=== PATIENT | female | born 1940 | race Caucasian/White ===

== ENCOUNTER → 2016-07-17 | Outpatient (CLI) | payer MEDICARE, OTHER ==
[2016-07-17 13:06] LABS: PROTHROMBIN TIME 26.6 SEC (11.4-15.4)
[2016-07-17 13:23] LABS: ANION GAP 14 (5-19); BLOOD UREA NITROGEN 36 mg/dL (7-20); CALCIUM 9.7 mg/dL (8.4-10.2); CARBON DIOXIDE 21 mmol/L (22-30); CHLORIDE 108 mmol/L (98-107); CREATININE RESULT 1.21 mg/dL (0.52-1.25); GLUCOSE 67 mg/dL (75-110); POTASSIUM 4.8 mmol/L (3.6-5.0); SODIUM 143.2 mmol/L (137-145)
== END ==
LOC: OD 11:53
PROVIDERS: ATTEND Internal Medicine Cardiovascular Disease
DX: Z79.01 Long term (current) use of anticoagulants (principal); Z79.899 Other long term (current) drug therapy
CPT/HCPCS: 36415; 80048; 85610

== ENCOUNTER → 2016-08-02 | Outpatient (CLI) | payer MEDICARE, OTHER ==
[2016-08-02 11:52] LABS: PROTHROMBIN TIME 26.2 SEC (11.4-15.4)
== END ==
LOC: OD 10:43
PROVIDERS: ATTEND Internal Medicine Cardiovascular Disease
DX: Z79.01 Long term (current) use of anticoagulants (principal)
CPT/HCPCS: 36415; 85610

== ENCOUNTER → 2016-08-29 | Outpatient (CLI) | payer MEDICARE, OTHER ==
[2016-08-29 12:09] LABS: PROTHROMBIN TIME 21.3 SEC (11.4-15.4)
== END ==
LOC: OD 10:59
PROVIDERS: ATTEND Internal Medicine Cardiovascular Disease
DX: Z79.01 Long term (current) use of anticoagulants (principal)
CPT/HCPCS: 36415; 85610

== ENCOUNTER → 2016-09-11 | Outpatient (CLI) | payer MEDICARE, OTHER ==
[2016-09-11 12:43] LABS: ANION GAP 11 (5-19); BLOOD UREA NITROGEN 32 mg/dL (7-20); CALCIUM 9.4 mg/dL (8.4-10.2); CARBON DIOXIDE 22 mmol/L (22-30); CHLORIDE 106 mmol/L (98-107); CREATININE RESULT 1.32 mg/dL (0.52-1.25); GLUCOSE 109 mg/dL (75-110); MAGNESIUM 2.4 mg/dL (1.6-2.3); POTASSIUM 4.5 mmol/L (3.6-5.0); SODIUM 138.9 mmol/L (137-145)
[2016-09-12 12:46] LABS: PROTHROMBIN TIME 29.9 SEC (11.4-15.4)
== END ==
LOC: OD 11:06
PROVIDERS: ATTEND Internal Medicine Cardiovascular Disease
DX: R06.02 Shortness of breath (principal); Z79.01 Long term (current) use of anticoagulants; Z79.899 Other long term (current) drug therapy
CPT/HCPCS: 36415; 80048; 83735; 83880; 85610

== ENCOUNTER → 2016-09-25 | Outpatient (CLI) | payer MEDICARE, OTHER ==
[2016-09-25 11:35] LABS: HEMATOCRIT 34.7 % (36.0-47.0); HEMOGLOBIN 11.6 g/dL (12.0-15.5); HGB HCT DIFFERENCE 0.1; MEAN CORPUSCULAR HEMOGLOBIN 27.9 pg (27.0-33.4); MEAN CORPUSCULAR HGB CONC 33.4 g/dL (32.0-36.0); MEAN CORPUSCULAR VOLUME 84 fl (80-97); RED BLOOD COUNT 4.14 10^6/uL (3.72-5.28); RED CELL DISTRIBUTION WIDTH 15.3 % (11.5-14.0); WHITE BLOOD COUNT 7.4 10^3/uL (4.0-10.5)
[2016-09-25 11:42] LABS: PROTHROMBIN TIME 26.5 SEC (11.4-15.4)
[2016-09-25 11:48] LABS: APPEARANCE,URINE CLEAR; BILIRUBIN,URINE NEGATIVE (NEGATIVE); GLUCOSE, URINE NEGATIVE (NEGATIVE); KETONES,URINE NEGATIVE (NEGATIVE); LEUKOCYTE ESTERASE,URINE TRACE (NEGATIVE); NITRITE,URINE NEGATIVE (NEGATIVE); PROTEIN,URINE NEGATIVE (NEGATIVE); URINE SPECIFIC GRAVITY 1.008; UROBILINOGEN,URINE NEGATIVE mg/dL (<2.0)
[2016-09-25 11:53] LABS: ANION GAP 13 (5-19); BLOOD UREA NITROGEN 30 mg/dL (7-20); CALCIUM 9.5 mg/dL (8.4-10.2); CARBON DIOXIDE 23 mmol/L (22-30); CHLORIDE 105 mmol/L (98-107); CREATININE RESULT 1.21 mg/dL (0.52-1.25); GLUCOSE 109 mg/dL (75-110); POTASSIUM 4.8 mmol/L (3.6-5.0); SODIUM 140.8 mmol/L (137-145)
== END ==
LOC: OD 10:31
PROVIDERS: ATTEND Internal Medicine Nephrology
DX: I12.9 Hypertensive chronic kidney disease with stage 1 through stage 4 chronic kidney disease, or unspecified chronic kidney disease (principal); N18.4 Chronic kidney disease, stage 4 (severe); I50.9 Heart failure, unspecified; E11.9 Type 2 diabetes mellitus without complications; Z79.01 Long term (current) use of anticoagulants
CPT/HCPCS: 36415; 80048; 81001; 85027; 85610

== ENCOUNTER 2016-10-05 11:59 | Observation (INO) | payer MEDICARE, OTHER ==
--- NOTE | 2016-10-05 12:17 | ER Document Report ---
ED Medical Screen (RME) - General Stated Complaint: CHEST PAIN Notes: Patient complains of intermittent chest pain since Saturday or Saturday. Feels like spasms. Patient has a history of A. fib, hypertension and diabetes. Patient also has a history of COPD and is experiencing shortness of breath. No pain radiation. Patient already took 81 mg aspirin this morning. I have greeted and performed a rapid initial assessment of this patient. A comprehensive ED assessment and evaluation of the patient, analysis of test results and completion of the medical decision making process will be conducted by additional ED providers. TRAVEL OUTSIDE OF THE [place] IN LAST 30 DAYS: No - Related Data Allergies/Adverse Reactions: No Known Allergies Allergy (Verified 10/05/16 12:16) Past Medical History - Past Medical History Cardiac Medical History: Reports: Hx Atrial Fibrillation, Hx Congestive Heart Failure, Hx Hypercholesterolemia, Hx Hypertension - MEDICATION Denies: Hx Heart Attack Pulmonary Medical History: Reports: Hx COPD Denies: Hx Asthma, Hx Tuberculosis Neurological Medical History: Reports: Hx Cerebrovascular Accident - 1997. Denies: Hx Seizures Endocrine Medical History: Reports: Hx Diabetes Mellitus Type 2 GI Medical History: Reports: Hx Ulcer - APPROX 98 BUT HASN'T SINCE THEN. Denies : Hx Hiatal Hernia Past Surgical History: Reports: Hx Cholecystectomy, Hx Orthopedic Surgery - L hip, Hx Thyroid Surgery. Denies: Hx Hysterectomy, Hx Mastectomy, Hx Open Heart Surgery - Immunizations Hx Diphtheria, Pertussis, Tetanus Vaccination: Yes Physical Exam - Cardiovascular Rhythm: Irregularly irregular
[2016-10-05] MEDS ORDERED: ASPIRIN 81 MG TABLET, CHEWABLE PO ONE (12:18)
[2016-10-05 12:57] LABS: ABSOLUTE BASOPHILS # (AUTO) 0.1 10^3/uL (0.0-0.2); ABSOLUTE EOSINOPHILS # (AUTO) 0.2 10^3/uL (0.0-0.6); ABSOLUTE LYMPHOCYTES (AUTO) 1.5 10^3/uL (0.5-4.7); BASOPHILS % (AUTO) 1.2 % (0-2); EOSINOPHILS % (AUTO) 1.7 % (0-6); HEMATOCRIT 35.6 % (36.0-47.0); HEMOGLOBIN 11.9 g/dL (12.0-15.5); HGB HCT DIFFERENCE 0.1; LYMPHOCYTES % (AUTO) 11.7 % (13-45); MEAN CORPUSCULAR HEMOGLOBIN 28.1 pg (27.0-33.4); MEAN CORPUSCULAR HGB CONC 33.3 g/dL (32.0-36.0); MEAN CORPUSCULAR VOLUME 84 fl (80-97); MONOCYTES % (AUTO) 7.7 % (3-13); RED BLOOD COUNT 4.23 10^6/uL (3.72-5.28); RED CELL DISTRIBUTION WIDTH 15.4 % (11.5-14.0); SEGMENTED NEUTROPHILS % (AUTO) 77.7 % (42-78); WHITE BLOOD COUNT 12.9 10^3/uL (4.0-10.5)
[2016-10-05 13:02] LABS: PROTHROMBIN TIME 23.2 SEC (11.4-15.4)
[2016-10-05 13:14] LABS: ALANINE AMINOTRANSFERASE 29 U/L (9-52); ALBUMIN 4.1 g/dL (3.5-5.0); ALKALINE PHOSPHATASE 70 U/L (38-126); ANION GAP 15 (5-19); ASPARTATE AMINO TRANSFERASE 23 U/L (14-36); BILIRUBIN,DIRECT 0.3 mg/dL (0.0-0.4); BILIRUBIN,TOTAL 0.7 mg/dL (0.2-1.3); BLOOD UREA NITROGEN 45 mg/dL (7-20); CALCIUM 9.6 mg/dL (8.4-10.2); CARBON DIOXIDE 24 mmol/L (22-30); CHLORIDE 103 mmol/L (98-107); CREATINE KINASE 159 U/L (30-135); CREATININE RESULT 1.41 mg/dL (0.52-1.25); GLUCOSE 144 mg/dL (75-110); POTASSIUM 4.4 mmol/L (3.6-5.0); TOTAL PROTEIN 7.2 g/dL (6.3-8.2)
[2016-10-05 13:25] LABS: CREATINE KINASE MB 2.31 ng/mL (<4.55); TROPONIN I 0.015 ng/mL
--- NOTE | 2016-10-05 13:45 | ER Document Report ---
ED General - General Chief Complaint: Chest Pain Stated Complaint: CHEST PAIN Mode of Arrival: Ambulatory Information source: Patient Notes: 76 yr old female presents with complaints of chest pain. presents with cramping on the left side today, had midsternal pain a few days ago. denies any fevers or chills, nausea or vomiting TRAVEL OUTSIDE OF THE [place] IN LAST 30 DAYS: No - HPI Onset: This morning Onset/Duration: Sudden Quality of pain: Cramping Severity: Mild Pain Level: 1 Associated symptoms: Chest pain Exacerbated by: Denies Relieved by: Denies Similar symptoms previously: No Recently seen / treated by doctor: No - Related Data Allergies/Adverse Reactions: No Known Allergies Allergy (Verified 10/05/16 12:16) Past Medical History - Social History Smoking Status: Never Smoker Cigarette use (# per day): No Chew tobacco use (# tins/day): No Smoking Education Provided: No Frequency of alcohol use: None Drug Abuse: None Family History: Reviewed & Not Pertinent Patient has suicidal ideation: No Patient has homicidal ideation: No - Past Medical History Cardiac Medical History: Reports: Hx Atrial Fibrillation, Hx Congestive Heart Failure, Hx Hypercholesterolemia, Hx Hypertension - MEDICATION Denies: Hx Heart Attack Pulmonary Medical History: Reports: Hx COPD Denies: Hx Asthma, Hx Tuberculosis Neurological Medical History: Reports: Hx Cerebrovascular Accident - 1997. Denies: Hx Seizures Endocrine Medical History: Reports: Hx Diabetes Mellitus Type 2 Renal/ Medical History: Denies: Hx Peritoneal Dialysis GI Medical History: Reports: Hx Ulcer - APPROX 98 BUT HASN'T SINCE THEN. Denies : Hx Hiatal Hernia Past Surgical History: Reports: Hx Cholecystectomy, Hx Orthopedic Surgery - L hip, Hx Thyroid Surgery. Denies: Hx Hysterectomy, Hx Mastectomy, Hx Open Heart Surgery - Immunizations Hx Diphtheria, Pertussis, Tetanus Vaccination: Yes Hx Pneumococcal Vaccination: 08/06/12 Review of Systems - Review of Systems Notes: REVIEW OF SYSTEMS: CONSTITUTIONAL : Denies fever, chills, or sweats. Denies recent illness. EENT: Denies eye, ear, throat, or mouth pain or symptoms. Denies nasal or sinus congestion or discharge. Denies throat, tongue, or mouth swelling or difficulty swallowing. CARDIOVASCULAR: admits ot chest pain RESPIRATORY: Denies cough, cold, or chest congestion. Denies shortness of breath, difficulty breathing, or wheezing. GASTROINTESTINAL: Denies abdominal pain or distention. Denies nausea, vomiting , or diarrhea. Denies blood in vomitus, stools, or per rectum. Denies black, tarry stools. Denies constipation. GENITOURINARY: Denies difficulty urinating, painful urination, burning, frequency, blood in urine, or discharge. FEMALE GENITOURINARY: Denies vaginal bleeding, heavy or abnormal periods, irregular periods. Denies vaginal discharge or odor. MUSCULOSKELETAL: Denies back or neck pain or stiffness. Denies joint pain or swelling. SKIN: Denies rash, lesions or sores. HEMATOLOGIC : Denies easy bruising or bleeding. LYMPHATIC: Denies swollen, enlarged glands. NEUROLOGICAL: Denies confusion or altered mental status. Denies passing out or loss of consciousness. Denies dizziness or lightheadedness. Denies headache. Denies weakness or paralysis or loss of use of either side. Denies problems with gait or speech. Denies sensory loss, numbness, or tingling. Denies seizures. PSYCHIATRIC: Denies anxiety or stress. Denies depression, suicidal ideation, or homicidal ideation. ALL OTHER SYSTEMS REVIEWED AND NEGATIVE. Dictation was performed using [employer] voice recognition software PHYSICAL EXAMINATION: GENERAL: Well-appearing, well-nourished and in no acute distress. HEAD: Atraumatic, normocephalic. EYES: Pupils equal round and reactive to light, extraocular movements intact, conjunctiva are normal. ENT: Nares patent, oropharynx clear without exudates. Moist mucous membranes. NECK: Normal range of motion, supple without lymphadenopathy LUNGS: Breath sounds clear to auscultation bilaterally and equal. No wheezes rales or rhonchi. HEART: irregular rate and rythm ABDOMEN: Soft, nontender, nondistended abdomen. No guarding, no rebound. No masses appreciated. Female : deferred Musculoskeletal: Normal range of motion, no pitting or edema. No cyanosis. NEUROLOGICAL: Cranial nerves grossly intact. Normal speech, normal gait. Normal sensory, motor exams PSYCH: Normal mood, normal affect. SKIN: Warm, Dry, normal turgor, no rashes or lesions noted. Physical Exam - Vital signs Vitals: Temp Pulse Resp BP Pulse Ox 98.2 F 84 20 126/50 H 95 10/05/16 12:16 10/05/16 12:16 10/05/16 12:16 10/05/16 12:16 10/05/16 12:16 Course - Re-evaluation Re-evalutation: 10/05/16 13:45 cardiac enzymes ekg are normal except for baseline afib. pt denies pain at this time patient admitted to her primary care physician 10/05/16 13:57 - Vital Signs Vital signs: Temp Pulse Resp BP Pulse Ox 98.2 F 84 21 H 142/62 H 97 10/05/16 12:16 10/05/16 12:16 10/05/16 13:02 10/05/16 13:02 10/05/16 13:02 - Laboratory Result Diagrams: 10/05/16 12:26 10/05/16 12:26 Laboratory results interpreted by me: 10/05/16 10/05/16 10/05/16 12:26 12:26 12:26 WBC 12.9 H Hgb 11.9 L Hct 35.6 L RDW 15.4 H Lymphocytes % 11.7 L Absolute Neutrophils 10.0 H PT 23.2 H BUN 45 H Creatinine 1.41 H Est GFR ( Amer) 44 L Est GFR (Non-Af Amer) 36 L Glucose 144 H Creatine Kinase 159 H - Diagnostic Test Radiology reviewed: Image reviewed, Reports reviewed - EKG Interpretation by Me EKG shows normal: Sinus rhythm, [place], Intervals, QRS Complexes Discharge - Discharge Clinical Impression: Chest pain Qualifiers: Chest pain type: unspecified Qualified Code(s): R07.9 - Chest pain, unspecified Atrial fibrillation Qualifiers: Atrial fibrillation type: chronic Qualified Code(s): I48.2 - Chronic atrial fibrillation Condition: Stable Disposition: ADMITTED OBSERVATION Admitting Provider: [facility] Unit Admitted: Telemetry
[2016-10-05 15:48] LABS: PROTHROMBIN TIME 23.3 SEC (11.4-15.4)
[2016-10-05] MEDS ORDERED: DEXTROSE 50%-WATER SYRINGE 12.5 GM/25 ML DOSE IV PRN (17:45)
[2016-10-05] MEDS ORDERED: DEXTROSE 50%-WATER SYRINGE 25 GM/50 ML DOSE IV PRN (17:45)
[2016-10-05] MEDS ORDERED: DEXTROSE 40% GEL 15 GM TUBE X 2 PO PRN (17:45)
[2016-10-05] MEDS ORDERED: DEXTROSE 40% GEL 15 GM TUBE PO PRN (17:45)
[2016-10-05] MEDS ORDERED: GLUCAGON,HUMAN RECOMB 1 MG INJ IM PRN (17:45)
[2016-10-05] MEDS ORDERED: INSULIN LISPRO 100 UNIT/ML 3 ML VIAL SUBCUT PRN (17:45)
[2016-10-05] MEDS ORDERED: HYDROCODONE/ACETAMINOPHEN 5-325 MG TABLET PO PRN (18:31)
[2016-10-05] MEDS ORDERED: (PENDING PHARMACY ID) (Linagliptin [Tradjenta] 5 MG) PO SCH (18:45)
[2016-10-05] MEDS ORDERED: (PENDING PHARMACY ID) (Metoprolol Succinate [Toprol Xl 200 Mg Tablet] 200 MG) PO SCH (18:45)
[2016-10-05] MEDS ORDERED: FLUTICASONE/SALMETEROL DISKUS 250-50 MCG/DOSE IH SCH (18:45)
[2016-10-05 19:17] LABS: CREATINE KINASE MB 2.15 ng/mL (<4.55); TROPONIN I 0.015 ng/mL
[2016-10-05] MEDS ORDERED: LEVOTHYROXINE SODIUM 0.15 MG TABLET PO ONE (19:30)
[2016-10-05] MEDS ORDERED: TIOTROPIUM BROMIDE DPI 5 CAP/KIT (18 MCG/CAP) IH ONE (19:30)
[2016-10-05] MEDS ORDERED: ASPIRIN 81 MG TABLET, ENT COATED PO ONE (19:30)
[2016-10-05] MEDS ORDERED: ATORVASTATIN CALCIUM 10 MG TABLET PO ONE (19:30)
[2016-10-05] MEDS ORDERED: GLIPIZIDE 5 MG TABLET PO ONE (19:30)
[2016-10-05] MEDS ORDERED: METOPROLOL SUCCINATE 50 MG TAB.SR.24H PO ONE (19:30)
[2016-10-05] MEDS ORDERED: INSULIN DETEMIR 100 UNIT/ML 3 ML PEN SUBCUT ONE (19:30)
[2016-10-05] MEDS ORDERED: RALOXIFENE HCL 60 MG TABLET PO ONE (19:30)
[2016-10-05] MEDS: FLUTICASONE/SALMETEROL DISKUS 250-50 MCG/DOSE IH SCH (21:12)
[2016-10-05] MEDS: HYDRALAZINE HCL 50 MG TABLET PO SCH (21:53)
--- NOTE | 2016-10-05 21:58 | EKG REPORT ---
SEVERITY:- ABNORMAL ECG - ATRIAL FIBRILLATION, V-RATE 64-88 : Confirmed by: Dar Rincon 05-Oct-2016 21:58:30
[2016-10-05] MEDS ORDERED: WARFARIN SODIUM 5 MG TABLET PO SCH ×2 (22:00)
[2016-10-06 03:16] LABS: HEMATOCRIT 34.8 % (36.0-47.0); HEMOGLOBIN 11.7 g/dL (12.0-15.5); HGB HCT DIFFERENCE 0.3; MEAN CORPUSCULAR HEMOGLOBIN 28.2 pg (27.0-33.4); MEAN CORPUSCULAR HGB CONC 33.5 g/dL (32.0-36.0); MEAN CORPUSCULAR VOLUME 84 fl (80-97); RED BLOOD COUNT 4.14 10^6/uL (3.72-5.28); RED CELL DISTRIBUTION WIDTH 15.6 % (11.5-14.0); WHITE BLOOD COUNT 10.1 10^3/uL (4.0-10.5)
[2016-10-06 03:29] LABS: PROTHROMBIN TIME 24.4 SEC (11.4-15.4)
[2016-10-06 03:48] LABS: CREATINE KINASE MB 2.04 ng/mL (<4.55); TROPONIN I 0.016 ng/mL
[2016-10-06] MEDS ORDERED: (PENDING PHARMACY ID) (Acetylcysteine [Nac 600 Mg Capsule] 600 MG) PO SCH (10:00)
[2016-10-06] MEDS ORDERED: RALOXIFENE HCL 60 MG TABLET PO SCH (10:00)
[2016-10-06] MEDS ORDERED: LEVOTHYROXINE SODIUM 0.15 MG TABLET PO SCH (10:00)
[2016-10-06] MEDS ORDERED: ASPIRIN 81 MG TABLET, ENT COATED PO SCH (10:00)
[2016-10-06] MEDS ORDERED: FUROSEMIDE 40 MG TABLET PO SCH (10:00)
[2016-10-06] MEDS ORDERED: ATORVASTATIN CALCIUM 10 MG TABLET PO SCH (10:00)
[2016-10-06] MEDS ORDERED: METOPROLOL SUCCINATE 50 MG TAB.SR.24H PO SCH (10:00)
[2016-10-06] MEDS ORDERED: INSULIN DETEMIR 100 UNIT/ML 3 ML PEN SUBCUT SCH (10:00)
[2016-10-06] MEDS ORDERED: GLIPIZIDE 5 MG TABLET PO SCH (10:00)
[2016-10-06] MEDS ORDERED: SITAGLIPTIN PHOSPHATE 50 MG TABLET PO SCH (10:00)
[2016-10-06] MEDS ORDERED: TIOTROPIUM BROMIDE DPI 5 CAP/KIT (18 MCG/CAP) IH SCH (10:00)
[2016-10-06] MEDS: HYDRALAZINE HCL 50 MG TABLET PO SCH (10:55)
[2016-10-06] MEDS: FLUTICASONE/SALMETEROL DISKUS 250-50 MCG/DOSE IH SCH (10:55)
[2016-10-06 11:34] LABS: CREATINE KINASE MB 1.98 ng/mL (<4.55)
[2016-10-06 11:38] LABS: TROPONIN I < 0.012 ng/mL
--- NOTE | 2016-10-06 13:28 | PDOC H&P ---
History of Present Illness Admission Date/PCP: 10/05/16 16:45 JEANETTE JAY MD History of Present Illness: SID MARTINEZ is a 76 year old female with type 2 diabetes mellitus, she came to the emergency room because of left sided chest pain the chest pain is atypical, the chest pain is not provoked by activity and it is not relieved with rest. The chest pain is aggravated with movement, she has the chest pain when she moves her shoulder, she was seen in the emergency room and evaluated and the emergency room physician wanted her admitted for management. She was admitted to the hospital to rule out acute coronary syndrome. 3 sets of cardiac enzymes were negative for acute OR. Past Medical History Cardiac Medical History: Reports: Atrial Fibrillation, Congestive Heart Failure , Hyperlipidema, Hypertension Pulmonary Medical History: Reports: Chronic Obstructive Pulmonary Disease (COPD) Endocrine Medical History: Reports: Diabetes Mellitus Type 2 Renal/ Medical History: Reports: Chronic Kidney Disease - Chronic kidney disease stage III GI Medical History: Past Surgical History Past Surgical History: Reports: Cholecystectomy, Orthopedic Surgery - L hip Social History Smoking Status: Former Smoker Hx Recreational Drug Use: No Drugs: None Hx Prescription Drug Abuse: No - Advance Directive Resuscitation Status: Full Code Family History Family History: Reviewed & Not Pertinent Parental Family History Reviewed: Yes Children Family History Reviewed: Yes Sibling(s) Family History Reviewed.: Yes Medication/Allergy Home Medications: RX: Acetylcysteine [NAC 600 mg Capsule] 600 mg PO BID 10/05/16 RX: Aspirin [Aspirin EC] 81 mg PO DAILY 10/05/16 RX: Atorvastatin Calcium [Lipitor 10 mg Tablet] 10 mg PO DAILY 10/05/16 RX: Fluticasone/Salmeterol [Advair 250-50 Diskus 28 dose] 1 puff IH BID RX: Furosemide [Lasix] 40 mg PO DAILY 10/05/16 RX: Glipizide [Glucotrol 5 mg Tablet] 5 mg PO BID 10/05/16 RX: Hydralazine HCl [Apresoline 50 mg Tablet] 100 mg PO BID 10/05/16 RX: Hydrocodone/Acetaminophen [[place] 5-325 mg Tablet] 1 tab PO Q4HP PRN RX: Insulin Detemir [Levemir Flextouch] 30 unit SQ DAILY 10/05/16 RX: Levothyroxine Sodium [Synthroid 0.15 mg Tablet] 150 mcg PO DAILY 10/05/16 RX: Linagliptin [Tradjenta] 5 mg PO DAILY 10/05/16 RX: Metoprolol Succinate [Toprol XL 200 mg Tablet] 200 mg PO DAILY 10/05/16 RX: Raloxifene HCl [Evista 60 mg Tablet] 60 mg PO DAILY 10/05/16 RX: Tiotropium [place] [Spiriva Handihaler 18 mcg/dose (30 Dose)] 1 cap IH DAILY 10/05/16 RX: Warfarin Sodium [Coumadin 5 mg Tablet] 5 mg PO DAILY 10/05/16 Allergies/Adverse Reactions: No Known Allergies Allergy (Verified 10/05/16 12:16) Review of Systems Constitutional: ABSENT: chills, fever(s), headache(s), weight gain, weight loss Eyes: ABSENT: visual disturbances Ears: ABSENT: hearing changes Cardiovascular: PRESENT: chest pain Respiratory: ABSENT: cough, hemoptysis Gastrointestinal: ABSENT: abdominal pain, constipation, diarrhea, hematemesis, hematochezia, nausea, vomiting Genitourinary: ABSENT: dysuria, hematuria Musculoskeletal: ABSENT: joint swelling Integumentary: ABSENT: rash, wounds Neurological: ABSENT: abnormal gait, abnormal speech, confusion, dizziness, focal weakness, syncope Psychiatric: ABSENT: anxiety, depression, homidical ideation, suicidal ideation Endocrine: ABSENT: cold intolerance, heat intolerance, menstrual abnormalities, polydipsia, polyuria Hematologic/Lymphatic: ABSENT: easy bleeding, easy bruising, lymphadenopathy Physical Exam Vital Signs: Temp Pulse Resp BP Pulse Ox 97.3 F 71 18 148/76 H 98 10/06/16 07:47 10/06/16 07:47 10/06/16 07:47 10/06/16 07:47 10/06/16 07:47 Intake & Output 10/05/16 10/06/16 10/07/16 06:59 06:59 06:59 Intake Total 120 Balance 120 General appearance: PRESENT: no acute distress, well-developed, well-nourished Head exam: PRESENT: atraumatic, normocephalic Eye exam: PRESENT: conjunctiva pink, EOMI, PERRLA Ear exam: PRESENT: normal external ear exam Mouth exam: PRESENT: moist, tongue midline Neck exam: PRESENT: full ROM Respiratory exam: PRESENT: clear to auscultation frida Cardiovascular exam: PRESENT: RRR, +S1, +S2 Vascular exam: PRESENT: normal capillary refill GI/Abdominal exam: PRESENT: normal bowel sounds, soft Rectal exam: PRESENT: deferred Neurological exam: PRESENT: alert, awake, oriented to person, oriented to place , oriented to time, oriented to situation, CN II-XII grossly intact Psychiatric exam: PRESENT: appropriate affect, normal mood Skin exam: PRESENT: dry, intact, warm Results Laboratory Results: 10/06/16 02:58 10/06/16 02:58 WBC 10.1 RBC 4.14 Hgb 11.7 L Hct 34.8 L MCV 84 MCH 28.2 MCHC 33.5 RDW 15.6 H Plt Count 173 10/05/16 10/05/16 10/06/16 18:20 18:20 02:58 Creatine Kinase 158 H 148 H CK-MB (CK-2) 2.15 Troponin I 0.015 10/06/16 10/06/16 10/06/16 02:58 10:39 10:39 Creatine Kinase 142 H CK-MB (CK-2) 2.04 1.98 Troponin I 0.016 < 0.012 Impressions: Chest X-Ray 10/05/16 12:18 IMPRESSION: NO ACUTE RADIOGRAPHIC FINDING IN THE CHEST. Assessment & Plan - Diagnosis (1) Chest pain Qualifiers: Chest pain type: unspecified Qualified Code(s): R07.9 - Chest pain, unspecified Is this a current diagnosis for this admission?: YesPlan: She was admitted for chest pain, cardiac enzymes were negative for acute OR, be discharged home (2) A-fib Qualifiers: Atrial fibrillation type: chronic Qualified Code(s): I48.2 - Chronic atrial fibrillation Is this a current diagnosis for this admission?: Yes
[2016-10-06 14:07] VITALS: BP 135/58
== END 2016-10-06 15:49 | disposition home or self-care (01) ==
LOC: ER 11:59 → EH 14:12 → UNDOADMOB 14:12 → 5 15:41 → EH 15:41 → 5 16:45 → EH 16:45
PROVIDERS: ADMIT Internal Medicine; ATTEND Internal Medicine
DX: R07.9 Chest pain, unspecified (principal); I48.2 Chronic atrial fibrillation; E11.22 Type 2 diabetes mellitus with diabetic chronic kidney disease; I13.0 Hypertensive heart and chronic kidney disease with heart failure and stage 1 through stage 4 chronic kidney disease, or unspecified chronic kidney disease; I50.9 Heart failure, unspecified; N18.3 Chronic kidney disease, stage 3 (moderate); J44.9 Chronic obstructive pulmonary disease, unspecified; Z79.4 Long term (current) use of insulin; Z87.891 Personal history of nicotine dependence
CPT/HCPCS: 93005; 99285; 36415 ×2; 82553 ×2; 82962 ×2; 82550 ×2; 85025; 85027; 85610 ×2; 80053; 84484 ×2; 71010; 93010; 94660 ×2; G0378 ×2; A9270 ×13; J3490 ×2; J1815

== ENCOUNTER → 2016-10-09 | Outpatient (CLI) | payer MEDICARE, OTHER | LOC: OD 10:08 | PROVIDERS: ATTEND Internal Medicine Cardiovascular Disease | DX: Z79.01 Long term (current) use of anticoagulants (principal) | CPT/HCPCS: 36415; 85610 ==

== ENCOUNTER → 2016-10-10 | Outpatient (CLI) | payer MEDICARE, OTHER ==
[2016-10-10 10:22] LABS: ANION GAP 12 (5-19); BLOOD UREA NITROGEN 47 mg/dL (7-20); CALCIUM 9.7 mg/dL (8.4-10.2); CARBON DIOXIDE 22 mmol/L (22-30); CHLORIDE 104 mmol/L (98-107); CREATININE RESULT 1.43 mg/dL (0.52-1.25); GLUCOSE 118 mg/dL (75-110); MAGNESIUM 2.4 mg/dL (1.6-2.3); POTASSIUM 4.5 mmol/L (3.6-5.0); SODIUM 138.4 mmol/L (137-145)
[2016-10-10 11:28] LABS: CHOLESTEROL 143.34 mg/dL (0-200); Direct HDL 41 mg/dL (>40); TRIGLYCERIDES 125 mg/dL (<150)
[2016-10-10 11:38] LABS: DIRECT LDL 63 mg/dL (<100)
== END ==
LOC: OD 09:12
PROVIDERS: ATTEND Internal Medicine Cardiovascular Disease
DX: E78.2 Mixed hyperlipidemia (principal); Z79.899 Other long term (current) drug therapy
CPT/HCPCS: 36415; 80048; 80061; 83735

== ENCOUNTER → 2016-10-17 | Outpatient (CLI) | payer MEDICARE, OTHER | LOC: RAD 11:24 | PROVIDERS: ATTEND Internal Medicine | DX: M54.12 Radiculopathy, cervical region (principal) | CPT/HCPCS: 72141 ==

== ENCOUNTER → 2016-10-22 | Outpatient (CLI) | payer MEDICARE, OTHER ==
[2016-10-22 14:15] LABS: PROTHROMBIN TIME 23.1 SEC (11.4-15.4)
== END ==
LOC: OD 13:28
PROVIDERS: ATTEND Internal Medicine Cardiovascular Disease
DX: Z79.01 Long term (current) use of anticoagulants (principal)
CPT/HCPCS: 36415; 85610

== ENCOUNTER → 2016-11-06 | Outpatient (CLI) | payer MEDICARE, OTHER ==
[2016-11-06 11:28] LABS: PROTHROMBIN TIME 32.1 SEC (11.4-15.4)
== END ==
LOC: OD 10:42
PROVIDERS: ATTEND Internal Medicine Cardiovascular Disease
DX: Z51.81 Encounter for therapeutic drug level monitoring (principal); Z79.01 Long term (current) use of anticoagulants
CPT/HCPCS: 36415; 85610

== ENCOUNTER → 2016-11-19 | Outpatient (CLI) | payer MEDICARE, OTHER ==
[2016-11-19 14:41] LABS: PROTHROMBIN TIME 25.1 SEC (11.4-15.4)
== END ==
LOC: OD 13:16
PROVIDERS: ATTEND Internal Medicine Cardiovascular Disease
DX: Z79.01 Long term (current) use of anticoagulants (principal)
CPT/HCPCS: 36415; 85610

== ENCOUNTER → 2016-12-04 | Outpatient (CLI) | payer MEDICARE, OTHER ==
[2016-12-04 11:12] LABS: PROTHROMBIN TIME 28.7 SEC (11.4-15.4)
== END ==
LOC: OD 09:13
PROVIDERS: ATTEND Internal Medicine Cardiovascular Disease
DX: Z79.01 Long term (current) use of anticoagulants (principal); Z51.81 Encounter for therapeutic drug level monitoring
CPT/HCPCS: 36415; 85610

== ENCOUNTER 2016-12-11 00:50 | Observation (INO) | payer MEDICARE, OTHER ==
[2016-12-11 01:14] LABS: ABSOLUTE BASOPHILS # (AUTO) 0.1 10^3/uL (0.0-0.2); ABSOLUTE EOSINOPHILS # (AUTO) 0.5 10^3/uL (0.0-0.6); ABSOLUTE LYMPHOCYTES (AUTO) 1.4 10^3/uL (0.5-4.7); ABSOLUTE MONOCYTES (AUTO) 1.2 10^3/uL (0.1-1.4); ABSOLUTE NEUT (AUTO) 11.7 10^3/uL (1.7-8.2); BASOPHILS % (AUTO) 0.7 % (0-2); EOSINOPHILS % (AUTO) 3.3 % (0-6); HEMATOCRIT 35.5 % (36.0-47.0); HEMOGLOBIN 11.5 g/dL (12.0-15.5); LYMPHOCYTES % (AUTO) 9.5 % (13-45); MEAN CORPUSCULAR HEMOGLOBIN 27.4 pg (27.0-33.4); MEAN CORPUSCULAR HGB CONC 32.3 g/dL (32.0-36.0); MEAN CORPUSCULAR VOLUME 85 fl (80-97); RED BLOOD COUNT 4.19 10^6/uL (3.72-5.28); RED CELL DISTRIBUTION WIDTH 14.7 % (11.5-14.0); SEGMENTED NEUTROPHILS % (AUTO) 78.5 % (42-78)
--- NOTE | 2016-12-11 01:28 | RADIOLOGY REPORT (SQ) ---
EXAM DESCRIPTION: CHEST SINGLE VIEW COMPLETED DATE/TIME: 12/11/2016 1:14 am REASON FOR STUDY: cp COMPARISON: 10/05/2016. 11/08/2015. CT, 10/05/2015. EXAM PARAMETERS: NUMBER OF VIEWS: One view. TECHNIQUE: Single frontal radiographic view of the chest acquired. RADIATION DOSE: NA LIMITATIONS: None. FINDINGS: LUNGS AND PLEURA: Small likely subsegmental atelectasis or scar of the left lower lobe. MEDIASTINUM AND HILAR STRUCTURES: No masses. Contour normal. HEART AND VASCULAR STRUCTURES: Heart normal in size. Atherosclerosis. BONES: No acute findings. HARDWARE: None in the chest. OTHER: No other significant finding. IMPRESSION: NO ACUTE RADIOGRAPHIC FINDING IN THE CHEST. TECHNICAL DOCUMENTATION: JOB ID: [id number]
[2016-12-11 01:36] LABS: ALANINE AMINOTRANSFERASE 27 U/L (9-52); ALBUMIN 3.8 g/dL (3.5-5.0); ALKALINE PHOSPHATASE 105 U/L (38-126); ANION GAP 13 (5-19); ASPARTATE AMINO TRANSFERASE 26 U/L (14-36); BILIRUBIN,DIRECT 0.4 mg/dL (0.0-0.4); BILIRUBIN,TOTAL 0.6 mg/dL (0.2-1.3); BLOOD UREA NITROGEN 50 mg/dL (7-20); CALCIUM 9.4 mg/dL (8.4-10.2); CARBON DIOXIDE 22 mmol/L (22-30); CHLORIDE 101 mmol/L (98-107); CREATINE KINASE 209 U/L (30-135); GLUCOSE 258 mg/dL (75-110); POTASSIUM 4.5 mmol/L (3.6-5.0); SODIUM 135.9 mmol/L (137-145)
[2016-12-11 01:48] LABS: CREATINE KINASE MB 1.76 ng/mL (<4.55); TROPONIN I < 0.012 ng/mL
--- NOTE | 2016-12-11 02:19 | ER Document Report ---
ED Cardiac - General Chief Complaint: Chest Pain Stated Complaint: CHEST PAIN Time Seen by Provider: 12/11/16 01:55 Notes: The patient is a 76-year-old female, past medical history diabetes, hypertension , A. fib, angina, sleep apnea (on home 2L O2 at night), presents with her usual anginal symptoms. She has diffuse chest pressure. He took a nitro at home, but this did not relieve her pressure. She took another nitro, 324 mg aspirin and called 911. Her courtesy clerk, Dr. Jay, told her that if nitro did not relieve her pressure to come to the ER. Patient is currently chest pain-free and is having no shortness of breath. She said that she was having intermittent pleurisy yesterday, but this is also resolved. She denies fevers, nausea, vomiting, abdominal pain, cough, leg swelling, hemoptysis, urinary symptoms or recent steroid use. TRAVEL OUTSIDE OF THE [place] IN LAST 30 DAYS: No - Related Data Allergies/Adverse Reactions: No Known Allergies Allergy (Verified 10/05/16 12:16) Past Medical History - General Information source: Patient - Social History Smoking Status: Unknown if Ever Smoked Family History: Reviewed & Not Pertinent - Past Medical History Cardiac Medical History: Reports: Hx Atrial Fibrillation, Hx Congestive Heart Failure, Hx Hypercholesterolemia, Hx Hypertension Denies: Hx Heart Attack Pulmonary Medical History: Reports: Hx COPD Denies: Hx Asthma, Hx Tuberculosis Neurological Medical History: Reports: Hx Cerebrovascular Accident - 1997. Denies: Hx Seizures Endocrine Medical History: Reports: Hx Diabetes Mellitus Type 2 Renal/ Medical History: Denies: Hx Peritoneal Dialysis GI Medical History: Reports: Hx Ulcer - APPROX 98 BUT HASN'T SINCE THEN. Denies : Hx Hiatal Hernia Infectious Medical History: Past Surgical History: Reports: Hx Cholecystectomy, Hx Orthopedic Surgery - L hip, Hx Thyroid Surgery. Denies: Hx Hysterectomy, Hx Mastectomy, Hx Open Heart Surgery - Immunizations Hx Diphtheria, Pertussis, Tetanus Vaccination: Yes Hx Pneumococcal Vaccination: 08/06/12 Review of Systems - Review of Systems Notes: REVIEW OF SYSTEMS: CONSTITUTIONAL: -fevers, -chills EENT: -eye pain, -difficulty swallowing, -nasal congestion CARDIOVASCULAR: +chest pain, -syncope. RESPIRATORY: -cough, -SOB GASTROINTESTINAL: -abdominal pain, - nausea, -vomiting, -diarrhea GENITOURINARY: -dysuria, -hematuria MUSCULOSKELETAL: -back pain, -neck pain SKIN: -rash or skin lesions. HEMATOLOGIC: -easy bruising or bleeding. LYMPHATIC: -swollen, enlarged glands. NEUROLOGICAL: -altered mental status or loss of consciousness, -headache, - neurologic symptoms PSYCHIATRIC: -anxiety, -depression. ALL OTHER SYSTEMS REVIEWED AND NEGATIVE. Physical Exam - Vital signs Vitals: Pulse Ox 94 12/11/16 00:55 - Notes Notes: PHYSICAL EXAMINATION: GENERAL: Well-appearing, well-nourished and in no acute distress. HEAD: Atraumatic, normocephalic. EYES: Pupils equal round and reactive to light, extraocular movements intact, sclera anicteric, conjunctiva are normal. ENT: nares patent, oropharynx clear without exudates. Moist mucous membranes. NECK: Normal range of motion, supple without lymphadenopathy LUNGS: Breath sounds clear to auscultation bilaterally and equal. No wheezes rales or rhonchi. HEART: Irregular rhythm ABDOMEN: Soft, nontender, normoactive bowel sounds. No guarding, no rebound. No masses appreciated. EXTREMITIES: Normal range of motion, no pitting or edema. No cyanosis. NEUROLOGICAL: Cranial nerves grossly intact. Normal speech, normal gait. Normal sensory and motor exams. PSYCH: Normal mood, normal affect. SKIN: Warm, Dry, normal turgor, no rashes or lesions noted. Course - Re-evaluation Re-evalutation: Pt is chest pain free. Her EKG does not show any ischemic changes. She has a slight leukocytosis, but no signs of infection at this time and no recent steroid use. Her creatinine is at baseline for her. 2 troponins are negative. Pt states that she had a stress test 2 weeks ago, which was positive for active ischemia. Her HEART score is 7. 12/11/16 03:[address] Zamudio and will bring patient in for chest pain observation to Tele. - Vital Signs Vital signs: Temp Pulse Resp BP Pulse Ox 25 H 147/55 H 93 12/11/16 01:01 12/11/16 01:01 12/11/16 01:01 - Laboratory Result Diagrams: 12/11/16 01:00 12/11/16 01:00 Laboratory results interpreted by me: 12/11/16 12/11/16 12/11/16 01:00 01:00 02:30 WBC 15.0 H Hgb 11.5 L Hct 35.5 L RDW 14.7 H Seg Neutrophils % 78.5 H Lymphocytes % 9.5 L Absolute Neutrophils 11.7 H Sodium 135.9 L BUN 50 H Creatinine 1.60 H Est GFR ( Amer) 38 L Est GFR (Non-Af Amer) 31 L Glucose 258 H Creatine Kinase 209 H Urine Blood SMALL H - Diagnostic Test Radiology reviewed: Image reviewed, Reports reviewed Radiology results interpreted by me: CXR: NAD - EKG Interpretation by Me EKG shows normal: [place], Intervals, QRS Complexes, ST-T Waves Rate: Tachycardia Rhythm: A.Fib Discharge - Discharge Clinical Impression: Chest pain Qualifiers: Chest pain type: unspecified Qualified Code(s): R07.9 - Chest pain, unspecified Leukocytosis Qualifiers: Leukocytosis type: unspecified Qualified Code(s): D72.829 - Elevated white blood cell count, unspecified Condition: Stable Disposition: ADMITTED OBSERVATION Admitting Provider: [facility] Unit Admitted: Telemetry Referrals: SONU ZAMUDIO MD [Primary Care Provider] - Follow up tomorrow JEANETTE JAY MD [EMERITUS] - Follow up tomorrow
[2016-12-11 03:07] LABS: APPEARANCE,URINE CLEAR; BILIRUBIN,URINE NEGATIVE (NEGATIVE); GLUCOSE, URINE NEGATIVE (NEGATIVE); KETONES,URINE NEGATIVE (NEGATIVE); LEUKOCYTE ESTERASE,URINE NEGATIVE (NEGATIVE); NITRITE,URINE NEGATIVE (NEGATIVE); PROTEIN,URINE NEGATIVE (NEGATIVE); URINE SPECIFIC GRAVITY 1.008; UROBILINOGEN,URINE NEGATIVE mg/dL (<2.0)
[2016-12-11] MEDS ORDERED: DEXTROSE 40% GEL 15 GM TUBE PO PRN (06:55)
[2016-12-11] MEDS ORDERED: DEXTROSE 50%-WATER SYRINGE 25 GM/50 ML DOSE IV PRN (06:55)
[2016-12-11] MEDS ORDERED: DEXTROSE 40% GEL 15 GM TUBE X 2 PO PRN (06:55)
[2016-12-11] MEDS ORDERED: GLUCAGON,HUMAN RECOMB 1 MG INJ IM PRN (06:55)
[2016-12-11] MEDS ORDERED: DEXTROSE 50%-WATER SYRINGE 12.5 GM/25 ML DOSE IV PRN (06:55)
[2016-12-11] MEDS ORDERED: OXYCODONE-ACETAMINOPHEN 5-325 MG TABLET PO PRN (07:47)
[2016-12-11] MEDS: OXYCODONE-ACETAMINOPHEN 5-325 MG TABLET PO PRN ×2 (08:16→12:40)
[2016-12-11 11:47] LABS: CREATINE KINASE MB 1.94 ng/mL (<4.55)
[2016-12-11 11:51] LABS: TROPONIN I < 0.012 ng/mL
--- NOTE | 2016-12-11 12:15 | EKG REPORT ---
SEVERITY:- ABNORMAL ECG - ATRIAL FIBRILLATION, V-RATE 77-133 BORDERLINE INFERIOR Q WAVES BORDERLINE PROLONGED QT INTERVAL : Confirmed by: Yolanda Hendrickson MD 11-Dec-2016 12:14:37
[2016-12-11] MEDS: INSULIN LISPRO 100 UNIT/ML 3 ML VIAL SUBCUT PRN ×2 (16:29→22:19)
[2016-12-11] MEDS ORDERED: FUROSEMIDE 40 MG TABLET PO PRN (16:31)
[2016-12-11] MEDS ORDERED: NITROGLYCERIN 0.4 MG/TAB 25 TAB/BOTTLE SL PRN (16:44)
[2016-12-11 17:01] LABS: TROPONIN I < 0.012 ng/mL
[2016-12-11] MEDS ORDERED: GLIPIZIDE 5 MG TABLET PO SCH (18:00)
[2016-12-11 18:17] LABS: ABSOLUTE BASOPHILS # (AUTO) 0.2 10^3/uL (0.0-0.2); ABSOLUTE EOSINOPHILS # (AUTO) 0.3 10^3/uL (0.0-0.6); ABSOLUTE LYMPHOCYTES (AUTO) 1.8 10^3/uL (0.5-4.7); ABSOLUTE MONOCYTES (AUTO) 1.8 10^3/uL (0.1-1.4); BASOPHILS % (AUTO) 0.9 % (0-2); EOSINOPHILS % (AUTO) 1.5 % (0-6); HEMATOCRIT 35.6 % (36.0-47.0); HEMOGLOBIN 11.4 g/dL (12.0-15.5); HGB HCT DIFFERENCE -1.4; LYMPHOCYTES % (AUTO) 9.9 % (13-45); MEAN CORPUSCULAR HEMOGLOBIN 27.3 pg (27.0-33.4); MEAN CORPUSCULAR HGB CONC 32.1 g/dL (32.0-36.0); MEAN CORPUSCULAR VOLUME 85 fl (80-97); MONOCYTES % (AUTO) 10.1 % (3-13); RED BLOOD COUNT 4.19 10^6/uL (3.72-5.28); RED CELL DISTRIBUTION WIDTH 14.9 % (11.5-14.0); SEGMENTED NEUTROPHILS % (AUTO) 77.6 % (42-78)
--- NOTE | 2016-12-11 19:25 | PDOC H&P ---
History of Present Illness Admission Date/PCP: 12/11/16 06:20 SONU ZAMUDIO MD History of Present Illness: SID MARTINEZ is a 76 year old female, she has a history of type 2 diabetes mellitus, chronic kidney disease stage III, with a serum creatinine 1.6, atrophic right kidney, chronic atrial fibrillation on chronic anticoagulation with Coumadin. She had substernal chest pressure yesterday, the symptoms was provoked by emotional outbursts, she was upset regarding some unspecified orders she received. She took nitroglycerin, twice without improvement in her symptoms, she came to the emergency room for evaluation, she was evaluated in the emergency room, hospital admission was advised. She was admitted back on October 05, 2016 for evaluation of chest pain, at that time she ruled out for DE, she was discharged home for outpatient stress test was She had a Cardiolite Lexiscan stress test on 11/14/2016, the stress test demonstrated abnormal myocardial perfusion defect, there was scintigraphic evidence of small area mild IV Lexiscan induced reversible ischemic defect in the apical anterior wall on apical anteroseptal wall. There was also scintigraphic evidence of small area of mild fixed perfusion defect in the basal inferior wall. Patient was optimized on medical therapy. Because patient had another episode of chest pain yesterday provoked by emotional in the setting of, abnormal nuclear stress test it was felt after consultation with cardiology, Dr. Jenkins that the best plan of care at this time would be cardiac catheterization Past Medical History Cardiac Medical History: Reports: Atrial Fibrillation, Hyperlipidema, Hypertension Pulmonary Medical History: Reports: Chronic Obstructive Pulmonary Disease (COPD) Endocrine Medical History: Reports: Diabetes Mellitus Type 2 Renal/ Medical History: Reports: Chronic Kidney Disease - Chronic kidney disease stage III, Other - Atrophic right kidney GI Medical History: Past Surgical History Past Surgical History: Reports: Cholecystectomy Social History Smoking Status: Former Smoker Hx Recreational Drug Use: No Drugs: None Hx Prescription Drug Abuse: No - Advance Directive Resuscitation Status: Full Code Family History Family History: Reviewed & Not Pertinent Parental Family History Reviewed: Yes Children Family History Reviewed: Yes Sibling(s) Family History Reviewed.: Yes Medication/Allergy Home Medications: Aspirin [Aspirin 81 mg Chewable Tablet] 81 mg PO DAILY 12/11/16 Atorvastatin Calcium [Lipitor 10 mg Tablet] 10 mg PO QHS 12/11/16 Cyanocobalamin (Vitamin B-12) [Vitamin B-12] 1,000 mcg SL DAILY 12/11/16 Diltiazem HCl [Diltiazem 24Hr Cd] 180 mg PO DAILY 12/11/16 Fluticasone/Salmeterol [Advair 250-50 Diskus 28 dose] 1 inh IH Q12 12/11/16 Furosemide [Lasix] 40 mg PO BIDP PRN 12/11/16 Glipizide [Glocotrol 5 Mg Tablet] 5 mg PO BID 12/11/16 Hydralazine HCl [Apresoline 50 mg Tablet] 100 mg PO Q12 12/11/16 Insulin Detemir [Levemir Flextouch] 35 unit SQ DAILY 12/11/16 Levothyroxine Sodium [Synthroid] 150 mcg PO DAILY 12/11/16 Linagliptin [Tradjenta] 5 mg PO DAILY 12/11/16 Metoprolol Succinate [Toprol XL 200 mg Tablet] 200 mg PO DAILY 12/11/16 Nitroglycerin [Nitrostat] 0.4 mg SL ASDIR PRN 12/11/16 Raloxifene HCl [Evista 60 mg Tablet] 60 mg PO DAILY 12/11/16 Telmisartan [Micardis 80 mg Tablet] 80 mg PO DAILY 12/11/16 Tiotropium [place] [Spiriva Handihaler 18 mcg/dose (30 Dose)] 1 cap IH DAILY 12/22 Warfarin Sodium [Coumadin 5 mg Tablet] 2.5 mg PO WESA@219912/11/16 Warfarin Sodium [Coumadin 5 mg Tablet] 5 mg PO SUMOTUTHFR@219912/11/16 Allergies/Adverse Reactions: No Known Allergies Allergy (Verified 10/05/16 12:16) Review of Systems Constitutional: ABSENT: chills, fever(s), headache(s), weight gain, weight loss Eyes: ABSENT: visual disturbances Ears: ABSENT: hearing changes Cardiovascular: PRESENT: chest pain Respiratory: ABSENT: cough, hemoptysis Gastrointestinal: ABSENT: abdominal pain, constipation, diarrhea, hematemesis, hematochezia, nausea, vomiting Genitourinary: ABSENT: dysuria, hematuria Musculoskeletal: ABSENT: joint swelling Integumentary: ABSENT: rash, wounds Neurological: ABSENT: abnormal gait, abnormal speech, confusion, dizziness, focal weakness, syncope Psychiatric: ABSENT: anxiety, depression, homidical ideation, suicidal ideation Endocrine: ABSENT: cold intolerance, heat intolerance, menstrual abnormalities, polydipsia, polyuria Hematologic/Lymphatic: ABSENT: easy bleeding, easy bruising, lymphadenopathy Physical Exam Vital Signs: Temp Pulse Resp BP Pulse Ox 98.1 F 106 H 16 111/60 98 12/11/16 16:00 12/11/16 16:00 12/11/16 16:00 12/11/16 16:00 12/11/16 16:00 Intake & Output 12/10/16 12/11/16 12/12/16 06:59 06:59 06:59 Intake Total 180 Output Total 400 Balance -220 General appearance: PRESENT: no acute distress, well-developed, well-nourished Head exam: PRESENT: atraumatic, normocephalic Eye exam: PRESENT: conjunctiva pink, EOMI, PERRLA Ear exam: PRESENT: normal external ear exam Mouth exam: PRESENT: moist, tongue midline Neck exam: PRESENT: full ROM Respiratory exam: PRESENT: clear to auscultation frida Cardiovascular exam: PRESENT: RRR, +S1, +S2 Vascular exam: PRESENT: normal capillary refill GI/Abdominal exam: PRESENT: normal bowel sounds, soft Rectal exam: PRESENT: deferred Neurological exam: PRESENT: alert, awake, oriented to person, oriented to place , oriented to time, oriented to situation, CN II-XII grossly intact Psychiatric exam: PRESENT: appropriate affect, normal mood Skin exam: PRESENT: dry, intact, warm Results Laboratory Results: 12/11/16 18:10 12/11/16 18:10 WBC 18.0 H RBC 4.19 Hgb 11.4 L Hct 35.6 L MCV 85 MCH 27.3 MCHC 32.1 RDW 14.9 H Plt Count 227 Seg Neutrophils % 77.6 Lymphocytes % 9.9 L Monocytes % 10.1 Eosinophils % 1.5 Basophils % 0.9 Absolute Neutrophils 14.0 H Absolute Lymphocytes 1.8 Absolute Monocytes 1.8 H Absolute Eosinophils 0.3 Absolute Basophils 0.2 12/11/16 12/11/16 12/11/16 10:19 10:19 16:07 Creatine Kinase 135 133 CK-MB (CK-2) 1.94 Troponin I < 0.012 12/11/16 16:07 Creatine Kinase CK-MB (CK-2) 1.40 Troponin I < 0.012 Impressions: Chest X-Ray 12/11/16 00:57 IMPRESSION: NO ACUTE RADIOGRAPHIC FINDING IN THE CHEST. Assessment & Plan - Diagnosis (1) Chest pain Qualifiers: Chest pain type: chest pain due to myocardial ischemia Ischemic chest pain type: other angina pectoris type Qualified Code(s): I20.8 - Other forms of angina pectoris Is this a current diagnosis for this admission?: YesPlan: Patient chest pain is very suspicious for angina, she has chest pain, substernal pressure-like provoked by emotion. 3 sets of cardiac enzymes are negative for acute DE, (2) Abnormal nuclear stress test Is this a current diagnosis for this admission?: Yes (3) Chronic kidney disease, stage III (moderate) Is this a current diagnosis for this admission?: Yes (4) Chronic atrial fibrillation Is this a current diagnosis for this admission?: Yes (5) Type 2 diabetes mellitus Qualifiers: Diabetes mellitus complication status: with neurologic complications Diabetes mellitus complication detail: with polyneuropathy Diabetes mellitus director long term care insulin use: with director long term care use Qualified Code(s): E11.42 - Type 2 diabetes mellitus with diabetic polyneuropathy; 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
--- NOTE | 2016-12-11 19:31 | PDOC TRANSFER SUMMARY ---
General Admission Date/PCP: 12/11/16 06:20 SONU ZAMUDIO MD Accepting Facility: [facility] Resuscitation Status: Full Code - Transfer Diagnosis (1) Chest pain Is this a current diagnosis for this admission?: Yes (2) Abnormal nuclear stress test Is this a current diagnosis for this admission?: Yes (3) Chronic kidney disease, stage III (moderate) Is this a current diagnosis for this admission?: Yes (4) Chronic atrial fibrillation Is this a current diagnosis for this admission?: Yes (5) Type 2 diabetes mellitus Is this a current diagnosis for this admission?: Yes (6) Leukocytosis Is this a current diagnosis for this admission?: Yes (7) Atrophy of right kidney Is this a current diagnosis for this admission?: Yes - Transfer Medications Home Medications: Aspirin [Aspirin 81 mg Chewable Tablet] 81 mg PO DAILY 12/11/16 Atorvastatin Calcium [Lipitor 10 mg Tablet] 10 mg PO QHS 12/11/16 Cyanocobalamin (Vitamin B-12) [Vitamin B-12] 1,000 mcg SL DAILY 12/11/16 Diltiazem HCl [Diltiazem 24Hr Cd] 180 mg PO DAILY 12/11/16 Fluticasone/Salmeterol [Advair 250-50 Diskus 28 dose] 1 inh IH Q12 12/11/16 Furosemide [Lasix] 40 mg PO BIDP PRN 12/11/16 Glipizide [Glucotrol 5 mg Tablet] 5 mg PO BID 12/11/16 Hydralazine HCl [Apresoline 50 mg Tablet] 100 mg PO Q12 12/11/16 Insulin Detemir [Levemir Flextouch] 35 unit SQ DAILY 12/11/16 Levothyroxine Sodium [Synthroid] 150 mcg PO DAILY 12/11/16 Linagliptin [Tradjenta] 5 mg PO DAILY 12/11/16 Metoprolol Succinate [Toprol XL 200 mg Tablet] 200 mg PO DAILY 12/11/16 Nitroglycerin [Nitrostat] 0.4 mg SL ASDIR PRN 12/11/16 Raloxifene HCl [Evista 60 mg Tablet] 60 mg PO DAILY 12/11/16 Telmisartan [Micardis 80 mg Tablet] 80 mg PO DAILY 12/11/16 Tiotropium [place] [Spiriva Handihaler 18 mcg/dose (30 Dose)] 1 cap IH DAILY 12/22 Warfarin Sodium [Coumadin 5 mg Tablet] 2.5 mg PO WESA@219912/11/16 Warfarin Sodium [Coumadin 5 mg Tablet] 5 mg PO SUMOTUTHFR@219912/11/16 Transfer Medications: Current Medications Aspirin (Aspirin 81 Mg Chewable Tablet) 81 mg PO DAILY MAYI Stop: 01/11/17 09:59 Atorvastatin Calcium (Lipitor 10 Mg Tablet) 10 mg PO QHS MAYI Stop: 01/10/17 21:59 Cyanocobalamin (Vitamin B-12 1000 Mcg Tablet) 1,000 mcg PO DAILY MAYI Stop: 01/11/17 09:59 Dextrose (Dextrose Inj 50% Syringe (25 Gm/50 Ml)) 12.5 gm IV PRN PRN; Protocol PRN Reason: FOR BG 50-69 IN ALERT PATIENT Stop: 01/10/17 06:54 Dextrose (Dextrose Inj 50% Syringe (25 Gm/50 Ml)) 25 gm IV PRN PRN PRN Reason: Protocol Stop: 01/10/17 06:54 Diltiazem HCl (Cardizem Cd 180 Mg Capsule) 180 mg PO DAILY MAYI Stop: 01/11/17 09:59 Furosemide (Lasix 40 Mg Tablet) 40 mg PO BIDP PRN Stop: 01/10/17 16:30 Glipizide (Glucotrol 5 Mg Tablet) 5 mg PO BID MAYI Stop: 01/10/17 17:59 Glucagon (Glucagen Inj 1 Mg Vial) 1 mg IM PRN PRN; Protocol PRN Reason: EVALUATE FOR BG < 70 Stop: 01/10/17 06:54 Glucose (Glutose 40% Gel 15 Gm Tube) 15 gm PO PRN PRN; Protocol PRN Reason: FOR BG 50-69 IN ALERT PATIENT Stop: 01/10/17 06:54 Glucose (Glutose 40% Gel 15 Gm Tube) 30 gm PO PRN PRN; Protocol PRN Reason: FOR BG < 50 IN ALERT PATIENT Stop: 01/10/17 06:54 Hydralazine HCl (Apresoline 50 Mg Tablet) 100 mg PO Q12 MAYI Stop: 01/10/17 21:59 Insulin Detemir (Levemir Insulin 300 Units/3 Ml Insuln.Pen) 35 unit SUBCUT DAILY MAYI Stop: 01/11/17 09:59 Insulin Human Lispro (Humalog Insulin 100 Unit/1 Ml 3 Ml Vial) 0 - 12 unit SUBCUT ACHSP PRN PRN Reason: Protocol Stop: 01/10/17 06:54 Last Admin: 12/11/16 16:29 Dose: 2 unit Levothyroxine Sodium (Synthroid 0.15 Mg Tablet) 0.15 mg PO DAILY MAYI Stop: 01/11/17 09:59 Losartan Potassium (Cozaar 50 Mg Tablet) 100 mg PO DAILY MAYI Stop: 01/11/17 09:59 Metoprolol Succinate (Toprol Xl 50 Mg Tab.Sr) 200 mg PO DAILY MAYI Stop: 01/11/17 09:59 Nitroglycerin (Nitrostat 0.4 Mg (1/150 Gr) Tabs 25/Bottle) 1 tab SL Q5MP PRN PRN Reason: CHEST PAIN Stop: 01/10/17 16:43 Oxycodone/Acetaminophen (Percocet 5-325 Mg Tablet) 1 tab PO Q4HP PRN PRN Reason: PAIN Stop: 12/18/16 07:46 Last Admin: 12/11/16 12:40 Dose: 1 tab Raloxifene HCl (Evista 60 Mg Tablet) 60 mg PO DAILY MAYI Stop: 01/11/17 09:59 Fluticasone/Salmeterol (Advair 250-50 Diskus 14 Dose/Diskus) 1 inh IH Q12 MAYI Stop: 01/10/17 21:59 Sitagliptin Phosphate (Januvia 50 Mg Tablet) 50 mg PO DAILY MAYI Stop: 01/11/17 09:59 Tiotropium [place] (Spiriva Handihaler 5 Cap/Kit (18 Mcg/Cap)) 1 cap IH DAILY MAYI Stop: 01/11/17 09:59 Warfarin Sodium (Coumadin 2.5 Mg Tablet) 2.5 mg PO WeSa@2200 [facility] Stop: 01/11/17 21:59 Warfarin Sodium (Coumadin 5 Mg Tablet) 5 mg PO SuMoTuThFr@2200 [facility] Stop: 01/10/17 21:59 - Allergies Allergies/Adverse Reactions: No Known Allergies Allergy (Verified 10/05/16 12:16) - Diet/Activity Discharge Diet: Diabetic Hospital Course Hospital Course: Patient was admitted yesterday because of chest pain, check my H&P for details. Three sets of cardiac enzymes were negative for acute VT. Because of the abnormal stress test and suspicious chest pain it was felt that the next plan of care would be cardiac catheterization. Physical Exam Vital Signs: Temp Pulse Resp BP Pulse Ox 98.1 F 106 H 16 111/60 98 12/11/16 16:00 12/11/16 16:00 12/11/16 16:00 12/11/16 16:00 12/11/16 16:00 Intake & Output 12/10/16 12/11/16 12/12/16 06:59 06:59 06:59 Intake Total 180 Output Total 400 Balance -220 General appearance: PRESENT: no acute distress, well-developed, well-nourished Head exam: PRESENT: atraumatic, normocephalic Eye exam: PRESENT: conjunctiva pink, EOMI, PERRLA. ABSENT: scleral icterus Ear exam: PRESENT: normal external ear exam Mouth exam: PRESENT: moist, tongue midline Respiratory exam: PRESENT: clear to auscultation frida Cardiovascular exam: PRESENT: RRR Pulses: PRESENT: normal dorsalis pedis pul Vascular exam: PRESENT: normal capillary refill GI/Abdominal exam: PRESENT: normal bowel sounds, soft Rectal exam: PRESENT: deferred Extremities exam: PRESENT: full ROM Neurological exam: PRESENT: alert, awake, oriented to person, oriented to place , oriented to time, oriented to situation, CN II-XII grossly intact Psychiatric exam: PRESENT: appropriate affect, normal mood Skin exam: PRESENT: dry, intact, warm Results Laboratory Results: 12/11/16 18:10 12/11/16 18:10 WBC 18.0 H RBC 4.19 Hgb 11.4 L Hct 35.6 L MCV 85 MCH 27.3 MCHC 32.1 RDW 14.9 H Plt Count 227 Seg Neutrophils % 77.6 Lymphocytes % 9.9 L Monocytes % 10.1 Eosinophils % 1.5 Basophils % 0.9 Absolute Neutrophils 14.0 H Absolute Lymphocytes 1.8 Absolute Monocytes 1.8 H Absolute Eosinophils 0.3 Absolute Basophils 0.2 12/11/16 12/11/16 12/11/16 10:19 10:19 16:07 Creatine Kinase 135 133 CK-MB (CK-2) 1.94 Troponin I < 0.012 12/11/16 16:07 Creatine Kinase CK-MB (CK-2) 1.40 Troponin I < 0.012 Impressions: Chest X-Ray 12/11/16 00:57 IMPRESSION: NO ACUTE RADIOGRAPHIC FINDING IN THE CHEST.
[2016-12-11] MEDS ORDERED: ATORVASTATIN CALCIUM 10 MG TABLET PO SCH (22:00)
[2016-12-11] MEDS ORDERED: FLUTICASONE/SALMETEROL DISKUS 250-50 MCG/DOSE IH SCH (22:00)
[2016-12-11] MEDS ORDERED: HYDRALAZINE HCL 50 MG TABLET PO SCH (22:00)
[2016-12-11] MEDS ORDERED: WARFARIN SODIUM 5 MG TABLET PO SCH (22:00)
[2016-12-11 22:42] VITALS: BP 132/74
[2016-12-12] MEDS ORDERED: LEVOTHYROXINE SODIUM 0.15 MG TABLET PO SCH (10:00)
[2016-12-12] MEDS ORDERED: SITAGLIPTIN PHOSPHATE 50 MG TABLET PO SCH (10:00)
[2016-12-12] MEDS ORDERED: RALOXIFENE HCL 60 MG TABLET PO SCH (10:00)
[2016-12-12] MEDS ORDERED: DILTIAZEM HCL 180 MG CAPSULE.CR PO SCH (10:00)
[2016-12-12] MEDS ORDERED: LOSARTAN POTASSIUM 50 MG TABLET PO SCH (10:00)
[2016-12-12] MEDS ORDERED: (PENDING PHARMACY ID) (Telmisartan [Micardis 80 Mg Tablet] 80 MG) PO SCH (10:00)
[2016-12-12] MEDS ORDERED: METOPROLOL SUCCINATE 50 MG TAB.SR.24H PO SCH (10:00)
[2016-12-12] MEDS ORDERED: CYANOCOBALAMIN (VITAMIN B-12) 1,000 MCG TABLET PO SCH (10:00)
[2016-12-12] MEDS ORDERED: INSULIN DETEMIR 100 UNIT/ML 3 ML PEN SUBCUT SCH (10:00)
[2016-12-12] MEDS ORDERED: TIOTROPIUM BROMIDE DPI 5 CAP/KIT (18 MCG/CAP) IH SCH (10:00)
[2016-12-12] MEDS ORDERED: ASPIRIN 81 MG TABLET, CHEWABLE PO SCH (10:00)
[2016-12-12] MEDS ORDERED: (PENDING PHARMACY ID) (Metoprolol Succinate [Toprol Xl 200 Mg Tablet] 200 MG) PO SCH (10:00)
[2016-12-12] MEDS ORDERED: (PENDING PHARMACY ID) (Diltiazem Hcl [Diltiazem 24hr Cd] 180 MG) PO SCH (10:00)
[2016-12-12] MEDS ORDERED: (PENDING PHARMACY ID) (Linagliptin [Tradjenta] 5 MG) PO SCH (10:00)
[2016-12-12] MEDS ORDERED: WARFARIN SODIUM 2.5 MG TABLET PO SCH (22:00)
== END 2016-12-11 22:55 | disposition short-term general hospital (02) ==
LOC: ER 00:50 → EH 03:55 → UNDOADMOB 03:55 → 5 04:59 → EH 04:59 → 5 06:20
PROVIDERS: ADMIT Internal Medicine; ATTEND Internal Medicine
DX: R07.89 Other chest pain (principal); R94.39 Abnormal result of other cardiovascular function study; I13.0 Hypertensive heart and chronic kidney disease with heart failure and stage 1 through stage 4 chronic kidney disease, or unspecified chronic kidney disease; I50.9 Heart failure, unspecified; N18.3 Chronic kidney disease, stage 3 (moderate); E11.22 Type 2 diabetes mellitus with diabetic chronic kidney disease; E11.42 Type 2 diabetes mellitus with diabetic polyneuropathy; D72.829 Elevated white blood cell count, unspecified; N26.1 Atrophy of kidney (terminal); I48.2 Chronic atrial fibrillation; G47.30 Sleep apnea, unspecified; J44.9 Chronic obstructive pulmonary disease, unspecified; E78.5 Hyperlipidemia, unspecified; Z79.82 Long term (current) use of aspirin; Z79.01 Long term (current) use of anticoagulants; Z79.4 Long term (current) use of insulin; Z79.899 Other long term (current) drug therapy; Z90.49 Acquired absence of other specified parts of digestive tract; Z87.891 Personal history of nicotine dependence; Z99.81 Dependence on supplemental oxygen; Z86.73 Personal history of transient ischemic attack (TIA), and cerebral infarction without residual deficits
CPT/HCPCS: 93005; 99285; 36415; 82553; 82962; 82550; 85025; 85610; 80053; 81001; 84484; 83036; 71010; 93010; A9270 ×6; J3490; G0378; J1815

== ENCOUNTER → 2016-12-20 | Outpatient (CLI) | payer MEDICARE, OTHER ==
[2016-12-20 14:05] LABS: PROTHROMBIN TIME 25.4 SEC (11.4-15.4)
== END ==
LOC: OD 11:45
PROVIDERS: ATTEND Internal Medicine Cardiovascular Disease
DX: Z79.01 Long term (current) use of anticoagulants (principal)
CPT/HCPCS: 36415; 85610

== ENCOUNTER → 2017-01-01 | Outpatient (CLI) | payer MEDICARE, OTHER ==
[2017-01-01 11:27] LABS: PROTHROMBIN TIME 36.8 SEC (11.4-15.4)
== END ==
LOC: OD 10:36
PROVIDERS: ATTEND Internal Medicine Cardiovascular Disease
DX: Z79.01 Long term (current) use of anticoagulants (principal)
CPT/HCPCS: 36415; 85610

== ENCOUNTER → 2017-01-15 | Outpatient (CLI) | payer MEDICARE, OTHER ==
[2017-01-15 15:26] LABS: PROTHROMBIN TIME 26.8 SEC (11.4-15.4)
== END ==
LOC: OD 14:16
PROVIDERS: ATTEND Internal Medicine Cardiovascular Disease
DX: Z79.01 Long term (current) use of anticoagulants (principal); Z51.81 Encounter for therapeutic drug level monitoring
CPT/HCPCS: 36415; 85610

== ENCOUNTER → 2017-01-23 | Outpatient (CLI) | payer MEDICARE, OTHER ==
[2017-01-23 12:00] LABS: PROTHROMBIN TIME 27.8 SEC (11.4-15.4)
== END ==
LOC: OD 10:54
PROVIDERS: ATTEND Internal Medicine Cardiovascular Disease
DX: Z79.01 Long term (current) use of anticoagulants (principal)
CPT/HCPCS: 36415; 85610

== ENCOUNTER 2017-01-31 16:36 | Observation (INO) | payer MEDICARE, OTHER ==
[2017-01-31 18:09] LABS: HEMATOCRIT 34.8 % (36.0-47.0); HEMOGLOBIN 11.5 g/dL (12.0-15.5); HGB HCT DIFFERENCE -0.3; MEAN CORPUSCULAR VOLUME 82 fl (80-97); RED BLOOD COUNT 4.26 10^6/uL (3.72-5.28); RED CELL DISTRIBUTION WIDTH 15.7 % (11.5-14.0); WHITE BLOOD COUNT 12.7 10^3/uL (4.0-10.5)
[2017-01-31 18:27] LABS: ALANINE AMINOTRANSFERASE 33 U/L (9-52); ALBUMIN 3.7 g/dL (3.5-5.0); ALKALINE PHOSPHATASE 65 U/L (38-126); ANION GAP 13 (5-19); ASPARTATE AMINO TRANSFERASE 20 U/L (14-36); BILIRUBIN,DIRECT 0.4 mg/dL (0.0-0.4); BILIRUBIN,TOTAL 0.7 mg/dL (0.2-1.3); BLOOD UREA NITROGEN 31 mg/dL (7-20); CALCIUM 8.8 mg/dL (8.4-10.2); CARBON DIOXIDE 25 mmol/L (22-30); CHLORIDE 100 mmol/L (98-107); CREATININE RESULT 1.23 mg/dL (0.52-1.25); GLUCOSE 86 mg/dL (75-110); POTASSIUM 3.5 mmol/L (3.6-5.0); SODIUM 138.1 mmol/L (137-145)
--- NOTE | 2017-01-31 18:51 | RADIOLOGY REPORT (SQ) ---
EXAM DESCRIPTION: CT CHEST WITHOUT COMPLETED DATE/TIME: 01/31/2017 6:23 pm REASON FOR STUDY: PLEURSY COMPARISON: Chest x-ray dated 12/11/[address] scan dated September 2015 TECHNIQUE: CT scan performed of the chest without intravenous contrast. Images reviewed with lung, soft tissue and bone windows. Reconstructed coronal and sagittal MPR images reviewed. All images st ored on PACS. All CT scanners at this facility use dose modulation, iterative reconstruction, and/or weight based d osing when appropriate to reduce radiation dose to as low as reasonably achievable (ALARA). [facility]: Dose Right [facility]: CareDose [facility]: Dose Right [facility]: Teradose 4D [facility]: [employer] RADIATION DOSE: Up-to-date CT equipment and radiation dose reduction techniques were employed. CTDIv ol: 9.4 mGy. DLP: 406 mGy-cm. mGy. LIMITATIONS: No technical limitations. FINDINGS: LUNGS AND PLEURA: Extensive emphysematous changes are identified. A small right pleural e ffusion is identified with some minimal associated airspace consolidation most consistent with atelec tatic changes. Minimal airspace consolidation is identified in the posterior sulcus on the left cons istent with atelectatic changes. HILAR AND MEDIASTINAL STRUCTURES: Enlarged pretracheal lymph node is identified. There are couple ot her prominent mediastinal lymph nodes. HEART AND VASCULAR STRUCTURES: No aneurysm. No pericardial effusion. Ectatic calcified thoracic aor ta is identified. Coronary artery calcifications are identified. UPPER ABDOMEN: No significant findings. Limited exam. THYROID AND OTHER SOFT TISSUES: No masses. No adenopathy. BONES: No significant finding. HARDWARE: None in the chest. OTHER: No other significant findings. IMPRESSION: Small right pleural effusion with some minimal associated airspace consolidation most co nsistent with atelectatic changes. Minimal airspace consolidation is identified in the left posterio r sulcus consistent with atelectatic changes. Extensive emphysematous changes as noted above. Other findings as noted above TECHNICAL DOCUMENTATION: JOB ID: [id number] Quality ID # [id number]: Final reports with documentation of one or more dose reduction techniques (e.g., Au tomated exposure control, adjustment of the mA and/or kV according to patient size, use of iterative reconstruction technique) 2010 [employer]- All Rights Reserved
[2017-01-31 18:58] LABS: THYROID STIMULATING HORMONE 0.42 uIU/mL (0.47-4.68)
[2017-01-31] MEDS ORDERED: TIZANIDINE HCL 4 MG TABLET PO PRN (19:58)
[2017-01-31 20:02] LABS: APPEARANCE,URINE CLEAR; BILIRUBIN,URINE NEGATIVE (NEGATIVE); GLUCOSE, URINE NEGATIVE (NEGATIVE); KETONES,URINE NEGATIVE (NEGATIVE); LEUKOCYTE ESTERASE,URINE NEGATIVE (NEGATIVE); NITRITE,URINE NEGATIVE (NEGATIVE); PROTEIN,URINE NEGATIVE (NEGATIVE); URINE SPECIFIC GRAVITY 1.009; UROBILINOGEN,URINE NEGATIVE mg/dL (<2.0)
--- NOTE | 2017-01-31 20:31 | PDOC H&P ---
History of Present Illness Admission Date/PCP: 01/31/17 16:36 JEANETTE JAY MD History of Present Illness: ISD MARTINEZ is a 76 year old female, She came to the office today for evaluation of chest pain associated with breathing and cough consistent with pleurisy. She has history of severe chronic obstructive lung disease, chronic kidney disease stage III, type 2 diabetes mellitus, chest pain that is suspicious for ischemic heart disease, abnormal stress test but coronary angiogram was not done because of concern for chronic kidney disease, she has only one functioning kidney the left kidney is atrophic. Her symptoms is consistent with pleurisy she was admitted for observation and evaluation of her symptoms. CT chest was done he showed extensive emphysema, with AIR space consolidation on mild pleural effusion. Past Medical History Cardiac Medical History: Reports: Atrial Fibrillation, Hyperlipidema, Hypertension Pulmonary Medical History: Reports: Chronic Obstructive Pulmonary Disease (COPD) Endocrine Medical History: Reports: Diabetes Mellitus Type 2 GI Medical History: Past Surgical History Past Surgical History: Reports: Cholecystectomy, Orthopedic Surgery - L hip Social History Smoking Status: Former Smoker Number of Years Smokin Last Time Smoked: 30 years ago Frequency of Alcohol Use: None Hx Recreational Drug Use: No Drugs: None Hx Prescription Drug Abuse: No Family History Family History: Reviewed & Not Pertinent Parental Family History Reviewed: Yes Children Family History Reviewed: Yes Sibling(s) Family History Reviewed.: Yes Medication/Allergy Home Medications: Aspirin [Aspirin 81 mg Chewable Tablet] 81 mg PO DAILY 01/31/17 Atorvastatin Calcium [Lipitor 10 mg Tablet] 10 mg PO DAILY 01/31/17 Cyanocobalamin (Vitamin B-12) [B-12] 1,000 mcg SL DAILY 01/31/17 Diltiazem HCl [Cardizem Cd 180 mg Capsule] 180 mg PO DAILY 01/31/17 Fluticasone/Salmeterol [Advair 250-50 Diskus 28 dose] 2 puff IH DAILY 01/31/17 Furosemide [Lasix] 40 mg PO Q2D 01/31/17 Glipizide [Glocotrol 5 Mg Tablet] 5 mg PO DAILY 01/31/17 Guaifenesin [Mucinex] 600 mg PO Q12 01/31/17 Insulin Detemir [Levemir Flextouch] 35 unit SQ DAILY 01/31/17 Isosorbide Mononitrate [Isosorbide Mononitrate ER] 90 mg PO DAILY 01/31/17 Levothyroxine Sodium [Synthroid] 150 mcg PO DAILY 01/31/17 Linagliptin [Tradjenta] 5 mg PO DAILY 01/31/17 Metoprolol Succinate [Toprol XL 200 mg Tablet] 200 mg PO DAILY 01/31/17 Tiotropium [place] [Spiriva Handihaler 5 Cap/Kit (18 Mcg/Cap)] 1 cap IH DAILY Tizanidine HCl [Zanaflex 4 Mg Tablet] 4 mg PO ASDIR PRN 01/31/17 Warfarin Sodium [Coumadin 2.5 mg Tablet] 2.5 mg PO MOWEFR@1000 01/31/17 Warfarin Sodium [Coumadin 5 mg Tablet] 5 mg PO SUTUTHSA@1000 01/31/17 Allergies/Adverse Reactions: No Known Allergies Allergy (Verified 10/05/16 12:16) Review of Systems Constitutional: ABSENT: chills, fever(s), headache(s), weight gain, weight loss Eyes: ABSENT: visual disturbances Ears: ABSENT: hearing changes Cardiovascular: PRESENT: chest pain Respiratory: PRESENT: cough Gastrointestinal: ABSENT: abdominal pain, constipation, diarrhea, hematemesis, hematochezia, nausea, vomiting Genitourinary: ABSENT: dysuria, hematuria Musculoskeletal: ABSENT: joint swelling Integumentary: ABSENT: rash, wounds Neurological: ABSENT: abnormal gait, abnormal speech, confusion, dizziness, focal weakness, syncope Psychiatric: ABSENT: anxiety, depression, homidical ideation, suicidal ideation Endocrine: ABSENT: cold intolerance, heat intolerance, menstrual abnormalities, polydipsia, polyuria Hematologic/Lymphatic: ABSENT: easy bleeding, easy bruising, lymphadenopathy Physical Exam Vital Signs: Temp Pulse Resp BP Pulse Ox 97.8 F 74 18 156/55 H 96 01/31/17 17:21 01/31/17 17:40 01/31/17 17:40 01/31/17 17:21 01/31/17 17:21 Intake & Output 01/30/17 01/31/17 02/01/17 06:59 06:59 06:59 Intake Total 175 Balance 175 Weight 94.8 kg General appearance: PRESENT: no acute distress, well-developed, well-nourished Head exam: PRESENT: atraumatic, normocephalic Eye exam: PRESENT: conjunctiva pink, EOMI, PERRLA. ABSENT: scleral icterus Ear exam: PRESENT: normal external ear exam Mouth exam: PRESENT: moist, tongue midline Neck exam: PRESENT: full ROM Respiratory exam: PRESENT: clear to auscultation frida Cardiovascular exam: PRESENT: RRR, +S1, +S2 Pulses: PRESENT: normal dorsalis pedis pul, +2 pedal pulses bilateral Vascular exam: PRESENT: normal capillary refill GI/Abdominal exam: PRESENT: normal bowel sounds, soft Rectal exam: PRESENT: deferred Neurological exam: PRESENT: alert, awake, oriented to person, oriented to place , oriented to time, oriented to situation, CN II-XII grossly intact Psychiatric exam: PRESENT: appropriate affect, normal mood Skin exam: PRESENT: dry, intact, warm Results Laboratory Results: 01/31/17 18:00 01/31/17 18:00 01/31/17 01/31/17 01/31/17 18:00 18:00 18:00 WBC 12.7 H RBC 4.26 Hgb 11.5 L Hct 34.8 L MCV 82 MCH 27.0 MCHC 33.0 RDW 15.7 H Plt Count 214 Sodium 138.1 Potassium 3.5 L Chloride 100 Carbon Dioxide 25 Anion Gap 13 BUN 31 H Creatinine 1.23 Est GFR ( Amer) 52 L Est GFR (Non-Af Amer) 43 L Glucose 86 Calcium 8.8 Total Bilirubin 0.7 AST 20 ALT 33 Alkaline Phosphatase 65 Total Protein 7.0 Albumin 3.7 TSH 0.42 L Free T4 2.06 Urine Color Urine Appearance Urine pH Ur Specific [place] Urine Protein Urine Glucose (UA) Urine Ketones Urine Blood Urine Nitrite Ur Leukocyte Esterase Urine WBC (Auto) Urine RBC (Auto) 01/31/17 19:00 WBC RBC Hgb Hct MCV MCH MCHC RDW Plt Count Sodium Potassium Chloride Carbon Dioxide Anion Gap BUN Creatinine Est GFR ( Amer) Est GFR (Non-Af Amer) Glucose Calcium Total Bilirubin AST ALT Alkaline Phosphatase Total Protein Albumin TSH Free T4 Urine Color YELLOW Urine Appearance CLEAR Urine pH 5.0 Ur Specific [place] 1.009 Urine Protein NEGATIVE Urine Glucose (UA) NEGATIVE Urine Ketones NEGATIVE Urine Blood NEGATIVE Urine Nitrite NEGATIVE Ur Leukocyte Esterase NEGATIVE Urine WBC (Auto) 1 Urine RBC (Auto) 1 Impressions: Chest CT 01/31/17 00:00 IMPRESSION: Small right pleural effusion with some minimal associated airspace consolidation most consistent with atelectatic changes. Minimal airspace consolidation is identified in the left posterior sulcus consistent with atelectatic changes. Extensive emphysematous changes as noted above. Other findings as noted above Assessment & Plan - Diagnosis (1) Pleurisy with effusion Is this a current diagnosis for this admission?: YesPlan: She is admitted for observation, she has pleurisy, CT chest showed mild pleural effusion, with mild AIR space consolidation, she will be empirically be treated with IV antibiotic (2) Abnormal nuclear stress test Is this a current diagnosis for this admission?: Yes (3) Atrophy of right kidney Is this a current diagnosis for this admission?: Yes (4) Chest pain Qualifiers: Chest pain type: chest pain on breathing Qualified Code(s): R07.1 - Chest pain on breathing Is this a current diagnosis for this admission?: YesPlan: Cardiac enzymes to be drawn (5) Chronic atrial fibrillation Is this a current diagnosis for this admission?: Yes (6) Chronic kidney disease, stage III (moderate) Is this a current diagnosis for this admission?: Yes (7) Type 2 diabetes mellitus Qualifiers: Diabetes mellitus complication status: with kidney complications Diabetes mellitus complication detail: with chronic kidney disease 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
[2017-01-31 21:09] LABS: HEMATOCRIT 36.6 % (36.0-47.0); HEMOGLOBIN 11.9 g/dL (12.0-15.5); HGB HCT DIFFERENCE -0.9; MEAN CORPUSCULAR HEMOGLOBIN 26.8 pg (27.0-33.4); MEAN CORPUSCULAR HGB CONC 32.5 g/dL (32.0-36.0); MEAN CORPUSCULAR VOLUME 82 fl (80-97); RED BLOOD COUNT 4.45 10^6/uL (3.72-5.28); RED CELL DISTRIBUTION WIDTH 15.3 % (11.5-14.0); WHITE BLOOD COUNT 13.2 10^3/uL (4.0-10.5)
[2017-01-31 21:17] LABS: PROTHROMBIN TIME 28.5 SEC (11.4-15.4)
[2017-01-31 21:25] LABS: CREATININE RESULT 1.26 mg/dL (0.52-1.25)
[2017-01-31] MEDS ORDERED: FLUTICASONE/SALMETEROL DISKUS 250-50 MCG/DOSE IH SCH (22:00)
[2017-01-31] MEDS ORDERED: AZITHROMYCIN 500 MG in DEXTROSE 5%-WATER 250 ML IV SCH (22:00)
[2017-01-31] MEDS: FLUTICASONE/SALMETEROL DISKUS 250-50 MCG/DOSE IH SCH (22:10)
[2017-01-31] MEDS: GUAIFENESIN 600 MG TABLET.SA PO SCH (22:11)
[2017-01-31] MEDS ORDERED: WARFARIN SODIUM 5 MG TABLET PO ONE (22:30)
[2017-01-31] MEDS ORDERED: GLIPIZIDE 5 MG TABLET PO ONE (22:30)
[2017-01-31] MEDS ORDERED: DILTIAZEM HCL 180 MG CAPSULE.CR PO ONE (23:00)
[2017-01-31] MEDS ORDERED: HYDRALAZINE HCL 50 MG TABLET PO ONE (23:30)
[2017-02-01] MEDS ORDERED: LEVOTHYROXINE SODIUM 0.15 MG TABLET PO SCH (08:00)
[2017-02-01] MEDS: HYDRALAZINE HCL 50 MG TABLET PO SCH ×2 (09:14→17:35)
[2017-02-01] MEDS: GUAIFENESIN 600 MG TABLET.SA PO SCH (09:19)
[2017-02-01] MEDS: FLUTICASONE/SALMETEROL DISKUS 250-50 MCG/DOSE IH SCH (09:24)
[2017-02-01] MEDS ORDERED: ISOSORBIDE MONONITRATE 30 MG TAB.ER.24H PO SCH (10:00)
[2017-02-01] MEDS ORDERED: ASPIRIN 81 MG TABLET, CHEWABLE PO SCH (10:00)
[2017-02-01] MEDS ORDERED: TIOTROPIUM BROMIDE DPI 5 CAP/KIT (18 MCG/CAP) IH SCH (10:00)
[2017-02-01] MEDS ORDERED: METOPROLOL SUCCINATE 50 MG TAB.SR.24H PO SCH (10:00)
[2017-02-01] MEDS ORDERED: SITAGLIPTIN PHOSPHATE 50 MG TABLET PO SCH (10:00)
[2017-02-01] MEDS ORDERED: ATORVASTATIN CALCIUM 10 MG TABLET PO SCH (10:00)
[2017-02-01] MEDS ORDERED: INSULIN DETEMIR 100 UNIT/ML 3 ML PEN SUBCUT SCH (10:00)
[2017-02-01] MEDS ORDERED: FUROSEMIDE 40 MG TABLET PO SCH (10:00)
[2017-02-01] MEDS ORDERED: CYANOCOBALAMIN (VITAMIN B-12) 1,000 MCG TABLET SL SCH (10:00)
--- NOTE | 2017-02-01 12:12 | EKG REPORT ---
SEVERITY:- ABNORMAL ECG - ATRIAL FIBRILLATION, V-RATE 64-101 BORDERLINE INFERIOR Q WAVES : Confirmed by: Yolanda Hendrickson MD 01-Feb-2017 12:11:03
[2017-02-01 12:41] LABS: CREATINE KINASE MB 1.03 ng/mL (<4.55); TROPONIN I 0.018 ng/mL
[2017-02-01 18:45] LABS: CREATINE KINASE MB 1.21 ng/mL (<4.55); TROPONIN I 0.015 ng/mL
[2017-02-01 19:31] VITALS: BP 147/48
--- NOTE | 2017-02-01 20:30 | PDOC DISCHARGE SUMMARY ---
General - Admit/Disc Date/PCP Admission Date/Primary Care Provider: 01/31/17 16:36 JEANETTE JAY MD Discharge Date: 02/01/17 - Discharge Diagnosis (1) Pleurisy with effusion Is this a current diagnosis for this admission?: Yes (2) Abnormal nuclear stress test Is this a current diagnosis for this admission?: Yes (3) Atrophy of right kidney Is this a current diagnosis for this admission?: Yes (4) Chest pain Is this a current diagnosis for this admission?: Yes (5) Chronic atrial fibrillation Is this a current diagnosis for this admission?: Yes (6) Chronic kidney disease, stage III (moderate) Is this a current diagnosis for this admission?: Yes (7) Type 2 diabetes mellitus Is this a current diagnosis for this admission?: Yes - Additional Information Discharge Diet: Diabetic Discharge Activity: Activity As Tolerated Home Medications: Aspirin [Aspirin 81 mg Chewable Tablet] 81 mg PO DAILY 01/31/17 Atorvastatin Calcium [Lipitor 10 mg Tablet] 10 mg PO DAILY 01/31/17 Cyanocobalamin (Vitamin B-12) [B-12] 1,000 mcg SL DAILY 01/31/17 Diltiazem HCl [Cardizem Cd 180 mg Capsule] 180 mg PO DAILY 01/31/17 Fluticasone/Salmeterol [Advair 250-50 Diskus 28 dose] 2 puff IH DAILY 01/31/17 Furosemide [Lasix] 40 mg PO Q2D 01/31/17 Glipizide [Glucotrol 5 mg Tablet] 5 mg PO DAILY 01/31/17 Guaifenesin [Mucinex] 600 mg PO Q12 01/31/17 Hydralazine HCl 100 mg PO BID 01/31/17 Insulin Detemir [Levemir Flextouch] 35 unit SQ DAILY 01/31/17 Isosorbide Mononitrate [Isosorbide Mononitrate ER] 90 mg PO DAILY 01/31/17 Levothyroxine Sodium [Synthroid] 150 mcg PO DAILY 01/31/17 Linagliptin [Tradjenta] 5 mg PO DAILY 01/31/17 Metoprolol Succinate [Toprol XL 200 mg Tablet] 200 mg PO DAILY 01/31/17 Tiotropium [place] [Spiriva Handihaler 5 Cap/Kit (18 Mcg/Cap)] 1 cap IH DAILY 07 /27/17 Tizanidine HCl [Zanaflex 4 mg Tablet] 4 mg PO ASDIR PRN 01/31/17 Warfarin Sodium [Coumadin 2.5 mg Tablet] 2.5 mg PO MOWEFR@1000 01/31/17 Warfarin Sodium [Coumadin 5 mg Tablet] 5 mg PO SUTUTHSA@1000 01/31/17 Azithromycin [Zithromax 250 mg Tablet] 500 mg PO DAILY #10 tab 02/01/17 History of Present Illness History of Present Illness: SID MARTINEZ is a 76 year old female, She came to the office today for evaluation of chest pain associated with breathing and cough consistent with pleurisy. She has history of severe chronic obstructive lung disease, chronic kidney disease stage III, type 2 diabetes mellitus, chest pain that is suspicious for ischemic heart disease, abnormal stress test but coronary angiogram was not done because of concern for chronic kidney disease, she has only one functioning kidney the left kidney is atrophic. Her symptoms is consistent with pleurisy she was admitted for observation and evaluation of her symptoms. CT chest was done he showed extensive emphysema, with AIR space consolidation on mild pleural effusion. Hospital Course Hospital Course: She was admitted yesterday for observation check my H&P for details, she had pleurisy there was mild pleural effusion with mild consolidation. She was treated with IV antibiotic with good results she be discharged home on the p.o. antibiotic Physical Exam Vital Signs: Temp Pulse Resp BP Pulse Ox 98.1 F 91 16 147/48 H 94 02/01/17 19:27 02/01/17 19:27 02/01/17 19:27 02/01/17 19:27 02/01/17 19:27 Intake & Output 01/31/17 02/01/17 02/02/17 06:59 06:59 06:59 Intake Total 899 618 Output Total 1300 2000 Balance -401 -1382 Weight 94.4 kg General appearance: PRESENT: no acute distress, well-developed, well-nourished Head exam: PRESENT: atraumatic, normocephalic Eye exam: PRESENT: conjunctiva pink, EOMI, PERRLA Ear exam: PRESENT: normal external ear exam Mouth exam: PRESENT: moist, tongue midline Neck exam: PRESENT: full ROM Respiratory exam: PRESENT: clear to auscultation frida Cardiovascular exam: PRESENT: RRR, +S1, +S2 Pulses: PRESENT: normal dorsalis pedis pul, +2 pedal pulses bilateral Vascular exam: PRESENT: normal capillary refill GI/Abdominal exam: PRESENT: normal bowel sounds, soft Rectal exam: PRESENT: deferred Neurological exam: PRESENT: alert, awake, oriented to person, oriented to place , oriented to time, oriented to situation, CN II-XII grossly intact Psychiatric exam: PRESENT: appropriate affect, normal mood Skin exam: PRESENT: dry, intact, warm Results Laboratory Results: 01/31/17 21:00 01/31/17 21:00 01/31/17 01/31/17 21:00 21:00 WBC 13.2 H RBC 4.45 Hgb 11.9 L Hct 36.6 MCV 82 MCH 26.8 L MCHC 32.5 RDW 15.3 H Plt Count 201 Creatinine 1.26 H Est GFR ( Amer) 50 L Est GFR (Non-Af Amer) 41 L 02/01/17 02/01/17 02/01/17 11:51 11:51 17:50 Creatine Kinase 72 75 CK-MB (CK-2) 1.03 Troponin I 0.018 02/01/17 17:50 Creatine Kinase CK-MB (CK-2) 1.21 Troponin I 0.015 Impressions: Chest CT 01/31/17 00:00 IMPRESSION: Small right pleural effusion with some minimal associated airspace consolidation most consistent with atelectatic changes. Minimal airspace consolidation is identified in the left posterior sulcus consistent with atelectatic changes. Extensive emphysematous changes as noted above. Other findings as noted above
[2017-02-01] MEDS ORDERED: GLIPIZIDE 5 MG TABLET PO SCH (22:00)
[2017-02-01] MEDS ORDERED: DILTIAZEM HCL 180 MG CAPSULE.CR PO SCH (22:00)
[2017-02-01] MEDS ORDERED: WARFARIN SODIUM 2.5 MG TABLET PO SCH (22:00)
[2017-02-02] MEDS ORDERED: DILTIAZEM HCL 180 MG CAPSULE.CR PO SCH (10:00)
[2017-02-02] MEDS ORDERED: WARFARIN SODIUM 5 MG TABLET PO SCH (22:00)
== END 2017-02-01 21:03 | disposition home or self-care (01) ==
LOC: 3N 16:36
PROVIDERS: ADMIT Internal Medicine; ATTEND Internal Medicine
DX: J90 Pleural effusion, not elsewhere classified (principal); R93.1 Abnormal findings on diagnostic imaging of heart and coronary circulation; N26.1 Atrophy of kidney (terminal); R07.1 Chest pain on breathing; I48.2 Chronic atrial fibrillation; I12.9 Hypertensive chronic kidney disease with stage 1 through stage 4 chronic kidney disease, or unspecified chronic kidney disease; N18.3 Chronic kidney disease, stage 3 (moderate); E11.22 Type 2 diabetes mellitus with diabetic chronic kidney disease; J44.9 Chronic obstructive pulmonary disease, unspecified; E78.5 Hyperlipidemia, unspecified; Z87.891 Personal history of nicotine dependence; Z79.4 Long term (current) use of insulin; Z79.01 Long term (current) use of anticoagulants
CPT/HCPCS: 36415 ×2; 84439; 82553; 82962; 82550; 82565; 84443; 85027; 85610; 85730; 80076; 80048; 81001; 84484; 83036; 71250; 93005; 93010; 94660 ×2; A9270 ×14; J3490 ×2; J7060; J0456; G0378; G0379; J1815

== ENCOUNTER → 2017-01-31 | Outpatient (CLI) | payer MEDICARE, OTHER ==
[2017-01-31 14:23] LABS: PROTHROMBIN TIME 32.3 SEC (11.4-15.4)
== END ==
LOC: OD 12:41
PROVIDERS: ATTEND Internal Medicine Cardiovascular Disease
DX: Z79.01 Long term (current) use of anticoagulants (principal); Z51.81 Encounter for therapeutic drug level monitoring
CPT/HCPCS: 85610

== ENCOUNTER → 2017-02-15 | Outpatient (CLI) | payer MEDICARE, OTHER ==
[2017-02-15 11:56] LABS: PROTHROMBIN TIME 29.2 SEC (11.4-15.4)
[2017-02-15 12:09] LABS: CHOLESTEROL 139.05 mg/dL (0-200); Direct HDL 46 mg/dL (>40); TRIGLYCERIDES 128 mg/dL (<150)
[2017-02-15 12:19] LABS: DIRECT LDL 65 mg/dL (<100)
== END ==
LOC: OD 10:46
PROVIDERS: ATTEND Internal Medicine Cardiovascular Disease
DX: E78.2 Mixed hyperlipidemia (principal); Z79.01 Long term (current) use of anticoagulants
CPT/HCPCS: 36415; 80061; 85610

== ENCOUNTER → 2017-02-27 | Outpatient (CLI) | payer MEDICARE, OTHER ==
[2017-02-27 11:25] LABS: PROTHROMBIN TIME 23.1 SEC (11.4-15.4)
== END ==
LOC: OD 10:41
PROVIDERS: ATTEND Internal Medicine Cardiovascular Disease
DX: Z79.01 Long term (current) use of anticoagulants (principal); Z51.81 Encounter for therapeutic drug level monitoring
CPT/HCPCS: 36415; 85610

== ENCOUNTER → 2017-03-12 | Outpatient (CLI) | payer MEDICARE, OTHER | LOC: OD 13:32 | PROVIDERS: ATTEND Internal Medicine Cardiovascular Disease | DX: Z79.01 Long term (current) use of anticoagulants (principal) | CPT/HCPCS: 36415; 85610 ==

== ENCOUNTER → 2017-03-25 | Outpatient (CLI) | payer MEDICARE, OTHER ==
[2017-03-25 10:47] LABS: HEMATOCRIT 33.2 % (36.0-47.0); HEMOGLOBIN 11.4 g/dL (12.0-15.5); MEAN CORPUSCULAR HEMOGLOBIN 26.1 pg (27.0-33.4); MEAN CORPUSCULAR HGB CONC 34.4 g/dL (32.0-36.0); MEAN CORPUSCULAR VOLUME 76 fl (80-97); RED BLOOD COUNT 4.37 10^6/uL (3.72-5.28); RED CELL DISTRIBUTION WIDTH 15.8 % (11.5-14.0); WHITE BLOOD COUNT 10.6 10^3/uL (4.0-10.5)
[2017-03-25 11:33] LABS: ANION GAP 12 (5-19); BLOOD UREA NITROGEN 23 mg/dL (7-20); CALCIUM 9.4 mg/dL (8.4-10.2); CARBON DIOXIDE 27 mmol/L (22-30); CHLORIDE 98 mmol/L (98-107); CREATININE RESULT 1.14 mg/dL (0.52-1.25); GLUCOSE 85 mg/dL (75-110); POTASSIUM 3.5 mmol/L (3.6-5.0); SODIUM 136.6 mmol/L (137-145)
[2017-03-26 14:05] LABS: APPEARANCE,URINE CLEAR; BILIRUBIN,URINE NEGATIVE (NEGATIVE); GLUCOSE, URINE NEGATIVE (NEGATIVE); KETONES,URINE NEGATIVE (NEGATIVE); LEUKOCYTE ESTERASE,URINE NEGATIVE (NEGATIVE); NITRITE,URINE NEGATIVE (NEGATIVE); PROTEIN,URINE NEGATIVE (NEGATIVE); UROBILINOGEN,URINE NEGATIVE mg/dL (<2.0)
[2017-03-27 12:38] LABS: CREATININE URINE 69.6 mg/dL (Not Estab.); MICROALBUMIN URINE 10.2 ug/mL (Not Estab.)
== END ==
LOC: OD 09:47
PROVIDERS: ATTEND Internal Medicine Nephrology
DX: I13.0 Hypertensive heart and chronic kidney disease with heart failure and stage 1 through stage 4 chronic kidney disease, or unspecified chronic kidney disease (principal); N18.3 Chronic kidney disease, stage 3 (moderate); I50.9 Heart failure, unspecified; E11.9 Type 2 diabetes mellitus without complications
CPT/HCPCS: 36415; 80048; 81001; 82043; 82570; 85027

== ENCOUNTER → 2017-04-02 | Outpatient (CLI) | payer MEDICARE, OTHER ==
[2017-04-02 11:00] LABS: PROTHROMBIN TIME 27.7 SEC (11.4-15.4)
== END ==
LOC: OD 10:05
PROVIDERS: ATTEND Internal Medicine Cardiovascular Disease
DX: Z79.01 Long term (current) use of anticoagulants (principal)
CPT/HCPCS: 36415; 85610

== ENCOUNTER → 2017-04-16 | Outpatient (CLI) | payer MEDICARE, OTHER ==
[2017-04-16 12:20] LABS: PROTHROMBIN TIME 26.1 SEC (11.4-15.4)
== END ==
LOC: OD 10:59
PROVIDERS: ATTEND Internal Medicine Cardiovascular Disease
DX: Z79.01 Long term (current) use of anticoagulants (principal); Z51.81 Encounter for therapeutic drug level monitoring
CPT/HCPCS: 36415; 85610

== ENCOUNTER → 2017-05-06 | Outpatient (CLI) | payer MEDICARE, OTHER ==
[2017-05-06 09:02] LABS: HEMATOCRIT 31.8 % (36.0-47.0); HEMOGLOBIN 10.3 g/dL (12.0-15.5); HGB HCT DIFFERENCE -0.9; MEAN CORPUSCULAR HEMOGLOBIN 24.2 pg (27.0-33.4); MEAN CORPUSCULAR HGB CONC 32.3 g/dL (32.0-36.0); MEAN CORPUSCULAR VOLUME 75 fl (80-97); RED BLOOD COUNT 4.25 10^6/uL (3.72-5.28); RED CELL DISTRIBUTION WIDTH 17.4 % (11.5-14.0); WHITE BLOOD COUNT 13.3 10^3/uL (4.0-10.5)
[2017-05-06 09:12] LABS: PROTHROMBIN TIME 17.9 SEC (11.4-15.4)
[2017-05-06 09:22] LABS: ANION GAP 12 (5-19); BLOOD UREA NITROGEN 25 mg/dL (7-20); CALCIUM 8.7 mg/dL (8.4-10.2); CARBON DIOXIDE 31 mmol/L (22-30); CHLORIDE 95 mmol/L (98-107); CREATININE RESULT 1.16 mg/dL (0.52-1.25); GLUCOSE 99 mg/dL (75-110); MAGNESIUM 2.3 mg/dL (1.6-2.3); POTASSIUM 3.6 mmol/L (3.6-5.0); SODIUM 138.1 mmol/L (137-145)
== END ==
LOC: OD 08:07
PROVIDERS: ATTEND Internal Medicine Cardiovascular Disease
DX: Z79.01 Long term (current) use of anticoagulants (principal); I48.1 Persistent atrial fibrillation; E11.22 Type 2 diabetes mellitus with diabetic chronic kidney disease; I13.0 Hypertensive heart and chronic kidney disease with heart failure and stage 1 through stage 4 chronic kidney disease, or unspecified chronic kidney disease; N18.3 Chronic kidney disease, stage 3 (moderate); I50.9 Heart failure, unspecified
CPT/HCPCS: 36415; 80048; 83735; 85027; 85610

== ENCOUNTER → 2017-05-16 | Outpatient (CLI) | payer MEDICARE, OTHER ==
[2017-05-16 09:00] LABS: PROTHROMBIN TIME 26.4 SEC (11.4-15.4)
== END ==
LOC: OD 08:00
PROVIDERS: ATTEND Internal Medicine Cardiovascular Disease
DX: I48.1 Persistent atrial fibrillation (principal); Z79.01 Long term (current) use of anticoagulants
CPT/HCPCS: 36415; 85610

== ENCOUNTER → 2017-06-18 | Outpatient (CLI) | payer MEDICARE, OTHER ==
[2017-06-18 11:01] LABS: PROTHROMBIN TIME 23.8 SEC (11.4-15.4)
== END ==
LOC: OD 10:20
PROVIDERS: ATTEND Internal Medicine Cardiovascular Disease
DX: I48.1 Persistent atrial fibrillation (principal); Z79.01 Long term (current) use of anticoagulants
CPT/HCPCS: 36415; 85610

== ENCOUNTER → 2017-06-27 | Outpatient (CLI) | payer MEDICARE, OTHER ==
[2017-06-27 10:17] LABS: PROTHROMBIN TIME 26.3 SEC (11.4-15.4)
== END ==
LOC: OD 08:54
PROVIDERS: ATTEND Internal Medicine Cardiovascular Disease
DX: I48.1 Persistent atrial fibrillation (principal); Z79.01 Long term (current) use of anticoagulants
CPT/HCPCS: 36415; 85610

== ENCOUNTER → 2017-07-17 | Outpatient (CLI) | payer MEDICARE, OTHER ==
[2017-07-17 11:52] LABS: PROTHROMBIN TIME 23.8 SEC (11.4-15.4)
== END ==
LOC: OD 11:00
PROVIDERS: ATTEND Internal Medicine Cardiovascular Disease
DX: I48.1 Persistent atrial fibrillation (principal); Z79.01 Long term (current) use of anticoagulants
CPT/HCPCS: 36415; 85610

== ENCOUNTER → 2017-07-30 | Outpatient (CLI) | payer MEDICARE, OTHER ==
[2017-07-30 09:26] LABS: INTERNATIONAL RATION (INR) 1.79; PROTHROMBIN TIME 21.8 SEC (11.4-15.4)
[2017-07-30 15:13] LABS: MEAN CORPUSCULAR HEMOGLOBIN 23.2 pg (27.0-33.4); MEAN CORPUSCULAR HGB CONC 32.2 g/dL (32.0-36.0); MEAN CORPUSCULAR VOLUME 72 fl (80-97); PLATELET COUNT 288 10^3/uL (150-450); RED BLOOD COUNT 4.31 10^6/uL (3.72-5.28); RED CELL DISTRIBUTION WIDTH 17.9 % (11.5-14.0)
[2017-07-30 15:24] LABS: APPEARANCE,URINE SLIGHTLY-CLOUDY; BILIRUBIN,URINE NEGATIVE (NEGATIVE); COLOR,URINE YELLOW; GLUCOSE, URINE NEGATIVE (NEGATIVE); KETONES,URINE NEGATIVE (NEGATIVE); LEUKOCYTE ESTERASE,URINE NEGATIVE (NEGATIVE); NITRITE,URINE NEGATIVE (NEGATIVE); PROTEIN,URINE NEGATIVE (NEGATIVE); URINE SPECIFIC GRAVITY 1.014; UROBILINOGEN,URINE NEGATIVE mg/dL (<2.0)
[2017-07-30 15:32] LABS: ALANINE AMINOTRANSFERASE 19 U/L (9-52); ALBUMIN 3.8 g/dL (3.5-5.0); ALKALINE PHOSPHATASE 65 U/L (38-126); ANION GAP 12 (5-19); ASPARTATE AMINO TRANSFERASE 20 U/L (14-36); BILIRUBIN,DIRECT 0.4 mg/dL (0.0-0.4); BILIRUBIN,TOTAL 0.4 mg/dL (0.2-1.3); BLOOD UREA NITROGEN 23 mg/dL (7-20); CALCIUM 9.4 mg/dL (8.4-10.2); CARBON DIOXIDE 26 mmol/L (22-30); CHLORIDE 102 mmol/L (98-107); GLUCOSE 154 mg/dL (75-110); POTASSIUM 4.2 mmol/L (3.6-5.0); SODIUM 140.4 mmol/L (137-145)
== END ==
LOC: OD 08:41
PROVIDERS: ATTEND Internal Medicine Cardiovascular Disease
DX: I48.1 Persistent atrial fibrillation (principal); Z79.01 Long term (current) use of anticoagulants
CPT/HCPCS: 36415; 80048; 80076; 81001; 85027; 85610; 85730

== ENCOUNTER 2017-07-31 12:04 | Emergency (ER) | payer MEDICARE, OTHER ==
[2017-07-31 15:39] LABS: A TYPE INFLUENZA AG NEGATIVE (NEGATIVE); B INFLUENZA AG NEGATIVE (NEGATIVE)
--- NOTE | 2017-07-31 16:12 | ER Document Report ---
ED General - General Chief Complaint: Shortness Of Breath Stated Complaint: FLU SYMPTOMS Time Seen by Provider: 07/31/17 14:46 Mode of Arrival: Ambulatory Information source: Patient Notes: Patient presents stating that she has had some mild cough and congestion and wanted to be tested for the flu. She states she went to her primary today but he does not test with a flu so she came here. She states she does not want any blood work or x-rays since these were just done. She also states that she noticed that the pinky toe on her left foot has a tender nail and that there has been some bleeding. She does not know of any injury to this foot. The pinky toe pain is worse when touched and better if left alone. It does not radiate. It is a mild constant dull pain. TRAVEL OUTSIDE OF THE [place] IN LAST 30 DAYS: No - Related Data Allergies/Adverse Reactions: No Known Allergies Allergy (Verified 07/31/17 12:05) Past Medical History - General Information source: Patient - Social History Smoking Status: Former Smoker Frequency of alcohol use: None Drug Abuse: None Family History: Reviewed & Not Pertinent Patient has suicidal ideation: No Patient has homicidal ideation: No - Past Medical History Cardiac Medical History: Reports: Hx Atrial Fibrillation, Hx Hypercholesterolemia, Hx Hypertension Pulmonary Medical History: Reports: Hx COPD Neurological Medical History: Reports: Hx Cerebrovascular Accident - 1997 Endocrine Medical History: Reports: Hx Diabetes Mellitus Type 2 Renal/ Medical History: Denies: Hx Peritoneal Dialysis GI Medical History: Reports: Hx Ulcer - APPROX 98 BUT HASN'T SINCE THEN Psychiatric Medical History: Denies: Hx Depression Infectious Medical History: Past Surgical History: Reports: Hx Cholecystectomy, Hx Orthopedic Surgery - left hip, Hx Thyroid Surgery. Denies: Hx Open Heart Surgery - Immunizations Hx Diphtheria, Pertussis, Tetanus Vaccination: Yes Hx Pneumococcal Vaccination: 08/06/12 Review of Systems - Review of Systems Constitutional: denies: Chills, Fever Cardiovascular: denies: Chest pain, Palpitations Respiratory: Cough. denies: Short of breath -: Yes All other systems reviewed and negative Physical Exam - Vital signs Vitals: Temp Pulse Resp BP Pulse Ox 98.2 F 93 17 121/52 L 95 07/31/17 12:26 07/31/17 12:26 07/31/17 12:26 07/31/17 12:26 07/31/17 12:26 Interpretation: Normal - General General appearance: Appears well, Alert In distress: None - HEENT Head: Normocephalic, Atraumatic Eyes: Normal Pupils: PERRL - Respiratory Respiratory status: No respiratory distress Chest status: Nontender Breath sounds: Normal Chest palpation: Normal - Cardiovascular Rhythm: Regular Heart sounds: Normal auscultation Murmur: No - Abdominal Inspection: Normal Distension: No distension Bowel sounds: Normal Tenderness: Nontender Organomegaly: No organomegaly - Back Back: Normal, Nontender - Extremities General upper extremity: Normal inspection, Nontender, Normal color, Normal ROM , Normal temperature General lower extremity: Tender, Normal ROM, Normal temperature, Normal weight bearing, Other - Patient's left small toe does have evidence of a partial nail avulsion.. No: Eagle's sign - Neurological Neuro grossly intact: Yes Cognition: Normal Orientation: AAOx4 [place] Coma Scale Eye Opening: Spontaneous [place] Coma Scale Verbal: Oriented [place] Coma Scale Motor: Obeys Commands [place] Coma Scale Total: 15 Speech: Normal Motor strength normal: LUE, RUE, LLE, RLE Sensory: Normal - Psychological Associated symptoms: Normal affect, Normal mood - Skin Skin Temperature: Warm Skin Moisture: Dry Skin Color: Normal Course - Vital Signs Vital signs: Temp Pulse Resp BP Pulse Ox 98.2 F 93 17 121/52 L 95 07/31/17 12:26 07/31/17 12:26 07/31/17 12:26 07/31/17 12:26 07/31/17 12:26 Procedures - Immobilization Left Toe Time completed: 16:11 Immobilizer type: Other - gabriella tape toes Performed by: RN Post-Proc Neuro Vasc Exam: Normal Alignment checked and good: Yes Discharge - Discharge Clinical Impression: Avulsion of toenail of left foot, Viral syndrome Condition: Stable Disposition: HOME, SELF-CARE Instructions: Viral Syndrome ([facility]) Additional Instructions: Your blood pressure is mildly elevated. Please have this rechecked within 1 week by your doctor. Please keep your toe gabriella taped until you follow-up with your primary care physician Forms: Elevated Blood Pressure
[2017-07-31 16:57] VITALS: BP 123/62
== END 2017-07-31 16:58 | disposition home or self-care (01) ==
LOC: ER 12:04
DX: B34.9 Viral infection, unspecified (principal); S91.205A Unspecified open wound of left lesser toe(s) with damage to nail, initial encounter; X58.XXXA Exposure to other specified factors, initial encounter; J44.9 Chronic obstructive pulmonary disease, unspecified; R06.02 Shortness of breath; R05 Cough; I10 Essential (primary) hypertension; E11.9 Type 2 diabetes mellitus without complications; Z87.891 Personal history of nicotine dependence
CPT/HCPCS: 87804; 99283

== ENCOUNTER → 2017-09-05 | Outpatient (CLI) | payer MEDICARE ==
[2017-09-05 12:10] LABS: HEMOGLOBIN 10.2 g/dL (12.0-15.5); MEAN CORPUSCULAR HEMOGLOBIN 23.6 pg (27.0-33.4); MEAN CORPUSCULAR VOLUME 74 fl (80-97); PLATELET COUNT 220 10^3/uL (150-450); RED BLOOD COUNT 4.33 10^6/uL (3.72-5.28); RED CELL DISTRIBUTION WIDTH 19.1 % (11.5-14.0)
[2017-09-05 12:43] LABS: ANION GAP 8 (5-19); BLOOD UREA NITROGEN 17 mg/dL (7-20); CALCIUM 9.2 mg/dL (8.4-10.2); CARBON DIOXIDE 26 mmol/L (22-30); CHLORIDE 105 mmol/L (98-107); GLUCOSE 86 mg/dL (75-110); POTASSIUM 3.9 mmol/L (3.6-5.0); SODIUM 139.1 mmol/L (137-145)
== END ==
LOC: OD 10:17
PROVIDERS: ATTEND Internal Medicine Nephrology
DX: I12.9 Hypertensive chronic kidney disease with stage 1 through stage 4 chronic kidney disease, or unspecified chronic kidney disease (principal); N18.3 Chronic kidney disease, stage 3 (moderate); I50.9 Heart failure, unspecified; E11.9 Type 2 diabetes mellitus without complications
CPT/HCPCS: 36415; 80048; 83735; 85027

== ENCOUNTER → 2017-10-23 | Outpatient (CLI) | payer MEDICARE, OTHER ==
[2017-10-23 11:03] LABS: HEMATOCRIT 36.5 % (36.0-47.0); HEMOGLOBIN 12.1 g/dL (12.0-15.5); MEAN CORPUSCULAR HEMOGLOBIN 27.2 pg (27.0-33.4); MEAN CORPUSCULAR HGB CONC 33.2 g/dL (32.0-36.0); MEAN CORPUSCULAR VOLUME 82 fl (80-97); PLATELET COUNT 225 10^3/uL (150-450); RED BLOOD COUNT 4.45 10^6/uL (3.72-5.28); RED CELL DISTRIBUTION WIDTH 20.1 % (11.5-14.0); WHITE BLOOD COUNT 7.2 10^3/uL (4.0-10.5)
[2017-10-23 11:11] LABS: APPEARANCE,URINE CLEAR; BILIRUBIN,URINE NEGATIVE (NEGATIVE); COLOR,URINE YELLOW; GLUCOSE, URINE NEGATIVE (NEGATIVE); KETONES,URINE NEGATIVE (NEGATIVE); LEUKOCYTE ESTERASE,URINE NEGATIVE (NEGATIVE); NITRITE,URINE NEGATIVE (NEGATIVE); PROTEIN,URINE NEGATIVE (NEGATIVE); URINE SPECIFIC GRAVITY 1.011; UROBILINOGEN,URINE NEGATIVE mg/dL (<2.0)
[2017-10-23 11:47] LABS: ALANINE AMINOTRANSFERASE 20 U/L (9-52); ALBUMIN 3.8 g/dL (3.5-5.0); ALKALINE PHOSPHATASE 75 U/L (38-126); ANION GAP 12 (5-19); ASPARTATE AMINO TRANSFERASE 20 U/L (14-36); BILIRUBIN,DIRECT 0.4 mg/dL (0.0-0.4); BILIRUBIN,TOTAL 0.6 mg/dL (0.2-1.3); BLOOD UREA NITROGEN 31 mg/dL (7-20); CALCIUM 9.6 mg/dL (8.4-10.2); CARBON DIOXIDE 28 mmol/L (22-30); CHLORIDE 100 mmol/L (98-107); GLUCOSE 144 mg/dL (75-110); POTASSIUM 4.3 mmol/L (3.6-5.0); TOTAL PROTEIN 7.2 g/dL (6.3-8.2)
== END ==
LOC: OD 09:20
PROVIDERS: ATTEND Internal Medicine Cardiovascular Disease
DX: I48.1 Persistent atrial fibrillation (principal); Z79.01 Long term (current) use of anticoagulants; Z79.899 Other long term (current) drug therapy
CPT/HCPCS: 36415; 80048; 80076; 81001; 82272; 85027; 85730

== ENCOUNTER → 2017-11-07 | Outpatient (CLI) | payer MEDICARE, OTHER ==
--- NOTE | 2017-11-07 17:08 | RADIOLOGY REPORT (SQ) ---
EXAM DESCRIPTION: WRIST LEFT 2 VIEWS COMPLETED DATE/TIME: 11/07/2017 4:32 pm REASON FOR STUDY: PAIN IN LEFT WRIST M25.532 PAIN IN LEFT WRIST COMPARISON: None. NUMBER OF VIEWS: Three views. TECHNIQUE: AP, lateral, and oblique radiographic images acquired of the left wrist. LIMITATIONS: None. FINDINGS: MINERALIZATION: Normal. BONES: No acute fracture or dislocation. No worrisome bone lesions. Normal alignment. SOFT TISSUES: Mild diffuse soft tissue swelling. No foreign body. OTHER: No other significant finding. IMPRESSION: Soft tissue swelling. No acute fracture. TECHNICAL DOCUMENTATION: JOB ID: [id number] [employer]- All Rights Reserved Reading location - IP/workstation name: [email or web address]
== END ==
LOC: OD 16:04
PROVIDERS: ATTEND Internal Medicine
DX: M25.532 Pain in left wrist (principal); M79.89 Other specified soft tissue disorders

== ENCOUNTER → 2018-01-16 | Outpatient (CLI) | payer MEDICARE, OTHER ==
[2018-01-16 12:32] LABS: HEMATOCRIT 34.9 % (36.0-47.0); HEMOGLOBIN 11.8 g/dL (12.0-15.5); MEAN CORPUSCULAR HEMOGLOBIN 29.4 pg (27.0-33.4); MEAN CORPUSCULAR HGB CONC 33.7 g/dL (32.0-36.0); MEAN CORPUSCULAR VOLUME 87 fl (80-97); PLATELET COUNT 221 10^3/uL (150-450); RED CELL DISTRIBUTION WIDTH 14.2 % (11.5-14.0); WHITE BLOOD COUNT 7.7 10^3/uL (4.0-10.5)
[2018-01-16 12:59] LABS: ALANINE AMINOTRANSFERASE 18 U/L (9-52); ALBUMIN 3.8 g/dL (3.5-5.0); ALKALINE PHOSPHATASE 61 U/L (38-126); ANION GAP 14 (5-19); ASPARTATE AMINO TRANSFERASE 20 U/L (14-36); BILIRUBIN,DIRECT 0.4 mg/dL (0.0-0.4); BILIRUBIN,TOTAL 0.4 mg/dL (0.2-1.3); BLOOD UREA NITROGEN 41 mg/dL (7-20); CALCIUM 9.4 mg/dL (8.4-10.2); CARBON DIOXIDE 24 mmol/L (22-30); CHLORIDE 103 mmol/L (98-107); GLUCOSE 49 mg/dL (75-110); POTASSIUM 4.1 mmol/L (3.6-5.0); SODIUM 141.4 mmol/L (137-145); TOTAL PROTEIN 7.6 g/dL (6.3-8.2)
[2018-01-16 15:13] LABS: APPEARANCE,URINE CLEAR; BILIRUBIN,URINE NEGATIVE (NEGATIVE); COLOR,URINE YELLOW; GLUCOSE, URINE NEGATIVE (NEGATIVE); KETONES,URINE NEGATIVE (NEGATIVE); LEUKOCYTE ESTERASE,URINE NEGATIVE (NEGATIVE); NITRITE,URINE NEGATIVE (NEGATIVE); PROTEIN,URINE NEGATIVE (NEGATIVE); UROBILINOGEN,URINE NEGATIVE mg/dL (<2.0)
== END ==
LOC: OD 11:54
PROVIDERS: ATTEND Internal Medicine Cardiovascular Disease
DX: I48.2 Chronic atrial fibrillation (principal); Z79.01 Long term (current) use of anticoagulants; Z79.899 Other long term (current) drug therapy
CPT/HCPCS: 36415; 80048; 80076; 81001; 82272; 85027; 85730

== ENCOUNTER → 2018-01-30 | Outpatient (CLI) | payer MEDICARE, OTHER ==
[2018-01-30 09:36] LABS: HEMATOCRIT 33.4 % (36.0-47.0); HEMOGLOBIN 11.5 g/dL (12.0-15.5); MEAN CORPUSCULAR HEMOGLOBIN 30.3 pg (27.0-33.4); MEAN CORPUSCULAR HGB CONC 34.5 g/dL (32.0-36.0); MEAN CORPUSCULAR VOLUME 88 fl (80-97); PLATELET COUNT 204 10^3/uL (150-450); RED CELL DISTRIBUTION WIDTH 13.8 % (11.5-14.0); WHITE BLOOD COUNT 8.4 10^3/uL (4.0-10.5)
[2018-01-30 09:52] LABS: ANION GAP 14 (5-19); BLOOD UREA NITROGEN 30 mg/dL (7-20); CALCIUM 9.3 mg/dL (8.4-10.2); CARBON DIOXIDE 25 mmol/L (22-30); CHLORIDE 103 mmol/L (98-107); GLUCOSE 113 mg/dL (75-110); POTASSIUM 3.9 mmol/L (3.6-5.0); SODIUM 141.8 mmol/L (137-145)
[2018-01-30 10:02] LABS: APPEARANCE,URINE SLIGHTLY-CLOUDY; BILIRUBIN,URINE NEGATIVE (NEGATIVE); COLOR,URINE YELLOW; GLUCOSE, URINE NEGATIVE (NEGATIVE); KETONES,URINE NEGATIVE (NEGATIVE); LEUKOCYTE ESTERASE,URINE NEGATIVE (NEGATIVE); NITRITE,URINE NEGATIVE (NEGATIVE); PROTEIN,URINE NEGATIVE (NEGATIVE); URINE SPECIFIC GRAVITY 1.013; UROBILINOGEN,URINE NEGATIVE mg/dL (<2.0)
== END ==
LOC: OD 08:54
PROVIDERS: ATTEND Internal Medicine Nephrology
DX: E11.22 Type 2 diabetes mellitus with diabetic chronic kidney disease (principal); N18.3 Chronic kidney disease, stage 3 (moderate); I50.9 Heart failure, unspecified; E87.6 Hypokalemia
CPT/HCPCS: 36415; 80048; 81001; 85027

== ENCOUNTER 2018-02-10 09:19 | Inpatient (IN) | payer MEDICARE, OTHER ==
[2018-02-10 11:50] LABS: HEMATOCRIT 32.1 % (36.0-47.0); HEMOGLOBIN 10.8 g/dL (12.0-15.5); MEAN CORPUSCULAR HEMOGLOBIN 29.6 pg (27.0-33.4); MEAN CORPUSCULAR HGB CONC 33.7 g/dL (32.0-36.0); MEAN CORPUSCULAR VOLUME 88 fl (80-97); PLATELET COUNT 231 10^3/uL (150-450); RED BLOOD COUNT 3.65 10^6/uL (3.72-5.28); RED CELL DISTRIBUTION WIDTH 13.5 % (11.5-14.0); WHITE BLOOD COUNT 8.3 10^3/uL (4.0-10.5)
[2018-02-10 12:22] LABS: ALANINE AMINOTRANSFERASE 18 U/L (9-52); ALBUMIN 3.4 g/dL (3.5-5.0); ALKALINE PHOSPHATASE 58 U/L (38-126); ANION GAP 14 (5-19); ASPARTATE AMINO TRANSFERASE 17 U/L (14-36); BILIRUBIN,DIRECT 0.3 mg/dL (0.0-0.4); BILIRUBIN,TOTAL 0.6 mg/dL (0.2-1.3); BLOOD UREA NITROGEN 30 mg/dL (7-20); CALCIUM 9.2 mg/dL (8.4-10.2); CARBON DIOXIDE 26 mmol/L (22-30); CHLORIDE 102 mmol/L (98-107); GLUCOSE 156 mg/dL (75-110); POTASSIUM 4.4 mmol/L (3.6-5.0); SODIUM 141.7 mmol/L (137-145); TOTAL PROTEIN 7.1 g/dL (6.3-8.2)
[2018-02-10 12:25] LABS: INTERNATIONAL RATION (INR) 1.18; PROTHROMBIN TIME 15.6 SEC (11.4-15.4)
[2018-02-10 12:53] LABS: APPEARANCE,URINE CLEAR; BILIRUBIN,URINE NEGATIVE (NEGATIVE); COLOR,URINE YELLOW; GLUCOSE, URINE NEGATIVE (NEGATIVE); KETONES,URINE NEGATIVE (NEGATIVE); LEUKOCYTE ESTERASE,URINE NEGATIVE (NEGATIVE); NITRITE,URINE NEGATIVE (NEGATIVE); PROTEIN,URINE NEGATIVE (NEGATIVE); URINE SPECIFIC GRAVITY 1.012; UROBILINOGEN,URINE NEGATIVE mg/dL (<2.0)
[2018-02-10 13:11] LABS: UR PRO/CREAT RATIO RESULT 0.6 mg/mg (0.0-0.2); URINE CREATININE 62.3 mg/dL (15-278); URINE PROTEIN 34.4 mg/dL (<12)
--- NOTE | 2018-02-10 14:10 | RADIOLOGY REPORT (SQ) ---
EXAM DESCRIPTION: CHEST 2 VIEWS COMPLETED DATE/TIME: 02/10/2018 1:52 pm REASON FOR STUDY: bilat pleural effusion COMPARISON: 04/27/2017 EXAM PARAMETERS: NUMBER OF VIEWS: two views TECHNIQUE: Digital Frontal and Lateral radiographic views of the chest acquired. RADIATION DOSE: NA LIMITATIONS: none FINDINGS: LUNGS AND PLEURA: Persistent bilateral pleural effusions, with a mild increase on the rig ht. Slight to mild compressive atelectatic changes suggested in the lower lung zones. MEDIASTINUM AND HILAR STRUCTURES: No masses or contour abnormalities. HEART AND VASCULAR STRUCTURES: The cardiac margins are obscured by the underlying bilateral pleural process. Mild pulmonary vascular congestion. BONES: No acute findings. HARDWARE: None in the chest. OTHER: No other significant finding. IMPRESSION: 1 Persistent bilateral pleural effusions since the prior examination dated 04/27/2017, w ith mild increase in the pleural effusion on the right. Slight to mild compressive atelectatic marcus es in the lower lung zones. 2. Mild pulmonary vascular congestion. The cardiac margins are partially obscured by the underlying bilateral pleural changes. TECHNICAL DOCUMENTATION: JOB ID: [id number] [employer]- All Rights Reserved Reading location - IP/workstation name: [email or web address]
--- NOTE | 2018-02-10 15:02 | RADIOLOGY REPORT (SQ) ---
EXAM DESCRIPTION: U/S THORACENTESIS WITH IMAGING COMPLETED DATE/TIME: 02/10/2018 2:44 pm REASON FOR STUDY: bilat pleural effusion J90 PLEURAL EFFUSION, NOT ELSEWHERE CLASSIFIED I50.30 UNS PECIFIED DIASTOLIC (CONGESTIVE) HEART FAILURE COMPARISON: Two-view chest 11/08/2015, 04/27/2017, 02/10/2018 Thoracentesis 04/26/2017, 04/25/2017 LIMITATIONS: None. PROCEDURE: Procedure, risks, benefit, and alternative explained to patient who then gave written con sent. The posterior right chest wall was marked using ultrasound guidance. A time-out was called fo r correct marking verification. Chest prepped and draped using sterile technique. Local anesthesia a chieved using 5 ml of 1% lidocaine injection. A 6fr Safe-T- Centesis set was introduced into the rig ht pleural space. Fluid was aspirated. The catheter was removed and the entry site was covered with sterile bandage. No immediate complications noted. The fluid was sent for testing Images acquired during the procedure were stored on PACS. FINDINGS: ENTRY SITE: Right posterior chest FLUID VOLUME: 900 mL of clear straw-colored fluid FLUID ANALYSIS: Yes, sent for testing OTHER: No immediate postprocedure complication IMPRESSION: SUCCESSFUL RIGHT THORACENTESIS USING ULTRASOUND GUIDANCE. COMMENT: Patient medication list reviewed: Yes- Quality ID# [id number]:Eligible professional attests to doc umenting in the medical record they obtained, updated, or reviewed the patient's current medications. TECHNICAL DOCUMENTATION: JOB ID: [id number] [employer]- All Rights Reserved Reading location - IP/workstation name: [email or web address]
--- NOTE | 2018-02-10 15:23 | RADIOLOGY REPORT (SQ) ---
EXAM DESCRIPTION: CHEST SINGLE VIEW COMPLETED DATE/TIME: 02/10/2018 3:00 pm REASON FOR STUDY: S/P RT THORACENTESIS COMPARISON: Chest films 02/10/2018, 04/27/2017 EXAM PARAMETERS: NUMBER OF VIEWS: One view. TECHNIQUE: Single frontal radiographic view of the chest acquired. RADIATION DOSE: NA LIMITATIONS: None. FINDINGS: LUNGS AND PLEURA: Immediate post right thoracentesis film, 900 mL of fluid was removed fro m the right chest. No pneumothorax. There is persistent small residual right pleural effusion and r ight basilar airspace disease likely atelectasis. On the left side, of moderate pleural effusion is present with basilar airspace disease likely atelec tasis, similar compared to 02/10/2018. MEDIASTINUM AND HILAR STRUCTURES: No masses. Contour normal. HEART AND VASCULAR STRUCTURES: Heart normal in size. Normal vasculature. BONES: No acute findings. HARDWARE: None in the chest. OTHER: No other significant finding. IMPRESSION: No pneumothorax post right thoracentesis. Persistent residual right pleural effusion with basilar airspace disease, moderate left pleural effus ion with basilar airspace disease. TECHNICAL DOCUMENTATION: JOB ID: [id number] [employer] All Rights Reserved Reading location - IP/workstation name: [email or web address]
[2018-02-10 15:58] LABS: ABSOLUTE BASOPHILS # (AUTO) 0.1 10^3/uL (0.0-0.2); ABSOLUTE EOSINOPHILS # (AUTO) 0.1 10^3/uL (0.0-0.6); ABSOLUTE LYMPHOCYTES (AUTO) 0.8 10^3/uL (0.5-4.7); ABSOLUTE MONOCYTES (AUTO) 0.6 10^3/uL (0.1-1.4); BASOPHILS % (AUTO) 1.2 % (0-2); EOSINOPHILS % (AUTO) 1.4 % (0-6); HEMATOCRIT 32.4 % (36.0-47.0); LYMPHOCYTES % (AUTO) 10.8 % (13-45); MEAN CORPUSCULAR HEMOGLOBIN 29.9 pg (27.0-33.4); MEAN CORPUSCULAR HGB CONC 34.1 g/dL (32.0-36.0); MEAN CORPUSCULAR VOLUME 88 fl (80-97); MONOCYTES % (AUTO) 7.5 % (3-13); PLATELET COUNT 248 10^3/uL (150-450); RED BLOOD COUNT 3.69 10^6/uL (3.72-5.28); RED CELL DISTRIBUTION WIDTH 13.4 % (11.5-14.0); SEGMENTED NEUTROPHILS % (AUTO) 79.1 % (42-78); TOTAL CELLS COUNTED % (AUTO) 100 %; WHITE BLOOD COUNT 7.5 10^3/uL (4.0-10.5)
[2018-02-10 16:18] LABS: ALANINE AMINOTRANSFERASE 15 U/L (9-52); ALBUMIN 3.7 g/dL (3.5-5.0); ALKALINE PHOSPHATASE 66 U/L (38-126); ANION GAP 14 (5-19); ASPARTATE AMINO TRANSFERASE 18 U/L (14-36); BILIRUBIN,DIRECT 0.4 mg/dL (0.0-0.4); BILIRUBIN,TOTAL 0.7 mg/dL (0.2-1.3); BLOOD UREA NITROGEN 32 mg/dL (7-20); CALCIUM 9.2 mg/dL (8.4-10.2); CARBON DIOXIDE 27 mmol/L (22-30); CHLORIDE 102 mmol/L (98-107); GLUCOSE 111 mg/dL (75-110); INTERNATIONAL RATION (INR) 1.09; POTASSIUM 3.9 mmol/L (3.6-5.0); PROTHROMBIN TIME 14.7 SEC (11.4-15.4); SODIUM 143.2 mmol/L (137-145); TOTAL PROTEIN 7.4 g/dL (6.3-8.2)
[2018-02-10 16:35] LABS: FLUID TYPE PLEURAL
[2018-02-10 16:36] LABS: FLUID APPEARANCE SLIGHTLY HAZY; FLUID COLOR YELLOW; FLUID SOURCE LUNG; FLUID VISCOSITY SLIGHTLY VISCOUS
--- NOTE | 2018-02-10 17:30 | RADIOLOGY REPORT (SQ) ---
EXAM DESCRIPTION: CHEST SINGLE VIEW COMPLETED DATE/TIME: 02/10/2018 5:19 pm REASON FOR STUDY: 2 HOURS S/P THORACENTESIS COMPARISON: 02/10/2018 EXAM PARAMETERS: NUMBER OF VIEWS: One view. TECHNIQUE: Single frontal radiographic view of the chest acquired. RADIATION DOSE: NA LIMITATIONS: None. FINDINGS: LUNGS AND PLEURA: Pneumothorax is identified status post thoracentesis on the right. The previously described small bilateral pleural effusions are unchanged from the previous study. MEDIASTINUM AND HILAR STRUCTURES: No masses. Contour normal. HEART AND VASCULAR STRUCTURES: Cardiac silhouette is partially obscured due to adjacent densities but appears unchanged. BONES: No acute findings. HARDWARE: None in the chest. OTHER: No other significant finding. IMPRESSION: No evidence for pneumothorax post thoracentesis. No other significant interval change. TECHNICAL DOCUMENTATION: JOB ID: [id number] [employer]- All Rights Reserved Reading location - IP/workstation name: [email or web address]
[2018-02-10] MEDS ORDERED: NITROGLYCERIN 0.4 MG/TAB 25 TAB/BOTTLE SL PRN (17:58)
[2018-02-10] MEDS ORDERED: (PENDING PHARMACY ID) (Hydralazine Hcl [Hydralazine Hcl] 100 MG) PO SCH (18:00)
[2018-02-10] MEDS ORDERED: (PENDING PHARMACY ID) (Metoprolol Succinate [Toprol Xl 200 Mg Tablet] 200 MG) PO SCH (18:00)
[2018-02-10] MEDS ORDERED: (PENDING PHARMACY ID) (Linagliptin [Tradjenta] 5 MG) PO SCH (18:00)
[2018-02-10] MEDS ORDERED: RALOXIFENE HCL 60 MG TABLET PO SCH (19:00)
[2018-02-10] MEDS ORDERED: APIXABAN 5 MG TABLET PO SCH (19:00)
[2018-02-10] MEDS: GLIPIZIDE 5 MG TABLET PO SCH (19:52)
[2018-02-10] MEDS: HYDRALAZINE HCL 50 MG TABLET PO SCH (19:55)
--- NOTE | 2018-02-10 19:56 | XCELERA REPORT ---
[address] [address] Transthoracic Echocardiogram Report Name: SID MARTINEZ Age: 77 yrs Gender: Female : 1940 Patient Status: Inpatient Patient Location: [address] [place], [place] [address]A Study Date: 02/10/2018 04:23 PM Procedure: A two-dimensional transthoracic echocardiogram with color flow Doppler was performed. The study was technically difficult with many images being suboptimal in quality. Reason For Study: CHF History: CHF. Ordering Physician: SONU ZAMUDIO Performed By: Nannette Reyna Interpretation Summary The left ventricle is normal in size. There is normal left ventricular wall thickness. LV EF is 65% Left ventricular systolic function is normal. The left ventricular wall motion is normal. The right atrium is mildly dilated. The left atrium is mildly dilated. There is no evidence of mitral valve prolapse. There is no vegetation seen on the mitral valve. There is no mitral valve stenosis. There is a mild amount of mitral regurgitation There is no aortic valve stenosis There is no LVOT obstruction. There is a trace amount of aortic regurgitation There is no tricuspid stenosis. There is a trace to mild amount of tricuspid regurgitation There is mild pulmonary hypertension by echo RVSP is 43 mm of Hg , with RA mean of 10. There is a trace amount of pulmonic regurgitation There is no pulmonic valvular stenosis. There is no pericardial effusion. Large left pleural effusion. MMode/2D Measurements & Calculations RVDd: 3.3 cm LVIDd: 5.2 cmFS: 35.5 % Ao root diam: 2.6 cm IVSd: 1.1 cm LVIDs: 3.3 cmEDV(Teich): 126.8 ml Ao root area: 5.4 cm2 LVPWd: 1.1 cmESV(Teich): 44.8 ml EF(Teich): 64.6 % LVOT diam: 1.5 cm LVOT area: 1.7 cm2 Doppler Measurements & Calculations Ao V2 max: LV V1 max PG: PA V2 max: PI max inez: 167.9 cm/sec 3.9 mmHg 95.4 cm/sec 141.7 cm/sec Ao max PG: LV V1 max: PA max PG: PI max P.0 mmHg 11.3 mmHg 98.5 cm/sec 3.6 mmHg PI dec slope: VANI(V,D): 1.0 cm2 229.3 cm/sec2 TR max inez: 290.5 cm/sec TR max P.8 mmHg Left Ventricle The left ventricle is normal in size. There is normal left ventricular wall thickness. LV EF is 65%. Left ventricular systolic function is normal. LV diastolic function could not be adequately assessed due to atrial fibrilation. The left ventricular wall motion is normal. There is no thrombus. Right Ventricle The right ventricle is mild to moderately dilated. The right ventricular systolic function is normal. Atria The right atrium is mildly dilated. The left atrium is mildly dilated. Mitral Valve There is mild mitral annular calcification. There is no evidence of mitral valve prolapse. There is no vegetation seen on the mitral valve. There is no mitral valve stenosis. There is a mild amount of mitral regurgitation. Aortic Valve There is no aortic valvular vegetation. There is no aortic valve stenosis. There is no LVOT obstruction. There is a trace amount of aortic regurgitation. Tricuspid Valve There is no tricuspid stenosis. There is a trace to mild amount of tricuspid regurgitation. There is mild pulmonary hypertension by echo. RVSP is 43 mm of Hg , with RA mean of 10. Pulmonic Valve There is no pulmonic valvular stenosis. There is a trace amount of pulmonic regurgitation. Great Vessels The aortic root is not well visualized but is probably normal size. Effusions There is no pericardial effusion. Large left pleural effusion. : SONU ZAMUDIO > Sudhakar Green
[2018-02-10] MEDS: ASPIRIN 81 MG TABLET, ENT COATED PO SCH (20:30)
[2018-02-10] MEDS: SITAGLIPTIN PHOSPHATE 25 MG TABLET PO SCH (20:30)
[2018-02-10] MEDS: DILTIAZEM HCL 180 MG CAPSULE.CR PO SCH (20:30)
[2018-02-10] MEDS: ISOSORBIDE MONONITRATE 30 MG TAB.ER.24H PO SCH (20:30)
[2018-02-10] MEDS: METOPROLOL SUCCINATE 50 MG TAB.SR.24H PO SCH (20:31)
[2018-02-10] MEDS: TIOTROPIUM BROMIDE DPI 5 CAP/KIT (18 MCG/CAP) IH SCH (20:31)
[2018-02-10] MEDS: CYANOCOBALAMIN (VITAMIN B-12) 1,000 MCG TABLET PO SCH (20:31)
[2018-02-10] MEDS: FLUTICASONE/SALMETEROL DISKUS 250-50 MCG/DOSE IH SCH (20:32)
--- NOTE | 2018-02-10 20:40 | PDOC H&P ---
History of Present Illness Admission Date/PCP: 02/10/18 09:19 Bill BARBA MD History of Present Illness: SID MARTINEZ is a 77 year old female,She had a CAT scan of the abdomen without contrast on January 27, 2018 ,this was done for evaluation of abnormal kidney function, it demonstrated prominent pleural effusions in both lung bases measuring up to 3.5 cm in thickness there are right lung base and up to 2.2 cm in thickness the left lung base. This causes subsegmental atelectasis of both lower lobes it also demonstrated dilatation of the mid abdominal aorta measuring a diameter of 2.6 cm no soft tissue mass was found in the abdomen. She has a history of right kidney atrophy, because of the large pleural effusion she was advised to see me in the office. I saw her in the office on Saturday, she was symptomatic, but she was also on anticoagulant with Eliquis, she was advised to stop the Eliquis for 2 days and she was admitted directly from home this morning for Thoracentesis. This will be a recurrent pleural effusion, the analysis is pending, she may need thoracoscopy for evaluation of the pleural membrane and also for biopsy to rule out neoplasm. A 2D echo that was done today showed preserved ejection fraction of left ventricle. Past Medical History Cardiac Medical History: Reports: Atrial Fibrillation, Hyperlipidema, Hypertension Pulmonary Medical History: Reports: Chronic Obstructive Pulmonary Disease (COPD) Neurological Medical History: Endocrine Medical History: Reports: Diabetes Mellitus Type 2 GI Medical History: Psychiatric Medical History: Denies: Depression Hematology: Past Surgical History Past Surgical History: Reports: Cholecystectomy, Orthopedic Surgery - left hip Denies: Hysterectomy Social History Smoking Status: Former Smoker Frequency of Alcohol Use: None Hx Recreational Drug Use: No Drugs: None Hx Prescription Drug Abuse: No Family History Family History: Reviewed & Not Pertinent Parental Family History Reviewed: Yes Children Family History Reviewed: Yes Sibling(s) Family History Reviewed.: Yes Medication/Allergy Home Medications: Acetylcysteine [NAC 600 mg Capsule] 600 mg PO BID 02/10/18 Apixaban [Eliquis 5 mg Tablet] 5 mg PO BID 02/10/18 Aspirin [Aspirin EC] 81 mg PO DAILY 02/10/18 Atorvastatin Calcium [Lipitor 10 mg Tablet] 10 mg PO DAILY 02/10/18 Cyanocobalamin (Vitamin B-12) [Vitamin B-12 1000 Mcg Tablet] 1 tab PO DAILY 12/23 Diltiazem HCl [Cardizem Cd 180 mg Capsule] 1 cap.sr PO DAILY 02/10/18 Fluticasone/Salmeterol [Advair 250-50 Diskus 14 Dose/Diskus] 1 inh IH Q12 Furosemide [Lasix 20 mg Tablet] 20 mg PO MOFR@1000 02/10/18 Glipizide [Glocotrol 5 Mg Tablet] 5 mg PO BIDBS 02/10/18 Hydralazine HCl 100 mg PO Q12 02/10/18 Isosorbide Mononitrate [Isosorbide Mononitrate ER] 90 mg PO DAILY 02/10/18 Levothyroxine Sodium [Synthroid] 150 mcg PO Q6AM 02/10/18 Linagliptin [Tradjenta] 5 mg PO DAILY 02/10/18 Metoprolol Succinate [Toprol XL 200 mg Tablet] 200 mg PO DAILY 02/10/18 Nitroglycerin [Nitrostat 0.4 mg (1/150 Gr) Tabs 25/Bottle] 1 tab SL Q5MP PRN 12/23 Raloxifene HCl [Evista 60 mg Tablet] 60 mg PO DAILY 02/10/18 Tiotropium [place] [Spiriva Handihaler 5 Cap/Kit (18 Mcg/Cap)] 1 cap IH DAILY Allergies/Adverse Reactions: No Known Allergies Allergy (Verified 02/10/18 13:44) Review of Systems Constitutional: ABSENT: chills, fever(s), headache(s), weight gain, weight loss Eyes: ABSENT: visual disturbances Ears: ABSENT: hearing changes Cardiovascular: ABSENT: chest pain, dyspnea on exertion, edema, orthropnea, palpitations Respiratory: PRESENT: dyspnea Gastrointestinal: ABSENT: abdominal pain, constipation, diarrhea, hematemesis, hematochezia, nausea, vomiting Genitourinary: ABSENT: dysuria, hematuria Musculoskeletal: ABSENT: joint swelling Integumentary: ABSENT: rash, wounds Neurological: ABSENT: abnormal gait, abnormal speech, confusion, dizziness, focal weakness, syncope Psychiatric: ABSENT: anxiety, depression, homidical ideation, suicidal ideation Endocrine: ABSENT: cold intolerance, heat intolerance, menstrual abnormalities, polydipsia, polyuria Hematologic/Lymphatic: ABSENT: easy bleeding, easy bruising, lymphadenopathy Physical Exam Vital Signs: Temp Pulse Resp BP Pulse Ox 97.8 F 88 17 129/51 H 96 02/10/18 15:26 02/10/18 15:26 02/10/18 15:26 02/10/18 15:26 02/10/18 15:26 Intake & Output 02/09/18 02/10/18 02/11/18 06:59 06:59 06:59 Intake Total 266 Output Total 450 Balance -184 Weight 76.9 kg General appearance: PRESENT: no acute distress, well-developed, well-nourished Head exam: PRESENT: atraumatic, normocephalic Eye exam: PRESENT: conjunctiva pink, EOMI, PERRLA Ear exam: PRESENT: normal external ear exam Mouth exam: PRESENT: moist, tongue midline Neck exam: PRESENT: full ROM Respiratory exam: PRESENT: clear to auscultation frida Cardiovascular exam: PRESENT: RRR, +S1, +S2 Pulses: PRESENT: normal dorsalis pedis pul, +2 pedal pulses bilateral Vascular exam: PRESENT: normal capillary refill GI/Abdominal exam: PRESENT: normal bowel sounds, soft Rectal exam: PRESENT: deferred Neurological exam: PRESENT: alert, awake, oriented to person, oriented to place , oriented to time, oriented to situation, CN II-XII grossly intact Psychiatric exam: PRESENT: appropriate affect, normal mood Skin exam: PRESENT: dry, intact, warm Results Laboratory Results: 02/10/18 15:43 02/10/18 15:43 02/10/18 02/10/18 02/10/18 11:09 11:09 12:30 WBC 8.3 RBC 3.65 L Hgb 10.8 L Hct 32.1 L MCV 88 MCH 29.6 MCHC 33.7 RDW 13.5 Plt Count 231 Seg Neutrophils % Lymphocytes % Monocytes % Eosinophils % Basophils % Absolute Neutrophils Absolute Lymphocytes Absolute Monocytes Absolute Eosinophils Absolute Basophils Sodium 141.7 Potassium 4.4 Chloride 102 Carbon Dioxide 26 Anion Gap 14 BUN 30 H Creatinine 1.63 H Est GFR ( Amer) 37 L Est GFR (Non-Af Amer) 31 L Glucose 156 H Calcium 9.2 Total Bilirubin 0.6 AST 17 ALT 18 Alkaline Phosphatase 58 Total Protein 7.1 Albumin 3.4 L Urine Color YELLOW Urine Appearance CLEAR Urine pH 6.0 Ur Specific [place] 1.012 Urine Protein NEGATIVE Urine Glucose (UA) NEGATIVE Urine Ketones NEGATIVE Urine Blood MODERATE H Urine Nitrite NEGATIVE Ur Leukocyte Esterase NEGATIVE Urine WBC (Auto) 2 Urine RBC (Auto) 64 Fluid Type Fluid Source Fluid Color Fluid Appearance Fluid Viscosity Fluid WBC Fluid RBC 02/10/18 02/10/18 02/10/18 14:20 15:43 15:43 WBC 7.5 RBC 3.69 L Hgb 11.0 L Hct 32.4 L MCV 88 MCH 29.9 MCHC 34.1 RDW 13.4 Plt Count 248 Seg Neutrophils % 79.1 H Lymphocytes % 10.8 L Monocytes % 7.5 Eosinophils % 1.4 Basophils % 1.2 Absolute Neutrophils 6.0 Absolute Lymphocytes 0.8 Absolute Monocytes 0.6 Absolute Eosinophils 0.1 Absolute Basophils 0.1 Sodium 143.2 Potassium 3.9 Chloride 102 Carbon Dioxide 27 Anion Gap 14 BUN 32 H Creatinine 1.83 H Est GFR ( Amer) 32 L Est GFR (Non-Af Amer) 27 L Glucose 111 H Calcium 9.2 Total Bilirubin 0.7 AST 18 ALT 15 Alkaline Phosphatase 66 Total Protein 7.4 Albumin 3.7 Urine Color Urine Appearance Urine pH Ur Specific [place] Urine Protein Urine Glucose (UA) Urine Ketones Urine Blood Urine Nitrite Ur Leukocyte Esterase Urine WBC (Auto) Urine RBC (Auto) Fluid Type PLEURAL Fluid Source LUNG Fluid Color YELLOW Fluid Appearance SLIGHTLY HAZY Fluid Viscosity SLIGHTLY VISCOUS Fluid WBC 598 Fluid RBC 2865 02/10/18 02/10/18 11:09 15:43 NT-Pro-B Natriuret Pep 3400 H 3720 H Impressions: Thoracentesis Ultrasound 02/10/18 00:00 IMPRESSION: SUCCESSFUL RIGHT THORACENTESIS USING ULTRASOUND GUIDANCE. Chest X-Ray 02/10/18 10:15 IMPRESSION: 1 Persistent bilateral pleural effusions since the prior examination dated 04/27/2017, with mild increase in the pleural effusion on the right. Slight to mild compressive atelectatic changes in the lower lung zones. 2. Mild pulmonary vascular congestion. The cardiac margins are partially obscured by the underlying bilateral pleural changes. Assessment & Plan - Diagnosis (1) Pleural effusion Is this a current diagnosis for this admission?: Yes Plan: She has recurrent pleural effusion the analysis is pending if it is exudative pleural effusion she would need thoracoscopy, the urine protein creatinine ratio is not nephrotic range proteinuria, the 2D echo that was done today suggests normal ejection fraction of left ventricle (2) Chronic atrial fibrillation Is this a current diagnosis for this admission?: Yes (3) Atrophy of right kidney Is this a current diagnosis for this admission?: Yes (4) Chronic kidney disease, stage III (moderate) Is this a current diagnosis for this admission?: Yes
[2018-02-10] MEDS: ATORVASTATIN CALCIUM 10 MG TABLET PO SCH (21:32)
[2018-02-11] MEDS: LEVOTHYROXINE SODIUM 0.15 MG TABLET PO SCH (06:16)
[2018-02-11] MEDS: FLUTICASONE/SALMETEROL DISKUS 250-50 MCG/DOSE IH SCH ×2 (06:17→19:05)
[2018-02-11] MEDS: HYDRALAZINE HCL 50 MG TABLET PO SCH ×2 (06:17→19:04)
[2018-02-11 06:33] LABS: INTERNATIONAL RATION (INR) 1.15; PROTHROMBIN TIME 15.3 SEC (11.4-15.4)
[2018-02-11] MEDS ORDERED: DEXTROSE 40% GEL 15 GM TUBE PO PRN (08:40)
[2018-02-11] MEDS ORDERED: DEXTROSE 40% GEL 15 GM TUBE X 2 PO PRN (08:40)
[2018-02-11] MEDS ORDERED: DEXTROSE 50%-WATER SYRINGE 25 GM/50 ML DOSE IV PRN (08:40)
[2018-02-11] MEDS ORDERED: GLUCAGON,HUMAN RECOMB 1 MG INJ IM PRN (08:40)
[2018-02-11] MEDS ORDERED: DEXTROSE 50%-WATER SYRINGE 12.5 GM/25 ML DOSE IV PRN (08:40)
[2018-02-11] MEDS ORDERED: INSULIN LISPRO 100 UNIT/ML 3 ML VIAL SUBCUT PRN (08:40)
[2018-02-11] MEDS ORDERED: FUROSEMIDE 20 MG TABLET PO ONE (09:00)
[2018-02-11] MEDS ORDERED: LIDOCAINE 1% INJ-PF (10 MG/ML) 30 ML SDV ONE (09:25)
--- NOTE | 2018-02-11 10:53 | RADIOLOGY REPORT (SQ) ---
EXAM DESCRIPTION: U/S THORACENTESIS WITH IMAGING COMPLETED DATE/TIME: 02/11/2018 10:15 am REASON FOR STUDY: left plearul effusion J90 PLEURAL EFFUSION, NOT ELSEWHERE CLASSIFIED I50.30 UNSP ECIFIED DIASTOLIC (CONGESTIVE) HEART FAILURE COMPARISON: None. LIMITATIONS: None. PROCEDURE: Procedure, risks, benefit, and alternative explained to patient who then gave written con sent. The posterior left chest wall was marked using ultrasound guidance. A time-out was called for correct marking verification. Chest prepped and draped using sterile technique. Local anesthesia ac hieved using 3 ml of 1% lidocaine injection. A 6fr Safe-T- Centesis set was introduced into the left pleural space. Fluid was aspirated. The catheter was removed and the entry site was covered with s terile bandage. No immediate complications noted. . Images acquired during the procedure were stored on PACS. FINDINGS: ENTRY SITE: posterior left chest. FLUID VOLUME: 700 cc FLUID ANALYSIS: Brenda OTHER: Fluid sent to the lab for testing. IMPRESSION: SUCCESSFUL THORACENTESIS USING ULTRASOUND GUIDANCE. COMMENT: Patient medication list reviewed: Yes- Quality ID# [id number]:Eligible professional attests to doc umenting in the medical record they obtained, updated, or reviewed the patient's current medications. TECHNICAL DOCUMENTATION: JOB ID: [id number] [employer]- All Rights Reserved Reading location - IP/workstation name: [email or web address]
[2018-02-11] MEDS: METOPROLOL SUCCINATE 50 MG TAB.SR.24H PO SCH (13:15)
[2018-02-11] MEDS: ISOSORBIDE MONONITRATE 30 MG TAB.ER.24H PO SCH (13:16)
[2018-02-11] MEDS: CYANOCOBALAMIN (VITAMIN B-12) 1,000 MCG TABLET PO SCH (13:16)
[2018-02-11] MEDS: DILTIAZEM HCL 180 MG CAPSULE.CR PO SCH (13:16)
[2018-02-11] MEDS: SITAGLIPTIN PHOSPHATE 25 MG TABLET PO SCH (13:17)
[2018-02-11] MEDS: GLIPIZIDE 5 MG TABLET PO SCH ×2 (13:18→19:04)
[2018-02-11] MEDS: TIOTROPIUM BROMIDE DPI 5 CAP/KIT (18 MCG/CAP) IH SCH (13:20)
[2018-02-11] MEDS: ASPIRIN 81 MG TABLET, ENT COATED PO SCH (13:36)
--- NOTE | 2018-02-11 15:03 | RADIOLOGY REPORT (SQ) ---
EXAM DESCRIPTION: CHEST SINGLE VIEW COMPLETED DATE/TIME: 02/11/2018 10:29 am REASON FOR STUDY: S/P LEFT THORACENTESIS COMPARISON: 02/10/2018 EXAM PARAMETERS: NUMBER OF VIEWS: One view. TECHNIQUE: Single frontal radiographic view of the chest acquired. RADIATION DOSE: NA LIMITATIONS: None. FINDINGS: LUNGS AND PLEURA: Bilateral pleural effusions and basilar opacity. Slightly decreased fro m previous. No pneumothorax. MEDIASTINUM AND HILAR STRUCTURES: No masses. Contour normal. HEART AND VASCULAR STRUCTURES: Heart normal in size. Normal vasculature. BONES: No acute findings. HARDWARE: None in the chest. OTHER: No other significant finding. IMPRESSION: Bilateral pleural effusions and basilar opacities improved over previous. No pneumothor ax. TECHNICAL DOCUMENTATION: JOB ID: [id number] [employer]- All Rights Reserved Reading location - IP/workstation name: [email or web address]
--- NOTE | 2018-02-11 15:04 | RADIOLOGY REPORT (SQ) ---
EXAM DESCRIPTION: CHEST SINGLE VIEW COMPLETED DATE/TIME: 02/11/2018 12:32 pm REASON FOR STUDY: 2 HOURS S/P LEFT THORACENTESIS COMPARISON: 02/11/2018 EXAM PARAMETERS: NUMBER OF VIEWS: One view. TECHNIQUE: Single frontal radiographic view of the chest acquired. RADIATION DOSE: NA LIMITATIONS: None. FINDINGS: LUNGS AND PLEURA: Bilateral pleural effusions and basilar opacities. No pneumothorax post procedure. MEDIASTINUM AND HILAR STRUCTURES: No masses. Contour normal. HEART AND VASCULAR STRUCTURES: Heart normal in size. Normal vasculature. BONES: No acute findings. HARDWARE: None in the chest. OTHER: No other significant finding. IMPRESSION: No pneumothorax post procedure. TECHNICAL DOCUMENTATION: JOB ID: [id number] [employer]- All Rights Reserved Reading location - IP/workstation name: [email or web address]
[2018-02-11] MEDS: ATORVASTATIN CALCIUM 10 MG TABLET PO SCH (22:09)
[2018-02-12] MEDS: LEVOTHYROXINE SODIUM 0.15 MG TABLET PO SCH (05:41)
[2018-02-12] MEDS: FLUTICASONE/SALMETEROL DISKUS 250-50 MCG/DOSE IH SCH (05:41)
[2018-02-12] MEDS: HYDRALAZINE HCL 50 MG TABLET PO SCH (05:41)
[2018-02-12] MEDS: GLIPIZIDE 5 MG TABLET PO SCH (09:05)
[2018-02-12] MEDS: METOPROLOL SUCCINATE 50 MG TAB.SR.24H PO SCH (09:13)
[2018-02-12] MEDS: CYANOCOBALAMIN (VITAMIN B-12) 1,000 MCG TABLET PO SCH (09:13)
[2018-02-12] MEDS: DILTIAZEM HCL 180 MG CAPSULE.CR PO SCH (09:13)
[2018-02-12] MEDS: ISOSORBIDE MONONITRATE 30 MG TAB.ER.24H PO SCH (09:13)
[2018-02-12] MEDS: SITAGLIPTIN PHOSPHATE 25 MG TABLET PO SCH (09:13)
[2018-02-12] MEDS: ASPIRIN 81 MG TABLET, ENT COATED PO SCH (09:13)
[2018-02-12] MEDS: TIOTROPIUM BROMIDE DPI 5 CAP/KIT (18 MCG/CAP) IH SCH (09:13)
[2018-02-12] MEDS ORDERED: APIXABAN 5 MG TABLET PO SCH (10:00)
--- NOTE | 2018-02-12 11:29 | PDOC CONSULTATION ---
Consultation Consult Date: 02/12/18 Attending physician:: SONU ZAMUDIO Consult reason:: Recurrent pleural effusions/dyspnea History of Present Illness Admission Date/PCP: 02/12/18 09:11 Bill BARBA MD History of Present Illness: SID MARTINEZ is a 77 year old female,well-known to [facility] for second admission the last 9 months months for recurrent pleural effusion she status post thoracentesis and feels much better she denies nausea vomiting diarrhea fever she had questionable chills but has not taken her temperature she denies hemoptysis admits to cough productive of yellow phlegm Past Medical History Cardiac Medical History: Reports: Atrial Fibrillation, Hyperlipidema, Hypertension Pulmonary Medical History: Reports: Chronic Obstructive Pulmonary Disease (COPD) Neurological Medical History: Endocrine Medical History: Reports: Diabetes Mellitus Type 2 GI Medical History: Psychiatric Medical History: Denies: Depression Hematology: Past Surgical History Past Surgical History: Reports: Cholecystectomy, Orthopedic Surgery - left hip Denies: Hysterectomy Social History Smoking Status: Former Smoker Passive smoke exposure as: Both Frequency of Alcohol Use: None Hx Recreational Drug Use: No Drugs: None Hx Prescription Drug Abuse: No Do you have pets?: No Have you had any respiratory illnesses as a child?: No Have you been exposed to any sick contacts recently?: No Have you travelled outside of [place] in the past 12 months?: No Family History Parental Family History Reviewed: No Children Family History Reviewed: No Sibling(s) Family History Reviewed.: No Medication/Allergy Home Medications: Acetylcysteine [NAC 600 mg Capsule] 600 mg PO BID 02/10/18 Apixaban [Eliquis 5 mg Tablet] 5 mg PO BID 02/10/18 Aspirin [Aspirin EC] 81 mg PO DAILY 02/10/18 Atorvastatin Calcium [Lipitor 10 mg Tablet] 10 mg PO DAILY 02/10/18 Cyanocobalamin (Vitamin B-12) [Vitamin B-12 1000 Mcg Tablet] 1 tab PO DAILY 12/23 Diltiazem HCl [Cardizem Cd 180 mg Capsule] 1 cap.sr PO DAILY 02/10/18 Fluticasone/Salmeterol [Advair 250-50 Diskus 14 Dose/Diskus] 1 inh IH Q12 Furosemide [Lasix 20 mg Tablet] 20 mg PO MOFR@1000 02/10/18 Glipizide [Glocotrol 5 Mg Tablet] 5 mg PO BIDBS 02/10/18 Hydralazine HCl 100 mg PO Q12 02/10/18 Isosorbide Mononitrate [Isosorbide Mononitrate ER] 90 mg PO DAILY 02/10/18 Levothyroxine Sodium [Synthroid] 150 mcg PO Q6AM 02/10/18 Linagliptin [Tradjenta] 5 mg PO DAILY 02/10/18 Metoprolol Succinate [Toprol XL 200 mg Tablet] 200 mg PO DAILY 02/10/18 Nitroglycerin [Nitrostat 0.4 mg (1/150 Gr) Tabs 25/Bottle] 1 tab SL Q5MP PRN 12/23 Raloxifene HCl [Evista 60 mg Tablet] 60 mg PO DAILY 02/10/18 Tiotropium [place] [Spiriva Handihaler 5 Cap/Kit (18 Mcg/Cap)] 1 cap IH DAILY Allergies/Adverse Reactions: No Known Allergies Allergy (Verified 02/10/18 13:44) Review of Systems ROS unobtainable: Due to mental status Physical Exam Vital Signs: Temp Pulse Resp BP Pulse Ox 98.8 F 89 16 120/46 L 98 02/12/18 07:35 02/12/18 07:35 02/12/18 07:35 02/12/18 07:35 02/12/18 07:35 Intake & Output 02/11/18 02/12/18 02/13/18 06:59 06:59 06:59 Intake Total 266 1156 Output Total 1050 2900 Balance -784 -1744 Weight 78.1 kg 76.8 kg General appearance: PRESENT: no acute distress. ABSENT: cooperative, disheveled Head exam: PRESENT: atraumatic, normocephalic Eye exam: PRESENT: conjunctiva pale, EOMI. ABSENT: nystagmus, periorbital swelling, scleral icterus Mouth exam: PRESENT: dry mucosa, neck supple, tongue midline Neck exam: ABSENT: carotid bruit, JVD, lymphadenopathy, thyromegaly, tracheal deviation, tracheostomy Respiratory exam: PRESENT: decreased breath sounds, prolonged expiratory phas, rhonchi, unlabored, wheezes. ABSENT: retraction, stridor, tachypnea Cardiovascular exam: PRESENT: RRR, +S1, +S2 Pulses: PRESENT: normal radial pulses GI/Abdominal exam: PRESENT: hypoactive bowel sounds, soft Gentrourinary exam: PRESENT: indwelling catheter Extremities exam: ABSENT: calf tenderness, clubbing, full ROM, joint swelling Musculoskeletal exam: ABSENT: deformity, dislocation Neurological exam: PRESENT: awake, oriented to person. ABSENT: oriented to place, oriented to time, oriented to situation Psychiatric exam: PRESENT: depressed Skin exam: PRESENT: dry, warm Results Laboratory Results: 02/10/18 15:43 02/10/18 15:43 02/10/18 02/10/18 11:09 15:43 NT-Pro-B Natriuret Pep 3400 H 3720 H Impressions: Chest X-Ray 02/11/18 00:00 IMPRESSION: No pneumothorax post procedure. Thoracentesis Ultrasound 02/11/18 00:00 IMPRESSION: SUCCESSFUL THORACENTESIS USING ULTRASOUND GUIDANCE. Assessment & Plan - Diagnosis (1) Pleural effusion Is this a current diagnosis for this admission?: Yes Plan: Second infusion in 9 months no obvious etiology at this time (2) COPD with acute exacerbation Is this a current diagnosis for this admission?: Yes Plan: Continue current bronchodilator therapy (3) Chronic atrial fibrillation Is this a current diagnosis for this admission?: Yes Plan: Stable (4) Chronic obstructive pulmonary disease Qualifiers: COPD type: unspecified COPD Qualified Code(s): J44.9 - Chronic obstructive pulmonary disease, unspecified
[2018-02-12] MEDS ORDERED: RALOXIFENE HCL 60 MG TABLET PO SCH (14:00)
--- NOTE | 2018-02-12 15:07 | PDOC DISCHARGE SUMMARY ---
General - Admit/Disc Date/PCP Admission Date/Primary Care Provider: 02/12/18 09:11 Bill BARBA MD Discharge Date: 02/12/18 - Discharge Diagnosis (1) Pleural effusion Is this a current diagnosis for this admission?: Yes (2) Chronic atrial fibrillation Is this a current diagnosis for this admission?: Yes (3) Atrophy of right kidney Is this a current diagnosis for this admission?: Yes (4) Chronic kidney disease, stage III (moderate) Is this a current diagnosis for this admission?: Yes (5) Type 2 diabetes mellitus Is this a current diagnosis for this admission?: Yes - Additional Information Discharge Diet: Diabetic Discharge Activity: Activity As Tolerated Home Medications: Acetylcysteine [NAC 600 mg Capsule] 600 mg PO BID 02/10/18 Apixaban [Eliquis 5 mg Tablet] 5 mg PO BID 02/10/18 Aspirin [Aspirin EC] 81 mg PO DAILY 02/10/18 Atorvastatin Calcium [Lipitor 10 mg Tablet] 10 mg PO DAILY 02/10/18 Cyanocobalamin (Vitamin B-12) [Vitamin B-12 1000 mcg Tablet] 1 tab PO DAILY 12/23 Diltiazem HCl [Cardizem Cd 180 mg Capsule] 1 cap.sr PO DAILY 02/10/18 Fluticasone/Salmeterol [Advair 250-50 Diskus 14 Dose/Diskus] 1 inh IH Q12 Furosemide [Lasix 20 mg Tablet] 20 mg PO MOFR@1000 02/10/18 Glipizide [Glucotrol 5 mg Tablet] 5 mg PO BIDBS 02/10/18 Hydralazine HCl 100 mg PO Q12 02/10/18 Isosorbide Mononitrate [Isosorbide Mononitrate ER] 90 mg PO DAILY 02/10/18 Levothyroxine Sodium [Synthroid] 150 mcg PO Q6AM 02/10/18 Linagliptin [Tradjenta] 5 mg PO DAILY 02/10/18 Metoprolol Succinate [Toprol XL 200 mg Tablet] 200 mg PO DAILY 02/10/18 Nitroglycerin [Nitrostat 0.4 mg (1/150 Gr) Tabs 25/Bottle] 1 tab SL Q5MP PRN 12/23 Raloxifene HCl [Evista 60 mg Tablet] 60 mg PO DAILY 02/10/18 Tiotropium [place] [Spiriva Handihaler 5 Cap/Kit (18 Mcg/Cap)] 1 cap IH DAILY History of Present Illness History of Present Illness: SID MARTINEZ is a 77 year old female,She had a CAT scan of the abdomen without contrast on January 27, 2018 ,this was done for evaluation of abnormal kidney function, it demonstrated prominent pleural effusions in both lung bases measuring up to 3.5 cm in thickness there are right lung base and up to 2.2 cm in thickness the left lung base. This causes subsegmental atelectasis of both lower lobes it also demonstrated dilatation of the mid abdominal aorta measuring a diameter of 2.6 cm no soft tissue mass was found in the abdomen. She has a history of right kidney atrophy, because of the large pleural effusion she was advised to see me in the office. I saw her in the office on Saturday, she was symptomatic, but she was also on anticoagulant with Eliquis, she was advised to stop the Eliquis for 2 days and she was admitted directly from home this morning for Thoracentesis. This will be a recurrent pleural effusion, the analysis is pending, she may need thoracoscopy for evaluation of the pleural membrane and also for biopsy to rule out neoplasm. A 2D echo that was done today showed preserved ejection fraction of left ventricle. Hospital Course Hospital Course: Patient was admitted for the management of recurrent pleural effusion, she underwent thoracentesis over 1700 ml of pleural fluid was collected the analysis is still pending, the cytology was negative for malignant cells, she would need thoracoscopy for further analysis of the pleural membrane. A 2D echo was done that showed preserved ejection fraction of left ventricle, no diastolic dysfunction, the urine protein creatinine ratio is not nephrotic range proteinuria, she has no liver disease. The last time she had thoracentesis done the analysis of the pleural fluid was consistent with exudative pleural effusion, at that time it was felt that this could be parapneumonic effusion she was treated with antibiotic, Physical Exam Vital Signs: Temp Pulse Resp BP Pulse Ox 99.0 F 88 16 131/46 H 98 02/12/18 11:21 02/12/18 11:21 02/12/18 11:21 02/12/18 11:21 02/12/18 11:21 Intake & Output 02/11/18 02/12/18 02/13/18 06:59 06:59 06:59 Intake Total 266 1156 Output Total 1059 7990 Balance -894 -0218 Weight 78.1 kg 76.8 kg General appearance: PRESENT: no acute distress Eye exam: PRESENT: PERRLA Respiratory exam: PRESENT: clear to auscultation frida Cardiovascular exam: PRESENT: +S1, +S2 GI/Abdominal exam: PRESENT: soft Neurological exam: PRESENT: alert Results Laboratory Results: 02/10/18 15:43 02/10/18 15:43 02/10/18 02/10/18 11:09 15:43 NT-Pro-B Natriuret Pep 3400 H 3720 H Impressions: Chest X-Ray 02/11/18 00:00 IMPRESSION: No pneumothorax post procedure. Thoracentesis Ultrasound 02/11/18 00:00 IMPRESSION: SUCCESSFUL THORACENTESIS USING ULTRASOUND GUIDANCE. Qualifiers - * PATIENT BEING DISCHARGED WITH ANY OF THE FOLLOWING DIAGNOSIS: No Plan Discharge Plan: Follow-up appointment is arranged for her to see CT surgeon, Dr. Combs for outpatient thoracoscopy
[2018-02-12 15:08] VITALS: BP 118/51
[2018-02-14] MEDS ORDERED: FUROSEMIDE 20 MG TABLET PO SCH (10:00)
== END 2018-02-12 15:50 | disposition home or self-care (01) | DRG 187 ==
LOC: 4N 09:19 → OBSVTOIN 02-12 09:11
PROVIDERS: ADMIT Internal Medicine; ATTEND Internal Medicine
PROC: 0W993ZX Drainage of Right Pleural Cavity, Percutaneous Approach, Diagnostic (ICD-10-PCS; principal; 2018-02-10)
PROC: 0W9B3ZX Drainage of Left Pleural Cavity, Percutaneous Approach, Diagnostic (ICD-10-PCS; 2018-02-11)
DX: J90 Pleural effusion, not elsewhere classified (principal); J44.1 Chronic obstructive pulmonary disease with (acute) exacerbation; I48.2 Chronic atrial fibrillation; I12.9 Hypertensive chronic kidney disease with stage 1 through stage 4 chronic kidney disease, or unspecified chronic kidney disease; E11.22 Type 2 diabetes mellitus with diabetic chronic kidney disease; N18.3 Chronic kidney disease, stage 3 (moderate); E78.5 Hyperlipidemia, unspecified; Z79.01 Long term (current) use of anticoagulants; Z79.84 Long term (current) use of oral hypoglycemic drugs; Z79.82 Long term (current) use of aspirin; Z79.51 Long term (current) use of inhaled steroids; Z79.899 Other long term (current) drug therapy
CPT/HCPCS: 32555; 36415; 71045; 71046; 80048; 80053; 80076; 81001; 82042; 82150; 82570; 82945; 82962; 83615; 83880; 84156; 84157; 85025; 85027; 85610; 85730; 87015; 87070; 87075; 87101; 87116; 87205; 87206; 87252; 88305; 89050; 93306; G0378; G0379; J3490

== ENCOUNTER → 2018-04-18 | Outpatient (CLI) | payer MEDICARE, OTHER ==
[2018-04-18 08:51] LABS: APPEARANCE,URINE SLIGHTLY-CLOUDY; BILIRUBIN,URINE NEGATIVE (NEGATIVE); COLOR,URINE YELLOW; GLUCOSE, URINE NEGATIVE (NEGATIVE); KETONES,URINE NEGATIVE (NEGATIVE); LEUKOCYTE ESTERASE,URINE TRACE (NEGATIVE); NITRITE,URINE NEGATIVE (NEGATIVE); PROTEIN,URINE NEGATIVE (NEGATIVE); URINE SPECIFIC GRAVITY 1.011; UROBILINOGEN,URINE NEGATIVE mg/dL (<2.0)
[2018-04-18 09:30] LABS: HEMATOCRIT 29.4 % (36.0-47.0); HEMOGLOBIN 9.9 g/dL (12.0-15.5); MEAN CORPUSCULAR HEMOGLOBIN 29.1 pg (27.0-33.4); MEAN CORPUSCULAR HGB CONC 33.7 g/dL (32.0-36.0); MEAN CORPUSCULAR VOLUME 86 fl (80-97); PLATELET COUNT 276 10^3/uL (150-450); RED BLOOD COUNT 3.41 10^6/uL (3.72-5.28); RED CELL DISTRIBUTION WIDTH 13.2 % (11.5-14.0); WHITE BLOOD COUNT 9.7 10^3/uL (4.0-10.5)
[2018-04-18 10:05] LABS: ALANINE AMINOTRANSFERASE 17 U/L (9-52); ALBUMIN 3.6 g/dL (3.5-5.0); ALKALINE PHOSPHATASE 63 U/L (38-126); ANION GAP 12 (5-19); ASPARTATE AMINO TRANSFERASE 17 U/L (14-36); BILIRUBIN,DIRECT 0.4 mg/dL (0.0-0.4); BILIRUBIN,TOTAL 0.7 mg/dL (0.2-1.3); BLOOD UREA NITROGEN 32 mg/dL (7-20); CALCIUM 9.4 mg/dL (8.4-10.2); CARBON DIOXIDE 23 mmol/L (22-30); CHLORIDE 105 mmol/L (98-107); GLUCOSE 101 mg/dL (75-110); POTASSIUM 4.1 mmol/L (3.6-5.0); SODIUM 139.7 mmol/L (137-145); TOTAL PROTEIN 7.4 g/dL (6.3-8.2)
== END ==
LOC: OD 08:12
PROVIDERS: ATTEND Internal Medicine Cardiovascular Disease
DX: I48.2 Chronic atrial fibrillation (principal); Z79.01 Long term (current) use of anticoagulants; Z79.899 Other long term (current) drug therapy
CPT/HCPCS: 36415; 80048; 80076; 81001; 82272; 85027; 85730

== ENCOUNTER 2018-04-23 14:31 | Observation (INO) | payer MEDICARE, OTHER ==
--- NOTE | 2018-04-23 15:22 | ER Document Report ---
ED General - General Chief Complaint: Chest Pain Stated Complaint: CHEST PAIN Time Seen by Provider: 04/23/18 15:19 Mode of Arrival: Ambulatory Information source: Patient Notes: Chief complaint: Chest wall pain History of complain:( obtained from----patient) 77 years old female presents today with right lower sternal pain particularly on movement or when she tried to get up. This been going on for last 2-3 days. No known injury. She has a history of COPD on home oxygen 3 L by nasal cannula. No difficulty in breathing or wheezing now. Onset: Gradual Duration: 2-3 days Severity: Mild to moderate sharp Quality: Sharp Context: As above Exacerbating factor and relieving factors: Change of position REVIEW OF SYSTEMS: CONSTITUTIONAL : Denies fever, chills, or sweats. Denies recent illness. EENT: Denies eye, ear, throat, or mouth pain or symptoms. Denies nasal or sinus congestion or discharge. Denies throat, tongue, or mouth swelling or difficulty swallowing. CARDIOVASCULAR: Denies chest pain. Denies palpitations or racing or irregular heart beat. Denies ankle edema. RESPIRATORY: Denies cough, cold, or chest congestion. Denies shortness of breath, difficulty breathing, or wheezing. GASTROINTESTINAL: Denies distention. Denies nausea, vomiting, or diarrhea. Denies blood in vomitus, stools, or per rectum. Denies black, tarry stools. Denies constipation. GENITOURINARY: Denies difficulty urinating, painful urination, burning, frequency, blood in urine, or discharge. FEMALE GENITOURINARY: Denies vaginal bleeding, heavy or abnormal periods, irregular periods. Denies vaginal discharge or odor. MUSCULOSKELETAL: Denies back or neck pain or stiffness. Denies joint pain or swelling. SKIN: Denies rash, lesions or sores. HEMATOLOGIC : Denies easy bruising or bleeding. LYMPHATIC: Denies swollen, enlarged glands. NEUROLOGICAL: Denies confusion or altered mental status. Denies passing out or loss of consciousness. Denies dizziness or lightheadedness. Denies headache. Denies weakness or paralysis or loss of use of either side. Denies problems with gait or speech. Denies sensory loss, numbness, or tingling. Denies seizures. PSYCHIATRIC: Denies anxiety or stress. Denies depression, suicidal ideation, or homicidal ideation. ALL OTHER SYSTEMS REVIEWED AND NEGATIVE. PHYSICAL EXAMINATION: GENERAL: Well-appearing, well-nourished and in no acute distress. HEAD: Atraumatic, normocephalic. EYES: Pupils equal round and reactive to light, extraocular movements intact, conjunctiva are normal. ENT: Nares patent, oropharynx clear without exudates. Moist mucous membranes. NECK: Normal range of motion, supple without lymphadenopathy LUNGS: Breath sounds clear to auscultation bilaterally and equal. No wheezes rales or rhonchi. HEART: Regular rate and rhythm without murmurs Chest wall-sharp chest wall tenderness over the sternocostal region on the right lower ribs noted. ABDOMEN: Soft, nontender, nondistended abdomen. No guarding, no rebound. No masses appreciated. Examination of genitals-deferred Musculoskeletal: Normal range of motion, no pitting or edema. No cyanosis. NEUROLOGICAL: Cranial nerves grossly intact. Normal speech, normal gait. Normal sensory, motor exams PSYCH: Normal mood, normal affect. SKIN: Warm, Dry, normal turgor, no rashes or lesions noted. Dictation was performed using [employer] voice recognition software TRAVEL OUTSIDE OF THE [place] IN LAST 30 DAYS: No - HPI Notes: Dictated - Related Data Allergies/Adverse Reactions: No Known Allergies Allergy (Verified 04/23/18 14:32) Past Medical History - Social History Smoking Status: Unknown if Ever Smoked Family History: Reviewed & Not Pertinent Patient has suicidal ideation: No Patient has homicidal ideation: No - Past Medical History Cardiac Medical History: Reports: Hx Atrial Fibrillation, Hx Hypercholesterolemia, Hx Hypertension Pulmonary Medical History: Reports: Hx COPD Neurological Medical History: Reports: Hx Cerebrovascular Accident - 1997 Endocrine Medical History: Reports: Hx Diabetes Mellitus Type 2 Renal/ Medical History: Denies: Hx Peritoneal Dialysis GI Medical History: Denies: Hx Ulcer - APPROX 98 BUT HASN'T SINCE THEN Psychiatric Medical History: Denies: Hx Depression Infectious Medical History: Past Surgical History: Reports: Hx Cholecystectomy, Hx Orthopedic Surgery - left hip, Hx Thyroid Surgery. Denies: Hx Hysterectomy, Hx Open Heart Surgery - Immunizations Hx Diphtheria, Pertussis, Tetanus Vaccination: Yes Hx Pneumococcal Vaccination: 08/06/12 Review of Systems - Review of Systems Notes: Dictated Physical Exam - Vital signs Vitals: Temp Pulse BP Pulse Ox 99.6 F 93 133/36 H 89 L 04/23/18 14:56 04/23/18 14:56 04/23/18 14:56 04/23/18 14:56 - Notes Notes: Dictated Course - Vital Signs Vital signs: Temp Pulse Resp BP Pulse Ox 99.6 F 93 133/36 H 89 L 04/23/18 14:56 04/23/18 14:56 04/23/18 14:56 04/23/18 14:56 - Diagnostic Test Radiology reviewed: Reports reviewed - Chest x-ray reported by radiologist as unremarkable Discharge - Discharge Clinical Impression: Costochondritis, acute Condition: Fair Disposition: HOME, SELF-CARE Instructions: Chest Wall Pain ([facility]), Costochondritis ([facility]) Referrals: JEANETTE JAY MD [Primary Care Provider] - Follow up as needed
--- NOTE | 2018-04-23 16:15 | RADIOLOGY REPORT (SQ) ---
EXAM DESCRIPTION: CHEST 2 VIEWS COMPLETED DATE/TIME: 04/23/2018 3:57 pm REASON FOR STUDY: Chest wall pain COMPARISON: 02/10/2018 NUMBER OF VIEWS: Two view TECHNIQUE: Frontal and lateral radiographic images of the chest acquired. LIMITATIONS: None. FINDINGS: LUNGS AND PLEURA: Chronic pleural effusions, right greater than left with volume moderate on the right. MEDIASTINUM AND HILAR STRUCTURES: Stable heart size and mediastinal structures. HEART AND VASCULAR STRUCTURES: Stable appearance. BONES: No acute findings. HARDWARE: None in the chest. OTHER: No other significant finding. IMPRESSION: Chronic CHF. TECHNICAL DOCUMENTATION: JOB ID: [id number] [employer]- All Rights Reserved Reading location - IP/workstation name: [email or web address]
[2018-04-23] MEDS ORDERED: ASPIRIN 81 MG TABLET, CHEWABLE PO ONE (16:29)
--- NOTE | 2018-04-23 17:12 | ER Document Report ---
ED General - General Chief Complaint: Chest Pain Stated Complaint: CHEST PAIN Time Seen by Provider: 04/23/18 15:19 Mode of Arrival: Ambulatory Information source: Patient, Relative, DrSheldon Office, Outside Facility Records Notes: 77-year-old female with atrial fibrillation, hyperlipidemia, hypertension, coronary artery disease, COPD, type 2 diabetes presents from her inspector and clerk's office with complaint of substernal chest pain that started 2 days prior to arrival. Patient states pain is only present with palpation and certain movements. She has no pain at rest. She denies any injury, falls, shortness of breath, diaphoresis, lightheadedness. Patient was stopped on her Eliquis today due to hematuria. TRAVEL OUTSIDE OF THE [place] IN LAST 30 DAYS: No - HPI Onset: Other Onset/Duration: Intermittent Quality of pain: Achy Severity: Mild Associated symptoms: Chest pain, Nonproductive cough - Chronic, Shortness of breath - Chronic. denies: Nausea, Vomiting Exacerbated by: Movement, Other - Palpation Relieved by: Remaining still Similar symptoms previously: No Recently seen / treated by doctor: Yes - Dr. Jenkins today - Related Data Allergies/Adverse Reactions: No Known Allergies Allergy (Verified 04/23/18 14:32) Past Medical History - General Information source: Patient - Social History Smoking Status: Former Smoker Frequency of alcohol use: None Drug Abuse: None Lives with: Spouse/Significant other Family History: Reviewed & Not Pertinent Patient has suicidal ideation: No Patient has homicidal ideation: No - Past Medical History Cardiac Medical History: Reports: Hx Atrial Fibrillation, Hx Hypercholesterolemia, Hx Hypertension Pulmonary Medical History: Reports: Hx COPD Neurological Medical History: Reports: Hx Cerebrovascular Accident - 1997 Endocrine Medical History: Reports: Hx Diabetes Mellitus Type 2 Renal/ Medical History: Denies: Hx Peritoneal Dialysis GI Medical History: Denies: Hx Ulcer - APPROX 98 BUT HASN'T SINCE THEN Psychiatric Medical History: Denies: Hx Depression Infectious Medical History: Past Surgical History: Reports: Hx Cholecystectomy, Hx Orthopedic Surgery - left hip, Hx Thyroid Surgery. Denies: Hx Hysterectomy, Hx Open Heart Surgery - Immunizations Hx Diphtheria, Pertussis, Tetanus Vaccination: Yes Hx Pneumococcal Vaccination: 08/06/12 Review of Systems - Review of Systems Notes: REVIEW OF SYSTEMS: CONSTITUTIONAL : Denies fever, chills, or sweats. Denies recent illness. Denies weight loss, recent hospitalizations. EENT: Denies visual changes, eye pain. Denies sore throat, oral lesions, difficulty swallowing. CARDIOVASCULAR: Denies palpitations. Denies lower extremity edema. RESPIRATORY: Denies wheezing. GASTROINTESTINAL: Denies abdominal pain or distention. Denies nausea, vomiting , or diarrhea. Denies blood in vomitus, stools, or per rectum. Denies black, tarry stools. Denies constipation. GENITOURINARY: Denies difficulty urinating, painful urination, frequency, blood in urine, or vaginal discharge. MUSCULOSKELETAL: Denies back or neck pain or stiffness. Denies joint pain or swelling. SKIN: Denies rash, lesions or sores. HEMATOLOGIC : Denies easy bruising or bleeding. LYMPHATIC: Denies swollen glands. NEUROLOGICAL: Denies confusion or altered mental status. Denies loss of consciousness. Denies dizziness or lightheadedness. Denies headache. Denies weakness or paralysis. Denies problems difficulty with ambulation, slurred speech. Denies sensory loss, numbness, or tingling. Denies seizures. PSYCHIATRIC: Denies anxiety or stress. Denies depression, suicidal ideation, or homicidal ideation. Denies visual or auditory hallucinations. Physical Exam - Vital signs Vitals: Temp Pulse BP Pulse Ox 99.6 F 93 133/36 H 89 L 04/23/18 14:56 04/23/18 14:56 04/23/18 14:56 04/23/18 14:56 Interpretation: Hypertensive - Notes Notes: PHYSICAL EXAMINATION: GENERAL: Well-appearing, well-nourished and in no acute distress. HEAD: Atraumatic, normocephalic. EYES: Pupils equal round and reactive to light, extraocular movements intact, conjunctiva are normal. ENT: Nares patent, oropharynx clear without exudates. Moist mucous membranes. NECK: Normal range of motion, supple without lymphadenopathy LUNGS: Diminished breath sounds, bilateral lower lung pérez. HEART: Regular rate, irregular rhythm without murmurs. Pain with palpation to the sternum. No ecchymosis, crepitus. ABDOMEN: Soft, nontender, nondistended abdomen. No guarding, no rebound. No masses appreciated. Female : deferred Musculoskeletal: Normal range of motion, no pitting or edema. No cyanosis. NEUROLOGICAL: Cranial nerves grossly intact. Normal speech, normal gait. Normal sensory, motor exams PSYCH: Normal mood, normal affect. SKIN: Warm, Dry, normal turgor, no rashes or lesions noted. Course - Re-evaluation Re-evalutation: Laboratory 04/23/18 04/23/18 04/23/18 17:51 17:51 17:51 WBC 9.4 RBC 3.11 L Hgb 9.3 L Hct 26.8 L MCV 86 MCH 29.8 MCHC 34.7 RDW 13.7 Plt Count 230 Seg Neutrophils % 83.4 H Lymphocytes % 7.5 L Monocytes % 7.7 Eosinophils % 0.9 Basophils % 0.5 Absolute Neutrophils 7.8 Absolute Lymphocytes 0.7 Absolute Monocytes 0.7 Absolute Eosinophils 0.1 Absolute Basophils 0.0 Sodium 136.9 L Potassium 4.1 Chloride 102 Carbon Dioxide 24 Anion Gap 11 BUN 37 H Creatinine 1.99 H Est GFR ( Amer) 29 L Est GFR (Non-Af Amer) 24 L Glucose 98 Calcium 9.2 Total Bilirubin 0.9 Direct Bilirubin 0.5 H Neonat Total Bilirubin Not Reportable Neonat Direct Bilirubin Not Reportable Neonat Indirect Bili Not Reportable AST 35 ALT 6 L Alkaline Phosphatase 61 Creatine Kinase 30 CK-MB (CK-2) 0.97 Troponin I 0.016 Total Protein 7.7 Albumin 3.6 04/23/18 19:15 WBC RBC Hgb Hct MCV MCH MCHC RDW Plt Count Seg Neutrophils % Lymphocytes % Monocytes % Eosinophils % Basophils % Absolute Neutrophils Absolute Lymphocytes Absolute Monocytes Absolute Eosinophils Absolute Basophils Sodium Potassium Chloride Carbon Dioxide Anion Gap BUN Creatinine Est GFR ( Amer) Est GFR (Non-Af Amer) Glucose Calcium Total Bilirubin Direct Bilirubin Neonat Total Bilirubin Neonat Direct Bilirubin Neonat Indirect Bili AST ALT Alkaline Phosphatase Creatine Kinase CK-MB (CK-2) Troponin I 0.018 Total Protein Albumin Chest X-Ray 04/23/18 15:19 IMPRESSION: Chronic CHF. Chest CT 04/23/18 17:18 IMPRESSION: 1. Large right pleural effusion. Smaller left pleural effusion. 2. Chronic lung changes with centrilobular emphysema and pleural/parenchymal scarring. 3. 12 mm left upper lobe pulmonary nodule that was not present on the prior study. Concerning for neoplasm. Recommend PET-CT. 4. Precarinal adenopathy. 04/23/18 18:36 77-year-old female with significant coronary artery disease presents from her inspector and clerk's office with complaints of substernal chest pain with palpation. Patient initially refusing blood work, aspirin. I did speak to her inspector and clerk Dr Jenkins who wants the patient to undergo a cardiac workup. I did relay this message to the patient and she is now agreeable for assessment. Vital signs reviewed upon arrival. Patient is hypoxic, dyspneic. She is on 3 L nasal cannula chronically and is requiring 4-5 L to maintain an O2 sat greater than 93%. CBC shows no leukocytosis and a chronic anemia. CMP does show chronic renal insufficiency. Troponins were negative x2. CT of the chest was obtained and showed bilateral pleural effusion right greater than left and a 12 mm nodule that is concerning for neoplasm. Patient has required previous paracentesis for pleural effusions in the past. I did discuss the results with the patient who states that she has a known "spot on her lung". No previous imaging that I can find shows a nodule. I did speak to Dr. Griffiths who agrees to admission to the [facility]. Patient is agreeable to to this. Patient has remained stable throughout her ED course. 04/23/18 21:17 04/23/18 21:18 04/23/18 21:20 04/24/18 02:04 . - Vital Signs Vital signs: Temp Pulse Resp BP Pulse Ox 97.9 F 97 18 146/84 H 92 04/23/18 23:35 04/23/18 23:35 04/23/18 23:35 04/23/18 23:35 04/23/18 23:35 - Laboratory Result Diagrams: 04/23/18 17:51 04/23/18 17:51 Laboratory results interpreted by me: 04/23/18 04/23/18 04/23/18 17:51 17:51 18:24 RBC 3.11 L Hgb 9.3 L Hct 26.8 L Seg Neutrophils % 83.4 H Lymphocytes % 7.5 L Sodium 136.9 L BUN 37 H Creatinine 1.99 H Est GFR ( Amer) 29 L Est GFR (Non-Af Amer) 24 L Direct Bilirubin 0.5 H ALT 6 L Urine Protein 30 H Urine Blood LARGE H - Diagnostic Test Radiology reviewed: Image reviewed, Reports reviewed - EKG Interpretation by Me Rate: Normal Rhythm: A.Fib, PVC's When compared to previous EKG there are: No significant change Discharge - Discharge Clinical Impression: Pleural effusion, Chronic atrial fibrillation, Bilateral pleural effusion, Chronic kidney disease, stage III (moderate), Neoplasm Chest pain Qualifiers: Chest pain type: unspecified Qualified Code(s): R07.9 - Chest pain, unspecified Type 2 diabetes mellitus Qualifiers: Diabetes mellitus group home insulin use: without group home use Diabetes mellitus complication status: without complication Qualified Code(s): E11.9 - Type 2 diabetes mellitus without complications Anemia Qualifiers: Anemia type: unspecified type Qualified Code(s): D64.9 - Anemia, unspecified Condition: Fair Disposition: ADMITTED INPATIENT Admitting Provider: [facility] Unit Admitted: [facility]
[2018-04-23] MEDS: ASPIRIN 81 MG TABLET, CHEWABLE PO ONE ×2 (17:57→18:19)
[2018-04-23 18:05] LABS: ABSOLUTE EOSINOPHILS # (AUTO) 0.1 10^3/uL (0.0-0.6); ABSOLUTE LYMPHOCYTES (AUTO) 0.7 10^3/uL (0.5-4.7); ABSOLUTE MONOCYTES (AUTO) 0.7 10^3/uL (0.1-1.4); ABSOLUTE NEUT (AUTO) 7.8 10^3/uL (1.7-8.2); BASOPHILS % (AUTO) 0.5 % (0-2); EOSINOPHILS % (AUTO) 0.9 % (0-6); HEMATOCRIT 26.8 % (36.0-47.0); HEMOGLOBIN 9.3 g/dL (12.0-15.5); LYMPHOCYTES % (AUTO) 7.5 % (13-45); MEAN CORPUSCULAR HEMOGLOBIN 29.8 pg (27.0-33.4); MEAN CORPUSCULAR HGB CONC 34.7 g/dL (32.0-36.0); MEAN CORPUSCULAR VOLUME 86 fl (80-97); MONOCYTES % (AUTO) 7.7 % (3-13); PLATELET COUNT 230 10^3/uL (150-450); RED BLOOD COUNT 3.11 10^6/uL (3.72-5.28); RED CELL DISTRIBUTION WIDTH 13.7 % (11.5-14.0); SEGMENTED NEUTROPHILS % (AUTO) 83.4 % (42-78); TOTAL CELLS COUNTED % (AUTO) 100 %; WHITE BLOOD COUNT 9.4 10^3/uL (4.0-10.5)
--- NOTE | 2018-04-23 18:08 | EKG REPORT ---
SEVERITY:- ABNORMAL ECG - ATRIAL FIBRILLATION, V-RATE 63-106 VENTRICULAR PREMATURE COMPLEX : Confirmed by: Duncan Jenkins MD 23-Apr-2018 18:07:43
[2018-04-23 18:33] LABS: ALANINE AMINOTRANSFERASE 6 U/L (9-52); ALBUMIN 3.6 g/dL (3.5-5.0); ALKALINE PHOSPHATASE 61 U/L (38-126); ANION GAP 11 (5-19); ASPARTATE AMINO TRANSFERASE 35 U/L (14-36); BILIRUBIN,DIRECT 0.5 mg/dL (0.0-0.4); BILIRUBIN,TOTAL 0.9 mg/dL (0.2-1.3); BLOOD UREA NITROGEN 37 mg/dL (7-20); CALCIUM 9.2 mg/dL (8.4-10.2); CARBON DIOXIDE 24 mmol/L (22-30); CHLORIDE 102 mmol/L (98-107); CREATINE KINASE 30 U/L (30-135); GLUCOSE 98 mg/dL (75-110); POTASSIUM 4.1 mmol/L (3.6-5.0); SODIUM 136.9 mmol/L (137-145); TOTAL PROTEIN 7.7 g/dL (6.3-8.2)
[2018-04-23 18:45] LABS: CREATINE KINASE MB 0.97 ng/mL (<4.55); TROPONIN I 0.016 ng/mL
--- NOTE | 2018-04-23 19:02 | RADIOLOGY REPORT (SQ) ---
EXAM DESCRIPTION: CT CHEST WITHOUT COMPLETED DATE/TIME: 04/23/2018 6:39 pm REASON FOR STUDY: sternum pain ? injury./ sob COMPARISON: 04/21/2017 TECHNIQUE: CT scan performed of the chest without intravenous contrast. Images reviewed with lung, soft tissue and bone windows. Reconstructed coronal and sagittal MPR images reviewed. All images st ored on PACS. All CT scanners at this facility use dose modulation, iterative reconstruction, and/or weight based d osing when appropriate to reduce radiation dose to as low as reasonably achievable (ALARA). [facility]: Dose Right [facility]: CareDose [facility]: Dose Right [facility]: Teradose 4D [facility]: [employer] RADIATION DOSE: CT Rad equipment meets quality standard of care and radiation dose reduction techniq ues were employed. CTDIvol: 8.5 mGy. DLP: 308 mGy-cm. mGy. LIMITATIONS: No technical limitations. FINDINGS: LUNGS AND PLEURA: Large right pleural effusion. Moderate left pleural effusion. 12 mm le ft upper lobe nodule that is not identified on the earlier study. Centrilobular emphysematous change s. Pleural/parenchymal scarring on the right. HILAR AND MEDIASTINAL STRUCTURES: Precarinal adenopathy. Largest node measures 15 mm in short axis. HEART AND VASCULAR STRUCTURES: No aneurysm. No pericardial effusion. UPPER ABDOMEN: No significant findings. Limited exam. THYROID AND OTHER SOFT TISSUES: No masses. No adenopathy. BONES: No significant finding. HARDWARE: None in the chest. OTHER: No other significant findings. IMPRESSION: 1. Large right pleural effusion. Smaller left pleural effusion. 2. Chronic lung changes with centrilobular emphysema and pleural/parenchymal scarring. 3. 12 mm left upper lobe pulmonary nodule that was not present on the prior study. Concerning for n eoplasm. Recommend PET-CT. 4. Precarinal adenopathy. TECHNICAL DOCUMENTATION: JOB ID: [id number] Quality ID # [id number]: Final reports with documentation of one or more dose reduction techniques (e.g., Au tomated exposure control, adjustment of the mA and/or kV according to patient size, use of iterative reconstruction technique) 2010 [email or web address]- All Rights Reserved Reading location - IP/workstation name: [email or web address]
[2018-04-23] MEDS ORDERED: FUROSEMIDE INJ/PF 40 MG/4 ML SDV IV ONE (20:14)
[2018-04-23 21:37] LABS: INTERNATIONAL RATION (INR) 1.41; PROTHROMBIN TIME 17.9 SEC (11.4-15.4)
[2018-04-23 21:38] LABS: PARTIAL THROMBOPLASTIN TIME 46.8 SEC (23.5-35.8)
[2018-04-23 21:39] LABS: APPEARANCE,URINE CLOUDY; BILIRUBIN,URINE NEGATIVE (NEGATIVE); COLOR,URINE YELLOW; GLUCOSE, URINE NEGATIVE (NEGATIVE); KETONES,URINE NEGATIVE (NEGATIVE); LEUKOCYTE ESTERASE,URINE NEGATIVE (NEGATIVE); NITRITE,URINE NEGATIVE (NEGATIVE); PROTEIN,URINE 30 mg/dL (NEGATIVE); URINE SPECIFIC GRAVITY 1.013; UROBILINOGEN,URINE NEGATIVE mg/dL (<2.0)
[2018-04-23 21:53] LABS: LIPASE 131.2 U/L (23-300); PHOSPHORUS 4.4 mg/dL (2.5-4.5); TOTAL PROTEIN 7.1 g/dL (6.3-8.2)
[2018-04-23 21:58] LABS: URINE AMPHETAMINES SCREEN NEGATIVE; URINE BARBITURATES SCREEN NEGATIVE; URINE BENZODIAZEPINES SCREEN NEGATIVE; URINE COCAINE SCREEN NEGATIVE; URINE MARIJUANA (THC) SCREEN NEGATIVE; URINE METHADONE SCREEN NEGATIVE; URINE PHENCYCLIDINE SCREEN NEGATIVE
[2018-04-23 22:21] LABS: FREE T4 (FREE THYROXINE) 1.73 ng/dL (0.78-2.19)
[2018-04-23 22:27] LABS: CREATINE KINASE MB 1.1 ng/mL (<4.55); TROPONIN I 0.019 ng/mL
[2018-04-23 22:35] LABS: THYROID STIMULATING HORMONE 3.54 uIU/mL (0.47-4.68)
[2018-04-23] MEDS ORDERED: DILTIAZEM HCL 180 MG CAPSULE.CR PO ONE (23:00)
[2018-04-23 23:13] LABS: VENOUS BLOOD BASE EXCESS -3.4 mmol/L; VENOUS BLOOD HCO3 21.6 mmol/L (20-32); VENOUS BLOOD PH 7.36 (7.30-7.42)
[2018-04-23] MEDS ORDERED: ACETYLCYSTEINE 10% NEB 400 MG/4 ML VIAL PO ONE (23:15)
[2018-04-23] MEDS ORDERED: TIOTROPIUM BROMIDE DPI 5 CAP/KIT (18 MCG/CAP) IH ONE (23:15)
[2018-04-23] MEDS ORDERED: ISOSORBIDE MONONITRATE 30 MG TAB.ER.24H PO ONE (23:15)
[2018-04-24] MEDS ORDERED: FLUTICASONE/SALMETEROL DISKUS 250-50 MCG/DOSE IH ONE (00:53)
[2018-04-24] MEDS: FLUTICASONE/SALMETEROL DISKUS 250-50 MCG/DOSE IH SCH ×3 (01:07→22:08)
[2018-04-24 03:18] LABS: ABSOLUTE BASOPHILS # (AUTO) 0.1 10^3/uL (0.0-0.2); ABSOLUTE LYMPHOCYTES (AUTO) 0.6 10^3/uL (0.5-4.7); ABSOLUTE MONOCYTES (AUTO) 0.6 10^3/uL (0.1-1.4); ABSOLUTE NEUT (AUTO) 7.4 10^3/uL (1.7-8.2); BASOPHILS % (AUTO) 0.7 % (0-2); EOSINOPHILS % (AUTO) 0.4 % (0-6); HEMATOCRIT 25.7 % (36.0-47.0); LYMPHOCYTES % (AUTO) 7.3 % (13-45); MEAN CORPUSCULAR HEMOGLOBIN 29.8 pg (27.0-33.4); MEAN CORPUSCULAR HGB CONC 34.8 g/dL (32.0-36.0); MEAN CORPUSCULAR VOLUME 86 fl (80-97); MONOCYTES % (AUTO) 6.7 % (3-13); PLATELET COUNT 192 10^3/uL (150-450); RED CELL DISTRIBUTION WIDTH 13.6 % (11.5-14.0); SEGMENTED NEUTROPHILS % (AUTO) 84.9 % (42-78); TOTAL CELLS COUNTED % (AUTO) 100 %; WHITE BLOOD COUNT 8.8 10^3/uL (4.0-10.5)
[2018-04-24 03:38] LABS: ALANINE AMINOTRANSFERASE 15 U/L (9-52); ALBUMIN 3.2 g/dL (3.5-5.0); ALKALINE PHOSPHATASE 53 U/L (38-126); ANION GAP 10 (5-19); ASPARTATE AMINO TRANSFERASE 18 U/L (14-36); BILIRUBIN,DIRECT 0.5 mg/dL (0.0-0.4); BLOOD UREA NITROGEN 39 mg/dL (7-20); CALCIUM 8.9 mg/dL (8.4-10.2); CARBON DIOXIDE 23 mmol/L (22-30); CHLORIDE 104 mmol/L (98-107); CHOLESTEROL 103.95 mg/dL (0-200); GLUCOSE 139 mg/dL (75-110); POTASSIUM 3.7 mmol/L (3.6-5.0); SODIUM 136.9 mmol/L (137-145); TOTAL PROTEIN 6.7 g/dL (6.3-8.2); TRIGLYCERIDES 99 mg/dL (<150)
[2018-04-24 03:50] LABS: DIRECT LDL 40 mg/dL (<100)
[2018-04-24 03:51] LABS: CREATINE KINASE MB 1.39 ng/mL (<4.55); TROPONIN I 0.02 ng/mL
[2018-04-24] MEDS: LEVOTHYROXINE SODIUM 0.15 MG TABLET PO SCH (06:23)
[2018-04-24] MEDS: DILTIAZEM HCL 180 MG CAPSULE.CR PO SCH (09:29)
[2018-04-24] MEDS: ISOSORBIDE MONONITRATE 30 MG TAB.ER.24H PO SCH (09:29)
[2018-04-24] MEDS: SITAGLIPTIN PHOSPHATE 50 MG TABLET PO SCH (09:29)
[2018-04-24] MEDS: METOPROLOL SUCCINATE 50 MG TAB.SR.24H PO SCH (09:30)
[2018-04-24] MEDS: ACETYLCYSTEINE 10% NEB 400 MG/4 ML VIAL PO SCH (09:31)
[2018-04-24] MEDS: TIOTROPIUM BROMIDE DPI 5 CAP/KIT (18 MCG/CAP) IH SCH (09:31)
[2018-04-24 10:56] LABS: CREATINE KINASE MB 1.3 ng/mL (<4.55); TROPONIN I 0.023 ng/mL
--- NOTE | 2018-04-24 15:44 | RADIOLOGY REPORT (SQ) ---
EXAM DESCRIPTION: CHEST SINGLE VIEW COMPLETED DATE/TIME: 04/24/2018 3:25 pm REASON FOR STUDY: S/P RT THORACENTESIS COMPARISON: 04/23/2018 NUMBER OF VIEWS: One view. TECHNIQUE: Single frontal radiographic image of the chest acquired. LIMITATIONS: None. FINDINGS: LUNGS AND PLEURA: Interval decrease in right pleural effusion. No pneumothorax. MEDIASTINUM AND HEART: Stable heart size and mediastinal structures. BONY STRUCTURES: No acute findings. HARDWARE: None. OTHER: No other significant finding. IMPRESSION: No pneumothorax. TECHNICAL DOCUMENTATION: JOB ID: [id number] Reading location - IP/workstation name: [email or web address]
--- NOTE | 2018-04-24 16:27 | RADIOLOGY REPORT (SQ) ---
EXAM DESCRIPTION: U/S THORACENTESIS WITH IMAGING COMPLETED DATE/TIME: 04/24/2018 4:07 pm REASON FOR STUDY: RECURRENT PLEURAL EFFUSION COMPARISON: None. LIMITATIONS: None. PROCEDURE: Procedure, risks, benefit, and alternative explained to patient who then gave written con sent. The posterior right chest wall was marked using ultrasound guidance. A time-out was called fo r correct marking verification. Chest prepped and draped using sterile technique. Local anesthesia a chieved using 3.0 ml of 1% lidocaine injection. A 6fr Safe-T- Centesis set was introduced into the r ight pleural space. Fluid was aspirated. The catheter was removed and the entry site was covered wi th sterile bandage. No immediate complications noted. Images acquired during the procedure were stored on PACS. FINDINGS: ENTRY SITE: posterior right chest. FLUID VOLUME: 800 cc FLUID ANALYSIS: Straw OTHER: Fluid sent to the lab for testing. IMPRESSION: SUCCESSFUL THORACENTESIS USING ULTRASOUND GUIDANCE. COMMENT: Patient medication list reviewed: Yes- Quality ID# [id number]:Eligible professional attests to doc umenting in the medical record they obtained, updated, or reviewed the patient's current medications. TECHNICAL DOCUMENTATION: JOB ID: [id number] [employer]- All Rights Reserved Reading location - IP/workstation name: [email or web address]
--- NOTE | 2018-04-24 17:46 | RADIOLOGY REPORT (SQ) ---
EXAM DESCRIPTION: CHEST SINGLE VIEW COMPLETED DATE/TIME: 04/24/2018 5:30 pm REASON FOR STUDY: S/P RT THORACENTESIS- 2 HOUR CHEST XRAY COMPARISON: 04/24/2018 EXAM PARAMETERS: NUMBER OF VIEWS: One view. TECHNIQUE: Single frontal radiographic view of the chest acquired. RADIATION DOSE: NA LIMITATIONS: None. FINDINGS: LUNGS AND PLEURA: Residual pleural effusions. No pneumothorax is present. MEDIASTINUM AND HILAR STRUCTURES: No masses. Contour normal. HEART AND VASCULAR STRUCTURES: Cardiomegaly. No lalit pulmonary edema. BONES: No acute findings. HARDWARE: None in the chest. OTHER: No other significant finding. IMPRESSION: No pneumothorax. Residual pleural effusions. Cardiomegaly. TECHNICAL DOCUMENTATION: JOB ID: [id number] [employer]- All Rights Reserved Reading location - IP/workstation name: [email or web address]
[2018-04-24 18:20] LABS: FLUID COLOR YELLOW; FLUID SOURCE LUNG; FLUID TYPE PLEURAL
[2018-04-24 18:21] LABS: FLUID APPEARANCE SLIGHTLY HAZY; FLUID VISCOSITY LIQUID
--- NOTE | 2018-04-24 20:57 | PDOC H&P ---
History of Present Illness Admission Date/PCP: 04/23/18 20:27 JEANETTE JAY MD History of Present Illness: SID MARTINEZ is a 77 year old female, She has a history of chronic kidney disease stage III, chronic atrial fibrillation, she saw , cardiology in the office she was referred to the emergency room for evaluation of chest pain. In the emergency room CT chest without contrast was done, it demonstrated a large right pleural effusion and moderate left pleural effusion also found was a new 12 mm left upper lobe nodule that was not identified on the earlier study. This pleural effusion is recurrent the last time she was admitted to the hospital she also had pleural effusion, she underwent diagnostic thoracentesis at that time the analysis was consistent with exudative pleural effusion, a 2D echo was done which was normal, she was referred to see the CT surgeon with the intent for the surgeon to do a thoracostomy with or without pleural membrane biopsy but this was not done for unknown reason. There is a new finding of a 12 mm nodule in the left upper lobe. She would need a PET scan to further analyze this nodule neoplasm very suspicious especially with recurrent pleural effusion in the patient with COPD and prior history of tobacco use Past Medical History Cardiac Medical History: Reports: Atrial Fibrillation, Hyperlipidema, Hypertension Pulmonary Medical History: Reports: Chronic Obstructive Pulmonary Disease (COPD) Neurological Medical History: Endocrine Medical History: Reports: Diabetes Mellitus Type 2 Renal/ Medical History: Reports: Chronic Kidney Disease, Other - Chronic kidney disease stage III GI Medical History: Hematology: Past Surgical History Past Surgical History: Reports: Cholecystectomy, Orthopedic Surgery - left hip Social History Lives with: Spouse/Significant other Smoking Status: Former Smoker Cigarettes Packs Per Day: 3 Frequency of Alcohol Use: None Hx Recreational Drug Use: No Drugs: None Hx Prescription Drug Abuse: No - Advance Directive Resuscitation Status: Full Code Family History Family History: Reviewed & Not Pertinent Parental Family History Reviewed: Yes Children Family History Reviewed: Yes Sibling(s) Family History Reviewed.: Yes Medication/Allergy Home Medications: Acetylcysteine [NAC 600 mg Capsule] 600 mg PO DAILY 04/23/18 Aspirin [Aspirin EC] 81 mg PO DAILY 04/23/18 Atorvastatin Calcium [Lipitor 10 mg Tablet] 10 mg PO QHS 04/23/18 Cyanocobalamin (Vitamin B-12) [Vitamin B-12 1000 mcg Tablet] 1,000 mcg PO DAILY 04/23/18 Diltiazem HCl [Diltiazem ER] 180 mg PO DAILY 04/23/18 Fluticasone/Salmeterol [Advair 250-50 Diskus 14 Dose/Diskus] 1 puff IH Q12 04/23 Furosemide [Lasix 40 mg Tablet] 40 mg PO DAILY 04/23/18 Glipizide [Glucotrol 5 mg Tablet] 5 mg PO BID 04/23/18 Hydralazine HCl 100 mg PO BID 04/23/18 Isosorbide Mononitrate [Imdur 30 mg Tablet.er] 90 mg PO DAILY 04/23/18 Levothyroxine Sodium [Synthroid] 150 mcg PO Q6AM 04/23/18 Linagliptin [Tradjenta] 5 mg PO BID 04/23/18 Metoprolol Succinate [Toprol Xl] 200 mg PO DAILY 04/23/18 Raloxifene HCl [Evista 60 mg Tablet] 60 mg PO DAILY 04/23/18 Tiotropium [place] [Spiriva Handihaler 18 mcg/dose (30 Dose)] 1 cap IH DAILY Tizanidine HCl [Zanaflex] 4 mg PO HSP PRN 04/23/18 Allergies/Adverse Reactions: No Known Allergies Allergy (Verified 04/23/18 14:32) Review of Systems Constitutional: ABSENT: chills, fever(s), headache(s), weight gain, weight loss Eyes: ABSENT: visual disturbances Ears: ABSENT: hearing changes Cardiovascular: PRESENT: chest pain, dyspnea on exertion Respiratory: PRESENT: dyspnea. ABSENT: cough, hemoptysis Gastrointestinal: ABSENT: abdominal pain, constipation, diarrhea, hematemesis, hematochezia, nausea, vomiting Genitourinary: ABSENT: dysuria, hematuria Musculoskeletal: ABSENT: joint swelling Integumentary: ABSENT: rash, wounds Neurological: ABSENT: abnormal gait, abnormal speech, confusion, dizziness, focal weakness, syncope Psychiatric: ABSENT: anxiety, depression, homidical ideation, suicidal ideation Endocrine: ABSENT: cold intolerance, heat intolerance, menstrual abnormalities, polydipsia, polyuria Hematologic/Lymphatic: ABSENT: easy bleeding, easy bruising, lymphadenopathy Physical Exam Vital Signs: Temp Pulse Resp BP Pulse Ox 99.4 F 85 20 151/65 H 96 04/24/18 19:45 04/24/18 19:45 04/24/18 19:45 04/24/18 19:45 04/24/18 19:45 Intake & Output 04/23/18 04/24/18 04/25/18 06:59 06:59 06:59 Intake Total 700 1016 Output Total 0 Balance 700 1016 Weight 68.5 kg General appearance: PRESENT: no acute distress, well-developed, well-nourished Head exam: PRESENT: atraumatic, normocephalic Eye exam: PRESENT: conjunctiva pink, EOMI, PERRLA Ear exam: PRESENT: normal external ear exam Mouth exam: PRESENT: moist, tongue midline Neck exam: PRESENT: full ROM Respiratory exam: PRESENT: decreased breath sounds Cardiovascular exam: PRESENT: RRR, +S1, +S2 Pulses: PRESENT: normal dorsalis pedis pul, +2 pedal pulses bilateral Vascular exam: PRESENT: normal capillary refill GI/Abdominal exam: PRESENT: normal bowel sounds, soft Rectal exam: PRESENT: deferred Neurological exam: PRESENT: alert, awake, oriented to person, oriented to place , oriented to time, oriented to situation, CN II-XII grossly intact Psychiatric exam: PRESENT: appropriate affect, normal mood Skin exam: PRESENT: dry, intact, warm Results Laboratory Results: 04/24/18 03:03 04/24/18 03:03 04/23/18 04/23/18 04/23/18 21:05 21:05 21:05 WBC RBC Hgb Hct MCV MCH MCHC RDW Plt Count Seg Neutrophils % Lymphocytes % Monocytes % Eosinophils % Basophils % Absolute Neutrophils Absolute Lymphocytes Absolute Monocytes Absolute Eosinophils Absolute Basophils VBG pH VBG pCO2 VBG HCO3 VBG Base Excess Sodium Potassium Chloride Carbon Dioxide Anion Gap BUN Creatinine Est GFR ( Amer) Est GFR (Non-Af Amer) Glucose Calcium Phosphorus 4.4 Magnesium 1.9 Total Bilirubin AST ALT Alkaline Phosphatase Ammonia < 8.7 L Total Protein 7.1 Albumin Triglycerides Cholesterol LDL Cholesterol Direct VLDL Cholesterol HDL Cholesterol Amylase 68 Lipase 131.2 TSH 3.54 Free T4 1.73 Fluid Type Fluid Source Fluid Color Fluid Appearance Fluid Viscosity Fluid WBC Fluid RBC 04/23/18 04/24/18 04/24/18 23:00 03:03 03:03 WBC 8.8 RBC 3.00 L Hgb 9.0 L Hct 25.7 L MCV 86 MCH 29.8 MCHC 34.8 RDW 13.6 Plt Count 192 Seg Neutrophils % 84.9 H Lymphocytes % 7.3 L Monocytes % 6.7 Eosinophils % 0.4 Basophils % 0.7 Absolute Neutrophils 7.4 Absolute Lymphocytes 0.6 Absolute Monocytes 0.6 Absolute Eosinophils 0.0 Absolute Basophils 0.1 VBG pH 7.36 VBG pCO2 39.0 VBG HCO3 21.6 VBG Base Excess -3.4 Sodium 136.9 L Potassium 3.7 Chloride 104 Carbon Dioxide 23 Anion Gap 10 BUN 39 H Creatinine 2.06 H Est GFR ( Amer) 28 L Est GFR (Non-Af Amer) 23 L Glucose 139 H Calcium 8.9 Phosphorus Magnesium Total Bilirubin 1.0 AST 18 ALT 15 Alkaline Phosphatase 53 Ammonia Total Protein 6.7 Albumin 3.2 L Triglycerides 99 Cholesterol 103.95 LDL Cholesterol Direct 40 VLDL Cholesterol 20.0 HDL Cholesterol 37 L Amylase Lipase TSH Free T4 Fluid Type Fluid Source Fluid Color Fluid Appearance Fluid Viscosity Fluid WBC Fluid RBC 04/24/18 14:57 WBC RBC Hgb Hct MCV MCH MCHC RDW Plt Count Seg Neutrophils % Lymphocytes % Monocytes % Eosinophils % Basophils % Absolute Neutrophils Absolute Lymphocytes Absolute Monocytes Absolute Eosinophils Absolute Basophils VBG pH VBG pCO2 VBG HCO3 VBG Base Excess Sodium Potassium Chloride Carbon Dioxide Anion Gap BUN Creatinine Est GFR ( Amer) Est GFR (Non-Af Amer) Glucose Calcium Phosphorus Magnesium Total Bilirubin AST ALT Alkaline Phosphatase Ammonia Total Protein Albumin Triglycerides Cholesterol LDL Cholesterol Direct VLDL Cholesterol HDL Cholesterol Amylase Lipase TSH Free T4 Fluid Type PLEURAL Fluid Source LUNG Fluid Color YELLOW Fluid Appearance SLIGHTLY HAZY Fluid Viscosity LIQUID Fluid WBC 71 Fluid RBC 940 04/23/18 04/23/18 04/23/18 21:05 21:05 21:05 Creatine Kinase 31 CK-MB (CK-2) 1.10 Troponin I 0.019 NT-Pro-B Natriuret Pep 5510 H 04/24/18 04/24/18 04/24/18 03:03 03:03 09:28 Creatine Kinase 42 34 CK-MB (CK-2) 1.39 Troponin I 0.020 NT-Pro-B Natriuret Pep 04/24/18 09:28 Creatine Kinase CK-MB (CK-2) 1.30 Troponin I 0.023 NT-Pro-B Natriuret Pep Impressions: Chest CT 04/23/18 17:18 IMPRESSION: 1. Large right pleural effusion. Smaller left pleural effusion. 2. Chronic lung changes with centrilobular emphysema and pleural/parenchymal scarring. 3. 12 mm left upper lobe pulmonary nodule that was not present on the prior study. Concerning for neoplasm. Recommend PET-CT. 4. Precarinal adenopathy. Chest X-Ray 04/24/18 17:15 IMPRESSION: No pneumothorax. Residual pleural effusions. Cardiomegaly. Thoracentesis Ultrasound 04/24/18 20:43 IMPRESSION: SUCCESSFUL THORACENTESIS USING ULTRASOUND GUIDANCE. Assessment & Plan - Diagnosis (1) Recurrent pleural effusion on right Is this a current diagnosis for this admission?: Yes Plan: Paracentesis was done,800 cc pleural fluid was obtained, analysis studies pending (2) Pulmonary nodule, left Is this a current diagnosis for this admission?: Yes Plan: PET scan is needed to further characterize the nodule (3) Chronic atrial fibrillation Is this a current diagnosis for this admission?: Yes (4) Chronic obstructive pulmonary disease Qualifiers: COPD type: unspecified COPD Qualified Code(s): J44.9 - Chronic obstructive pulmonary disease, unspecified Is this a current diagnosis for this admission?: Yes
[2018-04-25 06:40] LABS: ABSOLUTE BASOPHILS # (AUTO) 0.1 10^3/uL (0.0-0.2); ABSOLUTE EOSINOPHILS # (AUTO) 0.1 10^3/uL (0.0-0.6); ABSOLUTE LYMPHOCYTES (AUTO) 0.8 10^3/uL (0.5-4.7); ABSOLUTE MONOCYTES (AUTO) 0.7 10^3/uL (0.1-1.4); ABSOLUTE NEUT (AUTO) 5.9 10^3/uL (1.7-8.2); BASOPHILS % (AUTO) 0.9 % (0-2); EOSINOPHILS % (AUTO) 1.3 % (0-6); HEMATOCRIT 24.9 % (36.0-47.0); HEMOGLOBIN 8.5 g/dL (12.0-15.5); LYMPHOCYTES % (AUTO) 10.4 % (13-45); MEAN CORPUSCULAR HEMOGLOBIN 29.1 pg (27.0-33.4); MEAN CORPUSCULAR HGB CONC 34.2 g/dL (32.0-36.0); MEAN CORPUSCULAR VOLUME 85 fl (80-97); MONOCYTES % (AUTO) 9.2 % (3-13); PLATELET COUNT 186 10^3/uL (150-450); RED BLOOD COUNT 2.93 10^6/uL (3.72-5.28); RED CELL DISTRIBUTION WIDTH 13.7 % (11.5-14.0); SEGMENTED NEUTROPHILS % (AUTO) 78.2 % (42-78); TOTAL CELLS COUNTED % (AUTO) 100 %; WHITE BLOOD COUNT 7.6 10^3/uL (4.0-10.5)
[2018-04-25] MEDS: LEVOTHYROXINE SODIUM 0.15 MG TABLET PO SCH (07:02)
[2018-04-25 07:04] LABS: ALANINE AMINOTRANSFERASE 10 U/L (9-52); ALBUMIN 3.2 g/dL (3.5-5.0); ALKALINE PHOSPHATASE 56 U/L (38-126); ANION GAP 13 (5-19); ASPARTATE AMINO TRANSFERASE 16 U/L (14-36); BILIRUBIN,DIRECT 0.3 mg/dL (0.0-0.4); BILIRUBIN,TOTAL 0.7 mg/dL (0.2-1.3); BLOOD UREA NITROGEN 45 mg/dL (7-20); CARBON DIOXIDE 21 mmol/L (22-30); CHLORIDE 101 mmol/L (98-107); GLUCOSE 113 mg/dL (75-110); POTASSIUM 3.8 mmol/L (3.6-5.0); SODIUM 135.2 mmol/L (137-145); TOTAL PROTEIN 6.4 g/dL (6.3-8.2)
[2018-04-25] MEDS: FLUTICASONE/SALMETEROL DISKUS 250-50 MCG/DOSE IH SCH (09:18)
[2018-04-25] MEDS: METOPROLOL SUCCINATE 50 MG TAB.SR.24H PO SCH (09:20)
[2018-04-25] MEDS: SITAGLIPTIN PHOSPHATE 50 MG TABLET PO SCH (09:20)
[2018-04-25] MEDS: TIOTROPIUM BROMIDE DPI 5 CAP/KIT (18 MCG/CAP) IH SCH (09:20)
[2018-04-25] MEDS: DILTIAZEM HCL 180 MG CAPSULE.CR PO SCH (09:20)
[2018-04-25] MEDS: ISOSORBIDE MONONITRATE 30 MG TAB.ER.24H PO SCH (09:20)
[2018-04-25] MEDS: ACETYLCYSTEINE 10% NEB 400 MG/4 ML VIAL PO SCH (09:21)
[2018-04-25 17:52] VITALS: BP 146/84
--- NOTE | 2018-04-25 19:56 | PDOC DISCHARGE SUMMARY ---
General - Admit/Disc Date/PCP Admission Date/Primary Care Provider: 04/23/18 20:27 JEANETTE JAY MD Discharge Date: 04/25/18 - Discharge Diagnosis (1) Recurrent pleural effusion on right Is this a current diagnosis for this admission?: Yes (2) Pulmonary nodule, left Is this a current diagnosis for this admission?: Yes (3) Chronic atrial fibrillation Is this a current diagnosis for this admission?: Yes (4) Chronic obstructive pulmonary disease Is this a current diagnosis for this admission?: Yes - Additional Information Resuscitation Status: Full Code Home Medications: Acetylcysteine [NAC 600 mg Capsule] 600 mg PO DAILY 04/23/18 Aspirin [Aspirin EC] 81 mg PO DAILY 04/23/18 Atorvastatin Calcium [Lipitor 10 mg Tablet] 10 mg PO QHS 04/23/18 Cyanocobalamin (Vitamin B-12) [Vitamin B-12 1000 mcg Tablet] 1,000 mcg PO DAILY 04/23/18 Diltiazem HCl [Diltiazem ER] 180 mg PO DAILY 04/23/18 Fluticasone/Salmeterol [Advair 250-50 Diskus 14 Dose/Diskus] 1 puff IH Q12 04/23 Furosemide [Lasix 40 mg Tablet] 40 mg PO DAILY 04/23/18 Glipizide [Glucotrol 5 mg Tablet] 5 mg PO BID 04/23/18 Hydralazine HCl 100 mg PO BID 04/23/18 Isosorbide Mononitrate [Imdur 30 mg Tablet.er] 90 mg PO DAILY 04/23/18 Levothyroxine Sodium [Synthroid] 150 mcg PO Q6AM 04/23/18 Linagliptin [Tradjenta] 5 mg PO BID 04/23/18 Metoprolol Succinate [Toprol Xl] 200 mg PO DAILY 04/23/18 Raloxifene HCl [Evista 60 mg Tablet] 60 mg PO DAILY 04/23/18 Tiotropium [place] [Spiriva Handihaler 18 mcg/dose (30 Dose)] 1 cap IH DAILY Tizanidine HCl [Zanaflex] 4 mg PO HSP PRN 04/23/18 History of Present Illness History of Present Illness: SID MARTINEZ is a 77 year old female, She has a history of chronic kidney disease stage III, chronic atrial fibrillation, she saw Dr.Alice, cardiology in the office she was referred to the emergency room for evaluation of chest pain. In the emergency room CT chest without contrast was done, it demonstrated a large right pleural effusion and moderate left pleural effusion also found was a new 12 mm left upper lobe nodule that was not identified on the earlier study. This pleural effusion is recurrent the last time she was admitted to the hospital she also had pleural effusion, she underwent diagnostic thoracentesis at that time the analysis was consistent with exudative pleural effusion, a 2D echo was done which was normal, she was referred to see the CT surgeon with the intent for the surgeon to do a thoracostomy with or without pleural membrane biopsy but this was not done for unknown reason. There is a new finding of a 12 mm nodule in the left upper lobe. She would need a PET scan to further analyze this nodule neoplasm very suspicious especially with recurrent pleural effusion in the patient with COPD and prior history of tobacco use Hospital Course Hospital Course: Patient was admitted for the management of recurrent pleural effusion, she underwent thoracentesis, 800 cc of pleural fluid was removed, CT scan of the chest was done, it demonstrated a new 12 mm nodule the left upper lobe, she will need to have a PET scan done. She was brought in for observation, she was discharged home today to follow outpatient. Physical Exam Vital Signs: Temp Pulse Resp BP Pulse Ox 98.8 F 97 16 146/84 H 98 04/25/18 17:52 04/25/18 17:52 04/25/18 17:52 04/25/18 17:52 04/25/18 17:52 Intake & Output 04/24/18 04/25/18 04/26/18 06:59 06:59 06:59 Intake Total 700 1016 340 Output Total 0 Balance 700 1016 340 Weight 68.5 kg 69.4 kg General appearance: PRESENT: no acute distress, well-developed, well-nourished Head exam: PRESENT: atraumatic, normocephalic Eye exam: PRESENT: conjunctiva pink, EOMI, PERRLA Ear exam: PRESENT: normal external ear exam Mouth exam: PRESENT: moist, tongue midline Neck exam: PRESENT: full ROM Respiratory exam: PRESENT: clear to auscultation frida Cardiovascular exam: PRESENT: RRR, +S1, +S2 Pulses: PRESENT: normal dorsalis pedis pul, +2 pedal pulses bilateral Vascular exam: PRESENT: normal capillary refill GI/Abdominal exam: PRESENT: normal bowel sounds, soft Rectal exam: PRESENT: deferred Neurological exam: PRESENT: alert, awake, oriented to person, oriented to place , oriented to time, oriented to situation, CN II-XII grossly intact Psychiatric exam: PRESENT: appropriate affect, normal mood Skin exam: PRESENT: dry, intact, warm Results Laboratory Results: 04/25/18 06:32 04/25/18 06:32 04/25/18 04/25/18 06:32 06:32 WBC 7.6 RBC 2.93 L Hgb 8.5 L Hct 24.9 L MCV 85 MCH 29.1 MCHC 34.2 RDW 13.7 Plt Count 186 Seg Neutrophils % 78.2 H Lymphocytes % 10.4 L Monocytes % 9.2 Eosinophils % 1.3 Basophils % 0.9 Absolute Neutrophils 5.9 Absolute Lymphocytes 0.8 Absolute Monocytes 0.7 Absolute Eosinophils 0.1 Absolute Basophils 0.1 Sodium 135.2 L Potassium 3.8 Chloride 101 Carbon Dioxide 21 L Anion Gap 13 BUN 45 H Creatinine 2.25 H Est GFR ( Amer) 26 L Est GFR (Non-Af Amer) 21 L Glucose 113 H Calcium 9.0 Total Bilirubin 0.7 AST 16 ALT 10 Alkaline Phosphatase 56 Total Protein 6.4 Albumin 3.2 L 04/23/18 04/23/18 04/23/18 21:05 21:05 21:05 Creatine Kinase 31 CK-MB (CK-2) 1.10 Troponin I 0.019 NT-Pro-B Natriuret Pep 5510 H 04/24/18 04/24/18 04/24/18 03:03 03:03 09:28 Creatine Kinase 42 34 CK-MB (CK-2) 1.39 Troponin I 0.020 NT-Pro-B Natriuret Pep 04/24/18 09:28 Creatine Kinase CK-MB (CK-2) 1.30 Troponin I 0.023 NT-Pro-B Natriuret Pep Impressions: Chest CT 04/23/18 17:18 IMPRESSION: 1. Large right pleural effusion. Smaller left pleural effusion. 2. Chronic lung changes with centrilobular emphysema and pleural/parenchymal scarring. 3. 12 mm left upper lobe pulmonary nodule that was not present on the prior study. Concerning for neoplasm. Recommend PET-CT. 4. Precarinal adenopathy. Chest X-Ray 04/24/18 17:15 IMPRESSION: No pneumothorax. Residual pleural effusions. Cardiomegaly. Thoracentesis Ultrasound 04/24/18 20:43 IMPRESSION: SUCCESSFUL THORACENTESIS USING ULTRASOUND GUIDANCE. Qualifiers - * PATIENT BEING DISCHARGED WITH ANY OF THE FOLLOWING DIAGNOSIS: No
[2018-04-27 07:54] LABS: TOTAL PROTEIN BODY FLUID 3.7 g/dL (.)
== END 2018-04-25 18:20 | disposition home or self-care (01) ==
LOC: ER 14:31 → EH 20:27 → INTOOBSV 20:27 → 3W 22:35
PROVIDERS: ADMIT Internal Medicine; ATTEND Internal Medicine
PROC: 0W993ZZ Drainage of Right Pleural Cavity, Percutaneous Approach (ICD-10-PCS; principal; 2018-04-24)
PROC: BB4BZZZ Ultrasonography of Pleura (ICD-10-PCS; 2018-04-24)
PROC: 3E02340 Introduction of Influenza Vaccine into Muscle, Percutaneous Approach (ICD-10-PCS; 2018-04-25)
DX: J90 Pleural effusion, not elsewhere classified (principal); R91.1 Solitary pulmonary nodule; I48.2 Chronic atrial fibrillation; J44.9 Chronic obstructive pulmonary disease, unspecified; E78.5 Hyperlipidemia, unspecified; I25.10 Atherosclerotic heart disease of native coronary artery without angina pectoris; E11.22 Type 2 diabetes mellitus with diabetic chronic kidney disease; I12.9 Hypertensive chronic kidney disease with stage 1 through stage 4 chronic kidney disease, or unspecified chronic kidney disease; N18.3 Chronic kidney disease, stage 3 (moderate); D64.9 Anemia, unspecified; Z79.82 Long term (current) use of aspirin; Z79.899 Other long term (current) drug therapy; Z87.891 Personal history of nicotine dependence; Z90.49 Acquired absence of other specified parts of digestive tract; Z23 Encounter for immunization; Z86.73 Personal history of transient ischemic attack (TIA), and cerebral infarction without residual deficits; Z99.81 Dependence on supplemental oxygen
CPT/HCPCS: 93005; 99285; 36415 ×3; 87040; 87086; 84439; 87205; 87070; 82553 ×2; 82140; 82150 ×2; 82550 ×2; 83615 ×2; 83690; 83735; 84100; 84155; 84443; 85025 ×3; 85610; 85730; 89050; 87075; 80076 ×2; 80048 ×2; 80053; 81001; 84484 ×2; 80307; 83036; 82803; 80061; 82945; 84157; 83880; 88162; 88342 ×2; 88341 ×2; 88305 ×2; 71046; 71045; 32555; 71250; 90686; 93010; 94660; A9270 ×9; J1940; J3490 ×3

== ENCOUNTER → 2018-04-30 | Outpatient (CLI) | payer MEDICARE, OTHER ==
[2018-04-30 14:25] LABS: APPEARANCE,URINE SLIGHTLY-CLOUDY; BILIRUBIN,URINE NEGATIVE (NEGATIVE); COLOR,URINE YELLOW; GLUCOSE, URINE NEGATIVE (NEGATIVE); KETONES,URINE NEGATIVE (NEGATIVE); LEUKOCYTE ESTERASE,URINE NEGATIVE (NEGATIVE); NITRITE,URINE NEGATIVE (NEGATIVE); PROTEIN,URINE NEGATIVE (NEGATIVE); URINE SPECIFIC GRAVITY 1.011; UROBILINOGEN,URINE NEGATIVE mg/dL (<2.0)
[2018-04-30 14:29] LABS: HEMATOCRIT 26.9 % (36.0-47.0); MEAN CORPUSCULAR HEMOGLOBIN 28.5 pg (27.0-33.4); MEAN CORPUSCULAR HGB CONC 33.5 g/dL (32.0-36.0); MEAN CORPUSCULAR VOLUME 85 fl (80-97); PLATELET COUNT 311 10^3/uL (150-450); RED BLOOD COUNT 3.15 10^6/uL (3.72-5.28); RED CELL DISTRIBUTION WIDTH 13.5 % (11.5-14.0); WHITE BLOOD COUNT 8.6 10^3/uL (4.0-10.5)
[2018-04-30 14:50] LABS: ALBUMIN 3.5 g/dL (3.5-5.0); ANION GAP 10 (5-19); BLOOD UREA NITROGEN 35 mg/dL (7-20); CALCIUM 9.3 mg/dL (8.4-10.2); CARBON DIOXIDE 26 mmol/L (22-30); CHLORIDE 102 mmol/L (98-107); GLUCOSE 90 mg/dL (75-110); SODIUM 138.1 mmol/L (137-145)
== END ==
LOC: OD 13:31
PROVIDERS: ATTEND Internal Medicine Nephrology
DX: I13.0 Hypertensive heart and chronic kidney disease with heart failure and stage 1 through stage 4 chronic kidney disease, or unspecified chronic kidney disease (principal); E11.22 Type 2 diabetes mellitus with diabetic chronic kidney disease; N18.3 Chronic kidney disease, stage 3 (moderate); I50.9 Heart failure, unspecified; R31.9 Hematuria, unspecified
CPT/HCPCS: 36415; 80048; 81001; 82040; 85027

== ENCOUNTER → 2018-05-04 | Outpatient (CLI) | payer MEDICARE, OTHER ==
--- NOTE | 2018-05-05 09:15 | RADIOLOGY REPORT (SQ) ---
EXAM DESCRIPTION: PET CT SKULL/THIGH COMPLETED DATE/TIME: 05/04/2018 8:04 pm REASON FOR STUDY: PLEURAL EFFUSION J90 PLEURAL EFFUSION, NOT ELSEWHERE CLASSIFIED J44.9 CHRONIC OB STRUCTIVE PULMONARY DISEASE, UNSPECIFIED I78.1 NEVUS, NON-NEOPLASTIC COMPARISON: CT chest dated 04/23/2018 and 04/21/2017. RADIONUCLIDE AND DOSE: 10 mCi F18 FDG The route of agent administration: Intravenous FASTING BLOOD SUGAR: 72 mg/dl CONTRAST TYPE AND DOSE: No CT contrast given. TECHNIQUE: Blood glucose level was verified. Above dose of FDG was injected intravenously. 2-D seg mented attenuation correction images were obtained from the base of the skull to the midthighs. Nonc ontrast CT images were obtained for attenuation correction and fusion with emission images. CT image s were performed without oral or intravenous contrast and are not sensitive for parenchymal lesions. A series of overlapping emission PET images were obtained. Images reviewed and manipulated at [facility] work station by the radiologist. Images stored on PACS. LIMITATIONS: None. FINDINGS: HEAD AND NECK: No areas of abnormal metabolic activity in the soft tissues of the head and neck. CHEST: Emphysematous changes. Bilateral pleural effusions. 1.3 cm nodule in the left upper lobe. M jerson SUV 2.15 and maximum SUV 2.34. Mild mediastinal adenopathy with no abnormal increased activity. ABDOMEN AND PELVIS: No areas of abnormal metabolic activity in the abdomen or pelvis. Expected physi ologic activity is present in the genitourinary system and bowel. PROXIMAL LOWER EXTREMITIES: No areas of abnormal metabolic activity in the soft tissues of the lower extremities. BONES: No abnormal metabolic activity in the visualized skeleton. ADDITIONAL CT FINDINGS: Chronic atrophy of the right kidney. Right renal cyst. Left hip prosthesis. No additional significant findings on the noncontrast CT images. OTHER: No other significant findings. Background blood pool activity mean SUV 1.01. Background live r activity mean SUV 1.74. IMPRESSION: 1. NODULE IN THE LEFT UPPER LOBE WITH SLIGHT INCREASED ACTIVITY. NOT PRESENT ON PRIOR CHEST CT IN 2016. CONCERNING FOR MALIGNANCY. 2. MILD MEDIASTINAL ADENOPATHY WITH NO ABNORMAL METABOLIC ACTIVITY. BILATERAL PLEURAL EFFUSIONS. 3. NO OTHER SIGNIFICANT FINDINGS ON PET IMAGING. INCIDENTAL CT FINDINGS ABOVE. TECHNICAL DOCUMENTATION: JOB ID: [id number] [employer]- All Rights Reserved Reading location - IP/workstation name: [email or web address]
== END ==
LOC: RAD 16:15
PROVIDERS: ATTEND Internal Medicine
DX: J90 Pleural effusion, not elsewhere classified (principal); R91.1 Solitary pulmonary nodule; R59.0 Localized enlarged lymph nodes
CPT/HCPCS: 78815; A9552

== ENCOUNTER 2018-05-22 08:58 | Day surgery (SDC) | payer MEDICARE, OTHER ==
[2018-05-22 09:34] LABS: HEMATOCRIT 29.3 % (36.0-47.0); HEMOGLOBIN 9.8 g/dL (12.0-15.5); MEAN CORPUSCULAR HEMOGLOBIN 29.2 pg (27.0-33.4); MEAN CORPUSCULAR HGB CONC 33.6 g/dL (32.0-36.0); MEAN CORPUSCULAR VOLUME 87 fl (80-97); PLATELET COUNT 209 10^3/uL (150-450); RED BLOOD COUNT 3.37 10^6/uL (3.72-5.28); RED CELL DISTRIBUTION WIDTH 14.8 % (11.5-14.0); WHITE BLOOD COUNT 8.8 10^3/uL (4.0-10.5)
[2018-05-22 09:45] LABS: INTERNATIONAL RATION (INR) 1.15; PROTHROMBIN TIME 15.3 SEC (11.4-15.4)
[2018-05-22 09:46] LABS: PARTIAL THROMBOPLASTIN TIME 46.9 SEC (23.5-35.8)
[2018-05-22 09:47] LABS: BLOOD UREA NITROGEN 43 mg/dL (7-20)
[2018-05-22] MEDS ORDERED: MIDAZOLAM 2 MG/2 ML INJ ONE (10:56)
[2018-05-22] MEDS ORDERED: LIDOCAINE 1% INJ-PF (10 MG/ML) 30 ML SDV ONE (10:56)
[2018-05-22] MEDS ORDERED: FENTANYL CITRATE INJ/PF 100 MCG/2 ML AMPUL ONE (10:56)
--- NOTE | 2018-05-22 12:03 | RADIOLOGY REPORT (SQ) ---
EXAM DESCRIPTION: CHEST SINGLE VIEW COMPLETED DATE/TIME: 05/22/2018 11:49 am REASON FOR STUDY: POST LUNG BIOPSY COMPARISON: CT lung biopsy earlier today EXAM PARAMETERS: NUMBER OF VIEWS: One view. TECHNIQUE: Single frontal radiographic view of the chest acquired. RADIATION DOSE: NA LIMITATIONS: None. FINDINGS: LUNGS AND PLEURA: No pneumothorax left side post left upper lobe lung nodule biopsy earlie r today. Patient does have small bilateral pleural effusions with bibasilar airspace disease likely atelectasi s. Upper lobes are hyperlucent from obstructive disease. MEDIASTINUM AND HILAR STRUCTURES: No masses. Contour normal. HEART AND VASCULAR STRUCTURES: Mild cardiomegaly BONES: No acute findings. HARDWARE: None in the chest. OTHER: No other significant finding. IMPRESSION: No pneumothorax immediately post left upper lobe lung nodule biopsy Stable bilateral pleural effusions with bibasilar atelectasis TECHNICAL DOCUMENTATION: JOB ID: [id number] [employer]- All Rights Reserved Reading location - IP/workstation name: [email or web address]
--- NOTE | 2018-05-22 13:52 | RADIOLOGY REPORT (SQ) ---
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 TECHNIQUE: CT guided biopsy of the 1 cm left upper lobe nodule performed with conscious sedation. CT Fluoroscopy Time: 16.[address] scanners at this facility use dose modulation, iterative reconstruction, and/or weight based d osing when appropriate to reduce radiation dose to as low as reasonably achievable (ALARA). [facility]: Dose Right [facility]: CareDose [facility]: Dose Right [facility]: Teradose 4D [facility]: [employer] RADIATION DOSE: mGy. FINDINGS: After obtaining informed consent and explaining the risks and benefits of conscious sedati on,the patient agreed to the procedure. Prior to the procedure, a time out was performed to verify th e patient's identity and planned procedure. IV sedation was administered and physician direction by the registered nurse using 1.5 milligrams of Versed and 50 micrograms of fentanyl, for conscious sedation. Physiologic monitoring was provided bef ore, during, and after sedation. The total sedation time was 39 minutes. Documentation face to face time, the performing proceduralist, spent monitoring the patient: [address] scanning was performed to localize the percutaneous site for the biopsy approach. After sterile skin prep and local lidocaine for skin and deep tissue anesthesia, a coaxial biopsy nee dle was used to obtain two cores of tissue. The 2nd core of tissue was a good piece of tissue. Martha ent had pulmonary hemorrhage adjacent to the needle tip after the 2nd pass, obscuring the nodule. No further biopsy attempts were made. The biopsy tract was embolized with a Biosentry closure device. The biopsy tissue was submitted to the lab in formalin. There were no immediate complications. Pathology is pending at the time of dictation. IMPRESSION: CT GUIDED BIOPSY OF THE left upper lobe 1 cm nodule PERFORMED WITHOUT IMMEDIATE COMPLICA TION. PATHOLOGY PENDING. IV CONSCIOUS SEDATION COMMENT: Quality ID 145: Final reports for procedures using fluoroscopy that document radiation exp osure indices, or exposure time and number of fluorographic images (if radiation exposure indices are not available) Patient medication list reviewed: Yes- Quality ID# [id number]:Eligible professional attests to documenting i n the medical record they obtained, updated, or reviewed the patient's current medications.. TECHNICAL DOCUMENTATION: JOB ID: [id number] Quality ID# [id number]: Final reports with documentation of one or more dose reduction techniques (e.g., Aut omated exposure control, adjustment of the mA and/or kV according to patient size, use of iterative r econstruction technique) 2010 [employer]- All Rights Reserved Reading location - IP/workstation name: [facility]
--- NOTE | 2018-05-22 13:52 | RADIOLOGY REPORT (SQ) ---
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 TECHNIQUE: CT guided biopsy of the 1 cm left upper lobe nodule performed with conscious sedation. CT Fluoroscopy Time: 16.[address] scanners at this facility use dose modulation, iterative reconstruction, and/or weight based d osing when appropriate to reduce radiation dose to as low as reasonably achievable (ALARA). [facility]: Dose Right [facility]: CareDose [facility]: Dose Right [facility]: Teradose 4D [facility]: [employer] RADIATION DOSE: mGy. FINDINGS: After obtaining informed consent and explaining the risks and benefits of conscious sedati on,the patient agreed to the procedure. Prior to the procedure, a time out was performed to verify th e patient's identity and planned procedure. IV sedation was administered and physician direction by the registered nurse using 1.5 milligrams of Versed and 50 micrograms of fentanyl, for conscious sedation. Physiologic monitoring was provided bef ore, during, and after sedation. The total sedation time was 39 minutes. Documentation face to face time, the performing proceduralist, spent monitoring the patient: [address] scanning was performed to localize the percutaneous site for the biopsy approach. After sterile skin prep and local lidocaine for skin and deep tissue anesthesia, a coaxial biopsy nee dle was used to obtain two cores of tissue. The 2nd core of tissue was a good piece of tissue. Martha ent had pulmonary hemorrhage adjacent to the needle tip after the 2nd pass, obscuring the nodule. No further biopsy attempts were made. The biopsy tract was embolized with a Biosentry closure device. The biopsy tissue was submitted to the lab in formalin. There were no immediate complications. Pathology is pending at the time of dictation. IMPRESSION: CT GUIDED BIOPSY OF THE left upper lobe 1 cm nodule PERFORMED WITHOUT IMMEDIATE COMPLICA TION. PATHOLOGY PENDING. IV CONSCIOUS SEDATION COMMENT: Quality ID 145: Final reports for procedures using fluoroscopy that document radiation exp osure indices, or exposure time and number of fluorographic images (if radiation exposure indices are not available) Patient medication list reviewed: Yes- Quality ID# [id number]:Eligible professional attests to documenting i n the medical record they obtained, updated, or reviewed the patient's current medications.. TECHNICAL DOCUMENTATION: JOB ID: [id number] Quality ID# [id number]: Final reports with documentation of one or more dose reduction techniques (e.g., Aut omated exposure control, adjustment of the mA and/or kV according to patient size, use of iterative r econstruction technique) 2010 [employer]- All Rights Reserved Reading location - IP/workstation name: [facility]
--- NOTE | 2018-05-22 14:28 | RADIOLOGY REPORT (SQ) ---
EXAM DESCRIPTION: CHEST SINGLE VIEW COMPLETED DATE/TIME: 05/22/2018 2:00 pm REASON FOR STUDY: POST LUNG BIOPSY *2 HOUR FILM* COMPARISON: 05/22/2018 EXAM PARAMETERS: NUMBER OF VIEWS: One view. TECHNIQUE: Single frontal radiographic view of the chest acquired. RADIATION DOSE: NA LIMITATIONS: None. FINDINGS: LUNGS AND PLEURA: No pneumothorax. Bilateral pleural effusions. MEDIASTINUM AND HILAR STRUCTURES: No masses. Contour normal. HEART AND VASCULAR STRUCTURES: Cardiomegaly. No lalit pulmonary edema. BONES: No acute findings. HARDWARE: None in the chest. OTHER: No other significant finding. IMPRESSION: Cardiomegaly. Bilateral pleural effusions. No pneumothorax. TECHNICAL DOCUMENTATION: JOB ID: [id number] [employer]- All Rights Reserved Reading location - IP/workstation name: [email or web address]
[2018-05-22 16:11] VITALS: BP 150/58
== END 2018-05-22 15:05 | disposition home or self-care (01) ==
LOC: RAD 08:58
PROVIDERS: ATTEND Internal Medicine Medical Oncology
DX: R91.1 Solitary pulmonary nodule (principal); J44.9 Chronic obstructive pulmonary disease, unspecified; J90 Pleural effusion, not elsewhere classified; I10 Essential (primary) hypertension; G47.30 Sleep apnea, unspecified; I49.9 Cardiac arrhythmia, unspecified; Z79.82 Long term (current) use of aspirin; Z79.899 Other long term (current) drug therapy; Z79.84 Long term (current) use of oral hypoglycemic drugs; Z79.51 Long term (current) use of inhaled steroids; Z79.01 Long term (current) use of anticoagulants
CPT/HCPCS: 36415; 82962; 84520; 82565; 85027; 85610; 85730; 88305 ×2; 88312 ×2; 71045; 77012; 32405; J2250; J3010; J3490

== ENCOUNTER → 2018-05-30 | Outpatient (CLI) | payer MEDICARE, OTHER ==
[2018-05-30 13:20] LABS: HEMATOCRIT 28.1 % (36.0-47.0); HEMOGLOBIN 9.5 g/dL (12.0-15.5); MEAN CORPUSCULAR HEMOGLOBIN 29.4 pg (27.0-33.4); MEAN CORPUSCULAR HGB CONC 33.9 g/dL (32.0-36.0); MEAN CORPUSCULAR VOLUME 87 fl (80-97); PLATELET COUNT 285 10^3/uL (150-450); RED BLOOD COUNT 3.24 10^6/uL (3.72-5.28); WHITE BLOOD COUNT 9.5 10^3/uL (4.0-10.5)
[2018-05-30 13:36] LABS: APPEARANCE,URINE SLIGHTLY-CLOUDY; BILIRUBIN,URINE NEGATIVE (NEGATIVE); COLOR,URINE YELLOW; GLUCOSE, URINE NEGATIVE (NEGATIVE); KETONES,URINE NEGATIVE (NEGATIVE); LEUKOCYTE ESTERASE,URINE MODERATE (NEGATIVE); NITRITE,URINE NEGATIVE (NEGATIVE); PROTEIN,URINE NEGATIVE (NEGATIVE); UROBILINOGEN,URINE NEGATIVE mg/dL (<2.0)
[2018-05-30 13:40] LABS: ANION GAP 13 (5-19); BLOOD UREA NITROGEN 49 mg/dL (7-20); CALCIUM 9.2 mg/dL (8.4-10.2); CARBON DIOXIDE 25 mmol/L (22-30); CHLORIDE 103 mmol/L (98-107); GLUCOSE 48 mg/dL (75-110); PHOSPHORUS 4.7 mg/dL (2.5-4.5); POTASSIUM 4.4 mmol/L (3.6-5.0); SODIUM 140.8 mmol/L (137-145)
== END ==
LOC: OD 11:49
PROVIDERS: ATTEND Internal Medicine Nephrology
DX: N18.2 Chronic kidney disease, stage 2 (mild) (principal); R31.9 Hematuria, unspecified; I50.9 Heart failure, unspecified; E87.6 Hypokalemia
CPT/HCPCS: 36415; 80048; 81001; 83735; 83970; 84100; 85027

== ENCOUNTER 2018-06-12 13:02 | Inpatient (IN) | payer MEDICARE, OTHER ==
[2018-06-12] MEDS ORDERED: IPRATROPIUM/ALBUTEROL 0.5-2.5 MG/3 ML AMPUL NEB ONE (13:56)
--- NOTE | 2018-06-12 13:58 | ER Document Report ---
ED Medical Screen (RME) - General Chief Complaint: Shortness Of Breath Stated Complaint: SHORTNESS OF BREATH Time Seen by Provider: 06/12/18 13:54 Notes: 78 years old female presents today with shortness of breath and wheezing. With history of severe COPD, pleural effusion. She is on home oxygen. TRAVEL OUTSIDE OF THE [place] IN LAST 30 DAYS: No - Related Data Allergies/Adverse Reactions: No Known Allergies Allergy (Verified 06/12/18 13:04) Past Medical History - Social History Frequency of alcohol use: None Drug Abuse: None - Past Medical History Cardiac Medical History: Reports: Hx Atrial Fibrillation, Hx Coronary Artery Disease, Hx Hypercholesterolemia, Hx Hypertension Denies: Hx Heart Attack Pulmonary Medical History: Reports: Hx COPD Denies: Hx Asthma, Hx Bronchitis, Hx Pneumonia Neurological Medical History: Reports: Hx Cerebrovascular Accident - 1997- NO RESIDUALS. Denies: Hx Seizures Endocrine Medical History: Reports: Hx Diabetes Mellitus Type 2 Renal/ Medical History: Denies: Hx Peritoneal Dialysis GI Medical History: Denies: Hx Ulcer - APPROX 98 BUT HASN'T SINCE THEN Musculoskeltal Medical History: Reports Hx Arthritis - POSSIBLY Psychiatric Medical History: Denies: Hx Depression Infectious Medical History: Past Surgical History: Reports: Hx Cholecystectomy, Hx Orthopedic Surgery - left hip, Hx Thyroid Surgery. Denies: Hx Hysterectomy, Hx Open Heart Surgery - Immunizations Hx Diphtheria, Pertussis, Tetanus Vaccination: Yes History of Influenza Vaccine for 04/2017 - 09/2017 Season: Yes Influenza Administration Date for 04/2017 - 09/2017 Season: 02/23/18 Physical Exam - Vital signs Vitals: Temp Pulse Resp BP Pulse Ox 98.4 F 93 17 135/49 H 92 06/12/18 13:07 06/12/18 13:07 06/12/18 13:07 06/12/18 13:07 06/12/18 13:07 Course - Vital Signs Vital signs: Temp Pulse Resp BP Pulse Ox 98.4 F 93 17 135/49 H 92 06/12/18 13:07 06/12/18 13:07 06/12/18 13:07 06/12/18 13:07 06/12/18 13:07 Doctor's Discharge - Discharge Referrals: Bill BARBA MD [Primary Care Provider] - Follow up as needed
--- NOTE | 2018-06-12 14:28 | RADIOLOGY REPORT (SQ) ---
EXAM DESCRIPTION: CHEST SINGLE VIEW COMPLETED DATE/TIME: 06/12/2018 2:14 pm REASON FOR STUDY: Pleural effusion COMPARISON: 05/22/2018 EXAM PARAMETERS: NUMBER OF VIEWS: One view. TECHNIQUE: Single frontal radiographic view of the chest acquired. RADIATION DOSE: NA LIMITATIONS: None. FINDINGS: LUNGS AND PLEURA persistent bilateral pleural effusions and compressive atelectatic change s in the lower lungs. Small nodular opacities suggested in the left upper lung and right middle lung . No pneumothorax. MEDIASTINUM AND HILAR STRUCTURES: No masses. Contour normal. HEART AND VASCULAR STRUCTURES: The cardiac margins are obscured by the underlying pleuroparenchymal changes. Mild prominence of the pulmonary vasculature, stable findings. BONES: No acute findings. HARDWARE: None in the chest. OTHER: No other significant finding. IMPRESSION: 1. Persistent bilateral pleural effusions and lower lung atelectasis. Small nodular op acities suggest left upper lung and right middle lung. TECHNICAL DOCUMENTATION: JOB ID: [id number] [employer]- All Rights Reserved Reading location - IP/workstation name: [email or web address]
[2018-06-12] MEDS: ALBUTEROL SULFATE 0.083% NEB 2.5 MG/3 ML AMPUL NEB SCH ×2 (14:41→16:36)
[2018-06-12 14:53] LABS: ABSOLUTE BASOPHILS # (AUTO) 0.1 10^3/uL (0.0-0.2); ABSOLUTE EOSINOPHILS # (AUTO) 0.1 10^3/uL (0.0-0.6); ABSOLUTE LYMPHOCYTES (AUTO) 0.5 10^3/uL (0.5-4.7); ABSOLUTE MONOCYTES (AUTO) 0.5 10^3/uL (0.1-1.4); BASOPHILS % (AUTO) 0.7 % (0-2); EOSINOPHILS % (AUTO) 0.7 % (0-6); HEMOGLOBIN 9.6 g/dL (12.0-15.5); MEAN CORPUSCULAR HEMOGLOBIN 28.8 pg (27.0-33.4); MEAN CORPUSCULAR HGB CONC 33.2 g/dL (32.0-36.0); MEAN CORPUSCULAR VOLUME 87 fl (80-97); MONOCYTES % (AUTO) 5.5 % (3-13); PLATELET COUNT 238 10^3/uL (150-450); RED BLOOD COUNT 3.35 10^6/uL (3.72-5.28); RED CELL DISTRIBUTION WIDTH 14.5 % (11.5-14.0); SEGMENTED NEUTROPHILS % (AUTO) 87.1 % (42-78); TOTAL CELLS COUNTED % (AUTO) 100 %; WHITE BLOOD COUNT 9.2 10^3/uL (4.0-10.5)
--- NOTE | 2018-06-12 14:53 | ER Document Report ---
ED General - General Chief Complaint: Shortness Of Breath Stated Complaint: SHORTNESS OF BREATH Time Seen by Provider: 06/12/18 13:54 Mode of Arrival: Ambulatory Information source: Patient TRAVEL OUTSIDE OF THE [place] IN LAST 30 DAYS: No - HPI Notes: 78 years old female with a history of atrial fibrillation, hyperlipidemia, CRF, hypertension, coronary artery disease, COPD, type 2 diabetes, left upper lobe nodule today with complaints of shortness of breath times 3 days, patient typically is on 2 L of oxygen at home, states she has been using this. Patient has a history of lung effusions, does see a dental scheduler in [place], Dr. Wild. Presents today with shortness of breath and wheezing. With history of severe COPD, pleural effusion. She is on home oxygen. Denies fevers, chills, chest pain,palpitations,nausea, vomiting, diarrhea, abdominal pain, hematuria, blurred vision, double vision, loss of vision, speech changes, LH, dizziness, syncope, headaches, wheezing, ST, URI, neck pain, weakness, bowel or bladder dysfunction, saddle anesthesia, numbness or tingling in bilateral upper or lower extremities equally, muscle paralysis, weakness in bilateral upper or lower extremities equally. - Related Data Allergies/Adverse Reactions: No Known Allergies Allergy (Verified 06/12/18 13:04) Past Medical History - General Information source: Patient - Social History Smoking Status: Former Smoker Frequency of alcohol use: None Drug Abuse: None Family History: Reviewed & Not Pertinent Patient has suicidal ideation: No Patient has homicidal ideation: No - Past Medical History Cardiac Medical History: Reports: Hx Atrial Fibrillation, Hx Coronary Artery Disease, Hx Hypercholesterolemia, Hx Hypertension Denies: Hx Heart Attack Pulmonary Medical History: Reports: Hx COPD Denies: Hx Asthma, Hx Bronchitis, Hx Pneumonia Neurological Medical History: Reports: Hx Cerebrovascular Accident - 1997- NO RESIDUALS. Denies: Hx Seizures Endocrine Medical History: Reports: Hx Diabetes Mellitus Type 2 Renal/ Medical History: Denies: Hx Peritoneal Dialysis GI Medical History: Denies: Hx Ulcer - APPROX 98 BUT HASN'T SINCE THEN Musculoskeletal Medical History: Reports Hx Arthritis - POSSIBLY Psychiatric Medical History: Denies: Hx Depression Infectious Medical History: Past Surgical History: Reports: Hx Cholecystectomy, Hx Orthopedic Surgery - left hip, Hx Thyroid Surgery. Denies: Hx Hysterectomy, Hx Open Heart Surgery - Immunizations Hx Diphtheria, Pertussis, Tetanus Vaccination: Yes Hx Pneumococcal Vaccination: 08/06/12 Review of Systems - Review of Systems Constitutional: No symptoms reported EENT: No symptoms reported Cardiovascular: See HPI Respiratory: No symptoms reported Gastrointestinal: No symptoms reported Genitourinary: No symptoms reported Female Genitourinary: No symptoms reported Musculoskeletal: No symptoms reported Skin: No symptoms reported Hematologic/Lymphatic: No symptoms reported Neurological/Psychological: No symptoms reported Physical Exam - Vital signs Vitals: Temp Pulse Resp BP Pulse Ox 98.4 F 93 17 135/49 H 92 06/12/18 13:07 06/12/18 13:07 06/12/18 13:07 06/12/18 13:07 06/12/18 13:07 - Notes Notes: PHYSICAL EXAMINATION: GENERAL: Well-appearing, well-nourished and in no acute distress. HEAD: Atraumatic, normocephalic. EYES: Pupils equal round and reactive to light, extraocular movements intact, conjunctiva are normal. ENT: Nares patent, oropharynx clear without exudates. Moist mucous membranes. NECK: Normal range of motion, supple without lymphadenopathy LUNGS: No breath sounds to right lower lobe, breath sounds clear and all other lobes. breath sounds clear to auscultation bilaterally and equal. No wheezes rales or rhonchi. HEART: Regular rate and rhythm without murmurs ABDOMEN: Soft, nontender, nondistended abdomen. No guarding, no rebound. No masses appreciated. Female : deferred Musculoskeletal: Normal range of motion, no pitting or edema. No cyanosis. NEUROLOGICAL: Cranial nerves grossly intact. Normal speech, normal gait. Normal sensory, motor exams PSYCH: Normal mood, normal affect. SKIN: Warm, Dry, normal turgor, no rashes or lesions noted. +2 to bilateral pedal pulses equally. Course - Re-evaluation Re-evalutation: 06/12/18 15:22 88-year-old female presents for evaluation of shortness of breath. Afebrile vitals stable, no active distress. In triage patient was given nebulizer, chest x-ray initially showed persistent bilateral pleural effusions and upper lung atelectasis. Small nodule opacities suggest left upper lobe and right middle lung. Patient was aware of left upper lung nodule but is not aware of right middle lung nodule. CBC negative for leukocytosis and chronic anemia. Patient does have a history of chronic renal insufficiency, left kidney is functional however her right kidney and functional. Patient does see Dr. Bills for her nephrology care. Initial troponin is 0.21, previous troponin on April 24 was 0.23 which trends is likely her baseline. patient is on 3 L nasal cannula obtaining pulse ox greater than 93 with a 3 L nasal cannula. Patient is following with Dr. Garvin for biopsy to left upper lung, results are not conclusive at this time patient. BNP 8210, will give 40 mg of Lasix. Potassium is 4.5. creatinine is 2.17 which is slightly decreased from previous admission. Patient is not in any acute distress, remains afebrile vitals stable. EKG shows atrial fibrillation. Stable CT of chest when compared to the 04/23/2018 CT of chest. Noted moderate bilateral pleural effusion along left upper lobe pulmonary nodules and sub-pleural nodules in right lung base. Extensive mediastinal adenopathy which is unchanged as well per report. consulted with Dr. Eileen Griffiths at 1604, will admit for CHF to [facility] 06/12/18 16:31 - Vital Signs Vital signs: Temp Pulse Resp BP Pulse Ox 98.4 F 93 17 135/49 H 92 06/12/18 13:07 06/12/18 13:07 06/12/18 13:07 06/12/18 13:07 06/12/18 13:07 - Laboratory Result Diagrams: 06/12/18 14:38 06/12/18 14:38 Laboratory results interpreted by me: 06/12/18 06/12/18 06/12/18 14:38 14:38 14:38 RBC 3.35 L Hgb 9.6 L Hct 29.0 L RDW 14.5 H Seg Neutrophils % 87.1 H Lymphocytes % 6.0 L BUN 47 H Creatinine 2.17 H Est GFR ( Amer) 27 L Est GFR (Non-Af Amer) 22 L Glucose 184 H NT-Pro-B Natriuret Pep 8210 H Discharge - Discharge Clinical Impression: CHF (congestive heart failure), Pulmonary nodule, left, A-fib Condition: Stable Disposition: ADMITTED INPATIENT Admitting Provider: Tunde Unit Admitted: [facility] Referrals: Bill BILLS MD [Primary Care Provider] - Follow up as needed
[2018-06-12 15:12] LABS: ALANINE AMINOTRANSFERASE 14 U/L (9-52); ALBUMIN 3.7 g/dL (3.5-5.0); ALKALINE PHOSPHATASE 70 U/L (38-126); ANION GAP 12 (5-19); ASPARTATE AMINO TRANSFERASE 18 U/L (14-36); BILIRUBIN,DIRECT 0.4 mg/dL (0.0-0.4); BILIRUBIN,TOTAL 0.6 mg/dL (0.2-1.3); BLOOD UREA NITROGEN 47 mg/dL (7-20); CALCIUM 9.2 mg/dL (8.4-10.2); CARBON DIOXIDE 24 mmol/L (22-30); CHLORIDE 106 mmol/L (98-107); CREATINE KINASE 51 U/L (30-135); GLUCOSE 184 mg/dL (75-110); POTASSIUM 4.5 mmol/L (3.6-5.0); SODIUM 142.2 mmol/L (137-145); TOTAL PROTEIN 7.5 g/dL (6.3-8.2)
[2018-06-12 15:24] LABS: CREATINE KINASE MB 1.72 ng/mL (<4.55); TROPONIN I 0.021 ng/mL
[2018-06-12] MEDS ORDERED: FUROSEMIDE INJ/PF 40 MG/4 ML SDV IV ONE (16:08)
--- NOTE | 2018-06-12 16:18 | RADIOLOGY REPORT (SQ) ---
EXAM DESCRIPTION: CT CHEST WITHOUT COMPLETED DATE/TIME: 06/12/2018 4:08 pm REASON FOR STUDY: lung nodule/sob/opacities COMPARISON: Chest CT dated 04/23/2018, chest x-ray dated 06/12/2018 TECHNIQUE: CT scan performed of the chest without intravenous contrast. Images reviewed with lung, soft tissue and bone windows. Reconstructed coronal and sagittal MPR images reviewed. All images st ored on PACS. All CT scanners at this facility use dose modulation, iterative reconstruction, and/or weight based d osing when appropriate to reduce radiation dose to as low as reasonably achievable (ALARA). [facility]: Dose Right [facility]: CareDose [facility]: Dose Right [facility]: Teradose 4D [facility]: [employer] RADIATION DOSE: CT Rad equipment meets quality standard of care and radiation dose reduction techniq ues were employed. CTDIvol: 12.6 mGy. DLP: 417 mGy-cm. mGy. LIMITATIONS: No technical limitations. FINDINGS: LUNGS AND PLEURA: There are stable bilateral pleural effusions. There is bilateral inters titial airspace disease with emphysematous change. There stable bilateral subpleural nodules. Nodul es in the left upper lobe are unchanged as well. HILAR AND MEDIASTINAL STRUCTURES: There is extensive mediastinal adenopathy. HEART AND VASCULAR STRUCTURES: No aneurysm. No pericardial effusion. UPPER ABDOMEN: No significant findings. Limited exam. THYROID AND OTHER SOFT TISSUES: No masses. No adenopathy. BONES: No significant finding. HARDWARE: None in the chest. OTHER: No other significant findings. IMPRESSION: Stable CT of the chest when compared to 04/23/2018 moderate bilateral pleural effusions along with left upper lobe pulmonary nodules in subpleural nodules in the right lung base. There is extensive mediastinal adenopathy which is unchanged as well. TECHNICAL DOCUMENTATION: JOB ID: [id number] Quality ID # [id number]: Final reports with documentation of one or more dose reduction techniques (e.g., Au tomated exposure control, adjustment of the mA and/or kV according to patient size, use of iterative reconstruction technique) 2010 [employer]- All Rights Reserved Reading location - IP/workstation name: [email or web address]
[2018-06-12] MEDS ORDERED: (PENDING PHARMACY ID) (Metoprolol Succinate [Toprol Xl] 200 MG) PO SCH (21:15)
[2018-06-12] MEDS ORDERED: (PENDING PHARMACY ID) (Acetylcysteine [Nac 600 Mg Capsule] 600 MG) PO SCH (21:15)
[2018-06-12] MEDS ORDERED: DEXTROSE 40% GEL 15 GM TUBE PO PRN ×2 (21:46)
[2018-06-12] MEDS ORDERED: GLUCAGON,HUMAN RECOMB 1 MG INJ IM PRN (21:46)
[2018-06-12] MEDS ORDERED: DEXTROSE 50%-WATER 25 GM/50 ML DISP.SYRIN IV PRN ×2 (21:46)
[2018-06-12] MEDS ORDERED: INSULIN LISPRO 100 UNIT/ML 3 ML VIAL SUBCUT PRN (21:46)
[2018-06-12] MEDS ORDERED: GLIPIZIDE 5 MG TABLET PO ONE (22:15)
[2018-06-12] MEDS ORDERED: APIXABAN 5 MG TABLET PO ONE (22:15)
[2018-06-12] MEDS ORDERED: ATORVASTATIN CALCIUM 10 MG TABLET PO ONE (22:15)
[2018-06-12 22:24] LABS: INTERNATIONAL RATION (INR) 1.15; PROTHROMBIN TIME 15.3 SEC (11.4-15.4)
[2018-06-12 22:29] LABS: TOTAL PROTEIN 7.1 g/dL (6.3-8.2)
--- NOTE | 2018-06-12 22:37 | EKG REPORT ---
SEVERITY:- ABNORMAL ECG - ATRIAL FIBRILLATION, V-RATE 65-97 : Confirmed by: Dar Rincon 12-Jun-2018 22:36:15
[2018-06-12] MEDS: ATORVASTATIN CALCIUM 10 MG TABLET PO SCH (22:57)
[2018-06-12] MEDS: METOPROLOL SUCCINATE 50 MG TAB.SR.24H PO SCH (23:00)
[2018-06-12] MEDS: FLUTICASONE/SALMETEROL DISKUS 250-50 MCG/DOSE IH SCH (23:03)
[2018-06-12] MEDS: TIOTROPIUM BROMIDE DPI 5 CAP/KIT (18 MCG/CAP) IH SCH (23:04)
[2018-06-13] MEDS: LEVOTHYROXINE SODIUM 0.15 MG TABLET PO SCH (05:54)
[2018-06-13] MEDS: METOPROLOL SUCCINATE 50 MG TAB.SR.24H PO SCH (10:14)
[2018-06-13] MEDS: FLUTICASONE/SALMETEROL DISKUS 250-50 MCG/DOSE IH SCH ×2 (10:14→21:25)
[2018-06-13] MEDS: HYDRALAZINE HCL 50 MG TABLET PO SCH ×2 (10:14→21:25)
[2018-06-13] MEDS: ISOSORBIDE MONONITRATE 30 MG TAB.ER.24H PO SCH (10:14)
[2018-06-13] MEDS: RALOXIFENE HCL 60 MG TABLET PO SCH (10:14)
[2018-06-13] MEDS: GLIPIZIDE 5 MG TABLET PO SCH ×2 (10:15→18:11)
[2018-06-13] MEDS: DILTIAZEM HCL 180 MG CAPSULE.CR PO SCH (10:15)
[2018-06-13] MEDS: SITAGLIPTIN PHOSPHATE 50 MG TABLET PO SCH (10:15)
[2018-06-13] MEDS: CYANOCOBALAMIN (VITAMIN B-12) 1,000 MCG TABLET PO SCH (10:15)
[2018-06-13] MEDS: GABAPENTIN 300 MG CAPSULE PO SCH (10:16)
[2018-06-13] MEDS: TIOTROPIUM BROMIDE DPI 5 CAP/KIT (18 MCG/CAP) IH SCH (10:16)
[2018-06-13] MEDS: APIXABAN 5 MG TABLET PO SCH ×2 (10:17→18:12)
--- NOTE | 2018-06-13 20:33 | PDOC H&P ---
History of Present Illness Admission Date/PCP: 06/12/18 16:45 SONU ZAMUDIO MD History of Present Illness: SID MARTINEZ is a 78 year old female,She came to emergency room for evaluation of shortness of breath, she has a history of recurrent pleural effusion, exudative type , the last time she was admitted she was found to have a new pulmonary nodule, a PET scan was done which was positive subsequent CT- guided needle biopsy of the nodule was negative for cancer. Patient was referred previously to CT surgeon for thoracostomy. She needed thoracostomy plus or minus biopsy of the pleural membrane because of the recurrent nature of the pleural effusion and it is exudative suggesting inflammatory process/ neoplasm A 2D echo that was done previously was normal she has a history of very severe COPD, chronic kidney disease stage III with 1 functioning kidney she had atrophy of the left kidney. She was seen by the bedside. The Thoracentesis could not be done today because she already had Eliquis Past Medical History Cardiac Medical History: Reports: Atrial Fibrillation, Coronary Artery Disease, Hyperlipidema, Hypertension Pulmonary Medical History: Reports: Chronic Obstructive Pulmonary Disease (COPD) Endocrine Medical History: Reports: Diabetes Mellitus Type 2 GI Medical History: Musculoskeltal Medical History: Reports: Arthritis - POSSIBLY Hematology: Reports: Anemia Past Surgical History Past Surgical History: Reports: Cholecystectomy, Orthopedic Surgery - left hip Denies: Hysterectomy Social History Smoking Status: Former Smoker Cigarettes Packs Per Day: 3 Number of Years Smokin Last Time Smoked: 1989 Frequency of Alcohol Use: None Hx Recreational Drug Use: No Drugs: None Hx Prescription Drug Abuse: No Family History Family History: Reviewed & Not Pertinent Parental Family History Reviewed: Yes Children Family History Reviewed: Yes Sibling(s) Family History Reviewed.: Yes Medication/Allergy Home Medications: Acetylcysteine [NAC 600 mg Capsule] 600 mg PO BIDBS 04/23/18 Aspirin [Aspirin EC] 81 mg PO DAILY 04/23/18 Cyanocobalamin (Vitamin B-12) [Vitamin B-12 1000 mcg Tablet] 1,000 mcg PO DAILY 04/23/18 Diltiazem HCl [Diltiazem ER] 180 mg PO DAILY 04/23/18 Fluticasone/Salmeterol [Advair 250-50 Diskus 14 Dose/Diskus] 1 puff IH Q12 04/23 Glipizide [Glucotrol 5 mg Tablet] 5 mg PO BID 04/23/18 Hydralazine HCl 100 mg PO Q12 04/23/18 Isosorbide Mononitrate [Imdur 30 mg Tablet.er] 90 mg PO DAILY 04/23/18 Levothyroxine Sodium [Synthroid] 150 mcg PO Q6AM 04/23/18 Linagliptin [Tradjenta] 5 mg PO DAILY 04/23/18 Metoprolol Succinate [Toprol Xl] 200 mg PO DAILY 04/23/18 Tiotropium [place] [Spiriva Handihaler 18 mcg/dose (30 Dose)] 1 cap IH DAILY Apixaban [Eliquis 5 mg Tablet] 5 mg PO BID 05/22/18 Atorvastatin Calcium [Lipitor 10 mg Tablet] 10 mg PO QHS 05/22/18 Gabapentin [Neurontin 300 mg Capsule] 300 mg PO DAILY 06/12/18 Nitroglycerin [Nitrostat 0.4 mg (1/150 Gr) Tabs 25/Bottle] 1 tab SL Q5MP PRN 12/23 Raloxifene HCl [Evista 60 mg Tablet] 60 mg PO DAILY 06/12/18 Allergies/Adverse Reactions: No Known Allergies Allergy (Verified 06/12/18 13:04) Review of Systems Constitutional: ABSENT: chills, fever(s), headache(s), weight gain, weight loss Eyes: ABSENT: visual disturbances Ears: ABSENT: hearing changes Cardiovascular: ABSENT: chest pain, dyspnea on exertion, edema, orthropnea, palpitations Respiratory: PRESENT: dyspnea Gastrointestinal: ABSENT: abdominal pain, constipation, diarrhea, hematemesis, hematochezia, nausea, vomiting Genitourinary: ABSENT: dysuria, hematuria Musculoskeletal: ABSENT: joint swelling Integumentary: ABSENT: rash, wounds Neurological: ABSENT: abnormal gait, abnormal speech, confusion, dizziness, focal weakness, syncope Psychiatric: ABSENT: anxiety, depression, homidical ideation, suicidal ideation Endocrine: ABSENT: cold intolerance, heat intolerance, menstrual abnormalities, polydipsia, polyuria Hematologic/Lymphatic: ABSENT: easy bleeding, easy bruising, lymphadenopathy Physical Exam Vital Signs: Temp Pulse Resp BP Pulse Ox 98.9 F 88 18 129/61 H 95 06/13/18 15:37 06/13/18 15:37 06/13/18 15:37 06/13/18 15:37 06/13/18 15:37 Intake & Output 06/12/18 06/13/18 06/14/18 06:59 06:59 06:59 Intake Total 1051 Output Total 770 Balance -770 1051 Weight 68.5 kg General appearance: PRESENT: no acute distress Eye exam: PRESENT: PERRLA Ear exam: PRESENT: normal external ear exam Neck exam: PRESENT: full ROM Respiratory exam: PRESENT: clear to auscultation frida Cardiovascular exam: PRESENT: RRR, +S1, +S2 Vascular exam: PRESENT: normal capillary refill GI/Abdominal exam: PRESENT: normal bowel sounds, soft Rectal exam: PRESENT: deferred Neurological exam: PRESENT: alert, CN II-XII grossly intact Psychiatric exam: PRESENT: appropriate affect, normal mood Skin exam: PRESENT: dry, intact, warm Results Laboratory Results: 06/12/18 22:00 Total Protein 7.1 06/12/18 06/12/18 06/12/18 18:15 18:15 18:15 Creatine Kinase 53 CK-MB (CK-2) 1.97 Troponin I 0.019 06/13/18 00:53 Creatine Kinase CK-MB (CK-2) Troponin I 0.034 Impressions: Chest X-Ray 06/12/18 13:57 IMPRESSION: 1. Persistent bilateral pleural effusions and lower lung atelectasis. Small nodular opacities suggest left upper lung and right middle lung. Chest CT 06/12/18 15:18 IMPRESSION: Stable CT of the chest when compared to 04/23/2018 moderate bilateral pleural effusions along with left upper lobe pulmonary nodules in subpleural nodules in the right lung base. There is extensive mediastinal adenopathy which is unchanged as well. Assessment & Plan - Diagnosis (1) Bilateral pleural effusion Is this a current diagnosis for this admission?: Yes Plan: She has recurrent pleural effusion, she need thoracentesis, this cannot be done because she already had Eliquis
[2018-06-13] MEDS: ATORVASTATIN CALCIUM 10 MG TABLET PO SCH (21:25)
[2018-06-14] MEDS: LEVOTHYROXINE SODIUM 0.15 MG TABLET PO SCH (06:17)
[2018-06-14] MEDS: FLUTICASONE/SALMETEROL DISKUS 250-50 MCG/DOSE IH SCH ×2 (09:51→22:04)
[2018-06-14] MEDS: TIOTROPIUM BROMIDE DPI 5 CAP/KIT (18 MCG/CAP) IH SCH (09:52)
[2018-06-14] MEDS: HYDRALAZINE HCL 50 MG TABLET PO SCH ×2 (09:53→22:04)
[2018-06-14] MEDS: DILTIAZEM HCL 180 MG CAPSULE.CR PO SCH (09:54)
[2018-06-14] MEDS: RALOXIFENE HCL 60 MG TABLET PO SCH (09:55)
[2018-06-14] MEDS: APIXABAN 5 MG TABLET PO SCH (09:55)
[2018-06-14] MEDS: ISOSORBIDE MONONITRATE 30 MG TAB.ER.24H PO SCH (09:55)
[2018-06-14] MEDS: GLIPIZIDE 5 MG TABLET PO SCH ×2 (09:55→17:11)
[2018-06-14] MEDS: SITAGLIPTIN PHOSPHATE 50 MG TABLET PO SCH (09:56)
[2018-06-14] MEDS: GABAPENTIN 300 MG CAPSULE PO SCH (09:56)
[2018-06-14] MEDS: METOPROLOL SUCCINATE 50 MG TAB.SR.24H PO SCH (09:57)
[2018-06-14] MEDS: CYANOCOBALAMIN (VITAMIN B-12) 1,000 MCG TABLET PO SCH (09:57)
--- NOTE | 2018-06-14 12:16 | PDOC PROGRESS REPORT ---
Subjective Progress Note for:: 06/14/18 Subjective:: It is currently doing fair No chest pain no short of breath Patient scheduled for thoracocentesis of the Saturday for the pleural effusions Patient is currently hold Eliquis Patient have a concern about the decubitus ulcers examined the ulcers with the nursing staff and was stage I ulcers Reason For Visit: CONGESTIVE HEART FAILURE,NODULE OF LEFT LUNG Physical Exam Vital Signs: Temp Pulse Resp BP Pulse Ox 97.9 F 81 16 131/44 H 99 06/14/18 07:45 06/14/18 07:45 06/14/18 07:45 06/14/18 07:45 06/14/18 07:45 Intake & Output 06/13/18 06/14/18 06/15/18 06:59 06:59 06:59 Intake Total 1051 Output Total 770 Balance -770 1051 Weight 68.5 kg 69.3 kg General appearance: PRESENT: no acute distress, well-developed, well-nourished Head exam: PRESENT: atraumatic, normocephalic Eye exam: PRESENT: conjunctiva pink, EOMI, PERRLA. ABSENT: scleral icterus Ear exam: PRESENT: normal external ear exam Mouth exam: PRESENT: moist, tongue midline Neck exam: PRESENT: full ROM. ABSENT: carotid bruit, JVD, lymphadenopathy, thyromegaly Respiratory exam: PRESENT: clear to auscultation frida Cardiovascular exam: PRESENT: RRR. ABSENT: diastolic murmur, rubs, systolic murmur Pulses: PRESENT: normal dorsalis pedis pul, +2 pedal pulses bilateral Vascular exam: PRESENT: normal capillary refill GI/Abdominal exam: PRESENT: normal bowel sounds, soft. ABSENT: distended, guarding, mass, organolmegaly, rebound, tenderness Rectal exam: PRESENT: deferred Additional comments: stage1 decubitus ulcers Extremities exam: ABSENT: pedal edema Neurological exam: PRESENT: alert, awake, oriented to person, oriented to place , oriented to time, oriented to situation, CN II-XII grossly intact. ABSENT: motor sensory deficit Psychiatric exam: PRESENT: appropriate affect, normal mood. ABSENT: homicidal ideation, suicidal ideation Skin exam: PRESENT: dry, intact, warm. ABSENT: cyanosis, rash Results Laboratory Results: 06/12/18 06/12/18 06/12/18 18:15 18:15 18:15 Creatine Kinase 53 CK-MB (CK-2) 1.97 Troponin I 0.019 06/13/18 00:53 Creatine Kinase CK-MB (CK-2) Troponin I 0.034 Impressions: Chest X-Ray 06/12/18 13:57 IMPRESSION: 1. Persistent bilateral pleural effusions and lower lung atelectasis. Small nodular opacities suggest left upper lung and right middle lung. Chest CT 06/12/18 15:18 IMPRESSION: Stable CT of the chest when compared to 04/23/2018 moderate bilateral pleural effusions along with left upper lobe pulmonary nodules in subpleural nodules in the right lung base. There is extensive mediastinal adenopathy which is unchanged as well. Assessment & Plan - Diagnosis (1) Bilateral pleural effusion Is this a current diagnosis for this admission?: Yes (2) Stage I decubitus ulcer and pressure area Is this a current diagnosis for this admission?: Yes (3) A-fib Qualifiers: Atrial fibrillation type: chronic Qualified Code(s): I48.2 - Chronic atrial fibrillation Is this a current diagnosis for this admission?: Yes (4) Pulmonary nodule, left Is this a current diagnosis for this admission?: Yes (5) Anemia Qualifiers: Anemia type: unspecified type Qualified Code(s): D64.9 - Anemia, unspecified Is this a current diagnosis for this admission?: Yes (6) Chronic kidney disease, stage III (moderate) Is this a current diagnosis for this admission?: Yes - Time Time Spent with patient: 15-24 minutes Medications reviewed and adjusted accordingly: Yes Anticipated discharge: Other Within: Other - Plan Summary Plan Summary: Put the pressure dressing changing the positions very frequently scheduled for thoracocentesis
[2018-06-14] MEDS: ATORVASTATIN CALCIUM 10 MG TABLET PO SCH (22:05)
[2018-06-14] MEDS ORDERED: GABAPENTIN 300 MG CAPSULE PO ONE (23:15)
[2018-06-15] MEDS: LEVOTHYROXINE SODIUM 0.15 MG TABLET PO SCH (06:18)
[2018-06-15] MEDS: METOPROLOL SUCCINATE 50 MG TAB.SR.24H PO SCH (10:05)
[2018-06-15] MEDS: ISOSORBIDE MONONITRATE 30 MG TAB.ER.24H PO SCH (10:06)
[2018-06-15] MEDS: SITAGLIPTIN PHOSPHATE 50 MG TABLET PO SCH (10:06)
[2018-06-15] MEDS: HYDRALAZINE HCL 50 MG TABLET PO SCH ×2 (10:06→21:04)
[2018-06-15] MEDS: TIOTROPIUM BROMIDE DPI 5 CAP/KIT (18 MCG/CAP) IH SCH (10:06)
[2018-06-15] MEDS: GLIPIZIDE 5 MG TABLET PO SCH ×2 (10:06→17:34)
[2018-06-15] MEDS: DILTIAZEM HCL 180 MG CAPSULE.CR PO SCH (10:06)
[2018-06-15] MEDS: CYANOCOBALAMIN (VITAMIN B-12) 1,000 MCG TABLET PO SCH (10:07)
[2018-06-15] MEDS: RALOXIFENE HCL 60 MG TABLET PO SCH (10:07)
[2018-06-15] MEDS: FLUTICASONE/SALMETEROL DISKUS 250-50 MCG/DOSE IH SCH ×2 (10:07→21:04)
--- NOTE | 2018-06-15 11:28 | PDOC PROGRESS REPORT ---
Subjective Progress Note for:: 06/15/18 Subjective:: It is currently doing fair No chest pain no short of breath Patient scheduled for thoracocentesis of the Saturday for the pleural effusions Patient is currently hold Eliquis Patient have a concern about the decubitus ulcers examined the ulcers with the nursing staff and was stage I ulcers Reason For Visit: CONGESTIVE HEART FAILURE,NODULE OF LEFT LUNG Physical Exam Vital Signs: Temp Pulse Resp BP Pulse Ox 97.4 F 82 24 H 113/90 H 100 06/15/18 07:47 06/15/18 07:47 06/15/18 07:47 06/15/18 07:47 06/15/18 07:47 Intake & Output 06/14/18 06/15/18 06/16/18 06:59 06:59 06:59 Intake Total 1051 1952 Balance 1051 1952 Weight 69.3 kg 68.7 kg General appearance: PRESENT: no acute distress, well-developed, well-nourished Head exam: PRESENT: atraumatic, normocephalic Eye exam: PRESENT: conjunctiva pink, EOMI, PERRLA. ABSENT: scleral icterus Ear exam: PRESENT: normal external ear exam Mouth exam: PRESENT: moist, tongue midline Neck exam: PRESENT: full ROM. ABSENT: carotid bruit, JVD, lymphadenopathy, thyromegaly Respiratory exam: PRESENT: clear to auscultation frida Cardiovascular exam: PRESENT: RRR. ABSENT: diastolic murmur, rubs, systolic murmur Pulses: PRESENT: normal dorsalis pedis pul, +2 pedal pulses bilateral Vascular exam: PRESENT: normal capillary refill GI/Abdominal exam: PRESENT: normal bowel sounds, soft. ABSENT: distended, guarding, mass, organolmegaly, rebound, tenderness Rectal exam: PRESENT: deferred Neurological exam: PRESENT: alert, awake, oriented to person, oriented to place , oriented to time, oriented to situation, CN II-XII grossly intact. ABSENT: motor sensory deficit Psychiatric exam: PRESENT: appropriate affect, normal mood. ABSENT: homicidal ideation, suicidal ideation Skin exam: PRESENT: dry, intact, warm. ABSENT: cyanosis, rash Results Laboratory Results: 06/12/18 06/12/18 06/12/18 18:15 18:15 18:15 Creatine Kinase 53 CK-MB (CK-2) 1.97 Troponin I 0.019 06/13/18 00:53 Creatine Kinase CK-MB (CK-2) Troponin I 0.034 Impressions: Chest X-Ray 06/12/18 13:57 IMPRESSION: 1. Persistent bilateral pleural effusions and lower lung atelectasis. Small nodular opacities suggest left upper lung and right middle lung. Chest CT 06/12/18 15:18 IMPRESSION: Stable CT of the chest when compared to 04/23/2018 moderate bilateral pleural effusions along with left upper lobe pulmonary nodules in subpleural nodules in the right lung base. There is extensive mediastinal adenopathy which is unchanged as well. Assessment & Plan - Diagnosis (1) Bilateral pleural effusion Is this a current diagnosis for this admission?: Yes (2) Stage I decubitus ulcer and pressure area Is this a current diagnosis for this admission?: Yes (3) A-fib Qualifiers: Atrial fibrillation type: chronic Qualified Code(s): I48.2 - Chronic atrial fibrillation Is this a current diagnosis for this admission?: Yes (4) Pulmonary nodule, left Is this a current diagnosis for this admission?: Yes (5) Anemia Qualifiers: Anemia type: unspecified type Qualified Code(s): D64.9 - Anemia, unspecified Is this a current diagnosis for this admission?: Yes (6) Chronic kidney disease, stage III (moderate) Is this a current diagnosis for this admission?: Yes - Time Time Spent with patient: 15-24 minutes Medications reviewed and adjusted accordingly: Yes Anticipated discharge: Other Within: Other - Plan Summary Plan Summary: Continues current medication
[2018-06-15] MEDS: GABAPENTIN 300 MG CAPSULE PO SCH (21:04)
[2018-06-15] MEDS: ATORVASTATIN CALCIUM 10 MG TABLET PO SCH (21:04)
[2018-06-16] MEDS: LEVOTHYROXINE SODIUM 0.15 MG TABLET PO SCH (05:20)
--- NOTE | 2018-06-16 11:31 | RADIOLOGY REPORT (SQ) ---
EXAM DESCRIPTION: CHEST SINGLE VIEW COMPLETED DATE/TIME: 06/16/2018 11:20 am REASON FOR STUDY: S/P RT CHEST TUBE PLACEMENT COMPARISON: CT chest 06/12/2018 Two-view chest 06/12/2018 EXAM PARAMETERS: NUMBER OF VIEWS: One view. TECHNIQUE: Single frontal radiographic view of the chest acquired. RADIATION DOSE: NA LIMITATIONS: None. FINDINGS: LUNGS AND PLEURA: 8 Citizen Of [place] right-sided pleural space pigtail catheter is now present along the right lateral costophrenic sulcus post ultrasound-guided chest tube placement. Moderate bilateral pleural effusions persist. There is bibasilar consolidation likely atelectasis. No pneumothorax. MEDIASTINUM AND HILAR STRUCTURES: No masses. Contour normal. HEART AND VASCULAR STRUCTURES: Heart normal in size. Normal vasculature. BONES: No acute findings. HARDWARE: Right-sided 8 Citizen Of [place] pleural space pigtail catheter. OTHER: No other significant finding. IMPRESSION: Post right sided 8 Citizen [place] pleural space pigtail catheter for drainage of right pleural e ffusion overnight. Moderate bilateral pleural effusions are present with bibasilar atelectasis. No pneumothorax. TECHNICAL DOCUMENTATION: JOB ID: [id number] [employer]- All Rights Reserved Reading location - IP/workstation name: [email or web address]
--- NOTE | 2018-06-16 11:35 | RADIOLOGY REPORT (SQ) ---
EXAM DESCRIPTION: U/S THORACENTESIS WITH IMAGING COMPLETED DATE/TIME: 06/16/2018 11:24 am REASON FOR STUDY: pleural effusion COMPARISON: CT chest 06/12/2018 common chest films 06/12/2018, 05/22/2018 LIMITATIONS: None. PROCEDURE: Procedure, risks, benefit, and alternative explained to patient who then gave written con sent. The posterior right chest wall was marked using ultrasound guidance. A time-out was called fo r correct marking verification. Chest prepped and draped using sterile technique. Local anesthesia a chieved using 5 mL of 1% lidocaine. An 8 [place] locking pigtail catheter was placed over a 0.38 guid ewire into the right pleural space after dilatation of the tract with an 8 [place] dilator. Fluid wa s aspirated, and sent for tests as per Dr. Griffiths. The 8 [place] locking pigtail catheter was plac ed to a Pleur-evac with a skin entry site covered with sterile bandage. No immediate complications n oted. Pleur-evac to 20 cm of water suction. Images acquired during the procedure were stored on PACS. FINDINGS: ENTRY SITE: Right posterior pleural space FLUID VOLUME: Immediate 400 mL FLUID ANALYSIS: Yes, sent for testing OTHER: 8 [place] locking pigtail catheter placed to a Pleur-Evac, at 20 cm of water suction. Plan is to remove the chest tube tomorrow morning after allowing the pleural effusion to drain overnight. IMPRESSION: SUCCESSFUL THORACENTESIS AND RIGHT CHEST TUBE PLACEMENT USING ULTRASOUND GUIDANCE. COMMENT: Patient medication list reviewed: Yes- Quality ID# [id number]:Eligible professional attests to doc umenting in the medical record they obtained, updated, or reviewed the patient's current medications. TECHNICAL DOCUMENTATION: JOB ID: [id number] [employer]- All Rights Reserved Reading location - IP/workstation name: [email or web address]
[2018-06-16] MEDS: FLUTICASONE/SALMETEROL DISKUS 250-50 MCG/DOSE IH SCH ×2 (12:30→22:04)
[2018-06-16] MEDS: ISOSORBIDE MONONITRATE 30 MG TAB.ER.24H PO SCH (12:31)
[2018-06-16] MEDS: SITAGLIPTIN PHOSPHATE 50 MG TABLET PO SCH (12:31)
[2018-06-16] MEDS: METOPROLOL SUCCINATE 50 MG TAB.SR.24H PO SCH (12:31)
[2018-06-16] MEDS: RALOXIFENE HCL 60 MG TABLET PO SCH (12:31)
[2018-06-16] MEDS: CYANOCOBALAMIN (VITAMIN B-12) 1,000 MCG TABLET PO SCH (12:32)
[2018-06-16] MEDS: GLIPIZIDE 5 MG TABLET PO SCH ×2 (12:32→17:40)
[2018-06-16] MEDS: DILTIAZEM HCL 180 MG CAPSULE.CR PO SCH (12:32)
[2018-06-16] MEDS: TIOTROPIUM BROMIDE DPI 5 CAP/KIT (18 MCG/CAP) IH SCH (12:32)
[2018-06-16] MEDS: HYDRALAZINE HCL 50 MG TABLET PO SCH ×2 (12:32→22:04)
[2018-06-16 13:05] LABS: FLUID APPEARANCE HAZY; FLUID COLOR YELLOW; FLUID SOURCE LUNG; FLUID TYPE PLEURAL; FLUID VISCOSITY LIQUID
--- NOTE | 2018-06-16 13:31 | RADIOLOGY REPORT (SQ) ---
EXAM DESCRIPTION: CHEST SINGLE VIEW COMPLETED DATE/TIME: 06/16/2018 1:06 pm REASON FOR STUDY: 2 HOURS S/P RT CHEST TUBE PLACEMENT COMPARISON: AP chest 06/16/2018, 06/12/2018 CT chest 06/12/2018 EXAM PARAMETERS: NUMBER OF VIEWS: One view. TECHNIQUE: Single frontal radiographic view of the chest acquired. RADIATION DOSE: NA LIMITATIONS: None. FINDINGS: LUNGS AND PLEURA: Right pleural space pigtail catheter in position. Tiny basilar pneumoth orax. Small amount of residual right basilar pleural fluid. There is bandlike consolidation along the inferior aspect right lower lobe, likely atelectasis or sca rring. Pneumonia could not entirely be excluded. Unchanged left small moderate pleural effusion. Unchanged left basilar airspace disease. MEDIASTINUM AND HILAR STRUCTURES: No masses. Contour normal. HEART AND VASCULAR STRUCTURES: Stable cardiomegaly BONES: No acute findings. Old left proximal humerus healed fracture HARDWARE: None in the chest. Surgical clips over the left lobe thyroid region OTHER: No other significant finding. IMPRESSION: Right pleural space 8 [place] Verdean pigtail catheter in place. Small adjacent basilar pneumoth orax. Minimal residual right basilar pleural effusion. Bandlike consolidation at the right lung base likely atelectasis or scarring. TECHNICAL DOCUMENTATION: JOB ID: [id number] [employer]- All Rights Reserved Reading location - IP/workstation name: [email or web address]
--- NOTE | 2018-06-16 19:53 | XCELERA REPORT ---
[address] [address] Transthoracic Echocardiogram Report Name: SID MARTINEZ Age: 78 yrs Gender: Female : 1940 Patient Status: Inpatient Patient Location: [address] [place] [address] Study Date: 06/16/2018 10:03 AM Reason For Study: shortness of breath Ordering Physician: SONU ZAMUDIO Performed By: Nannette Reyna Interpretation Summary Min Pericardial effusion, mod size L pleural effusion Mod calcific Ao 3 cusps valvular disease, mild with PPG 17, MPG 10, with trace AR and no LV enlargement. Moderate mitral annular calcification, Thickened AML of MV with no MS and no MVP but mild MR with mild LA enlargement. Mod pulm hypertension, RVSP 53mm Hg, RAP estim 8mm Hg, RV mild dysfunction, RA enlarged. LV is normal size with mild conc LVH with LVEF 60% and no LV diastolic dysfunction, multiple regional wall motion abnormality. No LV enlargement. MMode/2D Measurements & Calculations RVDd: 3.6 cm LVIDd: 4.7 cm FS: 31.1 % Ao root diam: 2.2 cm IVSd: 0.93 cm LVIDs: 3.3 cm EDV(Teich): 103.3 ml Ao root area: 3.9 cm2 LVPWd: 1.00 cm ESV(Teich): 42.6 ml EF(Teich): 58.8 % Doppler Measurements & Calculations MV E max inez: MV dec slope: Ao V2 max: AI max inez: 132.9 cm/sec 207.4 cm/sec 285.7 cm/sec MV A max inez: 803.3 cm/sec2 Ao max PG: AI max P.6 mmHg 34.0 cm/sec MV dec time: 17.2 mmHg AI dec slope: MV E/A: 3.9 0.17 sec Ao V2 mean: 146.4 cm/sec 316.6 cm/sec2 Ao mean PG: AI P1/2t: 264.2 msec 9.8 mmHg Ao V2 VTI: 46.4 cm LV V1 max PG: PA V2 max: TR max inez: 5.1 mmHg 95.4 cm/sec 334.3 cm/sec LV V1 mean PG: PA max P.6 mmHg TR max P.0 mmHg 44.7 mmHg LV V1 max: 113.0 cm/sec LV V1 mean: 81.1 cm/sec LV V1 VTI: 24.1 cm Left Ventricle The left ventricle is normal in size, thickness and function. There is mild concentric left ventricular hypertrophy. The left ventricular ejection fraction is normal. LV EF is 60%. Doppler measurements suggest normal left ventricular diastolic function. There are regional wall motion abnormalities as specified. There is no thrombus. Right Ventricle The right ventricle is normal size. The right ventricular systolic function is mildly reduced. Atria The right atrium is dilated. The left atrium is mildly dilated. The interatrial septum is intact with no evidence for an atrial septal defect. Mitral Valve The mitral valve is grossly normal. There is mild to moderate mitral annular calcification. There is no evidence of mitral valve prolapse. There is no mitral valve stenosis. There is a mild amount of mitral regurgitation. Aortic Valve The aortic valve is trileaflet. The aortic valve opens well. The aortic valve is calcified. There is no aortic valvular vegetation. There is mild aortic stenosis. There is an eccentric jet of aortic insufficiency directed against the anterior mitral leaflet. Tricuspid Valve The tricuspid valve is not well visualized, but is grossly normal. There is no tricuspid valve prolapse. There is no tricuspid stenosis. There is a mild to moderate amount of tricuspid regurgitation. Best estimated right ventricular systolic pressure is elevated at 50-60mmHg. Pulmonic Valve The pulmonic valve is not well seen, but is grossly normal. Great Vessels The aortic root is not well visualized. Effusions large pleural effusion. Small pericardial effusion. I WMSI = 1.38 % Normal = 63 Segments Size X - Cannot 2 - 4 - 1-2 small Interpret 1 - Normal Hypokinetic 3 - AkineticDyskinetic 3-5 moderate 5 - 6-14 large Aneurysmal 15-16 diffuse : SONU ZAMUDIO > Duncan Jenkins
[2018-06-16] MEDS: ATORVASTATIN CALCIUM 10 MG TABLET PO SCH (22:04)
[2018-06-16] MEDS: GABAPENTIN 300 MG CAPSULE PO SCH (22:04)
--- NOTE | 2018-06-16 22:04 | PDOC PROGRESS REPORT ---
Subjective Progress Note for:: 06/16/18 Subjective:: Patient seen by the bedside she had thoracentesis with a pigtail chest tube placement,The 2D echo was normal, she will need thoracotomy done Reason For Visit: CONGESTIVE HEART FAILURE,NODULE OF LEFT LUNG Physical Exam Vital Signs: Temp Pulse Resp BP Pulse Ox 98.2 F 94 20 124/51 L 96 06/16/18 19:25 06/16/18 19:25 06/16/18 19:25 06/16/18 19:25 06/16/18 19:25 Intake & Output 06/15/18 06/16/18 06/17/18 06:59 06:59 06:59 Intake Total 1951 1213 762 Output Total 0 2850 Balance 1951 Weight 68.7 kg 70.3 kg General appearance: PRESENT: no acute distress Eye exam: PRESENT: PERRLA Respiratory exam: PRESENT: decreased breath sounds Cardiovascular exam: PRESENT: +S1, +S2 GI/Abdominal exam: PRESENT: soft Neurological exam: PRESENT: alert Results Laboratory Results: 06/16/18 10:53 Fluid Type PLEURAL Fluid Source LUNG Fluid Color YELLOW Fluid Appearance HAZY Fluid Viscosity LIQUID Fluid WBC 191 Fluid RBC 145 06/12/18 06/12/18 06/12/18 18:15 18:15 18:15 Creatine Kinase 53 CK-MB (CK-2) 1.97 Troponin I 0.019 06/13/18 00:53 Creatine Kinase CK-MB (CK-2) Troponin I 0.034 Impressions: Chest CT 06/12/18 15:18 IMPRESSION: Stable CT of the chest when compared to 04/23/2018 moderate bilateral pleural effusions along with left upper lobe pulmonary nodules in subpleural nodules in the right lung base. There is extensive mediastinal adenopathy which is unchanged as well. Chest X-Ray 06/16/18 00:00 IMPRESSION: Right pleural space [address] [place] [address]. Small adjacent basilar pneumothorax. Minimal residual right basilar pleural effusion. Bandlike consolidation at the right lung base likely atelectasis or scarring. Thoracentesis Ultrasound 06/16/18 21:44 IMPRESSION: SUCCESSFUL THORACENTESIS AND RIGHT CHEST TUBE PLACEMENT USING ULTRASOUND GUIDANCE. Assessment & Plan - Diagnosis (1) Bilateral pleural effusion Is this a current diagnosis for this admission?: Yes Plan: Status post thoracentesis (2) Stage I decubitus ulcer and pressure area Is this a current diagnosis for this admission?: Yes (3) Atrophy of right kidney Is this a current diagnosis for this admission?: Yes (4) Chronic obstructive pulmonary disease Qualifiers: COPD type: unspecified COPD Qualified Code(s): J44.9 - Chronic obstructive pulmonary disease, unspecified Is this a current diagnosis for this admission?: Yes
[2018-06-17] MEDS: LEVOTHYROXINE SODIUM 0.15 MG TABLET PO SCH (05:14)
[2018-06-17] MEDS: METOPROLOL SUCCINATE 50 MG TAB.SR.24H PO SCH (09:35)
[2018-06-17] MEDS: DILTIAZEM HCL 180 MG CAPSULE.CR PO SCH (09:35)
[2018-06-17] MEDS: HYDRALAZINE HCL 50 MG TABLET PO SCH ×2 (09:35→21:55)
[2018-06-17] MEDS: FLUTICASONE/SALMETEROL DISKUS 250-50 MCG/DOSE IH SCH ×2 (09:40→21:54)
[2018-06-17] MEDS: TIOTROPIUM BROMIDE DPI 5 CAP/KIT (18 MCG/CAP) IH SCH (09:41)
[2018-06-17] MEDS: ISOSORBIDE MONONITRATE 30 MG TAB.ER.24H PO SCH (09:42)
[2018-06-17] MEDS: RALOXIFENE HCL 60 MG TABLET PO SCH (09:43)
[2018-06-17] MEDS: SITAGLIPTIN PHOSPHATE 50 MG TABLET PO SCH (09:43)
[2018-06-17] MEDS: CYANOCOBALAMIN (VITAMIN B-12) 1,000 MCG TABLET PO SCH (09:43)
[2018-06-17] MEDS: GLIPIZIDE 5 MG TABLET PO SCH ×2 (09:43→17:17)
--- NOTE | 2018-06-17 12:24 | RADIOLOGY REPORT (SQ) ---
EXAM DESCRIPTION: CHEST SINGLE VIEW COMPLETED DATE/TIME: 06/17/2018 11:25 am REASON FOR STUDY: 1 hour post chest tube removal COMPARISON: 06/16/2018 radiograph EXAM PARAMETERS: NUMBER OF VIEWS: One view. TECHNIQUE: Single frontal radiographic view of the chest acquired. RADIATION DOSE: NA LIMITATIONS: None. FINDINGS: LUNGS AND PLEURA: Removal of the right basilar chest tube without appreciable pneumothorax . Unchanged small bilateral pleural effusions and bibasilar opacification. No new airspace disease. MEDIASTINUM AND HILAR STRUCTURES: No discrete mass. HEART AND VASCULAR STRUCTURES: Stable heart size. Atherosclerotic aorta. BONES: Unchanged appearance of the left proximal humerus from prior fracture. No new bony abnormalit y. HARDWARE: Removal of the small bore right-sided chest tube. OTHER: No other significant finding. IMPRESSION: Removal of the right basilar chest tube without appreciable pneumothorax. Unchanged small bilateral pleural effusions and bibasilar opacification, likely combination of atelec tasis and effusion. TECHNICAL DOCUMENTATION: JOB ID: [id number] [employer]- All Rights Reserved Reading location - IP/workstation name: [email or web address]
--- NOTE | 2018-06-17 13:48 | PDOC PROGRESS REPORT ---
Subjective Progress Note for:: 06/17/18 Subjective:: Status post thoracentesis feeling better Reason For Visit: CONGESTIVE HEART FAILURE,NODULE OF LEFT LUNG Physical Exam Vital Signs: Temp Pulse Resp BP Pulse Ox 98.1 F 77 20 121/38 L 96 06/17/18 07:43 06/17/18 07:43 06/17/18 07:43 06/17/18 07:43 06/17/18 07:43 Intake & Output 06/16/18 06/17/18 06/18/18 06:59 06:59 06:59 Intake Total 1213 762 Output Total 1650 3300 Balance -437 -4152 Weight 70.3 kg 69.1 kg General appearance: PRESENT: no acute distress, cooperative, disheveled, well- developed, well-nourished Head exam: PRESENT: atraumatic, normocephalic Eye exam: PRESENT: conjunctiva pale, EOMI. ABSENT: nystagmus, periorbital swelling Mouth exam: PRESENT: dry mucosa, neck supple, tongue midline Neck exam: ABSENT: carotid bruit, JVD, lymphadenopathy, thyromegaly, tracheal deviation, tracheostomy Respiratory exam: PRESENT: decreased breath sounds, prolonged expiratory phas, rales, rhonchi, unlabored. ABSENT: retraction, stridor, tachypnea Cardiovascular exam: PRESENT: RRR, +S1, +S2 Pulses: PRESENT: normal radial pulses GI/Abdominal exam: PRESENT: soft. ABSENT: tenderness Extremities exam: ABSENT: calf tenderness, clubbing, joint swelling, pedal edema , tenderness Musculoskeletal exam: ABSENT: deformity, dislocation Neurological exam: PRESENT: alert, awake Psychiatric exam: PRESENT: appropriate affect Skin exam: PRESENT: dry, warm Results Laboratory Results: 06/16/18 10:53 Fluid Type PLEURAL Fluid Source LUNG Fluid Color YELLOW Fluid Appearance HAZY Fluid Viscosity LIQUID Fluid WBC 191 Fluid RBC 145 06/12/18 06/12/18 06/12/18 18:15 18:15 18:15 Creatine Kinase 53 CK-MB (CK-2) 1.97 Troponin I 0.019 06/13/18 00:53 Creatine Kinase CK-MB (CK-2) Troponin I 0.034 Impressions: Chest CT 06/12/18 15:18 IMPRESSION: Stable CT of the chest when compared to 04/23/2018 moderate bilateral pleural effusions along with left upper lobe pulmonary nodules in subpleural nodules in the right lung base. There is extensive mediastinal adenopathy which is unchanged as well. Chest X-Ray 06/16/18 00:00 IMPRESSION: Right pleural space [address]. Small adjacent basilar pneumothorax. Minimal residual right basilar pleural effusion. Bandlike consolidation at the right lung base likely atelectasis or scarring. Thoracentesis Ultrasound 06/16/18 21:44 IMPRESSION: SUCCESSFUL THORACENTESIS AND RIGHT CHEST TUBE PLACEMENT USING ULTRASOUND GUIDANCE. Assessment & Plan - Diagnosis (1) A-fib Qualifiers: Atrial fibrillation type: chronic Qualified Code(s): I48.2 - Chronic atrial fibrillation Is this a current diagnosis for this admission?: Yes Plan: Well controlled at this time (2) Bilateral pleural effusion Is this a current diagnosis for this admission?: Yes Plan: Clinically improved after thoracentesis w/chest tube (3) CHF (congestive heart failure) Is this a current diagnosis for this admission?: Yes Plan: Stable at this time (4) COPD with acute exacerbation Is this a current diagnosis for this admission?: Yes Plan: Improving
--- NOTE | 2018-06-17 20:44 | PDOC PROGRESS REPORT ---
Subjective Progress Note for:: 06/17/18 Subjective:: The pleural fluid analysis is consistent with exudate, the LDH ratio, Of the pleural LDH versus serum LDH is 0.8, the total protein ratio is 0.5 consistent with exudative pleural effusion, this is recurrent exudative pleural effusion this patient will need thoracotomy I discussed this case with pulmonary doctor curseen she would need to see a CT surgeon, the biopsy of the nodule that was done was negative.The pigtail catheter was removed today Reason For Visit: CONGESTIVE HEART FAILURE,NODULE OF LEFT LUNG Physical Exam Vital Signs: Temp Pulse Resp BP Pulse Ox 98.1 F 88 16 119/71 98 06/17/18 20:20 06/17/18 20:20 06/17/18 16:36 06/17/18 20:20 06/17/18 20:20 Intake & Output 06/16/18 06/17/18 06/18/18 06:59 06:59 06:59 Intake Total 1213 762 711 Output Total 1650 3300 1000 Balance -437 -8498 -289 Weight 70.3 kg 69.1 kg General appearance: PRESENT: no acute distress Eye exam: PRESENT: PERRLA Respiratory exam: PRESENT: clear to auscultation frida Cardiovascular exam: PRESENT: +S1, +S2 GI/Abdominal exam: PRESENT: soft Neurological exam: PRESENT: alert Results Laboratory Results: 06/16/18 06/16/18 06/16/18 10:53 10:53 10:53 Fluid Glucose 99 Fluid Total Protein Fluid LDH 115 Fluid Amylase 77 06/16/18 10:53 Fluid Glucose Fluid Total Protein 3.5 Fluid LDH Fluid Amylase 06/12/18 06/12/18 06/12/18 18:15 18:15 18:15 Creatine Kinase 53 CK-MB (CK-2) 1.97 Troponin I 0.019 06/13/18 00:53 Creatine Kinase CK-MB (CK-2) Troponin I 0.034 Impressions: Chest CT 06/12/18 15:18 IMPRESSION: Stable CT of the chest when compared to 04/23/2018 moderate bilateral pleural effusions along with left upper lobe pulmonary nodules in subpleural nodules in the right lung base. There is extensive mediastinal adenopathy which is unchanged as well. Thoracentesis Ultrasound 06/16/18 21:44 IMPRESSION: SUCCESSFUL THORACENTESIS AND RIGHT CHEST TUBE PLACEMENT USING ULTRASOUND GUIDANCE. Chest X-Ray 06/17/18 11:00 IMPRESSION: Removal of the right basilar chest tube without appreciable pneumothorax. Unchanged small bilateral pleural effusions and bibasilar opacification, likely combination of atelectasis and effusion. Assessment & Plan - Diagnosis (1) Bilateral pleural effusion Is this a current diagnosis for this admission?: Yes Plan: She has recurrent exudative pleural effusion, echocardiogram that was done was normal (2) Stage I decubitus ulcer and pressure area Is this a current diagnosis for this admission?: Yes (3) Atrophy of right kidney Is this a current diagnosis for this admission?: Yes (4) Chronic obstructive pulmonary disease Qualifiers: COPD type: unspecified COPD Qualified Code(s): J44.9 - Chronic obstructive pulmonary disease, unspecified Is this a current diagnosis for this admission?: Yes
[2018-06-17] MEDS: GABAPENTIN 300 MG CAPSULE PO SCH (21:54)
[2018-06-17] MEDS: ATORVASTATIN CALCIUM 10 MG TABLET PO SCH (21:55)
[2018-06-18] MEDS: LEVOTHYROXINE SODIUM 0.15 MG TABLET PO SCH (05:04)
[2018-06-18] MEDS: FLUTICASONE/SALMETEROL DISKUS 250-50 MCG/DOSE IH SCH (09:21)
[2018-06-18] MEDS: ISOSORBIDE MONONITRATE 30 MG TAB.ER.24H PO SCH (09:22)
[2018-06-18] MEDS: TIOTROPIUM BROMIDE DPI 5 CAP/KIT (18 MCG/CAP) IH SCH (09:22)
[2018-06-18] MEDS: DILTIAZEM HCL 180 MG CAPSULE.CR PO SCH (09:23)
[2018-06-18] MEDS: HYDRALAZINE HCL 50 MG TABLET PO SCH (09:24)
[2018-06-18] MEDS: METOPROLOL SUCCINATE 50 MG TAB.SR.24H PO SCH (09:24)
[2018-06-18] MEDS: CYANOCOBALAMIN (VITAMIN B-12) 1,000 MCG TABLET PO SCH (09:25)
[2018-06-18] MEDS: SITAGLIPTIN PHOSPHATE 50 MG TABLET PO SCH (09:25)
[2018-06-18] MEDS: GLIPIZIDE 5 MG TABLET PO SCH (09:26)
[2018-06-18] MEDS: RALOXIFENE HCL 60 MG TABLET PO SCH (09:26)
[2018-06-18 11:26] VITALS: BP 123/43
--- NOTE | 2018-06-18 18:18 | PDOC DISCHARGE SUMMARY ---
General - Admit/Disc Date/PCP Admission Date/Primary Care Provider: 06/12/18 16:45 SONU ZAMUDIO MD Discharge Date: 06/25/18 - Discharge Diagnosis (1) Bilateral pleural effusion Is this a current diagnosis for this admission?: Yes (2) Stage I decubitus ulcer and pressure area Is this a current diagnosis for this admission?: Yes (3) Atrophy of right kidney Is this a current diagnosis for this admission?: Yes (4) Chronic obstructive pulmonary disease Is this a current diagnosis for this admission?: Yes (5) Chronic atrial fibrillation Is this a current diagnosis for this admission?: Yes (6) Chronic kidney disease, stage III (moderate) Is this a current diagnosis for this admission?: Yes (7) Type 2 diabetes mellitus Is this a current diagnosis for this admission?: Yes - Additional Information Discharge Diet: As Tolerated, Cardiac Discharge Activity: Activity As Tolerated, Balance Activity w/Rest Home Medications: Acetylcysteine [NAC 600 mg Capsule] 600 mg PO BIDBS 04/23/18 Cyanocobalamin (Vitamin B-12) [Vitamin B-12 1000 mcg Tablet] 1,000 mcg PO DAILY 04/23/18 Diltiazem HCl [Diltiazem ER] 180 mg PO DAILY 04/23/18 Fluticasone/Salmeterol [Advair 250-50 Diskus 14 Dose/Diskus] 1 puff IH Q12 04/23 Glipizide [Glucotrol 5 mg Tablet] 5 mg PO BID 04/23/18 Hydralazine HCl 100 mg PO Q12 04/23/18 Isosorbide Mononitrate [Imdur 30 mg Tablet.er] 90 mg PO DAILY 04/23/18 Levothyroxine Sodium [Synthroid] 150 mcg PO Q6AM 04/23/18 Linagliptin [Tradjenta] 5 mg PO DAILY 04/23/18 Metoprolol Succinate [Toprol Xl] 200 mg PO DAILY 04/23/18 Tiotropium [place] [Spiriva Handihaler 18 mcg/dose (30 Dose)] 1 cap IH DAILY Apixaban [Eliquis 5 mg Tablet] 5 mg PO BID 05/22/18 Atorvastatin Calcium [Lipitor 10 mg Tablet] 10 mg PO QHS 05/22/18 Gabapentin [Neurontin 300 mg Capsule] 300 mg PO DAILY 06/12/18 Nitroglycerin [Nitrostat 0.4 mg (1/150 Gr) Tabs 25/Bottle] 1 tab SL Q5MP PRN 12/23 Raloxifene HCl [Evista 60 mg Tablet] 60 mg PO DAILY 06/12/18 History of Present Illness History of Present Illness: SID MARTINEZ is a 78 year old female,She came to emergency room for evaluation of shortness of breath, she has a history of recurrent pleural effusion, exudative type , the last time she was admitted she was found to have a new pulmonary nodule, a PET scan was done which was positive subsequent CT- guided needle biopsy of the nodule was negative for cancer. Patient was referred previously to CT surgeon for thoracostomy. She needed thoracostomy plus or minus biopsy of the pleural membrane because of the recurrent nature of the pleural effusion and it is exudative suggesting inflammatory process/ neoplasm A 2D echo that was done previously was normal she has a history of very severe COPD, chronic kidney disease stage III with 1 functioning kidney she had atrophy of the left kidney. She was seen by the bedside. The Thoracentesis could not be done today because she already had [facility] Hospital Course: Patient was admitted for the management of symptomatic recurrent exudative bilateral pleural effusion. She underwent ultrasound-guided thoracentesis with placement of a pigtail catheter for drainage. She recently had biopsy of a pulmonary nodule that was negative for cancer. Patient needed to have thoracostomy/thoracotomy I refer previously to a CT surgeon,he stated that the cause of the pleural effusion is congestive heart failure but she has consistently had normal 2D echocardiogram , A 2D echo was also done on this admission, it demonstrated preserved ejection fraction of left ventricle and the Doppler measurement suggests normal diastolic function of the left ventricle. I also consulted pulmonary Dr. Mayberry, the pulmonary physicians office is making efforts to refer her to a CT surgeon for thoracotomy. This was explained to the patient and the patient spouse that she may need a thoracotomy because she has a recurrent exudative pleural effusion Physical Exam Vital Signs: Temp Pulse Resp BP Pulse Ox 98.4 F 73 16 123/43 L 98 06/18/18 16:19 06/18/18 16:19 06/18/18 16:19 06/18/18 16:19 06/18/18 16:19 Intake & Output 06/17/18 06/18/18 06/19/18 06:59 06:59 06:59 Intake Total 762 1611 Output Total 3300 2828 Balance -6190 -183 Weight 69.1 kg 68.3 kg General appearance: PRESENT: no acute distress Head exam: PRESENT: atraumatic, normocephalic Eye exam: PRESENT: PERRLA Neck exam: PRESENT: full ROM Respiratory exam: PRESENT: clear to auscultation frida Cardiovascular exam: PRESENT: RRR, +S1, +S2 Vascular exam: PRESENT: normal capillary refill GI/Abdominal exam: PRESENT: normal bowel sounds, soft Rectal exam: PRESENT: deferred Neurological exam: PRESENT: alert, awake, oriented to person, oriented to place , oriented to time, oriented to situation, CN II-XII grossly intact Psychiatric exam: PRESENT: appropriate affect, normal mood. ABSENT: homicidal ideation, suicidal ideation Skin exam: PRESENT: dry, intact, warm Results Laboratory Results: 06/16/18 10:53 Pleural Fluid - Right Pleural Effusion Fungal Smear - Final 06/16/18 10:53 Pleural Fluid - Right Pleural Effusion Fungal Smear - Final 06/16/18 10:53 Pleural Fluid - Right Pleural Effusion AFB Smear Concentration - Final 06/16/18 10:53 Pleural Fluid - Right Pleural Effusion Acid Fast Bacilli Smear - Final 06/12/18 06/12/18 06/12/18 18:15 18:15 18:15 Creatine Kinase 53 CK-MB (CK-2) 1.97 Troponin I 0.019 06/13/18 00:53 Creatine Kinase CK-MB (CK-2) Troponin I 0.034 Impressions: Chest CT 06/12/18 15:18 IMPRESSION: Stable CT of the chest when compared to 04/23/2018 moderate bilateral pleural effusions along with left upper lobe pulmonary nodules in subpleural nodules in the right lung base. There is extensive mediastinal adenopathy which is unchanged as well. Thoracentesis Ultrasound 06/16/18 21:44 IMPRESSION: SUCCESSFUL THORACENTESIS AND RIGHT CHEST TUBE PLACEMENT USING ULTRASOUND GUIDANCE. Chest X-Ray 06/17/18 11:00 IMPRESSION: Removal of the right basilar chest tube without appreciable pneumothorax. Unchanged small bilateral pleural effusions and bibasilar opacification, likely combination of atelectasis and effusion. Qualifiers - * PATIENT BEING DISCHARGED WITH ANY OF THE FOLLOWING DIAGNOSIS: No
--- NOTE | 2018-06-20 13:18 | PDOC CONSULTATION ---
Consultation Consult Date: 06/13/18 Attending physician:: SONU ZAMUDIO Consult reason:: dyspnea History of Present Illness Admission Date/PCP: 06/12/18 16:45 SONU ZAMUDIO MD History of Present Illness: SID MARTINEZ is a 78 year old female, presented to the emergency room with increasing shortness of breath was found to have a pleural effusion she also has a history of congestive heart failure and atrial fibrillation. During her workup initially she was found to also have a lung mass. She needs a thoracentesis for pleural effusion however she is on Eliquis due to atrial fibrillation will have to be delayed. She denies nausea vomiting diarrhea fevers chills rhinorrhea sore throat chest pain slightly . Past Medical History Cardiac Medical History: Reports: Atrial Fibrillation, Coronary Artery Disease, Hyperlipidema, Hypertension Denies: Myocardial Infarction Pulmonary Medical History: Reports: Chronic Obstructive Pulmonary Disease (COPD) Denies: Asthma, Bronchitis, Pneumonia Neurological Medical History: Denies: Seizures Endocrine Medical History: Reports: Diabetes Mellitus Type 2 GI Medical History: Denies: Crohn's Disease, Ulcerative Colitis Musculoskeltal Medical History: Reports: Arthritis - POSSIBLY Psychiatric Medical History: Denies: Depression Traumatic Medical History: Denies: Traumatic Brain Injury Hematology: Reports: Anemia Past Surgical History Past Surgical History: Reports: Cholecystectomy, Orthopedic Surgery - left hip Denies: Hysterectomy Social History Information Source: Patient, [facility] Records Smoking Status: Former Smoker Cigarettes Packs Per Day: 3 Number of Years Smokin Last Time Smoked: 1989 Passive smoke exposure as: Both Frequency of Alcohol Use: None Hx Recreational Drug Use: No Drugs: None Hx Prescription Drug Abuse: No Do you have pets?: No Have you had any respiratory illnesses as a child?: No Have you been exposed to any sick contacts recently?: No Have you had any recent respiratory illnesses?: No Have you travelled outside of [place] in the past 12 months?: No Family History Family History: DM, Hypertension Parental Family History Reviewed: Yes Children Family History Reviewed: Yes Sibling(s) Family History Reviewed.: Yes Medication/Allergy Home Medications: Acetylcysteine [NAC 600 mg Capsule] 600 mg PO BIDBS 04/23/18 Cyanocobalamin (Vitamin B-12) [Vitamin B-12 1000 mcg Tablet] 1,000 mcg PO DAILY 04/23/18 Diltiazem HCl [Diltiazem ER] 180 mg PO DAILY 04/23/18 Fluticasone/Salmeterol [Advair 250-50 Diskus 14 Dose/Diskus] 1 puff IH Q12 04/23 Glipizide [Glucotrol 5 mg Tablet] 5 mg PO BID 04/23/18 Hydralazine HCl 100 mg PO Q12 04/23/18 Isosorbide Mononitrate [Imdur 30 mg Tablet.er] 90 mg PO DAILY 04/23/18 Levothyroxine Sodium [Synthroid] 150 mcg PO Q6AM 04/23/18 Linagliptin [Tradjenta] 5 mg PO DAILY 04/23/18 Metoprolol Succinate [Toprol Xl] 200 mg PO DAILY 04/23/18 Tiotropium [place] [Spiriva Handihaler 18 mcg/dose (30 Dose)] 1 cap IH DAILY Apixaban [Eliquis 5 mg Tablet] 5 mg PO BID 05/22/18 Atorvastatin Calcium [Lipitor 10 mg Tablet] 10 mg PO QHS 05/22/18 Gabapentin [Neurontin 300 mg Capsule] 300 mg PO DAILY 06/12/18 Nitroglycerin [Nitrostat 0.4 mg (1/150 Gr) Tabs 25/Bottle] 1 tab SL Q5MP PRN 12/23 Raloxifene HCl [Evista 60 mg Tablet] 60 mg PO DAILY 06/12/18 Allergies/Adverse Reactions: No Known Allergies Allergy (Verified 06/12/18 13:04) Review of Systems Constitutional: PRESENT: fatigue, weakness. ABSENT: headache(s), night sweats Eyes: ABSENT: visual disturbances Ears: ABSENT: hearing changes Nose, Mouth, and Throat: ABSENT: mouth pain Cardiovascular: PRESENT: dyspnea on exertion. ABSENT: orthropnea, palpitations Respiratory: PRESENT: cough, dyspnea. ABSENT: hemoptysis Gastrointestinal: ABSENT: abdominal pain, bloating, coffee ground emesis, dysphagia, hematemesis, hematochezia, melena Genitourinary: ABSENT: dysuria, hematuria Musculoskeletal: ABSENT: deformity, joint swelling Integumentary: ABSENT: pruritus, rash Neurological: ABSENT: abnormal gait, abnormal movements, abnormal speech, confusion, frequent falls, lack of coordination, memory loss, numbness Psychiatric: ABSENT: hallucinations, homidical ideation, suicidal ideation Endocrine: ABSENT: cold intolerance, heat intolerance, polydipsia, polyuria Hematologic/Lymphatic: ABSENT: lymphadenopathy Allergic/Immunologic: ABSENT: seasonal rhinorrhea Physical Exam Vital Signs: Temp Pulse Resp BP Pulse Ox 98.8 F 83 24 H 160/60 H 94 06/13/18 08:02 06/13/18 08:02 06/13/18 08:02 06/13/18 08:02 06/13/18 09:40 Intake & Output 06/12/18 06/13/18 06/14/18 06:59 06:59 06:59 Output Total 770 Balance -770 Weight 68.5 kg General appearance: PRESENT: no acute distress, cooperative, disheveled, well- developed, well-nourished Head exam: PRESENT: atraumatic, normocephalic Eye exam: PRESENT: conjunctiva pale, EOMI. ABSENT: nystagmus, periorbital swelling, scleral icterus Mouth exam: PRESENT: dry mucosa, neck supple, tongue midline Neck exam: ABSENT: carotid bruit, JVD, lymphadenopathy, thyromegaly, tracheal deviation, tracheostomy Respiratory exam: PRESENT: decreased breath sounds, prolonged expiratory phas, rales, rhonchi, unlabored, wheezes. ABSENT: retraction, stridor Cardiovascular exam: PRESENT: irregular rhythm Pulses: PRESENT: normal radial pulses GI/Abdominal exam: PRESENT: soft. ABSENT: tenderness Extremities exam: PRESENT: pedal edema. ABSENT: calf tenderness, clubbing, joint swelling, tenderness Musculoskeletal exam: ABSENT: deformity, dislocation Neurological exam: PRESENT: alert, awake Psychiatric exam: PRESENT: appropriate affect Skin exam: PRESENT: dry, warm Results Laboratory Results: 06/12/18 22:00 Total Protein 7.1 06/12/18 06/12/18 06/12/18 18:15 18:15 18:15 Creatine Kinase 53 CK-MB (CK-2) 1.97 Troponin I 0.019 06/13/18 00:53 Creatine Kinase CK-MB (CK-2) Troponin I 0.034 Impressions: Chest X-Ray 06/12/18 13:57 IMPRESSION: 1. Persistent bilateral pleural effusions and lower lung atelectasis. Small nodular opacities suggest left upper lung and right middle lung. Chest CT 06/12/18 15:18 IMPRESSION: Stable CT of the chest when compared to 04/23/2018 moderate bilateral pleural effusions along with left upper lobe pulmonary nodules in subpleural nodules in the right lung base. There is extensive mediastinal adenopathy which is unchanged as well. Assessment & Plan - Diagnosis (1) A-fib Qualifiers: Atrial fibrillation type: chronic Qualified Code(s): I48.2 - Chronic atrial fibrillation Is this a current diagnosis for this admission?: Yes Plan: Well controlled at this time (2) COPD with acute exacerbation Is this a current diagnosis for this admission?: Yes Plan: Improving (3) Pleural effusion Is this a current diagnosis for this admission?: Yes Plan: Thoracentesis (4) Pulmonary nodule, left Is this a current diagnosis for this admission?: Yes Plan: Per the primary care physician patient should be referred to a thoracic surgeon
== END 2018-06-18 17:05 | disposition home or self-care (01) | DRG 187 ==
LOC: ER 13:02 → EH 16:45 → 3W 18:45 → 3S 06-14 20:39
PROVIDERS: ADMIT Internal Medicine; ATTEND Internal Medicine
PROC: 0W993ZZ Drainage of Right Pleural Cavity, Percutaneous Approach (ICD-10-PCS; principal; 2018-06-16)
DX: J90 Pleural effusion, not elsewhere classified (principal); J44.1 Chronic obstructive pulmonary disease with (acute) exacerbation; I48.2 Chronic atrial fibrillation; E11.22 Type 2 diabetes mellitus with diabetic chronic kidney disease; N18.3 Chronic kidney disease, stage 3 (moderate); I25.10 Atherosclerotic heart disease of native coronary artery without angina pectoris; E78.00 Pure hypercholesterolemia, unspecified; D63.1 Anemia in chronic kidney disease; L89.91 Pressure ulcer of unspecified site, stage 1; I12.9 Hypertensive chronic kidney disease with stage 1 through stage 4 chronic kidney disease, or unspecified chronic kidney disease; Z86.73 Personal history of transient ischemic attack (TIA), and cerebral infarction without residual deficits; Z87.891 Personal history of nicotine dependence; Z79.899 Other long term (current) drug therapy; Z90.49 Acquired absence of other specified parts of digestive tract; Z99.81 Dependence on supplemental oxygen; Z83.3 Family history of diabetes mellitus; Z82.49 Family history of ischemic heart disease and other diseases of the circulatory system
CPT/HCPCS: 32555; 36415; 71045; 71250; 80053; 82150; 82550; 82553; 82945; 82962; 83615; 83880; 84155; 84157; 84484; 85025; 85610; 85730; 87015; 87070; 87075; 87101; 87116; 87205; 87206; 87252; 89050; 93005; 93010; 93306; 94640; 94660; 96374; 99285; C1894; J1815; J1940; J3490; J7620

== ENCOUNTER → 2018-06-27 | Outpatient (CLI) | payer MEDICARE, OTHER ==
[2018-06-27 13:19] LABS: HEMOGLOBIN 9.2 g/dL (12.0-15.5); MEAN CORPUSCULAR HEMOGLOBIN 28.7 pg (27.0-33.4); MEAN CORPUSCULAR HGB CONC 34.1 g/dL (32.0-36.0); MEAN CORPUSCULAR VOLUME 84 fl (80-97); PLATELET COUNT 302 10^3/uL (150-450); RED BLOOD COUNT 3.21 10^6/uL (3.72-5.28); RED CELL DISTRIBUTION WIDTH 14.1 % (11.5-14.0); WHITE BLOOD COUNT 9.5 10^3/uL (4.0-10.5)
[2018-06-27 13:27] LABS: APPEARANCE,URINE SLIGHTLY-CLOUDY; BILIRUBIN,URINE NEGATIVE (NEGATIVE); COLOR,URINE YELLOW; GLUCOSE, URINE NEGATIVE (NEGATIVE); KETONES,URINE NEGATIVE (NEGATIVE); LEUKOCYTE ESTERASE,URINE TRACE (NEGATIVE); NITRITE,URINE NEGATIVE (NEGATIVE); PROTEIN,URINE NEGATIVE (NEGATIVE); URINE SPECIFIC GRAVITY 1.011; UROBILINOGEN,URINE NEGATIVE mg/dL (<2.0)
[2018-06-27 13:44] LABS: ANION GAP 12 (5-19); BLOOD UREA NITROGEN 41 mg/dL (7-20); CALCIUM 8.8 mg/dL (8.4-10.2); CARBON DIOXIDE 23 mmol/L (22-30); CHLORIDE 104 mmol/L (98-107); GLUCOSE 89 mg/dL (75-110); POTASSIUM 4.1 mmol/L (3.6-5.0); SODIUM 139.1 mmol/L (137-145)
== END ==
LOC: OD 12:09
PROVIDERS: ATTEND Internal Medicine Nephrology
DX: I50.9 Heart failure, unspecified (principal); N18.3 Chronic kidney disease, stage 3 (moderate); E87.6 Hypokalemia; I12.9 Hypertensive chronic kidney disease with stage 1 through stage 4 chronic kidney disease, or unspecified chronic kidney disease
CPT/HCPCS: 36415; 80048; 81001; 85027

== ENCOUNTER 2018-07-02 18:42 | Inpatient (IN) | payer MEDICARE, OTHER ==
--- NOTE | 2018-07-02 19:07 | EKG REPORT ---
SEVERITY:- ABNORMAL ECG - ATRIAL FIBRILLATION, V-RATE 77-110 : Confirmed by: Dar Rincon 02-Jul-2018 19:06:54
[2018-07-02] MEDS ORDERED: ONDANSETRON HCL INJ/PF 4 MG/2 ML SDV IV ONE (19:30)
[2018-07-02] MEDS ORDERED: MORPHINE SULFATE 10 MG/ML INJ IV ONE ×3 (19:30→23:30)
[2018-07-02] MEDS ORDERED: NORMAL SALINE 500 ML IV ONE (19:30)
--- NOTE | 2018-07-02 19:34 | ER Document Report ---
ED General - General Chief Complaint: Upper Abdominal Pain Stated Complaint: ABDOMINAL PAIN Time Seen by Provider: 07/02/18 19:17 TRAVEL OUTSIDE OF THE [place] IN LAST 30 DAYS: No - HPI Notes: Patient is a 78-year-old female that presents to the emergency department for chief complaint of abdominal pain. Patient reports acute onset of epigastric abdominal pain radiating under her rib cage bilaterally that began last night. She states that pain has since resolved and now she is having pain in her lower abdomen. Her pain has been constant since yesterday although it has moved in location. She states she has had a few episodes of emesis since yesterday as well. She does report constipation and has small "pellet" bowel movements for the past few day. She denies any fevers or chills. She denies chest pain, palpitations and shortness of breath. Past Medical History: CHF, A. fib, CKD, diabetes, COPD Past Surgical History: Reviewed in chart Social History: Denies drugs alcohol and tobacco Family History: Reviewed and noncontributory for presenting illness Allergies: Reviewed, see documented allergy list. REVIEW OF SYSTEMS: CONSTITUTIONAL : No fever No chills No diaphoresis No recent illness EENT: No vision changes No congestion No sore throat CARDIOVASCULAR: No chest pain No palpitations RESPIRATORY: No shortness of breath No cough No difficulty breathing GASTROINTESTINAL: abdominal pain nausea Constipation vomiting No diarrhea GENITOURINARY: No dysuria No hematuria No difficulty urinating MUSCULOSKELETAL: No back pain No leg pain No arm pain SKIN: No rashes No lesions LYMPHATIC: No swollen, enlarged glands. NEUROLOGICAL: No lightheadedness No headache No weakness No paresthesias PSYCHIATRIC: No anxiety No depression PHYSICAL EXAMINATION: Vital signs reviewed, nursing noted reviewed. GENERAL: Well-appearing, well-nourished and in no acute distress. HEAD: Atraumatic, normocephalic. EYES: Eyes appear normal, extraocular movements intact, sclera anicteric, conjunctiva are normal. ENT: nares patent, oropharynx clear without exudates. Dry mucous membranes. NECK: Normal range of motion, supple without lymphadenopathy LUNGS: Breath sounds clear to auscultation bilaterally and equal. No wheezes rales or rhonchi. HEART: Regular rate and rhythm without murmurs ABDOMEN: Soft, suprapubic and left lower quadrant tenderness, normoactive bowel sounds. No rebound, guarding, or rigidity. No masses appreciated. EXTREMITIES: Nontender, good range of motion, no pitting or edema. NEUROLOGICAL: No focal neurological deficits. Moves all extremities spontaneously Motor and sensory grossly intact on exam. PSYCH: Normal mood, normal affect. SKIN: Warm, Dry, normal turgor, no rashes or lesions noted on exposed skin - Related Data Allergies/Adverse Reactions: No Known Allergies Allergy (Verified 06/12/18 13:04) Past Medical History - Social History Smoking Status: Former Smoker Frequency of alcohol use: None Drug Abuse: None Family History: DM, Hypertension Patient has suicidal ideation: No Patient has homicidal ideation: No - Past Medical History Cardiac Medical History: Reports: Hx Atrial Fibrillation, Hx Coronary Artery Disease, Hx Hypercholesterolemia, Hx Hypertension Denies: Hx Heart Attack Pulmonary Medical History: Reports: Hx COPD Denies: Hx Asthma, Hx Bronchitis, Hx Pneumonia Neurological Medical History: Reports: Hx Cerebrovascular Accident - 1997- NO RE SIDUALS. Denies: Hx Seizures Endocrine Medical History: Reports: Hx Diabetes Mellitus Type 2 Renal/ Medical History: Denies: Hx Peritoneal Dialysis GI Medical History: Denies: Hx Crohn's Disease, Hx Ulcer - APPROX 98 BUT HASN'T SINCE THEN, Hx Ulcerative Colitis Musculoskeletal Medical History: Reports Hx Arthritis - POSSIBLY Psychiatric Medical History: Denies: Hx Depression Traumatic Medical History: Denies: Hx Traumatic Brain Injury Infectious Medical History: Past Surgical History: Reports: Hx Cholecystectomy, Hx Orthopedic Surgery - left hip, Hx Thyroid Surgery. Denies: Hx Hysterectomy, Hx Open Heart Surgery - Immunizations Hx Diphtheria, Pertussis, Tetanus Vaccination: Yes Hx Pneumococcal Vaccination: 08/06/12 Course - Re-evaluation Re-evalutation: 07/02/18 19:34 Vitals reviewed. Nursing notes reviewed. Patient appears dehydrated and was given IV fluids. She does have a history of CHF therefore aggressive hydration not indicated. Patient also given antiemetics and pain medicine for symptom medic management. 07/02/18 22:03 Patient reevaluated and is still complaining of pain. I had initially ordered her morphine which she had declined, she is now agreeing to take a half a dose of morphine. She has not had any vomiting since she has been here. Her CT scan shows partial small bowel obstruction which I discussed with Dr. Brothers who will be placed on consultation. Patient CT also showed bilateral lower lobe effusions and pneumonia. She does have a leukocytosis but is not meeting sepsis criteria. She received IV antibiotics for her pneumonia. She is oxygenating on her home 3 L of oxygen. She will be admitted to the hospital for further management. Case discussed with Dr. Griffiths who accepted admission. Laboratory 07/02/18 07/02/18 07/02/18 18:55 18:55 18:55 WBC 16.9 H RBC 3.66 L Hgb 10.3 L Hct 31.1 L MCV 85 MCH 28.1 MCHC 33.0 RDW 14.5 H Plt Count 327 Total Counted 100 Seg Neutrophils % Not Reportable Seg Neuts % (Manual) 87 H Band Neutrophils % 1 L Lymphocytes % Not Reportable Lymphocytes % (Manual) 6 L Monocytes % Not Reportable Monocytes % (Manual) 6 Eosinophils % Not Reportable Eosinophils % (Manual) 0 Basophils % Not Reportable Basophils % (Manual) 0 Absolute Neutrophils Not Reportable Abs Neuts (Manual) 14.9 H Absolute Lymphocytes Not Reportable Abs Lymphs (Manual) 1.0 Absolute Monocytes Not Reportable Abs Monocytes (Manual) 1.0 Absolute Eosinophils Not Reportable Absolute Eos (Manual) 0.0 Absolute Basophils Not Reportable Abs Basophils (Manual) 0.0 Platelet Comment ADEQUATE Anisocytosis SLIGHT Sodium 135.4 L Potassium 3.8 Chloride 97 L Carbon Dioxide 28 Anion Gap 10 BUN 43 H Creatinine 2.06 H Est GFR ( Amer) 28 L Est GFR (Non-Af Amer) 23 L Glucose 132 H Lactic Acid Calcium 9.2 Total Bilirubin 0.7 Direct Bilirubin 0.6 H Neonat Total Bilirubin Not Reportable Neonat Direct Bilirubin Not Reportable Neonat Indirect Bili Not Reportable AST 18 ALT 11 Alkaline Phosphatase 66 Troponin I 0.022 Total Protein 7.4 Albumin 3.6 Lipase 45.9 Urine Color Urine Appearance Urine pH Ur Specific [place] Urine Protein Urine Glucose (UA) Urine Ketones Urine Blood Urine Nitrite Urine Bilirubin Urine Urobilinogen Ur Leukocyte Esterase Urine WBC (Auto) Urine RBC (Auto) U Hyaline Cast (Auto) Urine Bacteria (Auto) Squamous Epi Cells Auto Amorphous Sediment Auto Urine Mucus (Auto) Urine Ascorbic Acid 07/02/18 07/02/18 21:30 21:30 WBC RBC Hgb Hct MCV MCH MCHC RDW Plt Count Total Counted Seg Neutrophils % Seg Neuts % (Manual) Band Neutrophils % Lymphocytes % Lymphocytes % (Manual) Monocytes % Monocytes % (Manual) Eosinophils % Eosinophils % (Manual) Basophils % Basophils % (Manual) Absolute Neutrophils Abs Neuts (Manual) Absolute Lymphocytes Abs Lymphs (Manual) Absolute Monocytes Abs Monocytes (Manual) Absolute Eosinophils Absolute Eos (Manual) Absolute Basophils Abs Basophils (Manual) Platelet Comment Anisocytosis Sodium Potassium Chloride Carbon Dioxide Anion Gap BUN Creatinine Est GFR ( Amer) Est GFR (Non-Af Amer) Glucose Lactic Acid 1.1 Calcium Total Bilirubin Direct Bilirubin Neonat Total Bilirubin Neonat Direct Bilirubin Neonat Indirect Bili AST ALT Alkaline Phosphatase Troponin I Total Protein Albumin Lipase Urine Color YELLOW Urine Appearance SLIGHTLY-CLOUDY Urine pH 5.0 Ur Specific [place] 1.014 Urine Protein 30 H Urine Glucose (UA) NEGATIVE Urine Ketones NEGATIVE Urine Blood MODERATE H Urine Nitrite NEGATIVE Urine Bilirubin NEGATIVE Urine Urobilinogen NEGATIVE Ur Leukocyte Esterase NEGATIVE Urine WBC (Auto) 9 Urine RBC (Auto) 30 U Hyaline Cast (Auto) 1 Urine Bacteria (Auto) 1+ Squamous Epi Cells Auto 6 Amorphous Sediment Auto TRACE Urine Mucus (Auto) RARE Urine Ascorbic Acid NEGATIVE Chest X-Ray 07/02/18 19:17 IMPRESSION: Cardiomegaly without CHF. Pleural effusions. Cannot exclude a limited infiltrate in either lung base. Abdomen/Pelvis CT 07/02/18 19:30 IMPRESSION: Multiple dilated loops of proximal and mid small bowel are seen with normal caliber distal small bowel and suggestive of developing small bowel obstruction The right kidney severely atrophic. Images through the lung bases show small right-sided and moderate left-sided pleural effusion. There is presence of bilateral lower lobe infiltrate/atelectasis. Mild infiltrate/atelectasis is also seen in the right middle lobe. Reticular nodular infiltrates are seen in the inferior aspect of the right upper lobe of the lung. Large bowel diverticulosis, without acute diverticulitis - Laboratory Result Diagrams: 07/02/18 18:55 07/02/18 18:55 Laboratory results interpreted by me: 07/02/18 07/02/18 07/02/18 18:55 18:55 21:30 WBC 16.9 H RBC 3.66 L Hgb 10.3 L Hct 31.1 L RDW 14.5 H Seg Neuts % (Manual) 87 H Band Neutrophils % 1 L Lymphocytes % (Manual) 6 L Abs Neuts (Manual) 14.9 H Sodium 135.4 L Chloride 97 L BUN 43 H Creatinine 2.06 H Est GFR ( Amer) 28 L Est GFR (Non-Af Amer) 23 L Glucose 132 H Direct Bilirubin 0.6 H Urine Protein 30 H Urine Blood MODERATE H - EKG Interpretation by Me Additional EKG results interpreted by me: 07/02/18 19:41 Interpreted by myself 1854: Atrial fibrillation, rate 93, normal axis, no ST elevation Discharge - Discharge Clinical Impression: Small bowel obstruction, Bilateral pleural effusion Abdominal pain Qualifiers: Abdominal location: lower abdomen, unspecified Qualified Code(s): R10.30 - Lower abdominal pain, unspecified Pneumonia Qualifiers: Pneumonia type: due to unspecified organism Laterality: bilateral Lung location: unspecified part of lung Qualified Code(s): J18.9 - Pneumonia, unspecified organism Leukocytosis Qualifiers: Leukocytosis type: unspecified Qualified Code(s): D72.829 - Elevated white blood cell count, unspecified Condition: Stable Admitting Provider: Tun[facility] Unit Admitted: [facility]
[2018-07-02 19:42] LABS: HEMATOCRIT 31.1 % (36.0-47.0); HEMOGLOBIN 10.3 g/dL (12.0-15.5); MEAN CORPUSCULAR HEMOGLOBIN 28.1 pg (27.0-33.4); MEAN CORPUSCULAR VOLUME 85 fl (80-97); PLATELET COUNT 327 10^3/uL (150-450); RED BLOOD COUNT 3.66 10^6/uL (3.72-5.28); RED CELL DISTRIBUTION WIDTH 14.5 % (11.5-14.0); WHITE BLOOD COUNT 16.9 10^3/uL (4.0-10.5)
[2018-07-02 19:48] LABS: ALANINE AMINOTRANSFERASE 11 U/L (9-52); ALBUMIN 3.6 g/dL (3.5-5.0); ALKALINE PHOSPHATASE 66 U/L (38-126); ANION GAP 10 (5-19); ASPARTATE AMINO TRANSFERASE 18 U/L (14-36); BILIRUBIN,DIRECT 0.6 mg/dL (0.0-0.4); BILIRUBIN,TOTAL 0.7 mg/dL (0.2-1.3); BLOOD UREA NITROGEN 43 mg/dL (7-20); CALCIUM 9.2 mg/dL (8.4-10.2); CARBON DIOXIDE 28 mmol/L (22-30); CHLORIDE 97 mmol/L (98-107); GLUCOSE 132 mg/dL (75-110); LIPASE 45.9 U/L (23-300); POTASSIUM 3.8 mmol/L (3.6-5.0); SODIUM 135.4 mmol/L (137-145); TOTAL PROTEIN 7.4 g/dL (6.3-8.2)
--- NOTE | 2018-07-02 19:54 | RADIOLOGY REPORT (SQ) ---
EXAM DESCRIPTION: CHEST SINGLE VIEW COMPLETED DATE/TIME: 07/02/2018 7:42 pm REASON FOR STUDY: SOB COMPARISON: 06/17/2018 EXAM PARAMETERS: NUMBER OF VIEWS: One view. TECHNIQUE: Single frontal radiographic view of the chest acquired. RADIATION DOSE: NA LIMITATIONS: None. FINDINGS: LUNGS AND PLEURA: Left pleural effusion. Small right pleural effusion. Patchy opacificat ion in the lung bases. MEDIASTINUM AND HILAR STRUCTURES: No masses. Contour normal. HEART AND VASCULAR STRUCTURES: Cardiomegaly. No pulmonary edema. BONES: No acute findings. HARDWARE: None in the chest. OTHER: No other significant finding. IMPRESSION: Cardiomegaly without CHF. Pleural effusions. Cannot exclude a limited infiltrate in ei ther lung base. TECHNICAL DOCUMENTATION: JOB ID: [id number] [employer]- All Rights Reserved Reading location - IP/workstation name: [email or web address]
[2018-07-02 19:56] LABS: ABSOLUTE NEUTROPHILS# (MANUAL) 14.9 10^3/uL (1.7-8.2); BAND NEUTROPHILS % (MANUAL) 1 % (3-5); BASOPHILS % (MANUAL) 0 % (0-2); EOSINOPHILS % (MANUAL) 0 % (0-6); LYMPHOCYTES % (MANUAL) 6 % (13-45); MONOCYTES % (MANUAL) 6 % (3-13); SEGMENTED NEUTROPHILS % (MAN) 87 % (42-78); TOTAL CELLS COUNTED 100
[2018-07-02] MEDS ORDERED: ACETAMINOPHEN 325 MG TABLET PO ONE (19:57)
[2018-07-02 19:58] LABS: ANISOCYTOSIS SLIGHT; PLATELET COMMENT ADEQUATE
[2018-07-02] MEDS ORDERED: CEFTRIAXONE INJ 1000 MG VIAL IV ONE (20:53)
[2018-07-02] MEDS ORDERED: AZITHROMYCIN INJ 500 MG VIAL IV ONE (20:53)
--- NOTE | 2018-07-02 21:11 | RADIOLOGY REPORT (SQ) ---
PROCEDURE: CT OF THE ABDOMEN AND PELVIS WITHOUT INTRAVENOUS CONTRAST HISTORY: abdominal pain Indication: Same as above Comparison: 07/06/2015 Technique: The study was completed on 07/02/2018 at 8:[address] of the abdomen and pelvis was done without intravenous contrast. Images were obtained from the lung base to the level of the pubic symphysis in axial plane, followed by orthogonal sagittal and coronal reconstruction. Oral contrast was not given for the study. This exam was performed according to our departmental dose-optimization program, which includes automated exposure control, adjustment of the mA and/or KV according to the patient's size and/or use of iterative reconstruction technique. FINDINGS: Images through the lung bases show small right-sided and moderate left-sided pleural effusion. There is presence of bilateral lower lobe infiltrate/atelectasis. Mild infiltrate/atelectasis is also seen in the right middle lobe. Reticular nodular infiltrates are seen in the inferior aspect of the right upper lobe of the lung. There is a small hiatal hernia Multiple dilated loops of proximal and mid small bowel are seen with normal caliber distal small bowel and suggestive of developing small bowel obstruction The right kidney severely atrophic with presence of a a few benign exophytic cortical cyst arising from the atrophic right kidney The liver, pancreas, spleen and the bilateral adrenal glands appear unremarkable, given the limitation of lack of intravenous contrast. There is prior cholecystectomy. The left kidney is unremarkable The urinary bladder is unremarkable, without any evidence of wall thickening, calculi or filling defects. There is no CT evidence of pericecal inflammatory change or ileocecal mesenteric adenitis. The ileocecal junction appears unremarkable. The appendix is not visualized There is no CT evidence of acute colonic diverticulitis or colitis or large bowel obstruction. There is large bowel diverticulosis There is no pathological lymphadenopathy in the retroperitoneum or in the pelvic region. There is no evidence of free fluid or free air in the abdomen or the pelvic region. There is no clinically significant abdominal aortic aneurysm. There is mild ectasia of the infrarenal abdominal aorta measuring 2.4 x 2.6 cm and not requiring any imaging follow-up There is no clinically significant inguinal or ventral hernia. The visualized lumbar spine shows multilevel degenerative change. Note is made of left hip arthroplasty and severe degenerative change in the right hip The paravertebral soft tissues are unremarkable. The remainder of the pelvic structures are unremarkable. IMPRESSION: Multiple dilated loops of proximal and mid small bowel are seen with normal caliber distal small bowel and suggestive of developing small bowel obstruction The right kidney severely atrophic. Images through the lung bases show small right-sided and moderate left-sided pleural effusion. There is presence of bilateral lower lobe infiltrate/atelectasis. Mild infiltrate/atelectasis is also seen in the right middle lobe. Reticular nodular infiltrates are seen in the inferior aspect of the right upper lobe of the lung. Large bowel diverticulosis, without acute diverticulitis
[2018-07-02 21:51] LABS: AMORPHOUS SEDIMENT,URINE TRACE /HPF; APPEARANCE,URINE SLIGHTLY-CLOUDY; BILIRUBIN,URINE NEGATIVE (NEGATIVE); COLOR,URINE YELLOW; GLUCOSE, URINE NEGATIVE (NEGATIVE); KETONES,URINE NEGATIVE (NEGATIVE); LEUKOCYTE ESTERASE,URINE NEGATIVE (NEGATIVE); NITRITE,URINE NEGATIVE (NEGATIVE); PROTEIN,URINE 30 mg/dL (NEGATIVE); URINE SPECIFIC GRAVITY 1.014; UROBILINOGEN,URINE NEGATIVE mg/dL (<2.0)
[2018-07-02] MEDS ORDERED: PHARMACY COMMUNICATION ORDER MC NR ×2 (22:45)
[2018-07-02] MEDS ORDERED: ERTAPENEM SODIUM INJ 1 GM VIAL IV PRN (22:53)
[2018-07-02] MEDS ORDERED: HEPARIN SOD (PORCINE) 5,000 UNIT/ML 1 ML SYRINGE SUBCUT ONE (23:00)
[2018-07-02] MEDS ORDERED: ERTAPENEM SODIUM 1 GM in NORMAL SALINE 50 ML IV ONE (23:00)
[2018-07-02 23:12] LABS: LIPASE 46.9 U/L (23-300); PHOSPHORUS 4.6 mg/dL (2.5-4.5)
[2018-07-02 23:24] LABS: CREATINE KINASE MB 0.67 ng/mL (<4.55); TROPONIN I 0.02 ng/mL
[2018-07-02 23:32] LABS: PROTHROMBIN TIME 15.8 SEC (11.4-15.4)
[2018-07-02 23:33] LABS: PARTIAL THROMBOPLASTIN TIME 40.8 SEC (23.5-35.8)
--- NOTE | 2018-07-02 23:39 | PDOC CONSULTATION ---
Consultation Consult Date: 07/02/18 Consult reason:: Small bowel obstruction History of Present Illness Admission Date/PCP: 07/02/18 23:05 Bill BARBA MD History of Present Illness: SID MARTNIEZ is a 78 year old female seen at the request of Dr. Griffiths. She has multiple medical problems including atrial fibrillation on anticoagulation, chronic renal insufficiency, chronic shortness of breath on home O2. She has a 2-day history of abdominal pain, nausea, and vomiting. The patient reports her last bowel movement was this morning and was soft and normal. She last passed flatus in the emergency department, 1 hour ago. The patient has had small amounts of vomiting for the last 2 days. She denies feve rs, chills, chest pain, melena, hematochezia, hematemesis, hemoptysis. She does report shortness of breath. She reports malaise and fatigue. Her abdominal pain is worst in the right upper quadrant. She reports that it is a burning sensation. It is constant. She rates it as 8 out of 10. Nothing makes it better or worse. Past Medical History Cardiac Medical History: Reports: Atrial Fibrillation, Coronary Artery Disease, Hyperlipidema, Hypertension Denies: Myocardial Infarction Pulmonary Medical History: Reports: Chronic Obstructive Pulmonary Disease (COPD) Denies: Asthma, Bronchitis, Pneumonia Neurological Medical History: Denies: Seizures Endocrine Medical History: Reports: Diabetes Mellitus Type 2 GI Medical History: Denies: Crohn's Disease, Ulcerative Colitis Musculoskeltal Medical History: Reports: Arthritis - POSSIBLY Psychiatric Medical History: Denies: Depression Traumatic Medical History: Denies: Traumatic Brain Injury Hematology: Reports: Anemia Past Surgical History Past Surgical History: Reports: Cholecystectomy, Orthopedic Surgery - left hip Denies: Hysterectomy Social History Smoking Status: Former Smoker Frequency of Alcohol Use: None Hx Recreational Drug Use: No Drugs: None Hx Prescription Drug Abuse: No Family History Family History: DM, Hypertension Parental Family History Reviewed: Yes Children Family History Reviewed: Yes Sibling(s) Family History Reviewed.: Yes Medication/Allergy Home Medications: Acetylcysteine [NAC 600 mg Capsule] 600 mg PO BIDBS 04/23/18 Cyanocobalamin (Vitamin B-12) [Vitamin B-12 1000 mcg Tablet] 1,000 mcg PO DAILY 04/23/18 Diltiazem HCl [Diltiazem ER] 180 mg PO DAILY 04/23/18 Fluticasone/Salmeterol [Advair 250-50 Diskus 14 Dose/Diskus] 1 puff IH Q12 04/23/18 Glipizide [Glucotrol 5 mg Tablet] 5 mg PO BID 04/23/18 Hydralazine HCl 100 mg PO Q12 04/23/18 Isosorbide Mononitrate [Imdur 30 mg Tablet.er] 90 mg PO DAILY 04/23/18 Levothyroxine Sodium [Synthroid] 150 mcg PO Q6AM 04/23/18 Linagliptin [Tradjenta] 5 mg PO DAILY 04/23/18 Metoprolol Succinate [Toprol Xl] 200 mg PO DAILY 04/23/18 Tiotropium [place] [Spiriva Handihaler 18 mcg/dose (30 Dose)] 1 cap IH DAILY 04/23/18 Apixaban [Eliquis 5 mg Tablet] 5 mg PO BID 05/22/18 Atorvastatin Calcium [Lipitor 10 mg Tablet] 10 mg PO QHS 05/22/18 Gabapentin [Neurontin 300 mg Capsule] 300 mg PO DAILY 06/12/18 Nitroglycerin [Nitrostat 0.4 mg (1/150 Gr) Tabs 25/Bottle] 1 tab SL Q5MP PRN 06/12/18 Raloxifene HCl [Evista 60 mg Tablet] 60 mg PO DAILY 06/12/18 Allergies/Adverse Reactions: No Known Allergies Allergy (Verified 06/12/18 13:04) Review of Systems Constitutional: PRESENT: fatigue, weakness. ABSENT: chills, fever(s) Eyes: ABSENT: visual disturbances Ears: ABSENT: hearing changes Nose, Mouth, and Throat: ABSENT: sore throat Cardiovascular: ABSENT: chest pain Respiratory: PRESENT: dyspnea. ABSENT: cough Gastrointestinal: PRESENT: abdominal pain, nausea, vomiting. ABSENT: constipation, hematemesis, hematochezia, melena Genitourinary: ABSENT: dysuria Musculoskeletal: ABSENT: back pain Integumentary: ABSENT: pruritus, rash Neurological: ABSENT: confusion, convulsions, dizziness Psychiatric: ABSENT: anxiety, depression Endocrine: ABSENT: cold intolerance, heat intolerance Hematologic/Lymphatic: PRESENT: easy bleeding Physical Exam Vital Signs: Intake & Output 07/01/18 07/02/18 07/03/18 06:59 06:59 06:59 Intake Total 500 Balance 500 Weight 68.039 kg General appearance: PRESENT: mild distress Head exam: PRESENT: atraumatic, normocephalic Eye exam: PRESENT: EOMI, PERRLA. ABSENT: scleral icterus Mouth exam: PRESENT: moist, neck supple Teeth exam: ABSENT: poor dentation Neck exam: ABSENT: meningismus, tenderness, thyromegaly, tracheal deviation Respiratory exam: PRESENT: rhonchi, tachypnea. ABSENT: chest wall tenderness, unlabored Cardiovascular exam: PRESENT: irregular rhythm Pulses: PRESENT: normal radial pulses Vascular exam: PRESENT: normal capillary refill. ABSENT: pallor GI/Abdominal exam: PRESENT: distended - Mild, soft, tenderness - Mild. ABSENT: rebound, rigid Rectal exam: PRESENT: deferred Extremities exam: ABSENT: clubbing Musculoskeletal exam: ABSENT: deformity Neurological exam: PRESENT: alert, awake, oriented to person, oriented to place, oriented to time, oriented to situation, CN II-XII grossly intact Psychiatric exam: PRESENT: anxious. ABSENT: agitated, depressed Focused psych exam: ABSENT: delusional Skin exam: ABSENT: cyanosis, erythema, jaundice Results Laboratory Results: 07/02/18 18:55 07/02/18 18:55 07/02/18 07/02/18 07/02/18 18:55 18:55 18:55 WBC 16.9 H RBC 3.66 L Hgb 10.3 L Hct 31.1 L MCV 85 MCH 28.1 MCHC 33.0 RDW 14.5 H Plt Count 327 Seg Neutrophils % Not Reportable Lymphocytes % Not Reportable Monocytes % Not Reportable Eosinophils % Not Reportable Basophils % Not Reportable Absolute Neutrophils Not Reportable Absolute Lymphocytes Not Reportable Absolute Monocytes Not Reportable Absolute Eosinophils Not Reportable Absolute Basophils Not Reportable Sodium 135.4 L Potassium 3.8 Chloride 97 L Carbon Dioxide 28 Anion Gap 10 BUN 43 H Creatinine 2.06 H Est GFR ( Amer) 28 L Est GFR (Non-Af Amer) 23 L Glucose 132 H Lactic Acid Calcium 9.2 Phosphorus 4.6 H Magnesium 1.7 Total Bilirubin 0.7 AST 18 ALT 11 Alkaline Phosphatase 66 Total Protein 7.4 Albumin 3.6 Amylase 57 Lipase 45.9 46.9 Urine Color Urine Appearance Urine pH Ur Specific [place] Urine Protein Urine Glucose (UA) Urine Ketones Urine Blood Urine Nitrite Ur Leukocyte Esterase Urine WBC (Auto) Urine RBC (Auto) 07/02/18 07/02/18 21:30 21:30 WBC RBC Hgb Hct MCV MCH MCHC RDW Plt Count Seg Neutrophils % Lymphocytes % Monocytes % Eosinophils % Basophils % Absolute Neutrophils Absolute Lymphocytes Absolute Monocytes Absolute Eosinophils Absolute Basophils Sodium Potassium Chloride Carbon Dioxide Anion Gap BUN Creatinine Est GFR ( Amer) Est GFR (Non-Af Amer) Glucose Lactic Acid 1.1 Calcium Phosphorus Magnesium Total Bilirubin AST ALT Alkaline Phosphatase Total Protein Albumin Amylase Lipase Urine Color YELLOW Urine Appearance SLIGHTLY-CLOUDY Urine pH 5.0 Ur Specific [place] 1.014 Urine Protein 30 H Urine Glucose (UA) NEGATIVE Urine Ketones NEGATIVE Urine Blood MODERATE H Urine Nitrite NEGATIVE Ur Leukocyte Esterase NEGATIVE Urine WBC (Auto) 9 Urine RBC (Auto) 30 07/02/18 07/02/18 18:55 18:55 Creatine Kinase 23 L Troponin I 0.022 Impressions: Chest X-Ray 07/02/18 19:17 IMPRESSION: Cardiomegaly without CHF. Pleural effusions. Cannot exclude a limited infiltrate in either lung base. Abdomen/Pelvis CT 07/02/18 19:30 IMPRESSION: Multiple dilated loops of proximal and mid small bowel are seen with normal caliber distal small bowel and suggestive of developing small bowel obstruction The right kidney severely atrophic. Images through the lung bases show small right-sided and moderate left-sided pleural effusion. There is presence of bilateral lower lobe infiltrate/atelectasis. Mild infiltrate/atelectasis is also seen in the right middle lobe. Reticular nodular infiltrates are seen in the inferior aspect of the right upper lobe of the lung. Large bowel diverticulosis, without acute diverticulitis Assessment & Plan - Diagnosis (1) Nausea & vomiting Qualifiers: Vomiting type: unspecified Vomiting Intractability: unspecified Qualified Code(s): R11.2 - Nausea with vomiting, unspecified Is this a current diagnosis for this admission?: Yes (2) Abdominal pain Qualifiers: Abdominal location: lower abdomen, unspecified Qualified Code(s): R10.30 - Lower abdominal pain, unspecified (3) Small bowel obstruction Is this a current diagnosis for this admission?: Yes - Plan Summary Plan Summary: This is a 78-year-old female with a 2-day history of abdominal pain nausea, and vomiting. The patient reports her last bowel movement was this morning and she continues to pass flatus. Patient does have mild abdominal tenderness. I have reviewed her CT scan there are some distended loops of small bowel. On exam, the patient does not exhibit signs of peritonitis. I will place an NG tube in an attempt to lessen her discomfort and stop her vomiting. Repeat labs tomorrow. Repeat x-rays tomorrow.
[2018-07-02 23:59] LABS: FREE T4 (FREE THYROXINE) 1.63 ng/dL (0.78-2.19)
[2018-07-03 00:13] LABS: THYROID STIMULATING HORMONE 7.26 uIU/mL (0.47-4.68)
[2018-07-03] MEDS: RINGERS SOLUTION,LACTATED 1,000 ML IV PRN ×3 (00:40→21:41)
[2018-07-03 01:36] LABS: URINE AMPHETAMINES SCREEN NEGATIVE; URINE BARBITURATES SCREEN NEGATIVE; URINE BENZODIAZEPINES SCREEN NEGATIVE; URINE COCAINE SCREEN NEGATIVE; URINE MARIJUANA (THC) SCREEN NEGATIVE; URINE METHADONE SCREEN NEGATIVE; URINE PHENCYCLIDINE SCREEN NEGATIVE
[2018-07-03 01:47] LABS: CREATINE KINASE MB 0.87 ng/mL (<4.55); TROPONIN I 0.016 ng/mL
--- NOTE | 2018-07-03 03:10 | RADIOLOGY REPORT (SQ) ---
EXAM DESCRIPTION: XR CHEST 1 VIEW COMPLETED DATE/TME: 07/02/2018 22:42 CLINICAL HISTORY: 78 years, Female, Check Placement of NG Tube COMPARISON: 07/02/2018 chest x-ray NUMBER OF VIEWS: 1 TECHNIQUE: Portable chest LIMITATIONS: None. FINDINGS: Enteric tube with the distal tip likely in the body of the stomach. No pneumothorax. Cardiomegaly. Moderate left and small right pleural effusions. Atheromatous change thoracic aorta. Osteopenia. IMPRESSION: Tip of the enteric tube likely in the body of the stomach. Other findings are grossly stable copyright 2010 [employer]- All Rights Reserved
[2018-07-03] MEDS ORDERED: HYDROMORPHONE HCL INJ/PF 2 MG/ML AMPULE IV PRN (04:16)
[2018-07-03] MEDS ORDERED: HEPARIN SOD (PORCINE) 5,000 UNIT/ML 1 ML SYRINGE SUBCUT SCH (06:00)
[2018-07-03 08:05] LABS: ALANINE AMINOTRANSFERASE 14 U/L (9-52); ALBUMIN 3.5 g/dL (3.5-5.0); ALKALINE PHOSPHATASE 62 U/L (38-126); ANION GAP 14 (5-19); ASPARTATE AMINO TRANSFERASE 23 U/L (14-36); BILIRUBIN,DIRECT 0.6 mg/dL (0.0-0.4); BILIRUBIN,TOTAL 0.6 mg/dL (0.2-1.3); BLOOD UREA NITROGEN 43 mg/dL (7-20); CARBON DIOXIDE 23 mmol/L (22-30); CHLORIDE 99 mmol/L (98-107); CHOLESTEROL 83.29 mg/dL (0-200); GLUCOSE 159 mg/dL (75-110); HEMATOCRIT 36.7 % (36.0-47.0); HEMOGLOBIN 12.3 g/dL (12.0-15.5); MEAN CORPUSCULAR HEMOGLOBIN 28.2 pg (27.0-33.4); MEAN CORPUSCULAR HGB CONC 33.4 g/dL (32.0-36.0); MEAN CORPUSCULAR VOLUME 85 fl (80-97); PLATELET COUNT 300 10^3/uL (150-450); POTASSIUM 3.7 mmol/L (3.6-5.0); RED BLOOD COUNT 4.34 10^6/uL (3.72-5.28); RED CELL DISTRIBUTION WIDTH 14.9 % (11.5-14.0); SODIUM 136.3 mmol/L (137-145); TOTAL PROTEIN 7.1 g/dL (6.3-8.2); TRIGLYCERIDES 78 mg/dL (<150); WHITE BLOOD COUNT 15.2 10^3/uL (4.0-10.5)
[2018-07-03 08:16] LABS: DIRECT LDL 35 mg/dL (<100)
[2018-07-03 08:17] LABS: CREATINE KINASE MB 1.03 ng/mL (<4.55); TROPONIN I 0.029 ng/mL
[2018-07-03 08:54] LABS: ABSOLUTE LYMPHOCYTES# (MANUAL) 0.5 10^3/uL (0.5-4.7); ABSOLUTE MONOCYTES # (MANUAL) 0.9 10^3/uL (0.1-1.4); ABSOLUTE NEUTROPHILS# (MANUAL) 13.8 10^3/uL (1.7-8.2); BAND NEUTROPHILS % (MANUAL) 13 % (3-5); BASOPHILS % (MANUAL) 0 % (0-2); EOSINOPHILS % (MANUAL) 0 % (0-6); LYMPHOCYTES % (MANUAL) 3 % (13-45); MONOCYTES % (MANUAL) 6 % (3-13); SEGMENTED NEUTROPHILS % (MAN) 78 % (42-78); TOTAL CELLS COUNTED 100
[2018-07-03 08:55] LABS: PLATELET COMMENT ADEQUATE
[2018-07-03 08:56] LABS: TOXIC GRANULATION 1+; TOXIC VACUOLATION PRESENT
[2018-07-03 10:37] LABS: PATH REVIEW PATHOLOGIST REVIEWED
--- NOTE | 2018-07-03 11:38 | RADIOLOGY REPORT (SQ) ---
EXAM DESCRIPTION: ABDOMEN 2 VIEWS COMPLETED DATE/TIME: 07/03/2018 9:15 am REASON FOR STUDY: Small bowel obstruction. Flat and upright. COMPARISON: None. NUMBER OF VIEWS: Two views. TECHNIQUE: Supine and erect/decubitus radiographic images of the abdomen acquired. LIMITATIONS: None. FINDINGS: FREE AIR: None. No abnormal gas collections. LUNG BASES: See separate chest x-ray report of the same date. BOWEL GAS PATTERN: Mildly dilated loops of small bowel with gas fluid levels. Fecal material in the descending colon. CALCIFICATIONS: No suspicious calcifications. SOFT TISSUES: No gross mass or suggestion of organomegaly. HARDWARE: Clips right upper quadrant. Nasogastric tube. BONES: No acute fracture. No worrisome bone lesions. OTHER: No other significant finding. IMPRESSION: Ileus or partial small bowel obstruction. TECHNICAL DOCUMENTATION: JOB ID: [id number] [employer]- All Rights Reserved Reading location - IP/workstation name: [email or web address]
--- NOTE | 2018-07-03 13:02 | PDOC PROGRESS REPORT ---
Subjective Progress Note for:: 07/03/18 Subjective:: Patient has been examined 2 times today once at 720 and once at 1230. Patient was heavily dosed with Dilaudid earlier; she is now communicative but confused and disoriented. She still complaining of abdominal pain. She denies flatus or stool. Nasogastric tube has drained over 1500 since insertion. Reason For Visit: SMALL BOWEL OBSTRUCTION, ASPIRATION PNEUMONIA, Physical Exam Vital Signs: Temp Pulse Resp BP Pulse Ox 98.4 F 110 H 18 135/49 H 98 07/03/18 10:49 07/03/18 10:49 07/03/18 10:49 07/03/18 10:49 07/03/18 10:49 Intake & Output 07/02/18 07/03/18 07/04/18 06:59 06:59 06:59 Intake Total 557 643 Output Total 500 Balance 557 143 Weight 68.039 kg General appearance: PRESENT: no acute distress, other - Patient is examined in the hospital bed. No immediate distress GI/Abdominal exam: PRESENT: other - Abdomen is soft not distended tender but no rigidity no lalit guarding Results Laboratory Results: 07/03/18 07:26 07/03/18 07:26 07/02/18 07/02/18 07/02/18 18:55 18:55 18:55 WBC 16.9 H RBC 3.66 L Hgb 10.3 L Hct 31.1 L MCV 85 MCH 28.1 MCHC 33.0 RDW 14.5 H Plt Count 327 Seg Neutrophils % Not Reportable Lymphocytes % Not Reportable Monocytes % Not Reportable Eosinophils % Not Reportable Basophils % Not Reportable Absolute Neutrophils Not Reportable Absolute Lymphocytes Not Reportable Absolute Monocytes Not Reportable Absolute Eosinophils Not Reportable Absolute Basophils Not Reportable Sodium 135.4 L Potassium 3.8 Chloride 97 L Carbon Dioxide 28 Anion Gap 10 BUN 43 H Creatinine 2.06 H Est GFR ( Amer) 28 L Est GFR (Non-Af Amer) 23 L Glucose 132 H Lactic Acid Calcium 9.2 Phosphorus 4.6 H Magnesium 1.7 Total Bilirubin 0.7 AST 18 ALT 11 Alkaline Phosphatase 66 Ammonia Total Protein 7.4 Albumin 3.6 Triglycerides Cholesterol LDL Cholesterol Direct VLDL Cholesterol HDL Cholesterol Amylase 57 Lipase 45.9 46.9 TSH Free T4 Urine Color Urine Appearance Urine pH Ur Specific [place] Urine Protein Urine Glucose (UA) Urine Ketones Urine Blood Urine Nitrite Ur Leukocyte Esterase Urine WBC (Auto) Urine RBC (Auto) 07/02/18 07/02/18 07/02/18 21:30 21:30 23:17 WBC RBC Hgb Hct MCV MCH MCHC RDW Plt Count Seg Neutrophils % Lymphocytes % Monocytes % Eosinophils % Basophils % Absolute Neutrophils Absolute Lymphocytes Absolute Monocytes Absolute Eosinophils Absolute Basophils Sodium Potassium Chloride Carbon Dioxide Anion Gap BUN Creatinine Est GFR ( Amer) Est GFR (Non-Af Amer) Glucose Lactic Acid 1.1 Calcium Phosphorus Magnesium Total Bilirubin AST ALT Alkaline Phosphatase Ammonia < 8.7 L Total Protein Albumin Triglycerides Cholesterol LDL Cholesterol Direct VLDL Cholesterol HDL Cholesterol Amylase Lipase TSH Free T4 Urine Color YELLOW Urine Appearance SLIGHTLY-CLOUDY Urine pH 5.0 Ur Specific [place] 1.014 Urine Protein 30 H Urine Glucose (UA) NEGATIVE Urine Ketones NEGATIVE Urine Blood MODERATE H Urine Nitrite NEGATIVE Ur Leukocyte Esterase NEGATIVE Urine WBC (Auto) 9 Urine RBC (Auto) 30 07/02/18 07/03/18 07/03/18 23:17 07:26 07:26 WBC 15.2 H RBC 4.34 Hgb 12.3 Hct 36.7 MCV 85 MCH 28.2 MCHC 33.4 RDW 14.9 H Plt Count 300 Seg Neutrophils % Not Reportable Lymphocytes % Not Reportable Monocytes % Not Reportable Eosinophils % Not Reportable Basophils % Not Reportable Absolute Neutrophils Not Reportable Absolute Lymphocytes Not Reportable Absolute Monocytes Not Reportable Absolute Eosinophils Not Reportable Absolute Basophils Not Reportable Sodium 136.3 L Potassium 3.7 Chloride 99 Carbon Dioxide 23 Anion Gap 14 BUN 43 H Creatinine 1.97 H Est GFR ( Amer) 30 L Est GFR (Non-Af Amer) 25 L Glucose 159 H Lactic Acid Calcium 9.0 Phosphorus Magnesium Total Bilirubin 0.6 AST 23 ALT 14 Alkaline Phosphatase 62 Ammonia Total Protein 7.1 Albumin 3.5 Triglycerides 78 Cholesterol 83.29 LDL Cholesterol Direct 35 VLDL Cholesterol 16.0 HDL Cholesterol 34 L Amylase Lipase TSH 7.26 H Free T4 1.63 Urine Color Urine Appearance Urine pH Ur Specific [place] Urine Protein Urine Glucose (UA) Urine Ketones Urine Blood Urine Nitrite Ur Leukocyte Esterase Urine WBC (Auto) Urine RBC (Auto) 07/02/18 07/02/18 07/02/18 18:55 18:55 18:55 Creatine Kinase 23 L CK-MB (CK-2) 0.67 Troponin I 0.022 0.020 NT-Pro-B Natriuret Pep 9510 H 07/03/18 07/03/18 00:55 07:26 Creatine Kinase CK-MB (CK-2) 0.87 1.03 Troponin I 0.016 0.029 NT-Pro-B Natriuret Pep Impressions: Abdomen/Pelvis CT 07/02/18 19:30 IMPRESSION: Multiple dilated loops of proximal and mid small bowel are seen with normal caliber distal small bowel and suggestive of developing small bowel obstruction The right kidney severely atrophic. Images through the lung bases show small right-sided and moderate left-sided pleural effusion. There is presence of bilateral lower lobe infiltrate/atelectasis. Mild infiltrate/atelectasis is also seen in the right middle lobe. Reticular nodular infiltrates are seen in the inferior aspect of the right upper lobe of the lung. Large bowel diverticulosis, without acute diverticulitis Chest X-Ray 07/02/18 22:42 IMPRESSION: Tip of the enteric tube likely in the body of the stomach. Other findings are grossly stable copyright 2011 [employer]- All Rights Reserved Abdomen X-Ray 07/03/18 06:00 IMPRESSION: Ileus or partial small bowel obstruction. Assessment & Plan - Diagnosis (1) Abdominal pain Qualifiers: Abdominal location: lower abdomen, unspecified Qualified Code(s): R10.30 - Lower abdominal pain, unspecified Is this a current diagnosis for this admission?: Yes Plan: Impression: Likely due to partial small bowel obstruction possibly related to adhesions. Clinically patient appears better but not resolved; abdominal x-rays suggest ileus versus incomplete obstruction as there is some gas and stool in the left colon. Patient does not have peritoneal signs, and does not have a progressive acidosis Recommendations: 1. Hold the course; continue IV fluids, n.p.o., nasogastric decompression and [place] catheter monitoring of urine output 2. Check abdominal films in the morning and patient's clinical condition. If either deteriorates, exploratory surgery may be required. This was discussed at length with patient's as patient does not have the cognitive function to understand to decision making related to her acute situation.
--- NOTE | 2018-07-03 21:53 | PDOC H&P ---
History of Present Illness Admission Date/PCP: 07/02/18 23:05 Bill BARBA MD History of Present Illness: SID MARTINEZ is a 78 year old female, She has a history of type 2 diabetes mellitus, chronic kidney disease stage III, atrophic right kidney, history of recurrent exudative pleural effusion, she came to the emergency room for evaluation of abdominal pain, CT scan of the abdomen and pelvis was done showed small bowel obstruction there is also suggestion of pneumonia on chest imaging Past Medical History Cardiac Medical History: Reports: Atrial Fibrillation, Coronary Artery Disease, Hyperlipidema, Hypertension Pulmonary Medical History: Reports: Chronic Obstructive Pulmonary Disease (COPD) Endocrine Medical History: Reports: Diabetes Mellitus Type 2 GI Medical History: Musculoskeltal Medical History: Reports: Arthritis - POSSIBLY Traumatic Medical History: Denies: Traumatic Brain Injury Hematology: Reports: Anemia Past Surgical History Past Surgical History: Reports: Cholecystectomy, Orthopedic Surgery - left hip Denies: Hysterectomy Social History Smoking Status: Former Smoker Frequency of Alcohol Use: None Hx Recreational Drug Use: No Drugs: None Hx Prescription Drug Abuse: No - Advance Directive Resuscitation Status: Full Code Family History Family History: DM, Hypertension Parental Family History Reviewed: Yes Children Family History Reviewed: Yes Sibling(s) Family History Reviewed.: Yes Medication/Allergy Home Medications: Atorvastatin Calcium [Lipitor 10 mg Tablet] 10 mg PO QHS 07/03/18 Diltiazem HCl [Diltiazem 24Hr ER] 180 mg PO DAILY 07/03/18 Fluticasone/Salmeterol [Advair 250-50 Diskus 14 Dose/Diskus] 1 puff IH BID 07/03/18 Gabapentin [Neurontin 300 mg Capsule] 300 mg PO DAILY 07/03/18 Glipizide [Glocotrol 5 Mg Tablet] 5 mg PO Q12 07/03/18 Hydralazine HCl 100 mg PO Q12 07/03/18 Isosorbide Mononitrate [Imdur 30 mg Tablet.er] 90 mg PO DAILY 07/03/18 Levothyroxine Sodium 150 mcg PO DAILY 07/03/18 Linagliptin [Tradjenta] 5 mg PO DAILY 07/03/18 Metoprolol Succinate 200 mg PO DAILY 07/03/18 Nitroglycerin [Nitrostat 0.4 mg (1/150 Gr) Tabs 25/Bottle] 1 tab SL Q5MP PRN 07/03/18 Raloxifene HCl [Evista 60 mg Tablet] 60 mg PO DAILY 07/03/18 Tiotropium [place] [Spiriva Handihaler 5 Cap/Kit (18 Mcg/Cap)] 1 cap IH DAILY 07/03/18 Allergies/Adverse Reactions: No Known Allergies Allergy (Verified 06/12/18 13:04) Review of Systems Constitutional: ABSENT: chills, fever(s), headache(s), weight gain, weight loss Eyes: ABSENT: visual disturbances Ears: ABSENT: hearing changes Cardiovascular: ABSENT: chest pain, dyspnea on exertion, edema, orthropnea, palpitations Respiratory: PRESENT: cough. ABSENT: hemoptysis Gastrointestinal: PRESENT: abdominal pain. ABSENT: constipation, diarrhea, hematemesis, hematochezia, nausea, vomiting Genitourinary: ABSENT: dysuria, hematuria Musculoskeletal: ABSENT: joint swelling Integumentary: ABSENT: rash, wounds Neurological: ABSENT: abnormal gait, abnormal speech, confusion, dizziness, focal weakness, syncope Psychiatric: ABSENT: anxiety, depression, homidical ideation, suicidal ideation Endocrine: ABSENT: cold intolerance, heat intolerance, menstrual abnormalities, polydipsia, polyuria Hematologic/Lymphatic: ABSENT: easy bleeding, easy bruising, lymphadenopathy Physical Exam Vital Signs: Temp Pulse Resp BP Pulse Ox 98.1 F 113 H 18 137/62 H 95 07/03/18 19:39 07/03/18 19:39 07/03/18 19:39 07/03/18 19:39 07/03/18 19:39 Intake & Output 07/02/18 07/03/18 07/04/18 06:59 06:59 06:59 Intake Total 557 1643 Output Total 900 Balance 557 743 Weight 68.039 kg General appearance: PRESENT: no acute distress, well-developed, well-nourished Head exam: PRESENT: atraumatic, normocephalic Eye exam: PRESENT: conjunctiva pink, EOMI, PERRLA Ear exam: PRESENT: normal external ear exam Mouth exam: PRESENT: moist Neck exam: PRESENT: full ROM Respiratory exam: PRESENT: clear to auscultation frida Cardiovascular exam: PRESENT: RRR, +S1, +S2 Vascular exam: PRESENT: normal capillary refill GI/Abdominal exam: PRESENT: normal bowel sounds, soft, tenderness Rectal exam: PRESENT: deferred Neurological exam: PRESENT: alert, awake, oriented to person, oriented to place, oriented to time, oriented to situation, CN II-XII grossly intact Skin exam: PRESENT: dry, intact, warm. ABSENT: cyanosis, rash Results Laboratory Results: 07/03/18 07:26 07/03/18 07:26 07/02/18 07/02/18 07/02/18 18:55 21:30 21:30 WBC RBC Hgb Hct MCV MCH MCHC RDW Plt Count Seg Neutrophils % Lymphocytes % Monocytes % Eosinophils % Basophils % Absolute Neutrophils Absolute Lymphocytes Absolute Monocytes Absolute Eosinophils Absolute Basophils Sodium Potassium Chloride Carbon Dioxide Anion Gap BUN Creatinine Est GFR ( Amer) Est GFR (Non-Af Amer) Glucose Lactic Acid 1.1 Calcium Phosphorus 4.6 H Magnesium 1.7 Total Bilirubin AST ALT Alkaline Phosphatase Ammonia Total Protein Albumin Triglycerides Cholesterol LDL Cholesterol Direct VLDL Cholesterol HDL Cholesterol Amylase 57 Lipase 46.9 TSH Free T4 Urine Color YELLOW Urine Appearance SLIGHTLY-CLOUDY Urine pH 5.0 Ur Specific [place] 1.014 Urine Protein 30 H Urine Glucose (UA) NEGATIVE Urine Ketones NEGATIVE Urine Blood MODERATE H Urine Nitrite NEGATIVE Ur Leukocyte Esterase NEGATIVE Urine WBC (Auto) 9 Urine RBC (Auto) 30 07/02/18 07/02/18 07/03/18 23:17 23:17 07:26 WBC 15.2 H RBC 4.34 Hgb 12.3 Hct 36.7 MCV 85 MCH 28.2 MCHC 33.4 RDW 14.9 H Plt Count 300 Seg Neutrophils % Not Reportable Lymphocytes % Not Reportable Monocytes % Not Reportable Eosinophils % Not Reportable Basophils % Not Reportable Absolute Neutrophils Not Reportable Absolute Lymphocytes Not Reportable Absolute Monocytes Not Reportable Absolute Eosinophils Not Reportable Absolute Basophils Not Reportable Sodium Potassium Chloride Carbon Dioxide Anion Gap BUN Creatinine Est GFR ( Amer) Est GFR (Non-Af Amer) Glucose Lactic Acid Calcium Phosphorus Magnesium Total Bilirubin AST ALT Alkaline Phosphatase Ammonia < 8.7 L Total Protein Albumin Triglycerides Cholesterol LDL Cholesterol Direct VLDL Cholesterol HDL Cholesterol Amylase Lipase TSH 7.26 H Free T4 1.63 Urine Color Urine Appearance Urine pH Ur Specific [place] Urine Protein Urine Glucose (UA) Urine Ketones Urine Blood Urine Nitrite Ur Leukocyte Esterase Urine WBC (Auto) Urine RBC (Auto) 07/03/18 07:26 WBC RBC Hgb Hct MCV MCH MCHC RDW Plt Count Seg Neutrophils % Lymphocytes % Monocytes % Eosinophils % Basophils % Absolute Neutrophils Absolute Lymphocytes Absolute Monocytes Absolute Eosinophils Absolute Basophils Sodium 136.3 L Potassium 3.7 Chloride 99 Carbon Dioxide 23 Anion Gap 14 BUN 43 H Creatinine 1.97 H Est GFR ( Amer) 30 L Est GFR (Non-Af Amer) 25 L Glucose 159 H Lactic Acid Calcium 9.0 Phosphorus Magnesium Total Bilirubin 0.6 AST 23 ALT 14 Alkaline Phosphatase 62 Ammonia Total Protein 7.1 Albumin 3.5 Triglycerides 78 Cholesterol 83.29 LDL Cholesterol Direct 35 VLDL Cholesterol 16.0 HDL Cholesterol 34 L Amylase Lipase TSH Free T4 Urine Color Urine Appearance Urine pH Ur Specific [place] Urine Protein Urine Glucose (UA) Urine Ketones Urine Blood Urine Nitrite Ur Leukocyte Esterase Urine WBC (Auto) Urine RBC (Auto) 07/02/18 07/02/18 07/02/18 18:55 18:55 18:55 Creatine Kinase 23 L CK-MB (CK-2) 0.67 Troponin I 0.022 0.020 NT-Pro-B Natriuret Pep 9510 H 07/03/18 07/03/18 00:55 07:26 Creatine Kinase CK-MB (CK-2) 0.87 1.03 Troponin I 0.016 0.029 NT-Pro-B Natriuret Pep Impressions: Abdomen/Pelvis CT 07/02/18 19:30 IMPRESSION: Multiple dilated loops of proximal and mid small bowel are seen with normal caliber distal small bowel and suggestive of developing small bowel obstruction The right kidney severely atrophic. Images through the lung bases show small right-sided and moderate left-sided pleural effusion. There is presence of bilateral lower lobe infiltrate/atelectasis. Mild infiltrate/atelectasis is also seen in the right middle lobe. Reticular nodular infiltrates are seen in the inferior aspect of the right upper lobe of the lung. Large bowel diverticulosis, without acute diverticulitis Chest X-Ray 07/02/18 22:42 IMPRESSION: Tip of the enteric tube likely in the body of the stomach. Other findings are grossly stable copyright 2011 [employer]- All Rights Reserved Abdomen X-Ray 07/03/18 06:00 IMPRESSION: Ileus or partial small bowel obstruction. Assessment & Plan - Diagnosis (1) Small bowel obstruction Is this a current diagnosis for this admission?: Yes Plan: Past NG tube (2) Pneumonia Qualifiers: Pneumonia type: due to unspecified organism Laterality: bilateral Lung location: unspecified part of lung Qualified Code(s): J18.9 - Pneumonia, unspecified organism Is this a current diagnosis for this admission?: Yes Plan: This is probably aspiration pneumonia, in the setting of small bowel obstruction, start broad-spectrum antibiotic (3) Aspiration pneumonia Qualifiers: Aspiration pneumonia type: unspecified Laterality: bilateral Lung location: unspecified part of lung Qualified Code(s): J69.0 - Pneumonitis due to inhalation of food and vomit Is this a current diagnosis for this admission?: Yes (4) Chronic atrial fibrillation Is this a current diagnosis for this admission?: Yes
--- NOTE | 2018-07-03 21:56 | PDOC PROGRESS REPORT ---
Subjective Progress Note for:: 07/03/18 Subjective:: Patient was admitted yesterday for the management of small bowel obstruction, aspiration pneumonia Reason For Visit: SMALL BOWEL OBSTRUCTION, ASPIRATION PNEUMONIA, Physical Exam Vital Signs: Temp Pulse Resp BP Pulse Ox 98.1 F 113 H 18 137/62 H 95 07/03/18 19:39 07/03/18 19:39 07/03/18 19:39 07/03/18 19:39 07/03/18 19:39 Intake & Output 07/02/18 07/03/18 07/04/18 06:59 06:59 06:59 Intake Total 557 1643 Output Total 900 Balance 557 743 Weight 68.039 kg General appearance: PRESENT: no acute distress Eye exam: PRESENT: PERRLA Respiratory exam: PRESENT: clear to auscultation frida Cardiovascular exam: PRESENT: +S1, +S2 GI/Abdominal exam: PRESENT: soft Neurological exam: PRESENT: alert Results Laboratory Results: 07/03/18 07:26 07/03/18 07:26 07/02/18 07/02/18 07/02/18 18:55 21:30 23:17 WBC RBC Hgb Hct MCV MCH MCHC RDW Plt Count Seg Neutrophils % Lymphocytes % Monocytes % Eosinophils % Basophils % Absolute Neutrophils Absolute Lymphocytes Absolute Monocytes Absolute Eosinophils Absolute Basophils Sodium Potassium Chloride Carbon Dioxide Anion Gap BUN Creatinine Est GFR ( Amer) Est GFR (Non-Af Amer) Glucose Lactic Acid 1.1 Calcium Phosphorus 4.6 H Magnesium 1.7 Total Bilirubin AST ALT Alkaline Phosphatase Ammonia < 8.7 L Total Protein Albumin Triglycerides Cholesterol LDL Cholesterol Direct VLDL Cholesterol HDL Cholesterol Amylase 57 Lipase 46.9 TSH Free T4 07/02/18 07/03/18 07/03/18 23:17 07:26 07:26 WBC 15.2 H RBC 4.34 Hgb 12.3 Hct 36.7 MCV 85 MCH 28.2 MCHC 33.4 RDW 14.9 H Plt Count 300 Seg Neutrophils % Not Reportable Lymphocytes % Not Reportable Monocytes % Not Reportable Eosinophils % Not Reportable Basophils % Not Reportable Absolute Neutrophils Not Reportable Absolute Lymphocytes Not Reportable Absolute Monocytes Not Reportable Absolute Eosinophils Not Reportable Absolute Basophils Not Reportable Sodium 136.3 L Potassium 3.7 Chloride 99 Carbon Dioxide 23 Anion Gap 14 BUN 43 H Creatinine 1.97 H Est GFR ( Amer) 30 L Est GFR (Non-Af Amer) 25 L Glucose 159 H Lactic Acid Calcium 9.0 Phosphorus Magnesium Total Bilirubin 0.6 AST 23 ALT 14 Alkaline Phosphatase 62 Ammonia Total Protein 7.1 Albumin 3.5 Triglycerides 78 Cholesterol 83.29 LDL Cholesterol Direct 35 VLDL Cholesterol 16.0 HDL Cholesterol 34 L Amylase Lipase TSH 7.26 H Free T4 1.63 07/02/18 07/02/18 07/02/18 18:55 18:55 18:55 Creatine Kinase 23 L CK-MB (CK-2) 0.67 Troponin I 0.022 0.020 NT-Pro-B Natriuret Pep 9510 H 07/03/18 07/03/18 00:55 07:26 Creatine Kinase CK-MB (CK-2) 0.87 1.03 Troponin I 0.016 0.029 NT-Pro-B Natriuret Pep Impressions: Abdomen/Pelvis CT 07/02/18 19:30 IMPRESSION: Multiple dilated loops of proximal and mid small bowel are seen with normal caliber distal small bowel and suggestive of developing small bowel obstruction The right kidney severely atrophic. Images through the lung bases show small right-sided and moderate left-sided pleural effusion. There is presence of bilateral lower lobe infiltrate/atelectasis. Mild infiltrate/atelectasis is also seen in the right middle lobe. Reticular nodular infiltrates are seen in the inferior aspect of the right upper lobe of the lung. Large bowel diverticulosis, without acute diverticulitis Chest X-Ray 07/02/18 22:42 IMPRESSION: Tip of the enteric tube likely in the body of the stomach. Other findings are grossly stable copyright 2011 [employer]- All Rights Reserved Abdomen X-Ray 07/03/18 06:00 IMPRESSION: Ileus or partial small bowel obstruction. Assessment & Plan - Diagnosis (1) Small bowel obstruction Is this a current diagnosis for this admission?: Yes (2) Pneumonia Qualifiers: Pneumonia type: due to unspecified organism Laterality: bilateral Lung location: unspecified part of lung Qualified Code(s): J18.9 - Pneumonia, un specified organism Is this a current diagnosis for this admission?: Yes (3) Aspiration pneumonia Qualifiers: Aspiration pneumonia type: unspecified Laterality: bilateral Lung location: unspecified part of lung Qualified Code(s): J69.0 - Pneumonitis due to inhalation of food and vomit Is this a current diagnosis for this admission?: Yes (4) Chronic atrial fibrillation Is this a current diagnosis for this admission?: Yes - Plan Summary Plan Summary: Continue treatment
[2018-07-03] MEDS ORDERED: ERTAPENEM SODIUM 1 GM in NORMAL SALINE 50 ML IV SCH (22:00)
[2018-07-04] MEDS ORDERED: DEXTROSE 40% GEL 15 GM TUBE X 2 PO PRN (00:30)
[2018-07-04] MEDS ORDERED: DEXTROSE 50%-WATER SYRINGE 12.5 GM/25 ML DOSE IV PRN (00:30)
[2018-07-04] MEDS ORDERED: GLUCAGON,HUMAN RECOMB 1 MG INJ IM PRN (00:30)
[2018-07-04] MEDS ORDERED: DEXTROSE 40% GEL 15 GM TUBE PO PRN (00:30)
[2018-07-04] MEDS ORDERED: DEXTROSE 50%-WATER SYRINGE 25 GM/50 ML DOSE IV PRN (00:30)
[2018-07-04] MEDS ORDERED: DILTIAZEM HCL/D5W 125 MG/125 ML RTUINJ IV ONE (03:55)
[2018-07-04] MEDS: DILTIAZEM HCL/D5W 125 MG/125 ML RTUINJ IV PRN ×3 (04:45→22:03)
[2018-07-04] MEDS: RINGERS SOLUTION,LACTATED 1,000 ML IV PRN ×2 (06:13→15:22)
[2018-07-04 06:34] LABS: HEMATOCRIT 29.2 % (36.0-47.0); MEAN CORPUSCULAR HEMOGLOBIN 28.6 pg (27.0-33.4); MEAN CORPUSCULAR HGB CONC 33.9 g/dL (32.0-36.0); MEAN CORPUSCULAR VOLUME 85 fl (80-97); PLATELET COUNT 271 10^3/uL (150-450); RED BLOOD COUNT 3.46 10^6/uL (3.72-5.28)
[2018-07-04 06:40] LABS: HEMOGLOBIN 9.9 g/dL (12.0-15.5)
[2018-07-04 07:01] LABS: ALANINE AMINOTRANSFERASE 57 U/L (9-52); ALBUMIN 2.5 g/dL (3.5-5.0); ALKALINE PHOSPHATASE 44 U/L (38-126); ANION GAP 13 (5-19); ASPARTATE AMINO TRANSFERASE 102 U/L (14-36); BILIRUBIN,DIRECT 0.5 mg/dL (0.0-0.4); BILIRUBIN,TOTAL 0.6 mg/dL (0.2-1.3); BLOOD UREA NITROGEN 56 mg/dL (7-20); CALCIUM 8.5 mg/dL (8.4-10.2); CARBON DIOXIDE 21 mmol/L (22-30); CHLORIDE 103 mmol/L (98-107); GLUCOSE 71 mg/dL (75-110); SODIUM 136.8 mmol/L (137-145); TOTAL PROTEIN 5.4 g/dL (6.3-8.2)
[2018-07-04 07:07] LABS: ABSOLUTE LYMPHOCYTES# (MANUAL) 0.4 10^3/uL (0.5-4.7); ABSOLUTE MONOCYTES # (MANUAL) 1.3 10^3/uL (0.1-1.4); ABSOLUTE NEUTROPHILS# (MANUAL) 20.2 10^3/uL (1.7-8.2); BAND NEUTROPHILS % (MANUAL) 33 % (3-5); BASOPHILS % (MANUAL) 0 % (0-2); EOSINOPHILS % (MANUAL) 0 % (0-6); LYMPHOCYTES % (MANUAL) 2 % (13-45); METAMYELOCYTES % (MANUAL) 4 % (0); MONOCYTES % (MANUAL) 6 % (3-13); SEGMENTED NEUTROPHILS % (MAN) 55 % (42-78); TOTAL CELLS COUNTED 100
[2018-07-04 07:08] LABS: ANISOCYTOSIS SLIGHT; PLATELET COMMENT ADEQUATE; POLYCHROMASIA 1+; TOXIC GRANULATION 2+; TOXIC VACUOLATION PRESENT
[2018-07-04 07:10] LABS: HYPOCHROMASIA SLIGHT
--- NOTE | 2018-07-04 10:43 | PDOC PROGRESS REPORT ---
Subjective Progress Note for:: 07/04/18 Subjective:: feels better today compared to yesterday. Less pains Reason For Visit: SMALL BOWEL OBSTRUCTION, ASPIRATION PNEUMONIA, Physical Exam Vital Signs: Temp Pulse Resp BP Pulse Ox 98.7 F 108 H 28 H 124/75 95 07/04/18 07:15 07/04/18 07:15 07/04/18 07:15 07/04/18 07:15 07/04/18 07:15 Intake & Output 07/03/18 07/04/18 07/05/18 06:59 06:59 06:59 Intake Total 557 2693 Output Total 1825 200 Balance 557 868 -200 Weight 68.039 kg 65.8 kg Exam: abdomen is soft but tender Upper Quadrants and LLQ. No flatus/BM today NGT 300 ccs since last night. Results Laboratory Results: 07/04/18 05:52 07/04/18 05:52 07/04/18 07/04/18 05:52 05:52 WBC 22.0 H RBC 3.46 L Hgb 9.9 L D Hct 29.2 L MCV 85 MCH 28.6 MCHC 33.9 RDW 15.0 H Plt Count 271 Seg Neutrophils % Not Reportable Lymphocytes % Not Reportable Monocytes % Not Reportable Eosinophils % Not Reportable Basophils % Not Reportable Absolute Neutrophils Not Reportable Absolute Lymphocytes Not Reportable Absolute Monocytes Not Reportable Absolute Eosinophils Not Reportable Absolute Basophils Not Reportable Sodium 136.8 L Potassium 4.0 Chloride 103 Carbon Dioxide 21 L Anion Gap 13 BUN 56 H Creatinine 2.61 H Est GFR ( Amer) 22 L Est GFR (Non-Af Amer) 18 L Glucose 71 L Calcium 8.5 Total Bilirubin 0.6 AST 102 H ALT 57 H Alkaline Phosphatase 44 Total Protein 5.4 L Albumin 2.5 L 07/02/18 07/02/18 07/02/18 18:55 18:55 18:55 Creatine Kinase 23 L CK-MB (CK-2) 0.67 Troponin I 0.022 0.020 NT-Pro-B Natriuret Pep 9510 H 07/03/18 07/03/18 00:55 07:26 Creatine Kinase CK-MB (CK-2) 0.87 1.03 Troponin I 0.016 0.029 NT-Pro-B Natriuret Pep Impressions: Abdomen/Pelvis CT 07/02/18 19:30 IMPRESSION: Multiple dilated loops of proximal and mid small bowel are seen with normal caliber distal small bowel and suggestive of developing small bowel obstruction The right kidney severely atrophic. Images through the lung bases show small right-sided and moderate left-sided pleural effusion. There is presence of bilateral lower lobe infiltrate/atelectasis. Mild infiltrate/atelectasis is also seen in the right middle lobe. Reticular nodular infiltrates are seen in the inferior aspect of the right upper lobe of the lung. Large bowel diverticulosis, without acute diverticulitis Chest X-Ray 07/02/18 22:42 IMPRESSION: Tip of the enteric tube likely in the body of the stomach. Other findings are grossly stable copyright 2011 [employer]- All Rights Reserved Abdomen X-Ray 07/03/18 06:00 IMPRESSION: Ileus or partial small bowel obstruction. Assessment & Plan - Time Time Spent with patient: 15-24 minutes - Inpatient Certification Medical Necessity: Need Close Monitoring Due to Risk of Patient Decompensation, Need For IV Fluids, Need for Pain Control, Need for IV Antibiotics - Plan Summary Plan Summary: Check abdominal Films Continue IV antibiotics.
[2018-07-04 11:17] LABS: PATH REVIEW PATHOLOGIST REVIEWED
--- NOTE | 2018-07-04 12:29 | RADIOLOGY REPORT (SQ) ---
EXAM DESCRIPTION: ABDOMEN 2 VIEWS COMPLETED DATE/TIME: 07/04/2018 11:51 am REASON FOR STUDY: SBO COMPARISON: Previous day NUMBER OF VIEWS: Two views. TECHNIQUE: Supine and erect/decubitus radiographic images of the abdomen acquired. LIMITATIONS: None. FINDINGS: FREE AIR: None. No abnormal gas collections. LUNG BASES: Unchanged pleural effusions. BOWEL GAS PATTERN: Nasogastric tube position unchanged. Mildly dilated loops of small bowel without progression. Fecal material ascending and descending colon. CALCIFICATIONS: No suspicious calcifications. SOFT TISSUES: No gross mass or suggestion of organomegaly. HARDWARE: Lofton catheter. BONES: No acute fracture. No worrisome bone lesions. OTHER: No other significant finding. IMPRESSION: Ileus or partial small bowel obstruction. No significant change. TECHNICAL DOCUMENTATION: JOB ID: [id number] [employer]- All Rights Reserved Reading location - IP/workstation name: [email or web address]
[2018-07-04] MEDS ORDERED: NORMAL SALINE 1000 ML 1,000 ML IV PRN (19:04)
--- NOTE | 2018-07-04 21:05 | PDOC PROGRESS REPORT ---
Subjective Progress Note for:: 07/04/18 Subjective:: Patient was seen by the bedside NG tube still in place,She is getting multiple x-rays Reason For Visit: SMALL BOWEL OBSTRUCTION, ASPIRATION PNEUMONIA, Physical Exam Vital Signs: Temp Pulse Resp BP Pulse Ox 98.4 F 120 H 28 H 143/50 H 96 07/04/18 15:14 07/04/18 16:45 07/04/18 15:14 07/04/18 18:13 07/04/18 15:14 Intake & Output 07/03/18 07/04/18 07/05/18 06:59 06:59 06:59 Intake Total 557 2693 1082 Output Total 1825 425 Balance 557 868 657 Weight 68.039 kg 65.8 kg General appearance: PRESENT: no acute distress Eye exam: PRESENT: PERRLA Respiratory exam: PRESENT: rhonchi Cardiovascular exam: PRESENT: +S1, +S2 GI/Abdominal exam: PRESENT: tenderness Neurological exam: PRESENT: alert Results Laboratory Results: 07/04/18 05:52 07/04/18 05:52 07/04/18 07/04/18 05:52 05:52 WBC 22.0 H RBC 3.46 L Hgb 9.9 L D Hct 29.2 L MCV 85 MCH 28.6 MCHC 33.9 RDW 15.0 H Plt Count 271 Seg Neutrophils % Not Reportable Lymphocytes % Not Reportable Monocytes % Not Reportable Eosinophils % Not Reportable Basophils % Not Reportable Absolute Neutrophils Not Reportable Absolute Lymphocytes Not Reportable Absolute Monocytes Not Reportable Absolute Eosinophils Not Reportable Absolute Basophils Not Reportable Sodium 136.8 L Potassium 4.0 Chloride 103 Carbon Dioxide 21 L Anion Gap 13 BUN 56 H Creatinine 2.61 H Est GFR ( Amer) 22 L Est GFR (Non-Af Amer) 18 L Glucose 71 L Calcium 8.5 Total Bilirubin 0.6 AST 102 H ALT 57 H Alkaline Phosphatase 44 Total Protein 5.4 L Albumin 2.5 L 07/02/18 07/02/18 07/02/18 18:55 18:55 18:55 Creatine Kinase 23 L CK-MB (CK-2) 0.67 Troponin I 0.022 0.020 NT-Pro-B Natriuret Pep 9510 H 07/03/18 07/03/18 00:55 07:26 Creatine Kinase CK-MB (CK-2) 0.87 1.03 Troponin I 0.016 0.029 NT-Pro-B Natriuret Pep Impressions: Abdomen/Pelvis CT 07/02/18 19:30 IMPRESSION: Multiple dilated loops of proximal and mid small bowel are seen with normal caliber distal small bowel and suggestive of developing small bowel obstruction The right kidney severely atrophic. Images through the lung bases show small right-sided and moderate left-sided pleural effusion. There is presence of bilateral lower lobe infiltrate/atelectasis. Mild infiltrate/atelectasis is also seen in the right middle lobe. Reticular nodular infiltrates are seen in the inferior aspect of the right upper lobe of the lung. Large bowel diverticulosis, without acute diverticulitis Chest X-Ray 07/02/18 22:42 IMPRESSION: Tip of the enteric tube likely in the body of the stomach. Other findings are grossly stable copyright 2011 [employer]- All Rights Reserved Abdomen X-Ray 07/04/18 00:00 IMPRESSION: Ileus or partial small bowel obstruction. No significant change. Assessment & Plan - Diagnosis (1) Small bowel obstruction Is this a current diagnosis for this admission?: Yes Plan: Continue nasogastric tube (2) Pneumonia Qualifiers: Pneumonia type: due to unspecified organism Laterality: bilateral Lung location: unspecified part of lung Qualified Code(s): J18.9 - Pneumonia, unspecified organism Is this a current diagnosis for this admission?: Yes (3) Aspiration pneumonia Qualifiers: Aspiration pneumonia type: unspecified Laterality: bilateral Lung l ocation: unspecified part of lung Qualified Code(s): J69.0 - Pneumonitis due to inhalation of food and vomit Is this a current diagnosis for this admission?: Yes Plan: Continue IV antibiotic (4) Chronic atrial fibrillation Is this a current diagnosis for this admission?: Yes
--- NOTE | 2018-07-04 21:50 | RADIOLOGY REPORT (SQ) ---
EXAM DESCRIPTION: XR CHEST 1 VIEW COMPLETED DATE/TME: 07/04/2018 00:00 CLINICAL HISTORY: 78 years Female short of breath COMPARISON: 07/03/2018. FINDINGS: Unchanged cardiac enlargement. Large caliber nasoenteric tube in place. There are bilateral pleural effusions with bilateral basilar atelectasis or infiltrate. This appears similar to the previous exam. No pneumothorax is noted. Old fracture of the proximal left humerus. IMPRESSION: Cardiac enlargement Unchanged bilateral basilar infiltrates or atelectasis with bilateral pleural effusions
[2018-07-04] MEDS ORDERED: ERTAPENEM SODIUM 0.5 GM in NORMAL SALINE 50 ML IV SCH (22:00)
[2018-07-04] MEDS: NORMAL SALINE 1000 ML 1,000 ML IV PRN (22:03)
[2018-07-04 22:15] LABS: ARTERIAL BLOOD BASE EXCESS -0.1 mmol/L; ARTERIAL BLOOD H2CO3 1.13 mmol/L (1.05-1.35); ARTERIAL BLOOD HCO3 24.1 mmol/L (20-24); ARTERIAL BLOOD PCO2 37.7 mmHg (35-45); ARTERIAL BLOOD PH 7.42 (7.35-7.45); ARTERIAL BLOOD PO2 79.4 mmHg (80-100); ARTERIAL BLOOD TOTAL CO2 25.3 mmol/L (21-25)
[2018-07-04 22:16] LABS: ARTERIAL BLOOD FIO2 2L
[2018-07-04 22:52] LABS: HEMATOCRIT 26.7 % (36.0-47.0); HEMOGLOBIN 8.9 g/dL (12.0-15.5); MEAN CORPUSCULAR HEMOGLOBIN 28.1 pg (27.0-33.4); MEAN CORPUSCULAR HGB CONC 33.5 g/dL (32.0-36.0); MEAN CORPUSCULAR VOLUME 84 fl (80-97); PLATELET COUNT 233 10^3/uL (150-450); RED BLOOD COUNT 3.18 10^6/uL (3.72-5.28); RED CELL DISTRIBUTION WIDTH 14.8 % (11.5-14.0); WHITE BLOOD COUNT 23.1 10^3/uL (4.0-10.5)
[2018-07-04] MEDS ORDERED: TIOTROPIUM BROMIDE DPI 5 CAP/KIT (18 MCG/CAP) IH ONE ×2 (23:00→23:50)
[2018-07-04 23:04] LABS: ALANINE AMINOTRANSFERASE 51 U/L (9-52); ALBUMIN 2.5 g/dL (3.5-5.0); ALKALINE PHOSPHATASE 44 U/L (38-126); ANION GAP 14 (5-19); ASPARTATE AMINO TRANSFERASE 77 U/L (14-36); BILIRUBIN,DIRECT 0.6 mg/dL (0.0-0.4); BILIRUBIN,TOTAL 0.6 mg/dL (0.2-1.3); BLOOD UREA NITROGEN 64 mg/dL (7-20); CALCIUM 8.6 mg/dL (8.4-10.2); CARBON DIOXIDE 21 mmol/L (22-30); CHLORIDE 102 mmol/L (98-107); GLUCOSE 102 mg/dL (75-110); LIPASE 15.3 U/L (23-300); SODIUM 136.6 mmol/L (137-145); TOTAL PROTEIN 5.4 g/dL (6.3-8.2)
[2018-07-04 23:08] LABS: ABSOLUTE LYMPHOCYTES# (MANUAL) 2.1 10^3/uL (0.5-4.7); ABSOLUTE MONOCYTES # (MANUAL) 1.4 10^3/uL (0.1-1.4); ABSOLUTE NEUTROPHILS# (MANUAL) 19.6 10^3/uL (1.7-8.2); AMYLASE < 30 U/L (30-110); BAND NEUTROPHILS % (MANUAL) 21 % (3-5); BASOPHILS % (MANUAL) 0 % (0-2); EOSINOPHILS % (MANUAL) 0 % (0-6); LYMPHOCYTES % (MANUAL) 9 % (13-45); METAMYELOCYTES % (MANUAL) 1 % (0); MONOCYTES % (MANUAL) 6 % (3-13); SEGMENTED NEUTROPHILS % (MAN) 63 % (42-78); TOTAL CELLS COUNTED 100
[2018-07-04] MEDS: ERTAPENEM SODIUM 0.5 GM in NORMAL SALINE 50 ML IV SCH (23:09)
[2018-07-04 23:13] LABS: ANISOCYTOSIS SLIGHT; POIKILOCYTOSIS SLIGHT; POLYCHROMASIA SLIGHT; TOXIC GRANULATION 1+
[2018-07-04 23:14] LABS: OVALOCYTES SLIGHT; PLATELET COMMENT ADEQUATE; PLATELET LARGE PRESENT
[2018-07-04] MEDS: METRONIDAZOLE 500 MG/NS RTU 500 MG/100 ML RTUPB IV SCH ×2 (23:47→23:57)
[2018-07-05] MEDS: DILTIAZEM HCL/D5W 125 MG/125 ML RTUINJ IV PRN ×4 (05:08→19:55)
[2018-07-05] MEDS: METRONIDAZOLE 500 MG/NS RTU 500 MG/100 ML RTUPB IV SCH ×4 (05:08→23:02)
[2018-07-05 06:29] LABS: HEMATOCRIT 26.8 % (36.0-47.0); MEAN CORPUSCULAR HEMOGLOBIN 28.1 pg (27.0-33.4); MEAN CORPUSCULAR HGB CONC 33.6 g/dL (32.0-36.0); MEAN CORPUSCULAR VOLUME 84 fl (80-97); PLATELET COUNT 236 10^3/uL (150-450); RED BLOOD COUNT 3.21 10^6/uL (3.72-5.28); RED CELL DISTRIBUTION WIDTH 14.9 % (11.5-14.0); WHITE BLOOD COUNT 21.2 10^3/uL (4.0-10.5)
[2018-07-05 07:05] LABS: ALANINE AMINOTRANSFERASE 54 U/L (9-52); ALBUMIN 2.5 g/dL (3.5-5.0); ALKALINE PHOSPHATASE 49 U/L (38-126); ANION GAP 12 (5-19); ASPARTATE AMINO TRANSFERASE 70 U/L (14-36); BILIRUBIN,DIRECT 0.6 mg/dL (0.0-0.4); BILIRUBIN,TOTAL 0.6 mg/dL (0.2-1.3); BLOOD UREA NITROGEN 66 mg/dL (7-20); CALCIUM 8.6 mg/dL (8.4-10.2); CARBON DIOXIDE 25 mmol/L (22-30); CHLORIDE 103 mmol/L (98-107); GLUCOSE 96 mg/dL (75-110); POTASSIUM 3.8 mmol/L (3.6-5.0); SODIUM 139.7 mmol/L (137-145); TOTAL PROTEIN 5.4 g/dL (6.3-8.2)
--- NOTE | 2018-07-05 07:57 | CONSULTATION REPORT E ---
Consultation Report NAME: SID MARTINEZ : 1940 AGE: 78Y DATE: 07/04/2018 ROOM: 326 A TO: CLINT MORGAN M.D. FROM: SONU ZAMUDIO M.D. Requesting Physician HISTORY OF PRESENT ILLNESS: The patient is a 78-year-old female who came in with severe abdominal pain, concerned because of pleural effusion. The patient claimed that she is not coughing any yellow-green phlegm this time. Denies any increased cough or purulent sputum production or hemoptysis. She came in with abdominal pain, which has been progressively worsening over the last few days. Initial workup of the abdomen showed some possible bowel obstruction. Had a CT scan done on admission which showed nonvisualization of the appendix but CT signs of diverticulosis but no signs of diverticulitis. Tonight the patient complained that abdomen seemed to be slightly better but presented with severe rebound tenderness, especially more on the right than on the left side. Has an NG tube, is currently n.p.o. NG tube is draining greenish secretions. White count has been going up from 16,900 this admission to 22,000 this morning and increasing bandemia from 1% on admission to 32% this morning, highly suggestive of severe sepsis and worsening septicemia. Blood culture was ordered on the day of admission, results are still pending. Urinalysis was also ordered showing gram-negative rods. She was started on Rocephin and azithromycin on admission, however, antibiotic was changed to ertapenem yesterday, was given 1 gram 1 dose yesterday and today changed tonight to 0.5 grams IV piggyback. No vomiting, no diarrhea. The patient claimed that she has no bowel movement since admission. PAST MEDICAL HISTORY: 1. Atrial fibrillation. 2. Coronary artery disease. 3. Hyperlipidemia. 4. Hypertension. 5. History of COPD. 6. Diabetes mellitus type 2. 7. Arthritis. 8. Traumatic brain injury. 9. Anemia. SURGICAL HISTORY: 1. Cholecystectomy. 2. Orthopedic surgery left hip. SOCIAL HISTORY: The patient is a former smoker. Denies illicit drug use of alcohol abuse. ALLERGIES: No known drug allergies. HOME MEDICATIONS: 1. Lipitor. 2. Cardizem. 3. Advair 250. 4. Gabapentin. 5. Glipizide. 6. Hydralazine. 7. Isosorbide mononitrate. 8. Synthroid. 9. Metoprolol. 10. Nitroglycerine. 11. Evista. 12. Spiriva inhaler. REVIEW OF SYSTEMS: CONSTITUTIONAL: Denies any fever, chills, headache. EYES: No jaundice or pallor. EARS, NOSE, AND THROAT: No ear discharge noted, no nasal discharge. CARDIOVASCULAR: Denies any angina. Has history of atrial fibrillation. Complains about exertional dyspnea. RESPIRATORY: Denies any worsening dyspnea. Has history of cough, but denies any purulent sputum production at this time. GASTROINTESTINAL: Worsening abdominal pain diffuse. Having bowel tenderness today. Having constipation, severe constipation. Has episodes of nausea, but no vomiting. Has NG tube placed draining dark greenish secretions. GENITOURINARY: No dysuria or hematuria. EXTREMITIES: No joint swelling. SKIN: No signs of cellulitis. CENTRAL NERVOUS SYSTEM: No evidence of abnormal gait or confusion, dizziness, or focal weakness. PHYSICAL EXAMINATION: GENERAL: The patient is awake, alert, appeared coherent, oriented x3. VITAL SIGNS: Temperature of 98.4 with a T-max of 98.6, pulse rate of 104 to 112, blood pressure is 131/39, respiratory rate is about 22 to 28. The saturation is 96% on nasal cannula 2-3 liters. EYES: No jaundice or pallor. EARS, NOSE, AND THROAT: No ear drainage. No nasal discharge. NG tube is in place. CHEST AND LUNGS: No wheezing, no rhonchi, no coarse crackles noted. CARDIOVASCULAR: S1, S2 distinct. Normal rate and regular rhythm. ABDOMEN: Flabby, hypoactive bowel sounds, and slightly distended and tender diffusely, more on the left than on the right. Had abdominal tenderness in the right side, more in the right than in the left side. EXTREMITIES: No joint swelling, no cellulitis. LABORATORY DATA: CBC done today showed white count of 22,000 from 16,900 two days ago. Hemoglobin is 9.9, hematocrit is 29.2, platelet count is 271, bands is increasing to 33,000. PT showed 15.8 two days ago, INR is 1.2 and PTT is 40.8. Chemistry done this morning showed sodium 136, potassium is 4, chloride 103, CO2 is 21, BUN is 56, creatinine is 2.61 which appeared to be worsening compared to 2 days ago, glucose is 71, and calcium is 8.5. Total bilirubin is 0.6, direct bilirubin is 0.5, SGOT is 102, SGPT is 57, and alkaline phosphatase is 44, albumin is 2.5. IMAGING STUDIES: The patient had a chest x-ray done today with some infiltrate right lung base and probably a small amount of pleural effusion on the left lung. Reviewed the CT scan performed on 07/02, about 22 days ago showing a moderate amount of pleural effusion on the right side. The patient underwent thoracentesis on the right side with drainage. No culture results noted. ASSESSMENT/PLAN: 1. Acute abdomen showing signs of acute peritonitis. Cannot rule out surgical abdomen. We contact surgeon about the patient's condition, Dr. Duncan. I do not think that infection is pulmonary. 2. Severe sepsis which seems to be worsening. Based on increasing abdominal tenderness and pain and increasing leukocytosis and bandemia. Previous antibiotic therapy may not be enough. Currently just recently was started on Invanz, second dose given today. We will add Flagyl IV 500 mg every [address] Duncan was consulted and he agreed administration of the IV Flagyl. 3. COPD. Currently stable and not in acute exacerbation. We will continue Spiriva inhaler, 1 capsule to be inhaled daily. Xopenex inhaler or nebulizer as needed as needed. 4. Recommend repeating the abdominal CT scan sometime tomorrow or in the near future, epending upon the results of the upper GI series done today to rule out bowel perforations or diverticulitis or appendicitis. Appendix was not well-visualized on the abdominal CT scan 2 days ago. DICTATING PHYSICIAN: CLINT MORGAN MD,JEMAL,MPH [id number] PHY#: [id number] ID: [id number] JOB#: [id number] ACCT: [id number] cc:CLINT MORGAN M.D. > ADRIANO
[2018-07-05 08:13] LABS: ABSOLUTE LYMPHOCYTES# (MANUAL) 1.3 10^3/uL (0.5-4.7); ABSOLUTE MONOCYTES # (MANUAL) 1.7 10^3/uL (0.1-1.4); ABSOLUTE NEUTROPHILS# (MANUAL) 18.2 10^3/uL (1.7-8.2); BAND NEUTROPHILS % (MANUAL) 19 % (3-5); BASOPHILS % (MANUAL) 0 % (0-2); EOSINOPHILS % (MANUAL) 0 % (0-6); LYMPHOCYTES % (MANUAL) 6 % (13-45); MONOCYTES % (MANUAL) 8 % (3-13); SEGMENTED NEUTROPHILS % (MAN) 67 % (42-78); TOTAL CELLS COUNTED 100
[2018-07-05 08:14] LABS: OVALOCYTES 1+; PLATELET COMMENT ADEQUATE; POIKILOCYTOSIS 1+
--- NOTE | 2018-07-05 08:50 | RADIOLOGY REPORT (SQ) ---
EXAM DESCRIPTION: SMALL BOWEL SERIES COMPLETED DATE/TIME: 07/04/2018 11:38 pm REASON FOR STUDY: R/O SBO COMPARISON: None. FLUOROSCOPY TIME: No fluoro. 6 images saved to PACS. LIMITATIONS: None. PROCEDURE: Initial legal service specialist image of abdomen acquired, followed by administration of oral contrast. Se rial radiographic images acquired. All images stored on PACS. FINDINGS: Contrast administered via the nasogastric tube. Persistent loops of dilated small bowel e vident 8.5 hours after contrast administration. No clear transition point. Abundant stool in the co alejandro. IMPRESSION: Ileus or partial small bowel obstruction without clear transition point. Repeat KUB is recommended at approximately noon today, which will be a 20 hour film. COMMENT: Quality ID [id number]: Final reports for procedures using fluoroscopy that document radiation exp osure indices, or exposure time and number of fluorographic images (if radiation exposure indices are not available) TECHNICAL DOCUMENTATION: JOB ID: [id number] 1942 [employer]- All Rights Reserved Reading location - IP/workstation name: [email or web address]
[2018-07-05] MEDS: TIOTROPIUM BROMIDE DPI 5 CAP/KIT (18 MCG/CAP) IH SCH (10:05)
[2018-07-05] MEDS ORDERED: LIDOCAINE 2% INJ-PF (20 MG/ML) 10 ML AMPUL ONE (10:06)
[2018-07-05] MEDS ORDERED: DEXMEDETOMIDINE INJ 80 MCG/20 ML VIAL IV ONE (10:07)
[2018-07-05] MEDS ORDERED: FENTANYL CITRATE INJ/PF 250 MCG/5 ML AMPULE ONE (10:07)
[2018-07-05] MEDS ORDERED: EPHEDRINE SULFATE INJ 50 MG/1 ML AMPULE ONE (10:07)
[2018-07-05] MEDS ORDERED: PROPOFOL INJ 200 MG/20 ML VIAL IV ONE (10:07)
[2018-07-05] MEDS ORDERED: ACETAMINOPHEN 1,000 MG/100 ML RTUPB IV ONE (10:07)
[2018-07-05] MEDS ORDERED: MORPHINE SULFATE 10 MG/ML INJ ONE (10:07)
[2018-07-05] MEDS ORDERED: MIDAZOLAM 2 MG/2 ML INJ ONE ×2 (10:07→10:43)
[2018-07-05] MEDS: METOPROLOL TARTRATE PF/INJ 5 MG/5 ML SDV IV SCH ×3 (10:35→20:09)
[2018-07-05] MEDS ORDERED: HYDROMORPHONE HCL INJ/PF 2 MG/ML AMPULE ONE (10:43)
[2018-07-05] MEDS ORDERED: DEXAMETHASONE SOD PHOSPHATE INJ 4 MG/1 ML VIAL ONE (10:52)
[2018-07-05] MEDS ORDERED: ONDANSETRON HCL INJ/PF 4 MG/2 ML SDV ONE (10:52)
[2018-07-05] MEDS ORDERED: ROCURONIUM BROMIDE INJ 50 MG/5 ML VIAL IV ONE (10:52)
[2018-07-05] MEDS ORDERED: SUCCINYLCHOLINE CHLORIDE INJ 200 MG/10 ML VIAL ONE (10:52)
[2018-07-05] MEDS ORDERED: BUPIVACAINE HCL 0.5 % INJ/PF 30 ML SDV ONE (11:05)
--- NOTE | 2018-07-05 12:29 | PDOC PROGRESS REPORT ---
Subjective Progress Note for:: 07/05/18 Subjective:: Patient is going for the exploratory laparotomy for the small bowel obstructions Patient seen by the pulmonary As per discussed with the patient's cardiology Dr. reynoso and suggest the preop EKG and cardiac enzyme and according to the him patient is stable at this point from a cardiac standpoint Patient was giving the Lopressor as per Dr. reynoso suggestions for the cardioprotective before the surgery Patient is currently continues on a Cardizem drip and adjust according to the heart and the blood pressures Discussed with the general surgery regarding the all this suggestions Discussed with the patient's family very extensively on the bedside regarding the patient's current conditions with the sickness and potential complications Discussed with the patient's nephrology Dr. Bills Currently denied any chest pain denied any shortness of the breath still some abdominal pain Reason For Visit: SMALL BOWEL OBSTRUCTION, ASPIRATION PNEUMONIA, Physical Exam Vital Signs: Temp Pulse Resp BP Pulse Ox 98.3 F 117 H 20 147/56 H 97 07/05/18 07:54 07/05/18 10:00 07/05/18 07:54 07/05/18 10:29 07/05/18 07:54 Intake & Output 07/04/18 07/05/18 07/06/18 06:59 06:59 06:59 Intake Total 2693 1974 82 Output Total 1825 1974 Balance 868 0 82 Weight 65.8 kg 64.3 kg General appearance: PRESENT: no acute distress Eye exam: PRESENT: PERRLA Mouth exam: PRESENT: neck supple Respiratory exam: PRESENT: decreased breath sounds Cardiovascular exam: PRESENT: +S1, +S2 GI/Abdominal exam: PRESENT: distended, hypoactive bowel sounds, tenderness Extremities exam: ABSENT: pedal edema Neurological exam: PRESENT: alert, awake, oriented to person Psychiatric exam: PRESENT: anxious Skin exam: PRESENT: dry Results Laboratory Results: 07/05/18 05:32 07/05/18 05:32 07/04/18 07/04/18 07/04/18 22:00 22:38 22:38 WBC 23.1 H RBC 3.18 L Hgb 8.9 L Hct 26.7 L MCV 84 MCH 28.1 MCHC 33.5 RDW 14.8 H Plt Count 233 Seg Neutrophils % Not Reportable Lymphocytes % Not Reportable Monocytes % Not Reportable Eosinophils % Not Reportable Basophils % Not Reportable Absolute Neutrophils Not Reportable Absolute Lymphocytes Not Reportable Absolute Monocytes Not Reportable Absolute Eosinophils Not Reportable Absolute Basophils Not Reportable Carbonic Acid 1.13 HCO3/H2CO3 Ratio 21:1 ABG pH 7.42 ABG pCO2 37.7 ABG pO2 79.4 L ABG HCO3 24.1 H ABG O2 Saturation 96.0 ABG Base Excess -0.1 FiO2 2L Sodium 136.6 L Potassium 4.0 Chloride 102 Carbon Dioxide 21 L Anion Gap 14 BUN 64 H Creatinine 2.96 H Est GFR ( Amer) 19 L Est GFR (Non-Af Amer) 15 L Glucose 102 Calcium 8.6 Total Bilirubin 0.6 AST 77 H ALT 51 Alkaline Phosphatase 44 Total Protein 5.4 L Albumin 2.5 L Amylase < 30 L Lipase 15.3 L Blood Type Antibody Screen 07/05/18 07/05/18 07/05/18 05:32 05:32 10:15 WBC 21.2 H RBC 3.21 L Hgb 9.0 L Hct 26.8 L MCV 84 MCH 28.1 MCHC 33.6 RDW 14.9 H Plt Count 236 Seg Neutrophils % Not Reportable Lymphocytes % Not Reportable Monocytes % Not Reportable Eosinophils % Not Reportable Basophils % Not Reportable Absolute Neutrophils Not Reportable Absolute Lymphocytes Not Reportable Absolute Monocytes Not Reportable Absolute Eosinophils Not Reportable Absolute Basophils Not Reportable Carbonic Acid HCO3/H2CO3 Ratio ABG pH ABG pCO2 ABG pO2 ABG HCO3 ABG O2 Saturation ABG Base Excess FiO2 Sodium 139.7 Potassium 3.8 Chloride 103 Carbon Dioxide 25 Anion Gap 12 BUN 66 H Creatinine 3.06 H Est GFR ( Amer) 18 L Est GFR (Non-Af Amer) 15 L Glucose 96 Calcium 8.6 Total Bilirubin 0.6 AST 70 H ALT 54 H Alkaline Phosphatase 49 Total Protein 5.4 L Albumin 2.5 L Amylase Lipase Blood Type B POSITIVE Antibody Screen NEGATIVE 07/02/18 21:30 Clean Catch Midstream Urine Culture - Final Klebsiella Pneumoniae 07/02/18 07/02/18 07/02/18 18:55 18:55 18:55 Creatine Kinase 23 L CK-MB (CK-2) 0.67 Troponin I 0.022 0.020 NT-Pro-B Natriuret Pep 9510 H 07/03/18 07/03/18 07/05/18 00:55 07:26 05:32 Creatine Kinase CK-MB (CK-2) 0.87 1.03 Troponin I 0.016 0.029 0.056 NT-Pro-B Natriuret Pep Impressions: Abdomen/Pelvis CT 07/02/18 19:30 IMPRESSION: Multiple dilated loops of proximal and mid small bowel are seen with normal caliber distal small bowel and suggestive of developing small bowel obstruction The right kidney severely atrophic. Images through the lung bases show small right-sided and moderate left-sided pleural effusion. There is presence of bilateral lower lobe infiltrate/atelectasis. Mild infiltrate/atelectasis is also seen in the right middle lobe. Reticular nodular infiltrates are seen in the inferior aspect of the right upper lobe of the lung. Large bowel diverticulosis, without acute diverticulitis Abdomen X-Ray 07/04/18 00:00 IMPRESSION: Ileus or partial small bowel obstruction. No significant change. Chest X-Ray 07/04/18 00:00 IMPRESSION: Cardiac enlargement Unchanged bilateral basilar infiltrates or atelectasis with bilateral pleural effusions Small Bowel X-Ray 07/04/18 00:00 IMPRESSION: Ileus or partial small bowel obstruction without clear transition point. Repeat KUB is recommended at approximately noon today, which will be a 20 hour film. Assessment & Plan - Diagnosis (1) Abdominal pain Qualifiers: Abdominal location: lower abdomen, unspecified Qualified Code(s): R10.30 - Lower abdominal pain, unspecified Is this a current diagnosis for this admission?: Yes Plan: Most likely due to the small bowel obstructions patient is going for the surgery today (2) Bilateral pleural effusion Is this a current diagnosis for this admission?: Yes Plan: The pulmonary currently all stable patient have a history of the recurrent pulmonary effusion had a chest tube placement in the past (3) Leukocytosis Qualifiers: Leukocytosis type: unspecified Qualified Code(s): D72.829 - Elevated white blood cell count, unspecified Is this a current diagnosis for this admission?: Yes Plan: Continues to IV antibiotic (4) Pneumonia Qualifiers: Pneumonia type: due to unspecified organism Laterality: bilateral Lung location: unspecified part of lung Qualified Code(s): J18.9 - Pneumonia, unspecified organism Is this a current diagnosis for this admission?: Yes Plan: on IV antibiotic follow-up with the pulmonary (5) Small bowel obstruction Is this a current diagnosis for this admission?: Yes (6) CHF (congestive heart failure) Qualifiers: Heart failure type: unspecified Heart failure chronicity: chronic Qualified Code(s): I50.9 - Heart failure, unspecified Is this a current diagnosis for this admission?: Yes Plan: As per discussed with the Dr. reynoso the patient's cardiology patient is currently stable Continues close monitor (7) Chronic atrial fibrillation Is this a current diagnosis for this admission?: Yes Plan: Continues to Cardizem drips Continues on Lopressor 5 mg IV Follow with the (8) Chronic kidney disease, stage III (moderate) Is this a current diagnosis for this admission?: Yes Plan: Recheck the patient's kidney functions consult from Dr. Bills - Time Time Spent with patient: 15-24 minutes Medications reviewed and adjusted accordingly: Yes Anticipated discharge: Other Within: Other - Plan Summary Plan Summary: Patient is going for the expiratory laparotomy Discussed with the patient's family and the bedside very extensively regarding the patient's current condition with potential complications Discussed with the surgery and cardiology and pulmonary and nephrology We will continue to follow after the surgery Get the postop EKG and cardiac enzymes per cardiology request
--- NOTE | 2018-07-05 12:52 | EKG REPORT ---
SEVERITY:- ABNORMAL ECG - ATRIAL FIBRILLATION MULTIFORM VENTRICULAR PREMATURE COMPLEXES CONSIDER LEFT VENTRICULAR HYPERTROPHY : Confirmed by: Dar Rincon 05-Jul-2018 12:51:37
[2018-07-05] MEDS ORDERED: PROPOFOL 1,000 MG/100 ML INFUS..BTL IV ONE (15:09)
[2018-07-05] MEDS: PROPOFOL 1,000 MG/100 ML INFUS..BTL IV PRN (15:10)
[2018-07-05] MEDS ORDERED: METOPROLOL TARTRATE PF/INJ 5 MG/5 ML SDV IV SCH (15:15)
--- NOTE | 2018-07-05 15:40 | RADIOLOGY REPORT (SQ) ---
EXAM DESCRIPTION: KUB/ABDOMEN (SINGLE VIEW) COMPLETED DATE/TIME: 07/05/2018 3:31 pm REASON FOR STUDY: NGT PLACEMENT COMPARISON: Previous day NUMBER OF VIEWS: One view. TECHNIQUE: Supine radiographic image of the abdomen acquired. LIMITATIONS: None. FINDINGS: Skin suzanne consistent with interval laparotomy. Nasogastric tube tip overlies gastric a ntrum. Small bowel loops are decompressed. IMPRESSION: Nasogastric tube in the stomach. Reading location - IP/workstation name: [email or web address]
--- NOTE | 2018-07-05 15:41 | RADIOLOGY REPORT (SQ) ---
EXAM DESCRIPTION: CHEST SINGLE VIEW COMPLETED DATE/TIME: 07/05/2018 3:31 pm REASON FOR STUDY: ET TUBE AND CENTRAL LINE PLACEMENT COMPARISON: Previous day. NUMBER OF VIEWS: One view. TECHNIQUE: Single frontal radiographic image of the chest acquired. LIMITATIONS: None. FINDINGS: LUNGS AND PLEURA: Bilateral pleural effusions and associated airspace disease, left greate r than right. No pneumothorax. MEDIASTINUM AND HEART: Stable heart size and mediastinal structures. SUPPORT DEVICES: Endotracheal tube tip between thoracic inlet and bib. Nasogastric tube extending into the left upper quadrant. Right central line tip overlying SVC. BONY STRUCTURES: No acute findings. HARDWARE: None. OTHER: No other significant finding. IMPRESSION: Satisfactory position of support apparatus. No pneumothorax Reading location - IP/workstation name: [email or web address]
[2018-07-05] MEDS: NORMAL SALINE 1000 ML 1,000 ML IV PRN ×2 (16:00→18:56)
[2018-07-05 16:17] LABS: ANION GAP 12 (5-19); BLOOD UREA NITROGEN 59 mg/dL (7-20); CALCIUM 7.8 mg/dL (8.4-10.2); CARBON DIOXIDE 22 mmol/L (22-30); CHLORIDE 105 mmol/L (98-107); GLUCOSE 123 mg/dL (75-110); POTASSIUM 3.9 mmol/L (3.6-5.0); SODIUM 139.2 mmol/L (137-145)
--- NOTE | 2018-07-05 17:47 | OPERATIVE REPORT E ---
Operative Report NAME: SID MARTINEZ : 1940 AGE: 78Y DATE OF SURGERY: 07/05/2018 ROOM: 612 PREOPERATIVE DIAGNOSIS: ISCHEMIC BOWEL WITH ACUTE ABDOMEN. POSTOPERATIVE DIAGNOSIS: ISCHEMIC BOWEL WITH ACUTE ABDOMEN. ISCHEMIC SMALL BOWEL. OPERATION: 1. Placement of right internal jugular central line with ultrasound guidance. 2. Exploratory laparotomy. 3. Resection of ischemic small bowel with primary anastomosis. SURGEON: COLETTE CRENSHAW M.D. ANESTHESIA: General. INDICATION: This is a 78-year-old female who came in with abdominal pains on 07/02/2018. She had a CT scan of the abdomen which showed ileus versus small bowel obstruction. However, her white count was noted to be elevated and yesterday was about 23,000 and this morning about 22,000. I saw her for the first time yesterday morning and she felt better compared to the day before, though her abdomen was tender in most areas, primarily along the upper quadrants and the left lower quadrant. She had a Gastrografin small bowel series last night, which showed dye did not go beyond the small bowel after about 8-1/2 hours. On examination on the day of surgery, the abdomen is more tender and with rebound. Also, the pulmonary doctor, Dr. Drake, called me last night and he felt that pulmonary problems are not the main reason for her white count elevation. The patient was already on Invanz and Dr. Drake added Flagyl. She was then taken to the OR for exploratory laparotomy for possible ischemic bowel. PROCEDURE: After adequate general anesthesia, the right internal jugular vein central line was then inserted under ultrasound guidance under sterile technique. Following this, the abdomen was then prepped and draped in the usual sterile fashion and appropriate timeout was called. Next, a midline incision was then made from just above the symphysis pubis toward the xiphoid area. The abdomen was then entered, and there was ischemic small bowel of the upper abdominal area. This was then lysed bluntly from below. The bowel was then lifted up and there appears to be a mild entrapment on the left side of the mesentery of small bowel, but no definite adhesions causing ischemia. The patient has atrial fib and is on Cardizem drip, and most likely the patient threw an embolus towards the area of the small bowel. The small bowel was then run from the terminal ileum to the ligament of Treitz. The small bowel was thought to be ischemic, meaning dark with areas of blotchy dark discoloration, and some dried exudate on the mesentery of the jejunum. The small bowel was noted to be ischemic from about 8 inches from the ligament of Treitz to the distal ileum, but leaving the distal 4 feet of the ileum intact and appeared to be viable. The jejunum was divided with a MERY stapler as well as the ileum.The ischemic small bowel was then divided from the mesentery with the use of ligasure. The abdominal cavity was then irrigated copiously with warm saline solution. The large intestine was noted to be intact. The appendix was noted to be normal and was left in place. The liver appears to be early stages of cirrhosis. The large bowel all the way down to the rectosigmoid appeared to be viable. There were a few diverticula without evidence of inflammation. The two areas of the bowel to be anastomosed were then checked with the Doppler and showed there was fairly good Doppler flow. Proximal jejunum was then anastomosed in a functional side to side anastomosis to the ileum with 60 cm MERY stapler. The opening of the small bowel was then closed with TA-60. The mesenteric defect was then closed with interrupted and running sutures using 2-0 Vicryl. The omentum was partially pulled down toward the area of anastomosis and sutured through the anastomosis with 2-0 Vicryl sutures. The omentum was sutured to the small remnant of the anastomosis just above the staple line where there is no danger of devascularizing further the anastomosis. Following this, the fascia was then closed with running suture using #1 single-arm PDS starting from both ends and tying them together just above the umbilicus. Subcutaneous layer was then irrigated and the skin closed with suzanne. Sterile dressing was placed over the operative sites. Needle, instrument, and sponge count were all correct. Estimated blood loss was about 50 mL. The incision was then dressed with transparent dressing. The patient was then brought to the intensive care unit in guarded condition, still intubated. She will probably remain intubated at least overnight. DICTATING PHYSICIAN: COLETTE CRENSHAW M.D. [id number] PHY#: [id number] ID: [id number] JOB#: [id number] ACCT: [id number] cc:COLETTE CRENSHAW M.D. > ADRIANO
[2018-07-05 20:23] LABS: ARTERIAL BLOOD BASE EXCESS -2.9 mmol/L; ARTERIAL BLOOD FIO2 35%; ARTERIAL BLOOD H2CO3 1.13 mmol/L (1.05-1.35); ARTERIAL BLOOD HCO3 21.7 mmol/L (20-24); ARTERIAL BLOOD O2 SATURATION 95.1 % (94-98); ARTERIAL BLOOD PCO2 37.5 mmHg (35-45); ARTERIAL BLOOD PH 7.38 (7.35-7.45); ARTERIAL BLOOD PO2 76.1 mmHg (80-100); ARTERIAL BLOOD TOTAL CO2 22.8 mmol/L (21-25)
--- NOTE | 2018-07-05 20:29 | EKG REPORT ---
SEVERITY:- ABNORMAL ECG - ATRIAL FIBRILLATION, V-RATE 77-106 MULTIFORM VENTRICULAR PREMATURE COMPLEXES : Confirmed by: Dar Rincon 05-Jul-2018 20:28:29
--- NOTE | 2018-07-05 20:29 | EKG REPORT ---
SEVERITY:- ABNORMAL ECG - ATRIAL FIBRILLATION, V-RATE 71-105 MULTIFORM VENTRICULAR PREMATURE COMPLEXES LOW VOLTAGE IN FRONTAL LEADS : Confirmed by: Dar Rincon 05-Jul-2018 20:28:37
[2018-07-05] MEDS ORDERED: ERTAPENEM SODIUM INJ 1 GM VIAL ONE (21:40)
[2018-07-05] MEDS: ERTAPENEM SODIUM 0.5 GM in NORMAL SALINE 50 ML IV SCH (22:33)
[2018-07-05] MEDS ORDERED: MAGNESIUM SULFATE/D5W 1 GM/100 ML RTUPB IV ONE (22:57)
[2018-07-05] MEDS: MAGNESIUM SULFATE 1 GM/D5W 100 ML IV SCH (23:57)
[2018-07-06] MEDS: MAGNESIUM SULFATE 1 GM/D5W 100 ML IV SCH (01:03)
[2018-07-06] MEDS: METOPROLOL TARTRATE PF/INJ 5 MG/5 ML SDV IV SCH ×4 (01:59→21:28)
[2018-07-06] MEDS: PROPOFOL 1,000 MG/100 ML INFUS..BTL IV PRN (02:48)
[2018-07-06] MEDS: NORMAL SALINE 1000 ML 1,000 ML IV PRN ×3 (02:48→16:05)
[2018-07-06] MEDS: METRONIDAZOLE 500 MG/NS RTU 500 MG/100 ML RTUPB IV SCH ×4 (05:11→23:59)
[2018-07-06 05:15] LABS: ANION GAP 11 (5-19); BLOOD UREA NITROGEN 66 mg/dL (7-20); CARBON DIOXIDE 21 mmol/L (22-30); CHLORIDE 106 mmol/L (98-107); GLUCOSE 164 mg/dL (75-110); POTASSIUM 4.1 mmol/L (3.6-5.0); SODIUM 138.3 mmol/L (137-145)
[2018-07-06] MEDS: TIOTROPIUM BROMIDE DPI 5 CAP/KIT (18 MCG/CAP) IH SCH (09:44)
--- NOTE | 2018-07-06 10:37 | RADIOLOGY REPORT (SQ) ---
EXAM DESCRIPTION: CHEST SINGLE VIEW COMPLETED DATE/TIME: 07/06/2018 10:28 am REASON FOR STUDY: pneumonia COMPARISON: 07/05/2018. FINDINGS: Single-view chest AP portable upright approximately 1022 hours. Similar appearance. Endotracheal, nasogastric tubes, right IJ line look intact and appropriate. Per have similar bilater al small pleural effusions. Skin fold over the right chest. No pneumothorax. TECHNICAL DOCUMENTATION: JOB ID: [id number] Reading location - IP/workstation name: [email or web address]
[2018-07-06 11:16] LABS: HEMATOCRIT 24.7 % (36.0-47.0); MEAN CORPUSCULAR HEMOGLOBIN 27.7 pg (27.0-33.4); MEAN CORPUSCULAR HGB CONC 32.3 g/dL (32.0-36.0); MEAN CORPUSCULAR VOLUME 86 fl (80-97); PLATELET COUNT 194 10^3/uL (150-450); RED BLOOD COUNT 2.88 10^6/uL (3.72-5.28); RED CELL DISTRIBUTION WIDTH 14.9 % (11.5-14.0)
[2018-07-06 11:23] LABS: INTERNATIONAL RATION (INR) 1.59; PROTHROMBIN TIME 19.7 SEC (11.4-15.4)
[2018-07-06 11:24] LABS: PARTIAL THROMBOPLASTIN TIME 41.4 SEC (23.5-35.8)
[2018-07-06 11:34] LABS: ALANINE AMINOTRANSFERASE 223 U/L (9-52); ALKALINE PHOSPHATASE 50 U/L (38-126); ANION GAP 11 (5-19); ASPARTATE AMINO TRANSFERASE 636 U/L (14-36); BILIRUBIN,DIRECT 0.5 mg/dL (0.0-0.4); BILIRUBIN,TOTAL 0.5 mg/dL (0.2-1.3); BLOOD UREA NITROGEN 69 mg/dL (7-20); CALCIUM 8.2 mg/dL (8.4-10.2); CARBON DIOXIDE 22 mmol/L (22-30); CHLORIDE 106 mmol/L (98-107); GLUCOSE 133 mg/dL (75-110); POTASSIUM 4.1 mmol/L (3.6-5.0); SODIUM 138.7 mmol/L (137-145); TOTAL PROTEIN 4.4 g/dL (6.3-8.2)
[2018-07-06 11:35] LABS: ABSOLUTE LYMPHOCYTES# (MANUAL) 0.7 10^3/uL (0.5-4.7); ABSOLUTE NEUTROPHILS# (MANUAL) 22.3 10^3/uL (1.7-8.2); BAND NEUTROPHILS % (MANUAL) 6 % (3-5); BASOPHILS % (MANUAL) 0 % (0-2); EOSINOPHILS % (MANUAL) 0 % (0-6); LYMPHOCYTES % (MANUAL) 3 % (13-45); MONOCYTES % (MANUAL) 4 % (3-13); SEGMENTED NEUTROPHILS % (MAN) 87 % (42-78); TOTAL CELLS COUNTED 100
[2018-07-06 11:36] LABS: TOXIC GRANULATION 2+
[2018-07-06 11:37] LABS: ANISOCYTOSIS SLIGHT; HYPOCHROMASIA SLIGHT; OVALOCYTES 1+; PLATELET COMMENT ADEQUATE; POIKILOCYTOSIS 1+
--- NOTE | 2018-07-06 12:42 | PDOC PROGRESS REPORT ---
Subjective Progress Note for:: 07/06/18 Subjective:: Patient underwent for the exploratory laparotomy and found to ischemic bowel Patient is currently intubated in ICU Currently doing better According to the ICU nursing staff no other events happens Discussed with the patient family regarding the patient's current condition still poor prognosis Discussed with the surgery Patient is followed by the pulmonary and also seen by the cardiology Reason For Visit: SMALL BOWEL OBSTRUCTION, ASPIRATION PNEUMONIA, Physical Exam Vital Signs: Temp Pulse Resp BP Pulse Ox 99.4 F 91 17 100/46 L 97 07/06/18 11:51 07/06/18 08:00 07/06/18 10:55 07/06/18 10:55 07/06/18 12:00 Intake & Output 07/05/18 07/06/18 07/07/18 06:59 06:59 06:59 Intake Total 2975 9642 79 Output Total 1975 4945 90 Balance 1000 4697 -11 Weight 64.3 kg 68.2 kg Physical Exam: Currently intubated under sedation General appearance: PRESENT: no acute distress Eye exam: PRESENT: PERRLA Respiratory exam: PRESENT: clear to auscultation frida Cardiovascular exam: PRESENT: +S1, +S2 Additonal comments: Surgical dressing is intact Skin exam: PRESENT: dry Results Laboratory Results: 07/06/18 10:20 07/06/18 10:20 07/05/18 07/05/18 07/06/18 15:35 20:01 02:58 WBC RBC Hgb Hct MCV MCH MCHC RDW Plt Count Seg Neutrophils % Lymphocytes % Monocytes % Eosinophils % Basophils % Absolute Neutrophils Absolute Lymphocytes Absolute Monocytes Absolute Eosinophils Absolute Basophils Carbonic Acid 1.13 HCO3/H2CO3 Ratio 19:1 ABG pH 7.38 ABG pCO2 37.5 ABG pO2 76.1 L ABG HCO3 21.7 ABG O2 Saturation 95.1 ABG Base Excess -2.9 FiO2 35% Sodium 139.2 Potassium 3.9 Chloride 105 Carbon Dioxide 22 Anion Gap 12 BUN 59 H Creatinine 2.61 H Est GFR ( Amer) 22 L Est GFR (Non-Af Amer) 18 L Glucose 123 H Calcium 7.8 L Magnesium 1.5 L 2.1 Total Bilirubin AST ALT Alkaline Phosphatase Total Protein Albumin 07/06/18 07/06/18 07/06/18 04:45 10:20 10:20 WBC 24.0 H RBC 2.88 L Hgb 8.0 L Hct 24.7 L MCV 86 MCH 27.7 MCHC 32.3 RDW 14.9 H Plt Count 194 Seg Neutrophils % Not Reportable Lymphocytes % Not Reportable Monocytes % Not Reportable Eosinophils % Not Reportable Basophils % Not Reportable Absolute Neutrophils Not Reportable Absolute Lymphocytes Not Reportable Absolute Monocytes Not Reportable Absolute Eosinophils Not Reportable Absolute Basophils Not Reportable Carbonic Acid HCO3/H2CO3 Ratio ABG pH ABG pCO2 ABG pO2 ABG HCO3 ABG O2 Saturation ABG Base Excess FiO2 Sodium 138.3 138.7 Potassium 4.1 4.1 Chloride 106 106 Carbon Dioxide 21 L 22 Anion Gap 11 11 BUN 66 H 69 H Creatinine 2.72 H 2.82 H Est GFR ( Amer) 21 L 20 L Est GFR (Non-Af Amer) 17 L 16 L Glucose 164 H 133 H Calcium 8.0 L 8.2 L Magnesium 2.2 Total Bilirubin 0.5 AST 636 H ALT 223 H Alkaline Phosphatase 50 Total Protein 4.4 L Albumin 2.0 L 07/02/18 21:30 Clean Catch Midstream Urine Culture - Final Klebsiella Pneumoniae 07/02/18 07/02/18 07/02/18 18:55 18:55 18:55 Creatine Kinase 23 L CK-MB (CK-2) 0.67 Troponin I 0.022 0.020 NT-Pro-B Natriuret Pep 9510 H 07/03/18 07/03/18 07/05/18 00:55 07:26 05:32 Creatine Kinase CK-MB (CK-2) 0.87 1.03 Troponin I 0.016 0.029 0.056 NT-Pro-B Natriuret Pep 07/05/18 07/05/18 07/06/18 15:35 20:01 04:45 Creatine Kinase CK-MB (CK-2) Troponin I 0.051 0.052 0.037 NT-Pro-B Natriuret Pep Impressions: Abdomen/Pelvis CT 07/02/18 19:30 IMPRESSION: Multiple dilated loops of proximal and mid small bowel are seen with normal caliber distal small bowel and suggestive of developing small bowel obstruction The right kidney severely atrophic. Images through the lung bases show small right-sided and moderate left-sided pleural effusion. There is presence of bilateral lower lobe infiltrate/atelectasis. Mild infiltrate/atelectasis is also seen in the right middle lobe. Reticular nodular infiltrates are seen in the inferior aspect of the right upper lobe of the lung. Large bowel diverticulosis, without acute diverticulitis Abdomen X-Ray 07/04/18 00:00 IMPRESSION: Ileus or partial small bowel obstruction. No significant change. Small Bowel X-Ray 07/04/18 00:00 IMPRESSION: Ileus or partial small bowel obstruction without clear transition point. Repeat KUB is recommended at approximately noon today, which will be a 20 hour film. KUB X-Ray 07/05/18 00:00 IMPRESSION: Nasogastric tube in the stomach. Assessment & Plan - Diagnosis (1) Abdominal pain Qualifiers: Abdominal location: lower abdomen, unspecified Qualified Code(s): R10.30 - Lower abdominal pain, unspecified Is this a current diagnosis for this admission?: Yes Plan: Status post exploratory laparotomy for the small bowel obstructions and ischemic bowel (2) Bilateral pleural effusion Is this a current diagnosis for this admission?: Yes Plan: The pulmonary currently all stable patient have a history of the recurrent pulmonary effusion had a chest tube placement in the past (3) Leukocytosis Qualifiers: Leukocytosis type: unspecified Qualified Code(s): D72.829 - Elevated white blood cell count, unspecified Is this a current diagnosis for this admission?: Yes Plan: Continues to IV antibiotic (4) Pneumonia Qualifiers: Pneumonia type: due to unspecified organism Laterality: bilateral Lung location: unspecified part of lung Qualified Code(s): J18.9 - Pneumonia, unspecified organism Is this a current diagnosis for this admission?: Yes Plan: on IV antibiotic follow-up with the pulmonary (5) Small bowel obstruction Is this a current diagnosis for this admission?: Yes Plan: Post surgery postop day #1 (6) CHF (congestive heart failure) Qualifiers: Heart failure type: unspecified Heart failure chronicity: chronic Qualified Code(s): I50.9 - Heart failure, unspecified Is this a current diagnosis for this admission?: Yes Plan: As per discussed with the Dr. reynoso the patient's cardiology patient is currently stable Continues close monitor (7) Chronic atrial fibrillation Is this a current diagnosis for this admission?: Yes Plan: Used to take Eliquis in the past with this with ischemic bowel patients probably need anticoagulations discussed with the general surgery wait for another day or 2 and start on a heparin Patient was on Eliquis in the past according to the patient's family and with was stopped by the cardiology will discuss with the cardiology (8) Chronic kidney disease, stage III (moderate) Is this a current diagnosis for this admission?: Yes Plan: Recheck the patient's kidney functions consult from Dr. Bills (9) Abnormal LFTs Is this a current diagnosis for this admission?: Yes Plan: Most likely hepatic congestions discussed with the surgery continues to monitor for next 24 hours - Time Time Spent with patient: 35 or more minutes Total Critical Time (Minutes): 30 Medications reviewed and adjusted accordingly: Yes Within: Other - Plan Summary Plan Summary: Discussed with the family in the ICU room regarding the patient's current conditions Discussed with the coordinate apprenticeship consultant
--- NOTE | 2018-07-06 13:04 | PDOC PROGRESS REPORT ---
Subjective Progress Note for:: 07/06/18 Subjective:: intubated and sedated Reason For Visit: SMALL BOWEL OBSTRUCTION, ASPIRATION PNEUMONIA, Physical Exam Vital Signs: Temp Pulse Resp BP Pulse Ox 99.4 F 91 17 100/46 L 97 07/06/18 11:51 07/06/18 08:00 07/06/18 10:55 07/06/18 10:55 07/06/18 12:00 Intake & Output 07/05/18 07/06/18 07/07/18 06:59 06:59 06:59 Intake Total 2975 9642 79 Output Total 0319 4945 90 Balance 1000 4697 -11 Weight 64.3 kg 68.2 kg Exam: abdomen is flat and soft with some tenderness Incision dressings dry Results Laboratory Results: 07/06/18 10:20 07/06/18 10:20 07/05/18 07/05/18 07/06/18 15:35 20:01 02:58 WBC RBC Hgb Hct MCV MCH MCHC RDW Plt Count Seg Neutrophils % Lymphocytes % Monocytes % Eosinophils % Basophils % Absolute Neutrophils Absolute Lymphocytes Absolute Monocytes Absolute Eosinophils Absolute Basophils Carbonic Acid 1.13 HCO3/H2CO3 Ratio 19:1 ABG pH 7.38 ABG pCO2 37.5 ABG pO2 76.1 L ABG HCO3 21.7 ABG O2 Saturation 95.1 ABG Base Excess -2.9 FiO2 35% Sodium 139.2 Potassium 3.9 Chloride 105 Carbon Dioxide 22 Anion Gap 12 BUN 59 H Creatinine 2.61 H Est GFR ( Amer) 22 L Est GFR (Non-Af Amer) 18 L Glucose 123 H Calcium 7.8 L Magnesium 1.5 L 2.1 Total Bilirubin AST ALT Alkaline Phosphatase Total Protein Albumin 07/06/18 07/06/18 07/06/18 04:45 10:20 10:20 WBC 24.0 H RBC 2.88 L Hgb 8.0 L Hct 24.7 L MCV 86 MCH 27.7 MCHC 32.3 RDW 14.9 H Plt Count 194 Seg Neutrophils % Not Reportable Lymphocytes % Not Reportable Monocytes % Not Reportable Eosinophils % Not Reportable Basophils % Not Reportable Absolute Neutrophils Not Reportable Absolute Lymphocytes Not Reportable Absolute Monocytes Not Reportable Absolute Eosinophils Not Reportable Absolute Basophils Not Reportable Carbonic Acid HCO3/H2CO3 Ratio ABG pH ABG pCO2 ABG pO2 ABG HCO3 ABG O2 Saturation ABG Base Excess FiO2 Sodium 138.3 138.7 Potassium 4.1 4.1 Chloride 106 106 Carbon Dioxide 21 L 22 Anion Gap 11 11 BUN 66 H 69 H Creatinine 2.72 H 2.82 H Est GFR ( Amer) 21 L 20 L Est GFR (Non-Af Amer) 17 L 16 L Glucose 164 H 133 H Calcium 8.0 L 8.2 L Magnesium 2.2 Total Bilirubin 0.5 AST 636 H ALT 223 H Alkaline Phosphatase 50 Total Protein 4.4 L Albumin 2.0 L 07/02/18 21:30 Clean Catch Midstream Urine Culture - Final Klebsiella Pneumoniae 07/02/18 07/02/18 07/02/18 18:55 18:55 18:55 Creatine Kinase 23 L CK-MB (CK-2) 0.67 Troponin I 0.022 0.020 NT-Pro-B Natriuret Pep 9510 H 07/03/18 07/03/18 07/05/18 00:55 07:26 05:32 Creatine Kinase CK-MB (CK-2) 0.87 1.03 Troponin I 0.016 0.029 0.056 NT-Pro-B Natriuret Pep 07/05/18 07/05/18 07/06/18 15:35 20:01 04:45 Creatine Kinase CK-MB (CK-2) Troponin I 0.051 0.052 0.037 NT-Pro-B Natriuret Pep Impressions: Abdomen/Pelvis CT 07/02/18 19:30 IMPRESSION: Multiple dilated loops of proximal and mid small bowel are seen with normal caliber distal small bowel and suggestive of developing small bowel obstruction The right kidney severely atrophic. Images through the lung bases show small right-sided and moderate left-sided pleural effusion. There is presence of bilateral lower lobe infiltrate/atelectasis. Mild infiltrate/atelectasis is also seen in the right middle lobe. Reticular nodular infiltrates are seen in the inferior aspect of the right upper lobe of the lung. Large bowel diverticulosis, without acute diverticulitis Abdomen X-Ray 07/04/18 00:00 IMPRESSION: Ileus or partial small bowel obstruction. No significant change. Small Bowel X-Ray 07/04/18 00:00 IMPRESSION: Ileus or partial small bowel obstruction without clear transition point. Repeat KUB is recommended at approximately noon today, which will be a 20 hour film. KUB X-Ray 07/05/18 00:00 IMPRESSION: Nasogastric tube in the stomach. Assessment & Plan - Diagnosis (1) ischemic small bowel Is this a current diagnosis for this admission?: Yes - Time Time Spent with patient: 15-24 minutes - Inpatient Certification Medical Necessity: Need Close Monitoring Due to Risk of Patient Decompensation, Need For IV Fluids, Need For Continuous Telemetry Monitoring, Need for Pain Control, Need for IV Antibiotics - Plan Summary Plan Summary: POD #1 Post small bowel rsection for ischemia She is intubated. Have d/w Dr Drake who will likely extubate her soon Keep NGT draining 600 ccs greenish fluid WBC,LFT's ,BUN,Creat still elevated likely from ischemic episode from embolic phenomenon due to AFib together with severe arteriosclerosis of mesenteric vessels as seen on CT scan. Continue IV antibiotics Re-evaluate next 24 hrs whether there 's a need for 2nd look procedure.
[2018-07-06] MEDS: PANTOPRAZOLE SODIUM 40 MG VIAL IV SCH (14:47)
[2018-07-06 16:29] LABS: ARTERIAL BLOOD BASE EXCESS -5.2 mmol/L; ARTERIAL BLOOD H2CO3 1.04 mmol/L (1.05-1.35); ARTERIAL BLOOD HCO3 19.4 mmol/L (20-24); ARTERIAL BLOOD O2 SATURATION 94.4 % (94-98); ARTERIAL BLOOD PCO2 34.4 mmHg (35-45); ARTERIAL BLOOD PH 7.37 (7.35-7.45); ARTERIAL BLOOD PO2 72.5 mmHg (80-100); ARTERIAL BLOOD TOTAL CO2 20.5 mmol/L (21-25)
[2018-07-06 16:31] LABS: ARTERIAL BLOOD FIO2 30%
[2018-07-06] MEDS: DILTIAZEM HCL/D5W 125 MG/125 ML RTUINJ IV PRN (19:59)
[2018-07-06] MEDS: ERTAPENEM SODIUM 0.5 GM in NORMAL SALINE 50 ML IV SCH (21:28)
[2018-07-07] MEDS: METOPROLOL TARTRATE PF/INJ 5 MG/5 ML SDV IV SCH ×4 (02:49→20:39)
[2018-07-07 04:44] LABS: ALANINE AMINOTRANSFERASE 293 U/L (9-52); ALKALINE PHOSPHATASE 51 U/L (38-126); ANION GAP 10 (5-19); ASPARTATE AMINO TRANSFERASE 640 U/L (14-36); BILIRUBIN,DIRECT 0.6 mg/dL (0.0-0.4); BILIRUBIN,TOTAL 0.6 mg/dL (0.2-1.3); BLOOD UREA NITROGEN 83 mg/dL (7-20); CALCIUM 8.1 mg/dL (8.4-10.2); CARBON DIOXIDE 22 mmol/L (22-30); CHLORIDE 110 mmol/L (98-107); GLUCOSE 128 mg/dL (75-110); POTASSIUM 4.1 mmol/L (3.6-5.0); SODIUM 142.3 mmol/L (137-145); TOTAL PROTEIN 4.6 g/dL (6.3-8.2)
[2018-07-07 04:53] LABS: HEMATOCRIT 24.9 % (36.0-47.0); HEMOGLOBIN 8.1 g/dL (12.0-15.5); MEAN CORPUSCULAR HEMOGLOBIN 27.7 pg (27.0-33.4); MEAN CORPUSCULAR HGB CONC 32.3 g/dL (32.0-36.0); MEAN CORPUSCULAR VOLUME 86 fl (80-97); PLATELET COUNT 180 10^3/uL (150-450); RED BLOOD COUNT 2.91 10^6/uL (3.72-5.28); RED CELL DISTRIBUTION WIDTH 15.2 % (11.5-14.0); WHITE BLOOD COUNT 29.3 10^3/uL (4.0-10.5)
[2018-07-07] MEDS: METRONIDAZOLE 500 MG/NS RTU 500 MG/100 ML RTUPB IV SCH ×4 (05:19→23:42)
[2018-07-07] MEDS: NORMAL SALINE 1000 ML 1,000 ML IV PRN ×2 (05:19→20:40)
[2018-07-07 05:28] LABS: ABSOLUTE LYMPHOCYTES# (MANUAL) 1.5 10^3/uL (0.5-4.7); ABSOLUTE MONOCYTES # (MANUAL) 2.3 10^3/uL (0.1-1.4); ABSOLUTE NEUTROPHILS# (MANUAL) 25.5 10^3/uL (1.7-8.2); BASOPHILS % (MANUAL) 0 % (0-2); EOSINOPHILS % (MANUAL) 0 % (0-6); LYMPHOCYTES % (MANUAL) 5 % (13-45); MONOCYTES % (MANUAL) 8 % (3-13); PLATELET COMMENT ADEQUATE; RBC MORPHOLOGY COMMENT NORMO-CYTIC/CHROMIC; SEGMENTED NEUTROPHILS % (MAN) 87 % (42-78); TOTAL CELLS COUNTED 100
--- NOTE | 2018-07-07 07:49 | PROGRESS NOTE E ---
Progress Note NAME: SID MARTINEZ : 1940 AGE: 78Y DATE: 07/05/2018 ROOM: 612 SUBJECTIVE: The patient is a 78-year-old female who came in with increasing abdominal pain, severe sepsis, increasing worsening leukocytosis. Increasing abdominal distention. Underwent exploratory laparotomy and small bowel resection earlier today. The patient tolerated the surgery well. There was scant endotracheal tube secretions. Blood pressure has been stable. The patient is on the ventilator and sedated. No vomiting, no diarrhea. OBJECTIVE: GENERAL: The patient appears sedated. Afebrile. Not in apparent respiratory distress. VITAL SIGNS: Temperature 98.3, T-max 98.7. Heart rate 135, blood pressure 149/50, respirations 20, saturation 100% on 60% FiO2. PEEP of 5. HEENT: Eyes: No jaundice or pallor. ENT: Ears with no drainage. No nasal discharge. CHEST/LUNGS: No wheeze. No rales. No coarse crackles. CARDIAC: S1, S2 distinct. No murmur. normal rate. ABDOMEN: Positive bowel sounds. Soft, nondistended, nontender. LABORATORY: CBC done today showed white count of 21,200 down from 23,000 last night. Hemoglobin 9. Hematocrit 36.8, platelet count 136. Chemistry shows sodium 139, potassium 3.8, chloride 103, CO2 of 35. BUN 66, creatinine 3. Glucose 111. ASSESSMENT: 1. ACUTE RESPIRATORY FAILURE REQUIRING INVASIVE MECHANICAL VENTILATION. Postoperative status. 2. SMALL BOWEL OBSTRUCTION. Status post exploratory laparotomy and small bowel resection. PLAN/RECOMMENDATION: 1. Will continue IV Invanz nd IV Flagyl. 2. Will be on the invasive mechanical ventilator until tomorrow. 4. Continue DVT and GI prophylaxis, and IV diprivan to light sedation Optimize blood pressure control. DICTATING PHYSICIAN: CLINT MORGAN MD,JEMAL,MPH [id number] PHY#: [id number] ID: [id number] JOB#: [id number] ACCT: [id number] cc: > MTDD
--- NOTE | 2018-07-07 08:27 | RADIOLOGY REPORT (SQ) ---
EXAM DESCRIPTION: CHEST SINGLE VIEW COMPLETED DATE/TIME: 07/07/2018 6:52 am REASON FOR STUDY: ventilated COMPARISON: 07/06/2018 EXAM PARAMETERS: NUMBER OF VIEWS: One view. TECHNIQUE: Single frontal radiographic view of the chest acquired. RADIATION DOSE: NA LIMITATIONS: None. FINDINGS: LUNGS AND PLEURA: Persistent bilateral pleural effusions. New development of airspace co nsolidation in the mid and lower lung zones bilaterally, more extensive on the right. No pneumothora x. MEDIASTINUM AND HILAR STRUCTURES: No masses. Contour normal. HEART AND VASCULAR STRUCTURES: Cardiomegaly, unchanged finding. BONES: No acute findings. HARDWARE: Interval removal of endotracheal tube. The remaining support lines and catheters are stab le in appearance. OTHER: No other significant finding. IMPRESSION: 1. Since the previous examination dated 07/06/2018, interval development of patchy airs pace consolidation in the mid and lower lung zones, more extensive on the right. 2. Interval removal of endotracheal tube. TECHNICAL DOCUMENTATION: JOB ID: [id number] [employer]- All Rights Reserved Reading location - IP/workstation name: [email or web address]
--- NOTE | 2018-07-07 09:40 | PDOC PROGRESS REPORT ---
Subjective Progress Note for:: 07/07/18 Subjective:: Patient awake, extubated, confused. Reason For Visit: SMALL BOWEL OBSTRUCTION, ASPIRATION PNEUMONIA, Physical Exam Vital Signs: Temp Pulse Resp BP Pulse Ox 97.6 F 96 15 119/60 97 07/07/18 08:00 07/07/18 08:00 07/07/18 08:00 07/07/18 08:00 07/07/18 08:00 Intake & Output 07/06/18 07/07/18 07/08/18 06:59 06:59 06:59 Intake Total 9642 3483 Output Total 4945 1280 160 Balance 4697 2203 -160 Weight 68.2 kg 70.5 kg General appearance: PRESENT: no acute distress, other - Breathing with face mask; confused but conversant. Follows simple commands. GI/Abdominal exam: PRESENT: other - Soft, appropriately tender; dressing intact and suzanne intact. No drainage Results Laboratory Results: 07/07/18 04:45 07/07/18 04:24 07/06/18 07/06/18 07/06/18 10:20 10:20 16:15 WBC 24.0 H RBC 2.88 L Hgb 8.0 L Hct 24.7 L MCV 86 MCH 27.7 MCHC 32.3 RDW 14.9 H Plt Count 194 Seg Neutrophils % Not Reportable Lymphocytes % Not Reportable Monocytes % Not Reportable Eosinophils % Not Reportable Basophils % Not Reportable Absolute Neutrophils Not Reportable Absolute Lymphocytes Not Reportable Absolute Monocytes Not Reportable Absolute Eosinophils Not Reportable Absolute Basophils Not Reportable Carbonic Acid 1.04 L HCO3/H2CO3 Ratio 18:1 ABG pH 7.37 ABG pCO2 34.4 L ABG pO2 72.5 L ABG HCO3 19.4 L ABG O2 Saturation 94.4 ABG Base Excess -5.2 FiO2 30% Sodium 138.7 Potassium 4.1 Chloride 106 Carbon Dioxide 22 Anion Gap 11 BUN 69 H Creatinine 2.82 H Est GFR ( Amer) 20 L Est GFR (Non-Af Amer) 16 L Glucose 133 H Calcium 8.2 L Magnesium Total Bilirubin 0.5 AST 636 H ALT 223 H Alkaline Phosphatase 50 Total Protein 4.4 L Albumin 2.0 L 07/07/18 07/07/18 04:24 04:45 WBC 29.3 H RBC 2.91 L Hgb 8.1 L Hct 24.9 L MCV 86 MCH 27.7 MCHC 32.3 RDW 15.2 H Plt Count 180 Seg Neutrophils % Not Reportable Lymphocytes % Not Reportable Monocytes % Not Reportable Eosinophils % Not Reportable Basophils % Not Reportable Absolute Neutrophils Not Reportable Absolute Lymphocytes Not Reportable Absolute Monocytes Not Reportable Absolute Eosinophils Not Reportable Absolute Basophils Not Reportable Carbonic Acid HCO3/H2CO3 Ratio ABG pH ABG pCO2 ABG pO2 ABG HCO3 ABG O2 Saturation ABG Base Excess FiO2 Sodium 142.3 Potassium 4.1 Chloride 110 H Carbon Dioxide 22 Anion Gap 10 BUN 83 H Creatinine 2.79 H Est GFR ( Amer) 20 L Est GFR (Non-Af Amer) 16 L Glucose 128 H Calcium 8.1 L Magnesium 2.2 Total Bilirubin 0.6 AST 640 H ALT 293 H Alkaline Phosphatase 51 Total Protein 4.6 L Albumin 2.0 L 07/02/18 07/02/18 07/02/18 18:55 18:55 18:55 Creatine Kinase 23 L CK-MB (CK-2) 0.67 Troponin I 0.022 0.020 NT-Pro-B Natriuret Pep 9510 H 07/03/18 07/03/18 07/05/18 00:55 07:26 05:32 Creatine Kinase CK-MB (CK-2) 0.87 1.03 Troponin I 0.016 0.029 0.056 NT-Pro-B Natriuret Pep 07/05/18 07/05/18 07/06/18 15:35 20:01 04:45 Creatine Kinase CK-MB (CK-2) Troponin I 0.051 0.052 0.037 NT-Pro-B Natriuret Pep Impressions: Abdomen/Pelvis CT 07/02/18 19:30 IMPRESSION: Multiple dilated loops of proximal and mid small bowel are seen with normal caliber distal small bowel and suggestive of developing small bowel obstruction The right kidney severely atrophic. Images through the lung bases show small right-sided and moderate left-sided pleural effusion. There is presence of bilateral lower lobe infiltrate/atelectasis. Mild infiltrate/atelectasis is also seen in the right middle lobe. Reticular nodular infiltrates are seen in the inferior aspect of the right upper lobe of the lung. Large bowel diverticulosis, without acute diverticulitis Abdomen X-Ray 07/04/18 00:00 IMPRESSION: Ileus or partial small bowel obstruction. No significant change. Small Bowel X-Ray 07/04/18 00:00 IMPRESSION: Ileus or partial small bowel obstruction without clear transition point. Repeat KUB is recommended at approximately noon today, which will be a 20 hour film. KUB X-Ray 07/05/18 00:00 IMPRESSION: Nasogastric tube in the stomach. Chest X-Ray 07/07/18 05:00 IMPRESSION: 1. Since the previous examination dated 07/06/2018, interval development of patchy airspace consolidation in the mid and lower lung zones, more extensive on the right. 2. Interval removal of endotracheal tube. Assessment & Plan - Diagnosis (1) Abdominal pain Qualifiers: Abdominal location: lower abdomen, unspecified Qualified Code(s): R10.30 - Lower abdominal pain, unspecified Is this a current diagnosis for this admission?: Yes Plan: Impression: Status post day 2 exploratory laparotomy, extensive small bowel resection for ischemic small bowel with primary anastomosis; doing surprisingly well tolerated extubation, hemodynamically stable, no pressors. Profound leukocytosis concerning. Recommendations: 1. Continue supportive care 2. Need to address level of aggressiveness of care including CODE STATUS today. (2) Bilateral pleural effusion Is this a current diagnosis for this admission?: Yes (4) CHF (congestive heart failure) Qualifiers: Heart failure type: unspecified Heart failure chronicity: chronic Qualified Code(s): I50.9 - Heart failure, unspecified Is this a current diagnosis for this admission?: Yes
[2018-07-07] MEDS: PANTOPRAZOLE SODIUM 40 MG VIAL IV SCH (10:02)
--- NOTE | 2018-07-07 10:37 | PDOC CONSULTATION ---
Consultation Consult Date: 07/07/18 Attending physician:: NEIDA LOPEZ Consult reason:: Nephrology consulted due to worsening kidney function. History of Present Illness Admission Date/PCP: 07/02/18 23:05 Bill BILLS MD History of Present Illness: SID MARTINEZ is a 78 year old female with history of chronic kidney disease stage IV, right atrophic kidney, diabetes mellitus type 2, recurrent exudative pleural effusion who was admitted on 07/02/2018 for severe abdominal pain. Initial abdominal CT scan showed small bowel obstruction. She underwent surgery with small bowel resection on 07/05/2018 and was found to have ischemic bowel. Subsequently she developed acute respiratory failure requiring intubation. She is currently now extubated and seems to be doing well. She is being treated with an IV antibiotics. She has episode of hypotension few days ago before the surgery. No contrast was given. Her urine output decreased a little bit yesterday with only a total of 630 mL but today she seems to be putting out a little bit more urine output. She is on IV fluids. She is also bilateral pleural effusions. She has atrial fibrillation being treated with Cardizem drip. In terms of the kidney function seems to be worsening for the last few days. She came in with a BUN of 43, creatinine of 2.06 with estimated GFR of 23. On 1229 she has a BUN of 66 creatinine of 2.06 and estimated GFR of 15. Yesterday she had a BUN of 69, creatinine of 2.82 and estimated GFR of 16. Today her kidney function has a BUN of 83, creatinine of 2.79 and a GFR of 16. Review of records show that her BUN ranges between 30-40s, creatinine range anywhere between 1.62.3 and estimated GFR range anywhere between 21-27. She follows up with Dr. Bills as an outpatient. Her urine analysis showed very minimal proteinuria of 30 moderate amount of blood with RBC of 30 on a catheterized sp ecimen. Urine culture on 1226 showed Kle[address] pneumonia. The CT of the abdomen also confirmed severely atrophic right kidney and unremarkable left kidney. Today the patient is awake and responding to questioning but is very difficult to understand with some garbled speech. However she seems to be comprehending was being told to her. She denies any pain and she indicated she is breathing better. She otherwise looks hemodynamically stable. Past Medical History Cardiac Medical History: Reports: Atrial Fibrillation, Coronary Artery Disease, Hyperlipidemia Pulmonary Medical History: Reports: Chronic Obstructive Pulmonary Disease (COPD) Endocrine Medical History: Reports: Diabetes Mellitus Type 2 Renal/ Medical History: Reports: Chronic Kidney Disease Stage IV, Other - Right atrophic kidney GI Medical History: Musculoskeltal Medical History: Reports: Arthritis - POSSIBLY Hematology Medical History: Reports Anemia of Chronic Kidney Disease Past Surgical History Past Surgical History: Reports: Cholecystectomy, Orthopedic Surgery - left hip Social History Information Source: [facility] Records Lives with: Spouse/Significant other Smoking Status: Former Smoker Frequency of Alcohol Use: None Hx Recreational Drug Use: No Drugs: None Hx Prescription Drug Abuse: No - Advance Directive Resuscitation Status: Full Code Family History Family History: DM, Hypertension Parental Family History Reviewed: Yes Children Family History Reviewed: Yes Sibling(s) Family History Reviewed.: Yes Medication/Allergy Home Medications: Atorvastatin Calcium [Lipitor 10 mg Tablet] 10 mg PO QHS 07/03/18 Diltiazem HCl [Diltiazem 24Hr ER] 180 mg PO DAILY 07/03/18 Fluticasone/Salmeterol [Advair 250-50 Diskus 14 Dose/Diskus] 1 puff IH BID 07/03/18 Gabapentin [Neurontin 300 mg Capsule] 300 mg PO DAILY 07/03/18 Glipizide [Glocotrol 5 Mg Tablet] 5 mg PO Q12 07/03/18 Hydralazine HCl 100 mg PO Q12 07/03/18 Isosorbide Mononitrate [Imdur 30 mg Tablet.er] 90 mg PO DAILY 07/03/18 Levothyroxine Sodium 150 mcg PO DAILY 07/03/18 Linagliptin [Tradjenta] 5 mg PO DAILY 07/03/18 Metoprolol Succinate 200 mg PO DAILY 07/03/18 Nitroglycerin [Nitrostat 0.4 mg (1/150 Gr) Tabs 25/Bottle] 1 tab SL Q5MP PRN 07/03/18 Raloxifene HCl [Evista 60 mg Tablet] 60 mg PO DAILY 07/03/18 Tiotropium [place] [Spiriva Handihaler 5 Cap/Kit (18 Mcg/Cap)] 1 cap IH DAILY 07/03/18 Allergies/Adverse Reactions: No Known Allergies Allergy (Verified 06/12/18 13:04) Review of Systems All systems: reviewed and no additional remarkable complaints except as stated Review of Systems: Constitutional: ABSENT: chills, fatigue, fever(s), headache(s), weight gain, weight loss Eyes: ABSENT: visual disturbances Ears: ABSENT: hearing changes Cardiovascular: ABSENT: chest pain, dyspnea on exertion, edema, orthropnea, palpitations Respiratory: ABSENT: cough, dyspnea, hemoptysis Gastrointestinal: ABSENT: Constipation, diarrhea, hematemesis, hematochezia, nausea, vomiting; presented with abdominal pain Genitourinary: ABSENT: dysuria, hematuria Musculoskeletal: ABSENT: joint swelling Integumentary: ABSENT: rash, wounds Neurological: ABSENT: abnormal gait, abnormal speech, confusion, dizziness, focal weakness, numbness, syncope Psychiatric: ABSENT: anxiety, depression Endocrine: ABSENT: cold intolerance, heat intolerance, polydipsia, polyuria Hematologic/Lymphatic: ABSENT: easy bleeding, easy bruising, lymphadenopathy Physical Exam Vital Signs: Temp Pulse Resp BP Pulse Ox 97.6 F 96 15 119/60 97 07/07/18 08:00 07/07/18 08:00 07/07/18 08:00 07/07/18 08:00 07/07/18 08:00 Intake & Output 07/06/18 07/07/18 07/08/18 06:59 06:59 06:59 Intake Total 9642 3483 Output Total 4945 1280 160 Balance 4697 2203 -160 Weight 68.2 kg 70.5 kg Exam: General appearance: No acute distress, cooperative, fairly-developed, fairly- nourished, comfortable with oxygen tent Head exam: PRESENT: atraumatic, normocephalic Eye exam: PRESENT: Conjunctiva pale, EOMI, PERRLA. ABSENT: conjunctival injection, scleral icterus Mouth exam: PRESENT: moist, neck supple, tongue midline Neck exam: PRESENT: full ROM. ABSENT: carotid bruit, JVD, lymphadenopathy, thyromegaly Respiratory exam: PRESENT: Diminished to auscultation bilaterally. ABSENT: rales, rhonchi, stridor, wheezes Cardiovascular exam: PRESENT: Irregularly irregular, +S1, +S2. ABSENT: systolic murmur Pulses: PRESENT: normal radial pulses, normal dorsalis pedis pulses GI/Abdominal exam: PRESENT: Diminished but present bowel sounds, soft. ABSENT: guarding, mass, tenderness Rectal exam: Deferred Extremities exam: PRESENT: full ROM. ABSENT: calf tenderness, pedal edema Musculoskeletal: PRESENT: full ROM. ABSENT: deformity Neurological exam: PRESENT: alert, Awake, reflexes normal, CN II-XII grossly intact. ABSENT: motor sensory deficit Psychiatric exam: PRESENT: appropriate affect, normal mood. ABSENT: homicidal ideation, suicidal ideation Skin exam: PRESENT: intact, dry, warm. ABSENT: rash Results Laboratory Results: 07/07/18 04:45 07/07/18 04:24 07/06/18 07/06/18 07/06/18 10:20 10:20 16:15 WBC 24.0 H RBC 2.88 L Hgb 8.0 L Hct 24.7 L MCV 86 MCH 27.7 MCHC 32.3 RDW 14.9 H Plt Count 194 Seg Neutrophils % Not Reportable Lymphocytes % Not Reportable Monocytes % Not Reportable Eosinophils % Not Reportable Basophils % Not Reportable Absolute Neutrophils Not Reportable Absolute Lymphocytes Not Reportable Absolute Monocytes Not Reportable Absolute Eosinophils Not Reportable Absolute Basophils Not Reportable Carbonic Acid 1.04 L HCO3/H2CO3 Ratio 18:1 ABG pH 7.37 ABG pCO2 34.4 L ABG pO2 72.5 L ABG HCO3 19.4 L ABG O2 Saturation 94.4 ABG Base Excess -5.2 FiO2 30% Sodium 138.7 Potassium 4.1 Chloride 106 Carbon Dioxide 22 Anion Gap 11 BUN 69 H Creatinine 2.82 H Est GFR ( Amer) 20 L Est GFR (Non-Af Amer) 16 L Glucose 133 H Calcium 8.2 L Magnesium Total Bilirubin 0.5 AST 636 H ALT 223 H Alkaline Phosphatase 50 Total Protein 4.4 L Albumin 2.0 L 07/07/18 07/07/18 04:24 04:45 WBC 29.3 H RBC 2.91 L Hgb 8.1 L Hct 24.9 L MCV 86 MCH 27.7 MCHC 32.3 RDW 15.2 H Plt Count 180 Seg Neutrophils % Not Reportable Lymphocytes % Not Reportable Monocytes % Not Reportable Eosinophils % Not Reportable Basophils % Not Reportable Absolute Neutrophils Not Reportable Absolute Lymphocytes Not Reportable Absolute Monocytes Not Reportable Absolute Eosinophils Not Reportable Absolute Basophils Not Reportable Carbonic Acid HCO3/H2CO3 Ratio ABG pH ABG pCO2 ABG pO2 ABG HCO3 ABG O2 Saturation ABG Base Excess FiO2 Sodium 142.3 Potassium 4.1 Chloride 110 H Carbon Dioxide 22 Anion Gap 10 BUN 83 H Creatinine 2.79 H Est GFR ( Amer) 20 L Est GFR (Non-Af Amer) 16 L Glucose 128 H Calcium 8.1 L Magnesium 2.2 Total Bilirubin 0.6 AST 640 H ALT 293 H Alkaline Phosphatase 51 Total Protein 4.6 L Albumin 2.0 L 07/02/18 07/02/18 07/02/18 18:55 18:55 18:55 Creatine Kinase 23 L CK-MB (CK-2) 0.67 Troponin I 0.022 0.020 NT-Pro-B Natriuret Pep 9510 H 07/03/18 07/03/18 07/05/18 00:55 07:26 05:32 Creatine Kinase CK-MB (CK-2) 0.87 1.03 Troponin I 0.016 0.029 0.056 NT-Pro-B Natriuret Pep 07/05/18 07/05/18 07/06/18 15:35 20:01 04:45 Creatine Kinase CK-MB (CK-2) Troponin I 0.051 0.052 0.037 NT-Pro-B Natriuret Pep Impressions: Abdomen/Pelvis CT 07/02/18 19:30 IMPRESSION: Multiple dilated loops of proximal and mid small bowel are seen with normal caliber distal small bowel and suggestive of developing small bowel obstruction The right kidney severely atrophic. Images through the lung bases show small right-sided and moderate left-sided pleural effusion. There is presence of bilateral lower lobe infiltrate/atelectasis. Mild infiltrate/atelectasis is also seen in the right middle lobe. Reticular nodular infiltrates are seen in the inferior aspect of the right upper lobe of the lung. Large bowel diverticulosis, without acute diverticulitis Abdomen X-Ray 07/04/18 00:00 IMPRESSION: Ileus or partial small bowel obstruction. No significant change. Small Bowel X-Ray 07/04/18 00:00 IMPRESSION: Ileus or partial small bowel obstruction without clear transition point. Repeat KUB is recommended at approximately noon today, which will be a 20 hour film. KUB X-Ray 07/05/18 00:00 IMPRESSION: Nasogastric tube in the stomach. Chest X-Ray 07/07/18 05:00 IMPRESSION: 1. Since the previous examination dated 07/06/2018, interval development of patchy airspace consolidation in the mid and lower lung zones, more extensive on the right. 2. Interval removal of endotracheal tube. Assessment & Plan - Diagnosis (1) Acute kidney injury superimposed on CKD Is this a current diagnosis for this admission?: Yes Plan: Patient is nonoliguric with slight decrease of urine output yesterday. Patient likely to have acute tubular necrosis secondary to episodic hypotension and abdominal sepsis. Patient's kidney function seems to be stabilizing today compared to yesterday. There is not much electrolyte abnormalities nor metabolic acidosis. She does not require any renal replacement therapy today. Continue to monitor kidney function and electrolytes. We will monitor closely. Continue IV fluids. Adjust medications according to kidney function. (2) Chronic kidney disease (CKD), stage IV (severe) Is this a current diagnosis for this admission?: Yes (3) Urinary tract infection Is this a current diagnosis for this admission?: Yes Plan: Secondary to Klebsiella pneumonia currently on ertapenem. (4) Bilateral pleural effusion Is this a current diagnosis for this admission?: Yes (5) Leukocytosis Qualifiers: Leukocytosis type: unspecified Qualified Code(s): D72.829 - Elevated white blood cell count, unspecified Is this a current diagnosis for this admission?: Yes Plan: Due to abdominal sepsis and UTI. (6) Small bowel obstruction Is this a current diagnosis for this admission?: Yes Plan: Secondary to ischemic bowel. Status post small bowel resection. (7) ischemic small bowel Is this a current diagnosis for this admission?: Yes (8) Anemia Qualifiers: Anemia type: unspecified type Qualified Code(s): D64.9 - Anemia, unspecified Is this a current diagnosis for this admission?: Yes Plan: Monitor for any need for blood transfusion. (9) Atrophy of right kidney Is this a current diagnosis for this admission?: Yes (10) Chronic atrial fibrillation Is this a current diagnosis for this admission?: Yes Plan: On Cardizem drip. (11) Acute respiratory failure Is this a current diagnosis for this admission?: Yes Plan: Pulmonary following. Patient has been asked extubated and is currently tolerating oxygen tent with FiO2 40%. - Notes Notes: Thank you very much for this consultation. Discussed case with Dr. Lopez. Discussed assessment and plan with patient and at bedside. Will follow patient with you. - Time Time Spent: Greater than 70 Minutes
[2018-07-07] MEDS: HYDROMORPHONE HCL INJ/PF 2 MG/ML AMPULE IV PRN (11:42)
--- NOTE | 2018-07-07 12:22 | PDOC PROGRESS REPORT ---
Subjective Progress Note for:: 07/07/18 Subjective:: Patient is extubated yesterday She is more alert awake Denied any chest pain to than any shortness of the breath Patient white count is still elevated Patient's liver enzyme is still elevated No fever no chills Reason For Visit: SMALL BOWEL OBSTRUCTION, ASPIRATION PNEUMONIA, Physical Exam Vital Signs: Temp Pulse Resp BP Pulse Ox 98.0 F 88 21 H 123/60 97 07/07/18 10:00 07/07/18 10:00 07/07/18 10:00 07/07/18 10:00 07/07/18 10:00 Intake & Output 07/06/18 07/07/18 07/08/18 06:59 06:59 06:59 Intake Total 9642 3583 Output Total 4945 1280 360 Balance 4697 2303 -360 Weight 68.2 kg 70.5 kg General appearance: PRESENT: no acute distress Eye exam: PRESENT: PERRLA Respiratory exam: PRESENT: clear to auscultation frida Cardiovascular exam: PRESENT: +S1, +S2 Additonal comments: The surgical incisions clean and dry Neurological exam: PRESENT: alert, awake, oriented to person Skin exam: PRESENT: dry Results Laboratory Results: 07/07/18 04:45 07/07/18 04:24 07/06/18 07/07/18 07/07/18 16:15 04:24 04:45 WBC 29.3 H RBC 2.91 L Hgb 8.1 L Hct 24.9 L MCV 86 MCH 27.7 MCHC 32.3 RDW 15.2 H Plt Count 180 Seg Neutrophils % Not Reportable Lymphocytes % Not Reportable Monocytes % Not Reportable Eosinophils % Not Reportable Basophils % Not Reportable Absolute Neutrophils Not Reportable Absolute Lymphocytes Not Reportable Absolute Monocytes Not Reportable Absolute Eosinophils Not Reportable Absolute Basophils Not Reportable Carbonic Acid 1.04 L HCO3/H2CO3 Ratio 18:1 ABG pH 7.37 ABG pCO2 34.4 L ABG pO2 72.5 L ABG HCO3 19.4 L ABG O2 Saturation 94.4 ABG Base Excess -5.2 FiO2 30% Sodium 142.3 Potassium 4.1 Chloride 110 H Carbon Dioxide 22 Anion Gap 10 BUN 83 H Creatinine 2.79 H Est GFR ( Amer) 20 L Est GFR (Non-Af Amer) 16 L Glucose 128 H Calcium 8.1 L Magnesium 2.2 Total Bilirubin 0.6 AST 640 H ALT 293 H Alkaline Phosphatase 51 Total Protein 4.6 L Albumin 2.0 L 07/02/18 07/02/18 07/02/18 18:55 18:55 18:55 Creatine Kinase 23 L CK-MB (CK-2) 0.67 Troponin I 0.022 0.020 NT-Pro-B Natriuret Pep 9510 H 07/03/18 07/03/18 07/05/18 00:55 07:26 05:32 Creatine Kinase CK-MB (CK-2) 0.87 1.03 Troponin I 0.016 0.029 0.056 NT-Pro-B Natriuret Pep 07/05/18 07/05/18 07/06/18 15:35 20:01 04:45 Creatine Kinase CK-MB (CK-2) Troponin I 0.051 0.052 0.037 NT-Pro-B Natriuret Pep Impressions: Abdomen/Pelvis CT 07/02/18 19:30 IMPRESSION: Multiple dilated loops of proximal and mid small bowel are seen with normal caliber distal small bowel and suggestive of developing small bowel obstruction The right kidney severely atrophic. Images through the lung bases show small right-sided and moderate left-sided pleural effusion. There is presence of bilateral lower lobe infiltrate/atelectasis. Mild infiltrate/atelectasis is also seen in the right middle lobe. Reticular nodular infiltrates are seen in the inferior aspect of the right upper lobe of the lung. Large bowel diverticulosis, without acute diverticulitis Abdomen X-Ray 07/04/18 00:00 IMPRESSION: Ileus or partial small bowel obstruction. No significant change. Small Bowel X-Ray 07/04/18 00:00 IMPRESSION: Ileus or partial small bowel obstruction without clear transition point. Repeat KUB is recommended at approximately noon today, which will be a 20 hour film. KUB X-Ray 07/05/18 00:00 IMPRESSION: Nasogastric tube in the stomach. Chest X-Ray 07/07/18 05:00 IMPRESSION: 1. Since the previous examination dated 07/06/2018, interval development of patchy airspace consolidation in the mid and lower lung zones, more extensive on the right. 2. Interval removal of endotracheal tube. Assessment & Plan - Diagnosis (1) Abdominal pain Qualifiers: Abdominal location: lower abdomen, unspecified Qualified Code(s): R10.30 - Lower abdominal pain, unspecified Is this a current diagnosis for this admission?: Yes Plan: Status post exploratory laparotomy for the small bowel obstructions and ischemic bowel (2) Bilateral pleural effusion Is this a current diagnosis for this admission?: Yes Plan: Continue all stable (3) Leukocytosis Qualifiers: Leukocytosis type: unspecified Qualified Code(s): D72.829 - Elevated white blood cell count, unspecified Is this a current diagnosis for this admission?: Yes Plan: We will get the infectious disease consult Check the stool for the C. difficile Will check the blood culture urine culture again Get the sputum culture May be at the vancomycin (4) Pneumonia Qualifiers: Pneumonia type: due to unspecified organism Laterality: bilateral Lung location: unspecified part of lung Qualified Code(s): J18.9 - Pneumonia, unspecified organism Is this a current diagnosis for this admission?: Yes Plan: on IV antibiotic follow-up with the pulmonary (5) Small bowel obstruction Is this a current diagnosis for this admission?: Yes Plan: S/p bowel resections (6) CHF (congestive heart failure) Qualifiers: Heart failure type: unspecified Heart failure chronicity: chronic Qualified Code(s): I50.9 - Heart failure, unspecified Is this a current diagnosis for this admission?: Yes Plan: Will stable per the cardiology (7) Chronic atrial fibrillation Is this a current diagnosis for this admission?: Yes Plan: At this point sent to Dr. reynoso suggest no need for any anticoagulations (8) Chronic kidney disease, stage III (moderate) Is this a current diagnosis for this admission?: Yes Plan: Recheck the patient's kidney functions consult from Dr. Bills (9) Abnormal LFTs Is this a current diagnosis for this admission?: Yes Plan: Patient's liver enzyme is still elevated Patient have a history of the cirrhosis of the liver but patient's liver enzyme was all stable on admission Will get the ultrasound for the liver - Time Time Spent with patient: 25-34 minutes Medications reviewed and adjusted accordingly: Yes Within: Other - Plan Summary Plan Summary: Clinically patient's looks better but patient's liver enzyme is up patient still leukocytosis Will get the ID consult Will discuss with the surgery Discussed with the patient's family regarding the patient's current conditions
[2018-07-07] MEDS ORDERED: CIPROFLOXACIN 400 MG/D5W RTU 400 MG/200 ML RTUPB IV SCH (13:00)
[2018-07-07] MEDS ORDERED: IMIPENEM/CILASTATIN SODIUM 500 MG in NORMAL SALINE 100 ML IV SCH (13:00)
--- NOTE | 2018-07-07 14:22 | RADIOLOGY REPORT (SQ) ---
EXAM DESCRIPTION: U/S ABDOMEN LIMITED W/O DOP COMPLETED DATE/TIME: 07/07/2018 2:12 pm REASON FOR STUDY: abnormal lft COMPARISON: None. TECHNIQUE: Dynamic and static grayscale images acquired of the abdomen and recorded on PACS. Additio nal selected color Doppler and spectral images recorded. LIMITATIONS: None. FINDINGS: PANCREAS: No masses. Visualized pancreatic duct normal caliber. LIVER: No masses. Echotexture normal. LIVER VASCULATURE: Normal directional flow of the main portal vein and hepatic veins. GALLBLADDER: Surgically absent. ULTRASOUND-DETECTED HENSLEY'S SIGN: Negative. INTRAHEPATIC DUCTS AND COMMON DUCT: CBD and intrahepatic ducts normal caliber. No filling defects. INFERIOR VENA CAVA: Normal flow. AORTA: No aneurysm. RIGHT KIDNEY: Atrophic and echogenic. Simple appearing cysts measuring up to 2.5 cm. PERITONEAL AND RIGHT PLEURAL SPACE: No ascites or effusions. OTHER: No other significant findings. IMPRESSION: 1. No ultrasound abnormality of the right upper quadrant to explain abnormal LFTs. 2. Status post cholecystectomy. 3. Atrophic and echogenic right kidney, as can be seen in chronic renal disease. TECHNICAL DOCUMENTATION: JOB ID: [id number]- All Rights Reserved Reading location - IP/workstation name: [email or web address]
[2018-07-07] MEDS: CIPROFLOXACIN 400 MG/D5W RTU 400 MG/200 ML RTUPB IV SCH (14:43)
[2018-07-07] MEDS: IMIPENEM/CILASTATIN SODIUM 500 MG in NORMAL SALINE 100 ML IV SCH (17:01)
[2018-07-07] MEDS: DILTIAZEM HCL/D5W 125 MG/125 ML RTUINJ IV PRN (20:40)
--- NOTE | 2018-07-07 23:01 | PROGRESS NOTE E ---
Progress Note NAME: SID MARTINEZ : 1940 AGE: 78Y DATE: 07/07/2018 ROOM: 612 SUBJECTIVE: The patient is a 78-year-old female who came in with increasing abdominal pain and underwent exploratory laparotomy with small bowel resection about 2 days ago. Went into acute respiratory failure. Extubated yesterday. The patient appeared to be more awake today. No fever spikes over the last 24 hours. Her leukocytosis seemed to worsen from [id number] to [id number] this morning. No vomiting, no cough, no increasing sputum production. No hemoptysis. There was no worsening dyspnea. OBJECTIVE: GENERAL: The patient is awake, a little bit weak and slightly incoherent, but less confused. Afebrile, not in apparent respiratory distress. VITAL SIGNS: Temperature 97.1, T-max 98 degrees Fahrenheit. Blood pressure 119/53, respirations 25. Saturation 100% on 2 liters of oxygen. HEENT: No jaundice, no pallor. ENT: No ear drainage, no nasal discharge. CHEST AND LUNGS: No wheezing, no rhonchi, no coarse crackles. CARDIOVASCULAR: S1, S2 distinct. No murmur or gallop. ABDOMEN: Flabby. Distended with hypoactive bowel sounds. Slightly tender. EXTREMITIES: No joint swelling, no cellulitis. LABORATORY: [place] [address]. Hemoglobin 8.1, hematocrit 24.9, platelet count 118. No bands. Chemistries done today showed sodium 142, potassium 4.1, chloride 110, CO2 of 32, BUN 83, creatinine 2.79, and glucose 128. Calcium 8.1, magnesium 2.2, total bilirubin 0.6, direct bilirubin 0.6. SGOT 614, slightly increased from yesterday. SGPT 293, slightly increased compared to yesterday. Albumin 2. Total protein 4.6. ASSESSMENT: 1. SEVERE SEPSIS. Currently not in septic shock. 2. INTRAABDOMINAL INFECTION. Status post exploratory laparotomy due to small bowel obstruction secondary to small bowel necrosis status post resection of the small bowel. 3. BILATERAL PLEURAL EFFUSION. Appear to be stable and small. PLAN: 1. Recommend repeating the blood cultures 2 sets. 2. Recommend discontinuation of the Invanz. Change to Primaxin 500 mg q.6 hours. Continue Flagyl 500 mg p.o. q.6 hours. Add IV Cipro 400 mg once daily. Discussed the patient's condition with the patient's primary care, Dr. Lopez. DICTATING PHYSICIAN: CLINT MORGAN MD,JEMAL,MPH [id number] PHY#: [id number] ID: [id number] JOB#: [id number] ACCT: [id number] cc: > MTDD
[2018-07-08] MEDS: METOPROLOL TARTRATE PF/INJ 5 MG/5 ML SDV IV SCH ×4 (03:53→20:34)
[2018-07-08 04:50] LABS: HEMATOCRIT 24.5 % (36.0-47.0); MEAN CORPUSCULAR HEMOGLOBIN 27.5 pg (27.0-33.4); MEAN CORPUSCULAR HGB CONC 32.2 g/dL (32.0-36.0); MEAN CORPUSCULAR VOLUME 86 fl (80-97); PLATELET COUNT 165 10^3/uL (150-450); RED BLOOD COUNT 2.86 10^6/uL (3.72-5.28); RED CELL DISTRIBUTION WIDTH 15.1 % (11.5-14.0); WHITE BLOOD COUNT 27.5 10^3/uL (4.0-10.5)
[2018-07-08] MEDS: IMIPENEM/CILASTATIN SODIUM 500 MG in NORMAL SALINE 100 ML IV SCH ×2 (04:50→16:33)
[2018-07-08 04:55] LABS: HEMOGLOBIN 7.9 g/dL (12.0-15.5)
[2018-07-08] MEDS ORDERED: FUROSEMIDE INJ/PF 20 MG/2 ML SDV IV PRN (05:00)
[2018-07-08 05:05] LABS: ANION GAP 9 (5-19); BLOOD UREA NITROGEN 75 mg/dL (7-20); CALCIUM 7.8 mg/dL (8.4-10.2); CARBON DIOXIDE 24 mmol/L (22-30); CHLORIDE 111 mmol/L (98-107); GLUCOSE 96 mg/dL (75-110); POTASSIUM 3.6 mmol/L (3.6-5.0); SODIUM 143.9 mmol/L (137-145)
[2018-07-08] MEDS: METRONIDAZOLE 500 MG/NS RTU 500 MG/100 ML RTUPB IV SCH ×4 (05:21→23:30)
--- NOTE | 2018-07-08 08:46 | PDOC PROGRESS REPORT ---
Subjective Progress Note for:: 07/08/18 Subjective:: Patient awake alert following simple commands; remains confused; no crises overnight. Patient was made a DO NOT RESUSCITATE. Reason For Visit: SMALL BOWEL OBSTRUCTION, ASPIRATION PNEUMONIA, Physical Exam Vital Signs: Temp Pulse Resp BP Pulse Ox 97.9 F 100 24 H 139/77 H 96 07/08/18 08:00 07/08/18 08:00 07/08/18 08:00 07/08/18 08:00 07/08/18 08:00 Intake & Output 07/07/18 07/08/18 07/09/18 06:59 06:59 06:59 Intake Total 3583 1723 Output Total 1280 4634 270 Balance 2303 -252 -270 Weight 70.5 kg 69.2 kg General appearance: PRESENT: no acute distress, other - Nasogastric tube in position with minimal drainage GI/Abdominal exam: PRESENT: other - Dressing removed suzanne intact no abdominal distention. Results Laboratory Results: 07/08/18 04:30 07/08/18 04:30 07/07/18 07/08/18 07/08/18 12:50 04:30 04:30 WBC 27.5 H RBC 2.86 L Hgb 7.9 L Hct 24.5 L MCV 86 MCH 27.5 MCHC 32.2 RDW 15.1 H Plt Count 165 Sodium 143.9 Potassium 3.6 Chloride 111 H Carbon Dioxide 24 Anion Gap 9 BUN 75 H Creatinine 2.61 H Est GFR ( Amer) 22 L Est GFR (Non-Af Amer) 18 L Glucose 96 Lactic Acid 0.8 Calcium 7.8 L 07/02/18 22:35 Blood Blood Culture - Final NO GROWTH IN 5 DAYS 07/02/18 21:30 Blood Blood Culture - Final NO GROWTH IN 5 DAYS 07/02/18 07/02/18 07/02/18 18:55 18:55 18:55 Creatine Kinase 23 L CK-MB (CK-2) 0.67 Troponin I 0.022 0.020 NT-Pro-B Natriuret Pep 9510 H 07/03/18 07/03/18 07/05/18 00:55 07:26 05:32 Creatine Kinase CK-MB (CK-2) 0.87 1.03 Troponin I 0.016 0.029 0.056 NT-Pro-B Natriuret Pep 07/05/18 07/05/18 07/06/18 15:35 20:01 04:45 Creatine Kinase CK-MB (CK-2) Troponin I 0.051 0.052 0.037 NT-Pro-B Natriuret Pep Impressions: Abdomen/Pelvis CT 07/02/18 19:30 IMPRESSION: Multiple dilated loops of proximal and mid small bowel are seen with normal caliber distal small bowel and suggestive of developing small bowel obstruction The right kidney severely atrophic. Images through the lung bases show small right-sided and moderate left-sided pleural effusion. There is presence of bilateral lower lobe infiltrate/atelectasis. Mild infiltrate/atelectasis is also seen in the right middle lobe. Reticular nodular infiltrates are seen in the inferior aspect of the right upper lobe of the lung. Large bowel diverticulosis, without acute diverticulitis Abdomen X-Ray 07/04/18 00:00 IMPRESSION: Ileus or partial small bowel obstruction. No significant change. Small Bowel X-Ray 07/04/18 00:00 IMPRESSION: Ileus or partial small bowel obstruction without clear transition point. Repeat KUB is recommended at approximately noon today, which will be a 20 hour film. KUB X-Ray 07/05/18 00:00 IMPRESSION: Nasogastric tube in the stomach. Abdomen Ultrasound 07/07/18 00:00 IMPRESSION: 1. No ultrasound abnormality of the right upper quadrant to explain abnormal LFTs. 2. Status post cholecystectomy. 3. Atrophic and echogenic right kidney, as can be seen in chronic renal disease. Chest X-Ray 07/07/18 05:00 IMPRESSION: 1. Since the previous examination dated 07/06/2018, interval development of patchy airspace consolidation in the mid and lower lung zones, more extensive on the right. 2. Interval removal of endotracheal tube. Assessment & Plan - Diagnosis (1) Abdominal pain Qualifiers: Abdominal location: lower abdomen, unspecified Qualified Code(s): R10.30 - Lower abdominal pain, unspecified Is this a current diagnosis for this admission?: Yes Plan: Impression: Patient now 3 days status post exploratory laparotomy, resection of extensive length of small bowel, doing surprisingly well remains extubated, awake alert. Persisting leukocytosis. No acidosis. Recommendations: 1. We will clamp nasogastric tube; if well tolerated, anticipate NG tube removal. 2. Continue surgical sips 3. Keep in intensive care unit today. 4. Extensive conversation last p.m. with patient's daughters who understand the magnitude of patient's acute superimposed on chronic illness. Hence the decision made last p.m. to make patient a DO NOT RESUSCITATE. (2) Bilateral pleural effusion Is this a current diagnosis for this admission?: Yes (3) Atrophy of right kidney Is this a current diagnosis for this admission?: Yes (4) CHF (congestive heart failure) Qualifiers: Heart failure type: unspecified Heart failure chronicity: chronic Qualified Code(s): I50.9 - Heart failure, unspecified Is this a current diagnosis for this admission?: Yes
[2018-07-08] MEDS: PANTOPRAZOLE SODIUM 40 MG VIAL IV SCH (09:05)
[2018-07-08 10:48] LABS: HEMATOCRIT 25.2 % (36.0-47.0); HEMOGLOBIN 8.2 g/dL (12.0-15.5); MEAN CORPUSCULAR HEMOGLOBIN 27.7 pg (27.0-33.4); MEAN CORPUSCULAR HGB CONC 32.5 g/dL (32.0-36.0); MEAN CORPUSCULAR VOLUME 85 fl (80-97); PLATELET COUNT 167 10^3/uL (150-450); RED BLOOD COUNT 2.95 10^6/uL (3.72-5.28); WHITE BLOOD COUNT 26.2 10^3/uL (4.0-10.5)
[2018-07-08 11:03] LABS: ALANINE AMINOTRANSFERASE 278 U/L (9-52); ALBUMIN 2.1 g/dL (3.5-5.0); ALKALINE PHOSPHATASE 60 U/L (38-126); ASPARTATE AMINO TRANSFERASE 521 U/L (14-36); BILIRUBIN,DIRECT 0.6 mg/dL (0.0-0.4); BILIRUBIN,TOTAL 0.6 mg/dL (0.2-1.3); TOTAL PROTEIN 4.7 g/dL (6.3-8.2)
[2018-07-08 11:04] LABS: ABSOLUTE LYMPHOCYTES# (MANUAL) 1.3 10^3/uL (0.5-4.7); ABSOLUTE MONOCYTES # (MANUAL) 0.8 10^3/uL (0.1-1.4); ABSOLUTE NEUTROPHILS# (MANUAL) 24.1 10^3/uL (1.7-8.2); BAND NEUTROPHILS % (MANUAL) 4 % (3-5); BASOPHILS % (MANUAL) 0 % (0-2); EOSINOPHILS % (MANUAL) 0 % (0-6); LYMPHOCYTES % (MANUAL) 5 % (13-45); METAMYELOCYTES % (MANUAL) 1 % (0); MONOCYTES % (MANUAL) 3 % (3-13); NUCLEATED RED BLOOD CELLS 1 /100 WBC (0); SEGMENTED NEUTROPHILS % (MAN) 87 % (42-78); TOTAL CELLS COUNTED 100
[2018-07-08 11:05] LABS: ANISOCYTOSIS SLIGHT; OVALOCYTES 1+; PLATELET COMMENT ADEQUATE; POIKILOCYTOSIS 1+; TOXIC GRANULATION 1+
--- NOTE | 2018-07-08 12:11 | PDOC PROGRESS REPORT ---
Subjective Progress Note for:: 07/08/18 Subjective:: Patient is currently doing much better Patient alert awake answering all questions very appropriately Discussed with the patient's cardiology currently stable on a cardiac standpoint Patient's liver enzyme is stable coming down Patient ultrasound of the abdomen is stable Patient still did not have any bowel movement not passing any gas Patient hemoglobin is low discussed with the surgery transfused 1 unit of the blood Reason For Visit: SMALL BOWEL OBSTRUCTION, ASPIRATION PNEUMONIA, Physical Exam Vital Signs: Temp Pulse Resp BP Pulse Ox 98.0 F 92 21 H 133/59 H 98 07/08/18 10:00 07/08/18 10:00 07/08/18 10:00 07/08/18 10:00 07/08/18 10:00 Intake & Output 07/07/18 07/08/18 07/09/18 06:59 06:59 06:59 Intake Total 3583 1723 100 Output Total 1280 1975 495 Balance 0339 -114 -753 Weight 70.5 kg 69.2 kg General appearance: PRESENT: no acute distress Head exam: PRESENT: atraumatic, normocephalic Eye exam: PRESENT: conjunctiva pink, EOMI, PERRLA. ABSENT: scleral icterus Ear exam: PRESENT: normal external ear exam Mouth exam: PRESENT: moist, tongue midline Neck exam: PRESENT: full ROM. ABSENT: carotid bruit, JVD, lymphadenopathy, thyromegaly Respiratory exam: PRESENT: clear to auscultation frida Cardiovascular exam: PRESENT: RRR. ABSENT: diastolic murmur, rubs, systolic murmur Vascular exam: PRESENT: normal capillary refill GI/Abdominal exam: ABSENT: distended, guarding, mass, organolmegaly, rebound, tenderness Additonal comments: Bowel sounds options incision is dry and clean Rectal exam: PRESENT: deferred Neurological exam: PRESENT: alert, awake, oriented to person, oriented to place, oriented to time, oriented to situation, CN II-XII grossly intact. ABSENT: motor sensory deficit Psychiatric exam: PRESENT: appropriate affect, normal mood. ABSENT: homicidal ideation, suicidal ideation Skin exam: PRESENT: dry, intact, warm. ABSENT: cyanosis, rash Results Laboratory Results: 07/08/18 10:20 07/08/18 04:30 07/07/18 07/08/18 07/08/18 12:50 04:30 04:30 WBC 27.5 H RBC 2.86 L Hgb 7.9 L Hct 24.5 L MCV 86 MCH 27.5 MCHC 32.2 RDW 15.1 H Plt Count 165 Seg Neutrophils % Lymphocytes % Monocytes % Eosinophils % Basophils % Absolute Neutrophils Absolute Lymphocytes Absolute Monocytes Absolute Eosinophils Absolute Basophils Sodium 143.9 Potassium 3.6 Chloride 111 H Carbon Dioxide 24 Anion Gap 9 BUN 75 H Creatinine 2.61 H Est GFR ( Amer) 22 L Est GFR (Non-Af Amer) 18 L Glucose 96 Lactic Acid 0.8 Calcium 7.8 L Total Bilirubin AST ALT Alkaline Phosphatase Total Protein Albumin 07/08/18 07/08/18 10:20 10:20 WBC 26.2 H RBC 2.95 L Hgb 8.2 L Hct 25.2 L MCV 85 MCH 27.7 MCHC 32.5 RDW 15.0 H Plt Count 167 Seg Neutrophils % Not Reportable Lymphocytes % Not Reportable Monocytes % Not Reportable Eosinophils % Not Reportable Basophils % Not Reportable Absolute Neutrophils Not Reportable Absolute Lymphocytes Not Reportable Absolute Monocytes Not Reportable Absolute Eosinophils Not Reportable Absolute Basophils Not Reportable Sodium Potassium Chloride Carbon Dioxide Anion Gap BUN Creatinine Est GFR ( Amer) Est GFR (Non-Af Amer) Glucose Lactic Acid Calcium Total Bilirubin 0.6 AST 521 H ALT 278 H Alkaline Phosphatase 60 Total Protein 4.7 L Albumin 2.1 L 07/02/18 22:35 Blood Blood Culture - Final NO GROWTH IN 5 DAYS 07/02/18 21:30 Blood Blood Culture - Final NO GROWTH IN 5 DAYS 07/02/18 07/02/18 07/02/18 18:55 18:55 18:55 Creatine Kinase 23 L CK-MB (CK-2) 0.67 Troponin I 0.022 0.020 NT-Pro-B Natriuret Pep 9510 H 07/03/18 07/03/18 07/05/18 00:55 07:26 05:32 Creatine Kinase CK-MB (CK-2) 0.87 1.03 Troponin I 0.016 0.029 0.056 NT-Pro-B Natriuret Pep 07/05/18 07/05/18 07/06/18 15:35 20:01 04:45 Creatine Kinase CK-MB (CK-2) Troponin I 0.051 0.052 0.037 NT-Pro-B Natriuret Pep Impressions: Abdomen/Pelvis CT 07/02/18 19:30 IMPRESSION: Multiple dilated loops of proximal and mid small bowel are seen with normal caliber distal small bowel and suggestive of developing small bowel obstruction The right kidney severely atrophic. Images through the lung bases show small right-sided and moderate left-sided pleural effusion. There is presence of bilateral lower lobe infiltrate/atelectasis. Mild infiltrate/atelectasis is also seen in the right middle lobe. Reticular nodular infiltrates are seen in the inferior aspect of the right upper lobe of the lung. Large bowel diverticulosis, without acute diverticulitis Abdomen X-Ray 07/04/18 00:00 IMPRESSION: Ileus or partial small bowel obstruction. No significant change. Small Bowel X-Ray 07/04/18 00:00 IMPRESSION: Ileus or partial small bowel obstruction without clear transition point. Repeat KUB is recommended at approximately noon today, which will be a 20 hour film. KUB X-Ray 07/05/18 00:00 IMPRESSION: Nasogastric tube in the stomach. Abdomen Ultrasound 07/07/18 00:00 IMPRESSION: 1. No ultrasound abnormality of the right upper quadrant to explain abnormal LFTs. 2. Status post cholecystectomy. 3. Atrophic and echogenic right kidney, as can be seen in chronic renal disease. Chest X-Ray 07/07/18 05:00 IMPRESSION: 1. Since the previous examination dated 07/06/2018, interval development of patchy airspace consolidation in the mid and lower lung zones, more extensive on the right. 2. Interval removal of endotracheal tube. Assessment & Plan - Diagnosis (1) Abdominal pain Qualifiers: Abdominal location: lower abdomen, unspecified Qualified Code(s): R10.30 - Lower abdominal pain, unspecified Is this a current diagnosis for this admission?: Yes Plan: Status post exploratory laparotomy for the small bowel obstructions and ischemic bowel (2) Bilateral pleural effusion Is this a current diagnosis for this admission?: Yes Plan: Continue all stable (3) Leukocytosis Qualifiers: Leukocytosis type: unspecified Qualified Code(s): D72.829 - Elevated white blood cell count, unspecified Is this a current diagnosis for this admission?: Yes Plan: Currently all stable improving continues IV antibiotic (4) Pneumonia Qualifiers: Pneumonia type: due to unspecified organism Laterality: bilateral Lung location: unspecified part of lung Qualified Code(s): J18.9 - Pneumonia, unspecified organism Is this a current diagnosis for this admission?: Yes Plan: on IV antibiotic follow-up with the pulmonary (5) Small bowel obstruction Is this a current diagnosis for this admission?: Yes Plan: S/p bowel resections (6) CHF (congestive heart failure) Qualifiers: Heart failure type: unspecified Heart failure chronicity: chronic Qualified Code(s): I50.9 - Heart failure, unspecified Is this a current diagnosis for this admission?: Yes Plan: Will stable per the cardiology (7) Chronic atrial fibrillation Is this a current diagnosis for this admission?: Yes Plan: At this point sent to Dr. reynoso suggest no need for any anticoagulations (8) Chronic kidney disease, stage III (moderate) Is this a current diagnosis for this admission?: Yes Plan: Recheck the patient's kidney functions consult from Dr. Bills (9) Abnormal LFTs Is this a current diagnosis for this admission?: Yes Plan: Currently all improving continues to monitor - Time Time Spent with patient: 25-34 minutes Total Critical Time (Minutes): 30 - Plan Summary Plan Summary: Continues to current medications
--- NOTE | 2018-07-08 13:18 | PDOC PROGRESS REPORT ---
Subjective Progress Note for:: 07/08/18 Subjective:: Patient is slowly getting clinically better. She is now on nasal cannula. CODE STATUS is now DO NOT RESUSCITATE. She said she wanted to go home. She has increased urine output from yesterday and produce about 1825 mL of urine output. She said she is still coughing a little bit. She has a little bit of discomfort on her abdomen from incision site otherwise no other complaints. Reason For Visit: SMALL BOWEL OBSTRUCTION, ASPIRATION PNEUMONIA, Physical Exam Vital Signs: Temp Pulse Resp BP Pulse Ox 97.7 F 97 29 H 151/78 H 93 07/08/18 12:00 07/08/18 12:00 07/08/18 12:41 07/08/18 12:41 07/08/18 12:40 Intake & Output 07/07/18 07/08/18 07/09/18 06:59 06:59 06:59 Intake Total 3583 1723 100 Output Total 1280 1975 595 Balance 2303 -974 -674 Weight 70.5 kg 69.2 kg Exam: General appearance: PRESENT: no acute distress, cooperative, well-developed, well-nourished Head exam: PRESENT: atraumatic, normocephalic Eye exam: PRESENT: conjunctiva pale, PERRLA. ABSENT: scleral icterus Neck exam: ABSENT: JVD Respiratory exam: PRESENT: Mildly coarse breath sounds. ABSENT: crackles, rales, rhonchi, unlabored, wheezes Cardiovascular exam: PRESENT: Irregularly irregular rate rhythm -+S1, +S2. ABSENT: diastolic murmur, systolic murmur GI/Abdominal exam: PRESENT: normal bowel sounds, soft. ABSENT: guarding, mass, tenderness Extremities exam: Positive bilateral ankle edema Neurological exam: PRESENT: alert, awake, oriented to person, place and time. Skin exam: PRESENT: dry, warm, Results Laboratory Results: 07/08/18 10:20 07/08/18 04:30 07/07/18 07/08/18 07/08/18 12:50 04:30 04:30 WBC 27.5 H RBC 2.86 L Hgb 7.9 L Hct 24.5 L MCV 86 MCH 27.5 MCHC 32.2 RDW 15.1 H Plt Count 165 Seg Neutrophils % Lymphocytes % Monocytes % Eosinophils % Basophils % Absolute Neutrophils Absolute Lymphocytes Absolute Monocytes Absolute Eosinophils Absolute Basophils Sodium 143.9 Potassium 3.6 Chloride 111 H Carbon Dioxide 24 Anion Gap 9 BUN 75 H Creatinine 2.61 H Est GFR ( Amer) 22 L Est GFR (Non-Af Amer) 18 L Glucose 96 Lactic Acid 0.8 Calcium 7.8 L Total Bilirubin AST ALT Alkaline Phosphatase Total Protein Albumin Blood Type Antibody Screen 07/08/18 07/08/18 07/08/18 10:20 10:20 11:20 WBC 26.2 H RBC 2.95 L Hgb 8.2 L Hct 25.2 L MCV 85 MCH 27.7 MCHC 32.5 RDW 15.0 H Plt Count 167 Seg Neutrophils % Not Reportable Lymphocytes % Not Reportable Monocytes % Not Reportable Eosinophils % Not Reportable Basophils % Not Reportable Absolute Neutrophils Not Reportable Absolute Lymphocytes Not Reportable Absolute Monocytes Not Reportable Absolute Eosinophils Not Reportable Absolute Basophils Not Reportable Sodium Potassium Chloride Carbon Dioxide Anion Gap BUN Creatinine Est GFR ( Amer) Est GFR (Non-Af Amer) Glucose Lactic Acid Calcium Total Bilirubin 0.6 AST 521 H ALT 278 H Alkaline Phosphatase 60 Total Protein 4.7 L Albumin 2.1 L Blood Type B POSITIVE Antibody Screen NEGATIVE 07/02/18 22:35 Blood Blood Culture - Final NO GROWTH IN 5 DAYS 07/02/18 21:30 Blood Blood Culture - Final NO GROWTH IN 5 DAYS 07/02/18 07/02/18 07/02/18 18:55 18:55 18:55 Creatine Kinase 23 L CK-MB (CK-2) 0.67 Troponin I 0.022 0.020 NT-Pro-B Natriuret Pep 9510 H 07/03/18 07/03/18 07/05/18 00:55 07:26 05:32 Creatine Kinase CK-MB (CK-2) 0.87 1.03 Troponin I 0.016 0.029 0.056 NT-Pro-B Natriuret Pep 07/05/18 07/05/18 07/06/18 15:35 20:01 04:45 Creatine Kinase CK-MB (CK-2) Troponin I 0.051 0.052 0.037 NT-Pro-B Natriuret Pep Impressions: Abdomen/Pelvis CT 07/02/18 19:30 IMPRESSION: Multiple dilated loops of proximal and mid small bowel are seen with normal caliber distal small bowel and suggestive of developing small bowel obstruction The right kidney severely atrophic. Images through the lung bases show small right-sided and moderate left-sided pleural effusion. There is presence of bilateral lower lobe infiltrate/atelectasis. Mild infiltrate/atelectasis is also seen in the right middle lobe. Reticular nodular infiltrates are seen in the inferior aspect of the right upper lobe of the lung. Large bowel diverticulosis, without acute diverticulitis Abdomen X-Ray 07/04/18 00:00 IMPRESSION: Ileus or partial small bowel obstruction. No significant change. Small Bowel X-Ray 07/04/18 00:00 IMPRESSION: Ileus or partial small bowel obstruction without clear transition point. Repeat KUB is recommended at approximately noon today, which will be a 20 hour film. KUB X-Ray 07/05/18 00:00 IMPRESSION: Nasogastric tube in the stomach. Abdomen Ultrasound 07/07/18 00:00 IMPRESSION: 1. No ultrasound abnormality of the right upper quadrant to explain abnormal LFTs. 2. Status post cholecystectomy. 3. Atrophic and echogenic right kidney, as can be seen in chronic renal disease. Chest X-Ray 07/07/18 05:00 IMPRESSION: 1. Since the previous examination dated 07/06/2018, interval development of patchy airspace consolidation in the mid and lower lung zones, more extensive on the right. 2. Interval removal of endotracheal tube. Assessment & Plan - Diagnosis (1) Acute kidney injury superimposed on CKD Is this a current diagnosis for this admission?: Yes Plan: Secondary to ATN. Urine output has increased. Kidney function slowly improving. Continue to monitor. Continue maintenance IV fluids with potassium. (2) Chronic kidney disease (CKD), stage IV (severe) Is this a current diagnosis for this admission?: Yes (3) Urinary tract infection Is this a current diagnosis for this admission?: Yes Plan: On imipenem and ciprofloxacin. (4) Bilateral pleural effusion Is this a current diagnosis for this admission?: Yes (5) Leukocytosis Qualifiers: Leukocytosis type: unspecified Qualified Code(s): D72.829 - Elevated white blood cell count, unspecified Is this a current diagnosis for this admission?: Yes Plan: On IV antibiotics. (6) Small bowel obstruction Is this a current diagnosis for this admission?: Yes Plan: Status post exploratory laparotomy and small bowel resection on 07/05/2018. (7) ischemic small bowel Is this a current diagnosis for this admission?: Yes Plan: On IV imipenem, ciprofloxacin and Flagyl. (8) Anemia Qualifiers: Anemia type: unspecified type Qualified Code(s): D64.9 - Anemia, unspecified Is this a current diagnosis for this admission?: Yes Plan: Currently receiving blood transfusion. (9) Atrophy of right kidney Is this a current diagnosis for this admission?: Yes (10) Chronic atrial fibrillation Is this a current diagnosis for this admission?: Yes Plan: Rate controlled on Cardizem. (11) Acute respiratory failure Is this a current diagnosis for this admission?: Yes Plan: Currently on nasal cannula and tolerating well. - Time Time with patient: 15-25 minutes
[2018-07-08] MEDS ORDERED: ALBUTEROL SULFATE HFA (90 MCG/PUFF) 200 PUFF/8.5 GM MDI IH PRN (13:25)
[2018-07-08] MEDS: CIPROFLOXACIN 400 MG/D5W RTU 400 MG/200 ML RTUPB IV SCH (14:03)
[2018-07-08] MEDS: POTASSI CL 20 MEQ/NS 1L 1,000 ML IV PRN (14:04)
[2018-07-08] MEDS: TIOTROPIUM BROMIDE DPI 5 CAP/KIT (18 MCG/CAP) IH SCH (16:33)
[2018-07-08 17:48] LABS: HEMATOCRIT 28.9 % (36.0-47.0); HEMOGLOBIN 9.5 g/dL (12.0-15.5); MEAN CORPUSCULAR HEMOGLOBIN 28.2 pg (27.0-33.4); MEAN CORPUSCULAR HGB CONC 32.7 g/dL (32.0-36.0); MEAN CORPUSCULAR VOLUME 86 fl (80-97); PLATELET COUNT 153 10^3/uL (150-450); RED BLOOD COUNT 3.35 10^6/uL (3.72-5.28); RED CELL DISTRIBUTION WIDTH 14.7 % (11.5-14.0); WHITE BLOOD COUNT 25.3 10^3/uL (4.0-10.5)
[2018-07-08 18:13] LABS: ALANINE AMINOTRANSFERASE 271 U/L (9-52); ALBUMIN 2.1 g/dL (3.5-5.0); ALKALINE PHOSPHATASE 64 U/L (38-126); ANION GAP 10 (5-19); ASPARTATE AMINO TRANSFERASE 445 U/L (14-36); BILIRUBIN,DIRECT 0.7 mg/dL (0.0-0.4); BILIRUBIN,TOTAL 0.9 mg/dL (0.2-1.3); BLOOD UREA NITROGEN 70 mg/dL (7-20); CALCIUM 7.6 mg/dL (8.4-10.2); CARBON DIOXIDE 22 mmol/L (22-30); CHLORIDE 110 mmol/L (98-107); GLUCOSE 103 mg/dL (75-110); POTASSIUM 3.3 mmol/L (3.6-5.0); SODIUM 141.5 mmol/L (137-145); TOTAL PROTEIN 4.8 g/dL (6.3-8.2)
[2018-07-08 18:22] LABS: ABSOLUTE LYMPHOCYTES# (MANUAL) 0.8 10^3/uL (0.5-4.7); ABSOLUTE MONOCYTES # (MANUAL) 1.5 10^3/uL (0.1-1.4); BASOPHILS % (MANUAL) 0 % (0-2); EOSINOPHILS % (MANUAL) 0 % (0-6); LYMPHOCYTES % (MANUAL) 3 % (13-45); MONOCYTES % (MANUAL) 6 % (3-13); NUCLEATED RED BLOOD CELLS 1 /100 WBC (0); SEGMENTED NEUTROPHILS % (MAN) 91 % (42-78); TOTAL CELLS COUNTED 100
[2018-07-08 18:24] LABS: ANISOCYTOSIS SLIGHT; PLATELET COMMENT ADEQUATE; POLYCHROMASIA SLIGHT
[2018-07-08 18:26] LABS: OVALOCYTES 1+; PLATELET LARGE PRESENT; POIKILOCYTOSIS 1+
--- NOTE | 2018-07-08 18:26 | PROGRESS NOTE E ---
Progress Note NAME: SID MARTINEZ : 1940 AGE: 78Y DATE: 07/08/2018 ROOM: 612 SUBJECTIVE: The is a 78-year-old female who came in with severe sepsis, intraabdominal infection, and acute respiratory failure requiring invasive mechanical ventilation and bilateral pleural effusion. Currently feeling better. Extubated yesterday and has been doing well. Complained of a cough, but nonproductive. There were no fever spikes in the last 24 hours. No vomiting. Had one flatus in the last 24 hours. No bowel movement. OBJECTIVE: GENERAL: The patient is awake, alert, appears coherent, oriented x3. Afebrile, not in apparent respiratory distress. VITAL SIGNS: Temperature of 97.7 with a T-max of 98 degrees Fahrenheit and heart rate is 93, blood pressure is 151/78, respiratory rate is 29, saturation is 93% on 2 liters. EYES: No jaundice or pallor. EARS, NOSE, AND THROAT: No ear drainage. No nasal discharge. NG tube is in place. CHEST AND LUNGS: No wheezing, no rhonchi, no coarse crackles. ABDOMEN: Slightly tender direct, no rebound. Hypoactive bowel sounds and soft. EXTREMITIES: No joint swelling, no cellulitis, no bipedal edema. LABORATORY DATA: CBC done today showed a white count of 26.2 from 39.3 yesterday, hemoglobin is 8.2, hematocrit is 25.2, platelet count is 167, bands 4% from 31% three days ago. Chemistry done today showed sodium is 143.9, potassium is 3.6, chloride 111, CO2 is 24, BUN is 25, creatinine is 2.61 from 2.82 two days ago, glucose is 96, and the calcium is 7.8, SGOT is 521 down from 640 yesterday, SGPT is 278 down from 293 yesterday, total protein is 4.7, albumin is 2.1. ASSESSMENT: 1. SEVERE SEPSIS BASED ON SEVERE LEUKOCYTOSIS AND BANDEMIA. Currently improving and currently on IV Primaxin, IV Flagyl, and IV ciprofloxacin. 2. BILATERAL PLEURAL EFFUSION, APPEAR TO BE STABLE. 3. COUGH, CURRENTLY NONPRODUCTIVE. 4. HISTORY OF COPD, CURRENTLY STABLE AND NOT IN ACUTE EXACERBATION. PLAN/RECOMMENDATION: 1. Continue IV antibiotics; IV Primaxin, IV Flagyl, and IV Cipro; adjusted to renal dose. 2. We resume Spiriva inhaler 1 capsule once daily. DICTATING PHYSICIAN: CLINT MORGAN MD,JEMAL,MPH [id number] PHY#: [id number] ID: [id number] JOB#: [id number] ACCT: [id number] cc: > MTDD
[2018-07-08] MEDS: DILTIAZEM HCL/D5W 125 MG/125 ML RTUINJ IV PRN (19:38)
--- NOTE | 2018-07-08 21:21 | RADIOLOGY REPORT (SQ) ---
XR CHEST 1 VIEW HISTORY: Pleural effusion. COMPARISON: 07/07/2018 FINDINGS: Interval removal of enteric tube. Remaining support devices are stable. Unchanged bilateral pleural effusions with adjacent atelectasis/consolidation. No discernible pneumothorax. IMPRESSION: Unchanged pleural effusions. Interval removal of enteric tube.
[2018-07-09] MEDS: METOPROLOL TARTRATE PF/INJ 5 MG/5 ML SDV IV SCH ×3 (03:11→14:42)
[2018-07-09] MEDS: IMIPENEM/CILASTATIN SODIUM 500 MG in NORMAL SALINE 100 ML IV SCH ×2 (03:11→16:35)
[2018-07-09 03:39] LABS: HEMATOCRIT 29.4 % (36.0-47.0); HEMOGLOBIN 9.7 g/dL (12.0-15.5); MEAN CORPUSCULAR HEMOGLOBIN 28.1 pg (27.0-33.4); MEAN CORPUSCULAR HGB CONC 32.8 g/dL (32.0-36.0); MEAN CORPUSCULAR VOLUME 86 fl (80-97); PLATELET COUNT 156 10^3/uL (150-450); RED BLOOD COUNT 3.44 10^6/uL (3.72-5.28); RED CELL DISTRIBUTION WIDTH 14.7 % (11.5-14.0); WHITE BLOOD COUNT 27.1 10^3/uL (4.0-10.5)
[2018-07-09 03:46] LABS: ANION GAP 8 (5-19); BLOOD UREA NITROGEN 67 mg/dL (7-20); CALCIUM 7.6 mg/dL (8.4-10.2); CARBON DIOXIDE 23 mmol/L (22-30); CHLORIDE 112 mmol/L (98-107); GLUCOSE 94 mg/dL (75-110); POTASSIUM 3.4 mmol/L (3.6-5.0); SODIUM 142.7 mmol/L (137-145)
[2018-07-09] MEDS: METRONIDAZOLE 500 MG/NS RTU 500 MG/100 ML RTUPB IV SCH ×3 (05:11→19:04)
[2018-07-09] MEDS: POTASSI CL 20 MEQ/NS 1L 1,000 ML IV PRN ×2 (05:12→19:01)
[2018-07-09] MEDS ORDERED: POTASSI CL 20 MEQ/50 ML RIDER 20 MEQ/50 ML RTUPB IV ONE (06:43)
[2018-07-09] MEDS: POTASSIUM CHLORIDE 20 MEQ/50 ML RTU IV SCH ×2 (08:10→08:11)
[2018-07-09] MEDS: TIOTROPIUM BROMIDE DPI 5 CAP/KIT (18 MCG/CAP) IH SCH (09:13)
[2018-07-09] MEDS: PANTOPRAZOLE SODIUM 40 MG VIAL IV SCH (09:13)
[2018-07-09 13:05] LABS: ANION GAP 10 (5-19); BLOOD UREA NITROGEN 65 mg/dL (7-20); CALCIUM 7.6 mg/dL (8.4-10.2); CARBON DIOXIDE 21 mmol/L (22-30); CHLORIDE 112 mmol/L (98-107); GLUCOSE 102 mg/dL (75-110); POTASSIUM 3.9 mmol/L (3.6-5.0); SODIUM 143.3 mmol/L (137-145)
[2018-07-09] MEDS: CIPROFLOXACIN 400 MG/D5W RTU 400 MG/200 ML RTUPB IV SCH (14:42)
[2018-07-09] MEDS: DILTIAZEM HCL/D5W 125 MG/125 ML RTUINJ IV PRN (16:35)
--- NOTE | 2018-07-09 17:59 | XCELERA REPORT ---
[address] [address] Transthoracic Echocardiogram Report Name: SID MARTINEZ Age: 78 yrs Gender: Female : 1940 Patient Status: Inpatient Patient Location: ICU^612^A Study Date: 07/09/2018 09:27 AM Height: 66 in Weight: 152 lb BSA: 1.8 m2 Reason For Study: Aortic Stenosis, Leukocytosis R/O SBE, RVSP Ordering Physician: JEANETTE JENKINS Performed By: Selma Andrea Interpretation Summary Mild calcific and mod AR.normal AV configuration Mod MAC, no MS, mild MR with mild LA enlargement no LVH, Hypokinetic IVS, inferior basal wall. LVEF 60-65%, mild LV enlargement. no LVDD. Mod pulm hypertension RVSP 47m Hg.normal RA, RV IVC. Small post peric effusion, mod L pleural effusion. MMode/2D Measurements & Calculations RVDd: 2.8 cm LVIDd: 4.7 cm FS: 27.8 % Ao root diam: 2.6 cm IVSd: 0.99 cm LVIDs: 3.4 cm EDV(Teich): 104.9 ml LVPWd: 0.96 cm ESV(Teich): 48.5 ml Ao root area: 5.3 cm2 LA dimension: 4.4 cm EF(Teich): 53.8 % Doppler Measurements & Calculations MV E max inez: MV P1/2t max inez: Ao V2 max: AI max inez: 135.7 cm/sec 134.8 cm/sec 227.3 cm/sec 354.2 cm/sec MV A max inez: MV P1/2t: 55.1 msec Ao max PG: AI max P.9 cm/sec MVA(P1/2t): 4.0 cm2 20.7 mmHg 50.3 mmHg MV E/A: 2.8 MV dec slope: Ao V2 mean: AI dec slope: 146.8 cm/sec 330.8 cm/sec2 716.8 cm/sec2 Ao mean PG: AI P1/2t: MV dec time: 0.19 sec10.2 mmHg 313.7 msec Ao V2 VTI: 44.8 cm LV V1 max PG: PA V2 max: PI end-d inez: TR max inez: 3.3 mmHg 112.5 cm/sec 92.3 cm/sec 328.5 cm/sec LV V1 mean PG: PA max P.1 mmHg TR max P.7 mmHg 43.2 mmHg LV V1 max: 91.3 cm/sec LV V1 mean: 58.6 cm/sec LV V1 VTI: 17.1 cm AV P1/2t-pr_phl: MV P1/2t-pr_phl: 309.8 msec 55.1 msec Left Ventricle The left ventricle is grossly normal size. There is normal left ventricular wall thickness. LV EF is 60-65%. Doppler measurements suggest normal left ventricular diastolic function. There is septal wall hypokinesis. There is basal inferior wall moderate hypokinesis. There is no thrombus. Right Ventricle The right ventricle is grossly normal size. The right ventricular systolic function is normal. Atria The right atrium is normal in size. The left atrium is moderately dilated. The interatrial septum is intact with no evidence for an atrial septal defect. Mitral Valve The mitral valve leaflets are sclerotic and show some degree of functional abnormality. There is moderate mitral annular calcification. There is no evidence of mitral valve prolapse. There is no mitral valve stenosis. There is a mild amount of mitral regurgitation. Aortic Valve The aortic valve is sclerotic and shows some degree of functional abnormality. The aortic valve is trileaflet. There is systolic doming of the aortic valve leaflets(s). Cannot exclude aortic valvular vegetation. There is a peak gradient of 21 mm of Hg. MPG 11. There is mild aortic stenosis. There is a moderate amount of aortic regurgitation. Tricuspid Valve The tricuspid is normal in structure and function. There is no tricuspid valve prolapse. There is no tricuspid stenosis. There is a mild amount of tricuspid regurgitation. Best estimated RVSP is approximately 47 mm/Hg. Pulmonic Valve The pulmonic valve is not well visualized. There is a trace or physiologic amount of pulmonic regurgitation. Great Vessels There is aortic root sclerosis/calcification. The inferior vena cava appeared normal. The inferior vena cava appeared small and collapsed with respiration (RAP 0-5 mmHg). Effusions Small pericardial effusion. Moderate size left pleural effusion. I WMSI = 1.53 % Normal = 47 Segments Size X - Cannot 2 - 4 - 1-2 small Interpret 1 - Normal Hypokinetic 3 - AkineticDyskinetic 3-5 moderate 5 - 6-14 large Aneurysmal 15-16 diffuse : JEANETTE JENKINS Andre
[2018-07-09] MEDS ORDERED: ONDANSETRON 4 MG TAB.RAPDIS PO PRN (18:32)
--- NOTE | 2018-07-09 19:27 | Progress Note ---
Provider Note Provider Note: ID Consult Note Asked to review patient's chart by the patient's hospitalist Dr Lopez. Reviewed VS, imaging reports, provider reports, relevant labs. Pt not seen or examined. Ms Jaramillo is a 78 year old woman with PMH including COPD on home oxygen, CHF, AF, CKD, and DM who presented on 07/02/18 to the ED with c/o acute abdominal pain with associated vomiting. She denied fever, chills, dysuria or difficulty urinating per ED provider's note and H&P. She did not have fever. Dry oral mucosa, clear lungs, abdominal distention, and mild abdominal tenderness were noted on exam. U/A had 9 WBCs and >100k cfu Klebsiella pneumoniae grew from UCx. Initial imaging included CXR read as showing pleural effusions with patchy opacification in lung bases. CT abdomen/pelvis showed multiple dilated loops of small bowel suggesting developing SBO and b/l infiltrate/atelectasis in b/l lower lobes with b/l effusions. BCx were negative from 07/02. Pt was initially managed with NGT decompression but later developed worsening leukocytosis and increasing abdominal tenderness with rebound. She was taken to the OR on 07/05 for ex-lap and resection of ischemic small bowel. She was also suspected of having aspiration pneumonia and received azithromycin and Rocephin x 1 dose in the ED before being switched to ertapenem was given for suspected aspiration pneumonia from 07/03-07/07, Flagyl from 07/04-present, Cipro 07/07-present, and Primaxin from 07/07-present. Repeat BCx on 07/04 no growth x4d. Repeat UCx on 07/07 showed no growth x 48h. Additional imaging included RUQ US that showed no ascites, surgically absent gallbladder and no filling defects or abnormal caliber to CBD. Most recent CXR on 07/08/18 showed unchanged b/l pleural effusions with adjacent atelectasis/consolidation. WBC count has continued to remain in the range of 24-29k over the past 5 days with pt continuing to be afebrile. Other lab abnormalities have included PATRICK on CKD that developed inpatient and has since improved. Impression/Recommendations Pt has already completed 7 days of broad spectrum antibiotics for an initial suspicion of aspiration pneumonia and has been noted to be improving with no increasing sputum production, no cough, no rhonchi noted or coarse crackles and good O2 sats on 2L. No additional infection has been identified. She has been adequately treated for this diagnosis. She has no bacteremia. No cellulitis noted on exam. She has no UTI with no presenting complaints of dysuria and no growth from recent UCx. Ischemia/tissue necrosis are known noninfectious causes of leukocytosis. Tissue inflammation with surgery/surgical stress also can cause leukocytosis, as can other causes of physiologic stress. Pt appears to have persistent leukocytosis as part of a SIRS response to small bowel ischemia that required exploratory laparotomy and an extensive length of small bowel being resected, superimposed on her multiple medical comorbidities. Recommend discontinuing Cipro, Flagyl, and Primaxin. Jordan Samuels MD [facility] pager [phone]
--- NOTE | 2018-07-09 19:37 | PDOC PROGRESS REPORT ---
Subjective Progress Note for:: 07/09/18 Reason For Visit: SMALL BOWEL OBSTRUCTION, ASPIRATION PNEUMONIA, Physical Exam Vital Signs: Temp Pulse Resp BP Pulse Ox 98.3 F 90 19 144/63 H 96 07/09/18 08:00 07/09/18 08:31 07/09/18 18:28 07/09/18 18:28 07/09/18 18:28 Intake & Output 07/08/18 07/09/18 07/10/18 06:59 06:59 06:59 Intake Total 1723 3565 1372 Output Total 1975 3290 1275 Balance -252 275 97 Weight 69.2 kg 68.9 kg General appearance: PRESENT: no acute distress, cooperative Eye exam: PRESENT: EOMI, PERRLA Respiratory exam: PRESENT: clear to auscultation frida, unlabored Cardiovascular exam: PRESENT: RRR, tachycardia GI/Abdominal exam: PRESENT: other - Abdominal incision clean and dry without any evidence of drainage Extremities exam: PRESENT: full ROM. ABSENT: calf tenderness, clubbing, pedal edema Skin exam: PRESENT: dry Results Laboratory Results: 07/09/18 03:19 07/09/18 12:25 07/09/18 07/09/18 07/09/18 03:19 03:19 12:25 WBC 27.1 H RBC 3.44 L Hgb 9.7 L Hct 29.4 L MCV 86 MCH 28.1 MCHC 32.8 RDW 14.7 H Plt Count 156 Sodium 142.7 143.3 Potassium 3.4 L 3.9 Chloride 112 H 112 H Carbon Dioxide 23 21 L Anion Gap 8 10 BUN 67 H 65 H Creatinine 2.15 H 2.02 H Est GFR ( Amer) 27 L 29 L Est GFR (Non-Af Amer) 22 L 24 L Glucose 94 102 Calcium 7.6 L 7.6 L 07/07/18 12:50 [place] Catheter Urine Culture - Final NO GROWTH 2 DAYS 07/02/18 07/02/18 07/02/18 18:55 18:55 18:55 Creatine Kinase 23 L CK-MB (CK-2) 0.67 Troponin I 0.022 0.020 NT-Pro-B Natriuret Pep 9510 H 07/03/18 07/03/18 07/05/18 00:55 07:26 05:32 Creatine Kinase CK-MB (CK-2) 0.87 1.03 Troponin I 0.016 0.029 0.056 NT-Pro-B Natriuret Pep 07/05/18 07/05/18 07/06/18 15:35 20:01 04:45 Creatine Kinase CK-MB (CK-2) Troponin I 0.051 0.052 0.037 NT-Pro-B Natriuret Pep Impressions: Abdomen/Pelvis CT 07/02/18 19:30 IMPRESSION: Multiple dilated loops of proximal and mid small bowel are seen with normal caliber distal small bowel and suggestive of developing small bowel obstruction The right kidney severely atrophic. Images through the lung bases show small right-sided and moderate left-sided pleural effusion. There is presence of bilateral lower lobe infiltrate/atelectasis. Mild infiltrate/atelectasis is also seen in the right middle lobe. Reticular nodular infiltrates are seen in the inferior aspect of the right upper lobe of the lung. Large bowel diverticulosis, without acute diverticulitis Abdomen X-Ray 07/04/18 00:00 IMPRESSION: Ileus or partial small bowel obstruction. No significant change. Small Bowel X-Ray 07/04/18 00:00 IMPRESSION: Ileus or partial small bowel obstruction without clear transition point. Repeat KUB is recommended at approximately noon today, which will be a 20 hour film. KUB X-Ray 07/05/18 00:00 IMPRESSION: Nasogastric tube in the stomach. Abdomen Ultrasound 07/07/18 00:00 IMPRESSION: 1. No ultrasound abnormality of the right upper quadrant to explain abnormal LFTs. 2. Status post cholecystectomy. 3. Atrophic and echogenic right kidney, as can be seen in chronic renal disease. Chest X-Ray 07/08/18 20:00 IMPRESSION: Unchanged pleural effusions. Interval removal of enteric tube. Assessment & Plan - Plan Summary Plan Summary: Is postoperative laparotomy with extensive small bowel resection secondary to small bowel ischemia. Also with aspiration pneumonia She maintains elevated white blood count of 27,000 today is been seen by infectious disease who recommended continuing antibiotics wound is clean and dry and she has had return of some bowel function with passage of flatus We will remove NG tube today and start her on sips of clear liquids
--- NOTE | 2018-07-09 20:23 | PDOC PROGRESS REPORT ---
Subjective Progress Note for:: 07/09/18 Subjective:: Patient is doing well and is currently downgraded from the ICU although she is still physically in the ICU. She continues to produce a good urine output. She continues to improve clinically. Reason For Visit: SMALL BOWEL OBSTRUCTION, ASPIRATION PNEUMONIA, Physical Exam Vital Signs: Temp Pulse Resp BP Pulse Ox 98.3 F 90 19 144/63 H 96 07/09/18 08:00 07/09/18 08:31 07/09/18 18:28 07/09/18 18:28 07/09/18 20:12 Intake & Output 07/08/18 07/09/18 07/10/18 06:59 06:59 06:59 Intake Total 1723 3565 1372 Output Total 1975 3290 1275 Balance -252 275 97 Weight 69.2 kg 68.9 kg Exam: General appearance: PRESENT: no acute distress, cooperative, well-developed, well-nourished Head exam: PRESENT: atraumatic, normocephalic Eye exam: PRESENT: conjunctiva pale, PERRLA. ABSENT: scleral icterus Neck exam: ABSENT: JVD Respiratory exam: PRESENT: Diminished breath sounds. ABSENT: crackles, rales, rhonchi, unlabored, wheezes Cardiovascular exam: PRESENT: Irregularly irregular rate rhythm -+S1, +S2. ABSENT: diastolic murmur, systolic murmur GI/Abdominal exam: PRESENT: normal bowel sounds, soft. ABSENT: guarding, mass, tenderness Extremities exam: Trace bilateral lower extremity edema Neurological exam: PRESENT: alert, awake, oriented to person, place and time. Skin exam: PRESENT: dry, warm, Results Laboratory Results: 07/09/18 03:19 07/09/18 12:25 07/09/18 07/09/18 07/09/18 03:19 03:19 12:25 WBC 27.1 H RBC 3.44 L Hgb 9.7 L Hct 29.4 L MCV 86 MCH 28.1 MCHC 32.8 RDW 14.7 H Plt Count 156 Sodium 142.7 143.3 Potassium 3.4 L 3.9 Chloride 112 H 112 H Carbon Dioxide 23 21 L Anion Gap 8 10 BUN 67 H 65 H Creatinine 2.15 H 2.02 H Est GFR ( Amer) 27 L 29 L Est GFR (Non-Af Amer) 22 L 24 L Glucose 94 102 Calcium 7.6 L 7.6 L 07/07/18 12:50 [place] Catheter Urine Culture - Final NO GROWTH 2 DAYS 07/02/18 07/02/18 07/02/18 18:55 18:55 18:55 Creatine Kinase 23 L CK-MB (CK-2) 0.67 Troponin I 0.022 0.020 NT-Pro-B Natriuret Pep 9510 H 07/03/18 07/03/18 07/05/18 00:55 07:26 05:32 Creatine Kinase CK-MB (CK-2) 0.87 1.03 Troponin I 0.016 0.029 0.056 NT-Pro-B Natriuret Pep 07/05/18 07/05/18 07/06/18 15:35 20:01 04:45 Creatine Kinase CK-MB (CK-2) Troponin I 0.051 0.052 0.037 NT-Pro-B Natriuret Pep Impressions: Abdomen/Pelvis CT 07/02/18 19:30 IMPRESSION: Multiple dilated loops of proximal and mid small bowel are seen with normal caliber distal small bowel and suggestive of developing small bowel obstruction The right kidney severely atrophic. Images through the lung bases show small right-sided and moderate left-sided pleural effusion. There is presence of bilateral lower lobe infiltrate/atelectasis. Mild infiltrate/atelectasis is also seen in the right middle lobe. Reticular nodular infiltrates are seen in the inferior aspect of the right upper lobe of the lung. Large bowel diverticulosis, without acute diverticulitis Abdomen X-Ray 07/04/18 00:00 IMPRESSION: Ileus or partial small bowel obstruction. No significant change. Small Bowel X-Ray 07/04/18 00:00 IMPRESSION: Ileus or partial small bowel obstruction without clear transition point. Repeat KUB is recommended at approximately noon today, which will be a 20 hour film. KUB X-Ray 07/05/18 00:00 IMPRESSION: Nasogastric tube in the stomach. Abdomen Ultrasound 07/07/18 00:00 IMPRESSION: 1. No ultrasound abnormality of the right upper quadrant to explain abnormal LFTs. 2. Status post cholecystectomy. 3. Atrophic and echogenic right kidney, as can be seen in chronic renal d isease. Assessment & Plan - Diagnosis (1) Acute kidney injury superimposed on CKD Is this a current diagnosis for this admission?: Yes Plan: Secondary to ATN. Urine output has increased. Kidney function slowly improving. Continue to monitor. Continue maintenance IV fluids with potassium. (2) Chronic kidney disease (CKD), stage IV (severe) Is this a current diagnosis for this admission?: Yes (3) Urinary tract infection Is this a current diagnosis for this admission?: Yes Plan: On imipenem and ciprofloxacin. (4) Anemia Qualifiers: Anemia type: unspecified type Qualified Code(s): D64.9 - Anemia, u nspecified Is this a current diagnosis for this admission?: Yes Plan: Improved with blood transfusion. (5) Bilateral pleural effusion Is this a current diagnosis for this admission?: Yes Plan: Seems improving from current chest x-ray. (6) Leukocytosis Qualifiers: Leukocytosis type: unspecified Qualified Code(s): D72.829 - Elevated white blood cell count, unspecified Is this a current diagnosis for this admission?: Yes Plan: On IV antibiotics. (7) Hypokalemia Is this a current diagnosis for this admission?: Yes Plan: Potassium replacement as needed. (8) Small bowel obstruction Is this a current diagnosis for this admission?: Yes Plan: Status post exploratory laparotomy and small bowel resection on 07/05/2018. (9) ischemic small bowel Is this a current diagnosis for this admission?: Yes Plan: On IV imipenem, ciprofloxacin and Flagyl. (10) Atrophy of right kidney Is this a current diagnosis for this admission?: Yes (11) Chronic atrial fibrillation Is this a current diagnosis for this admission?: Yes Plan: Rate controlled on Cardizem. (12) Acute respiratory failure Is this a current diagnosis for this admission?: Yes Plan: Resolved. - Time Time with patient: 15-25 minutes
--- NOTE | 2018-07-09 21:05 | PDOC PROGRESS REPORT ---
Subjective Progress Note for:: 07/09/18 Subjective:: Patient was seen by the bedside, she is alert, she is status post laparotomy, resection of ischemic bowel Reason For Visit: SMALL BOWEL OBSTRUCTION, ASPIRATION PNEUMONIA, Physical Exam Vital Signs: Temp Pulse Resp BP Pulse Ox 98.3 F 90 19 144/63 H 96 07/09/18 08:00 07/09/18 08:31 07/09/18 18:28 07/09/18 18:28 07/09/18 20:12 Intake & Output 07/08/18 07/09/18 07/10/18 06:59 06:59 06:59 Intake Total 1723 3565 1572 Output Total 1975 3290 1275 Balance -252 275 297 Weight 69.2 kg 68.9 kg General appearance: PRESENT: no acute distress Eye exam: PRESENT: PERRLA Respiratory exam: PRESENT: clear to auscultation frida Cardiovascular exam: PRESENT: +S1, +S2 GI/Abdominal exam: PRESENT: soft Neurological exam: PRESENT: alert Results Laboratory Results: 07/09/18 03:19 07/09/18 12:25 07/09/18 07/09/18 07/09/18 03:19 03:19 12:25 WBC 27.1 H RBC 3.44 L Hgb 9.7 L Hct 29.4 L MCV 86 MCH 28.1 MCHC 32.8 RDW 14.7 H Plt Count 156 Sodium 142.7 143.3 Potassium 3.4 L 3.9 Chloride 112 H 112 H Carbon Dioxide 23 21 L Anion Gap 8 10 BUN 67 H 65 H Creatinine 2.15 H 2.02 H Est GFR ( Amer) 27 L 29 L Est GFR (Non-Af Amer) 22 L 24 L Glucose 94 102 Calcium 7.6 L 7.6 L 07/07/18 12:50 [place] Catheter Urine Culture - Final NO GROWTH 2 DAYS 07/02/18 07/02/18 07/02/18 18:55 18:55 18:55 Creatine Kinase 23 L CK-MB (CK-2) 0.67 Troponin I 0.022 0.020 NT-Pro-B Natriuret Pep 9510 H 07/03/18 07/03/18 07/05/18 00:55 07:26 05:32 Creatine Kinase CK-MB (CK-2) 0.87 1.03 Troponin I 0.016 0.029 0.056 NT-Pro-B Natriuret Pep 07/05/18 07/05/18 07/06/18 15:35 20:01 04:45 Creatine Kinase CK-MB (CK-2) Troponin I 0.051 0.052 0.037 NT-Pro-B Natriuret Pep Impressions: Abdomen/Pelvis CT 07/02/18 19:30 IMPRESSION: Multiple dilated loops of proximal and mid small bowel are seen with normal caliber distal small bowel and suggestive of developing small bowel obstruction The right kidney severely atrophic. Images through the lung bases show small right-sided and moderate left-sided pleural effusion. There is presence of bilateral lower lobe infiltrate/atelectasis. Mild infiltrate/atelectasis is also seen in the right middle lobe. Reticular nodular infiltrates are seen in the inferior aspect of the right upper lobe of the lung. Large bowel diverticulosis, without acute diverticulitis Abdomen X-Ray 07/04/18 00:00 IMPRESSION: Ileus or partial small bowel obstruction. No significant change. Small Bowel X-Ray 07/04/18 00:00 IMPRESSION: Ileus or partial small bowel obstruction without clear transition point. Repeat KUB is recommended at approximately noon today, which will be a 20 hour film. KUB X-Ray 07/05/18 00:00 IMPRESSION: Nasogastric tube in the stomach. Abdomen Ultrasound 07/07/18 00:00 IMPRESSION: 1. No ultrasound abnormality of the right upper quadrant to explain abnormal LFTs. 2. Status post cholecystectomy. 3. Atrophic and echogenic right kidney, as can be seen in chronic renal disease. Assessment & Plan - Diagnosis (1) Acute kidney injury Is this a current diagnosis for this admission?: Yes Plan: He has acute kidney injury due to ATN (2) Small bowel obstruction Is this a current diagnosis for this admission?: Yes (3) Pneumonia Qualifiers: Pneumonia type: due to unspecified organism Laterality: bilateral Lung location: unspecified part of lung Qualified Code(s): J18.9 - Pneumonia, unspecified organism Is this a current diagnosis for this admission?: Yes (4) Aspiration pneumonia Qualifiers: Is this a current diagnosis for this admission?: Yes (5) Chronic atrial fibrillation Is this a current diagnosis for this admission?: Yes (6) Ischemic bowel disease Is this a current diagnosis for this admission?: Yes Plan: Status post laparotomy, resection of small bowel (7) UTI due to Klebsiella species Is this a current diagnosis for this admission?: Yes Plan: UTI due to Klebsiella on IV antibiotic (8) Acute tubular necrosis Is this a current diagnosis for this admission?: Yes Plan: Downgrade to IMCU floor
[2018-07-09] MEDS ORDERED: ONDANSETRON HCL INJ/PF 4 MG/2 ML SDV IV PRN (21:09)
[2018-07-09] MEDS ORDERED: ONDANSETRON HCL INJ/PF 4 MG/2 ML SDV ONE (21:10)
--- NOTE | 2018-07-09 21:22 | PROGRESS NOTE E ---
Progress Note NAME: SID MARTINEZ : 1940 AGE: 78Y DATE: 07/09/2018 ROOM: 612 SUBJECTIVE: The patient is a 78-year-old female who came in with severe sepsis, small bowel obstruction, status post exploratory laparotomy and small bowel resection, acute respiratory failure requiring invasive mechanical ventilation. Extubated, endotracheal intubated about 2 days ago after passing the spontaneous breathing trial. Denies any fever. Had 2 episodes of vomiting today. Denies any increased cough or purulent sputum production or hemoptysis. No chest pain or gross dyspnea. OBJECTIVE: GENERAL: The patient is awake, alert, coherent, oriented x3. Afebrile, not in apparent respiratory distress. EYES: No jaundice or pallor. EARS, NOSE, MOUTH AND THROAT: No nasal discharge or ear discharge. CHEST AND LUNGS: No wheezing, no rhonchi, no coarse crackles. Decreased breath sounds bibasilarly. CARDIOVASCULAR: S1, S2 distinct. Normal rate, irregular rhythm. ABDOMEN: Flabby with bowel sounds, soft, nondistended, no tenderness. EXTREMITIES: No joint swelling, no cellulitis, no bipedal edema. LABORATORY DATA: CBC done today showed a white count of 27.1 up from 25.3 yesterday, hemoglobin is 9.7 and hematocrit is 29.4, platelet count is 156. Chemistry done today showed sodium is 143.3, potassium is 3.9, chloride 112, BUN is 65, creatinine is 2.02 down from 2.15 yesterday. IMAGING STUDIES: Chest x-ray done yesterday showed bilateral pleural effusion, more on the left than on the right side. ASSESSMENT: SEVERE SEPSIS SECONDARY TO INTRAABDOMINAL INFECTION, SHORTNESS OF BREATH AND SMALL BOWEL NECROSIS, STATUS POST EXPLORATORY LAPAROTOMY. PLAN/RECOMMENDATION: 1. Continue Spiriva inhaler 1 capsule once daily. 2. Continue albuterol inhaler 2 puffs every 4 hours as needed. 3. Continue IV antibiotics; IV Cipro, IV Primaxin, and IV Flagyl. 07/10/[address] scan showed intraabdominal abscess and worsening leukocytosis. Patient needs drainage of the intraabdominal abscess. Surgery service should decide whether to drain the intraabdominal abscess themselves or request interventional radiology service to perform CT guided percutaneous drainage of the abscess. DICTATING PHYSICIAN: CLINT MORGAN MD,JEMAL,MPH [id number] PHY#: [id number] ID: [id number] JOB#: [id number] ACCT: [id number] cc: > MTDD
--- NOTE | 2018-07-09 22:13 | RADIOLOGY REPORT (SQ) ---
XR CHEST 1 VIEW HISTORY: Pleural effusion. COMPARISON: 07/08/2018 FINDINGS: The right IJ line is stable. There are slightly decreased bilateral pleural effusions with adjacent atelectasis/consolidation. No discernible pneumothorax. IMPRESSION: Slightly decreased bilateral pleural effusions.
[2018-07-10] MEDS: METOPROLOL TARTRATE PF/INJ 5 MG/5 ML SDV IV SCH ×5 (00:06→22:29)
[2018-07-10] MEDS: METRONIDAZOLE 500 MG/NS RTU 500 MG/100 ML RTUPB IV SCH ×4 (00:06→18:59)
[2018-07-10] MEDS: IMIPENEM/CILASTATIN SODIUM 500 MG in NORMAL SALINE 100 ML IV SCH ×2 (04:42→17:43)
[2018-07-10] MEDS: PANTOPRAZOLE SODIUM 40 MG VIAL IV SCH (10:45)
[2018-07-10] MEDS: TIOTROPIUM BROMIDE DPI 5 CAP/KIT (18 MCG/CAP) IH SCH (10:45)
[2018-07-10] MEDS: POTASSI CL 20 MEQ/NS 1L 1,000 ML IV PRN (12:59)
[2018-07-10] MEDS: DILTIAZEM HCL/D5W 125 MG/125 ML RTUINJ IV PRN (13:03)
[2018-07-10 13:37] LABS: HEMATOCRIT 31.9 % (36.0-47.0); HEMOGLOBIN 10.3 g/dL (12.0-15.5); MEAN CORPUSCULAR HEMOGLOBIN 28.2 pg (27.0-33.4); MEAN CORPUSCULAR HGB CONC 32.4 g/dL (32.0-36.0); MEAN CORPUSCULAR VOLUME 87 fl (80-97); PLATELET COUNT 240 10^3/uL (150-450); RED BLOOD COUNT 3.67 10^6/uL (3.72-5.28); RED CELL DISTRIBUTION WIDTH 15.5 % (11.5-14.0)
[2018-07-10 13:41] LABS: WHITE BLOOD COUNT 32.2 10^3/uL (4.0-10.5)
[2018-07-10 13:51] LABS: ANION GAP 10 (5-19); BLOOD UREA NITROGEN 63 mg/dL (7-20); CALCIUM 7.5 mg/dL (8.4-10.2); CARBON DIOXIDE 19 mmol/L (22-30); CHLORIDE 114 mmol/L (98-107); GLUCOSE 119 mg/dL (75-110); POTASSIUM 3.9 mmol/L (3.6-5.0); SODIUM 142.6 mmol/L (137-145)
[2018-07-10 13:53] LABS: ABSOLUTE MONOCYTES # (MANUAL) 1.3 10^3/uL (0.1-1.4); ABSOLUTE NEUTROPHILS# (MANUAL) 29.9 10^3/uL (1.7-8.2); BAND NEUTROPHILS % (MANUAL) 5 % (3-5); BASOPHILS % (MANUAL) 0 % (0-2); EOSINOPHILS % (MANUAL) 0 % (0-6); LYMPHOCYTES % (MANUAL) 3 % (13-45); MONOCYTES % (MANUAL) 4 % (3-13); NUCLEATED RED BLOOD CELLS 2 /100 WBC (0); PLATELET COMMENT ADEQUATE; SEGMENTED NEUTROPHILS % (MAN) 88 % (42-78); TOTAL CELLS COUNTED 100; TOXIC GRANULATION 2+
[2018-07-10 13:54] LABS: ANISOCYTOSIS SLIGHT; OVALOCYTES SLIGHT; POIKILOCYTOSIS SLIGHT; POLYCHROMASIA 1+
--- NOTE | 2018-07-10 15:24 | RADIOLOGY REPORT (SQ) ---
EXAM DESCRIPTION: CT ABD/PELVIS NO ORAL OR IV COMPLETED DATE/TIME: 07/10/2018 3:01 pm REASON FOR STUDY: worsening leucocytosis ,s/p laparotomy COMPARISON: 07/02/2018 TECHNIQUE: CT scan of the abdomen and pelvis performed without intravenous or oral contrast. Images reviewed with lung, soft tissue, and bone windows. Reconstructed coronal and sagittal MPR images revi ewed. All images stored on PACS. All CT scanners at this facility use dose modulation, iterative reconstruction, and/or weight based d osing when appropriate to reduce radiation dose to as low as reasonably achievable (ALARA). [facility]: Dose Right [facility]: CareDose [facility]: Dose Right [facility]: Teradose 4D [facility]: Smart Flix[employer] RADIATION DOSE: CT Rad equipment meets quality standard of care and radiation dose reduction techniq ues were employed. CTDIvol: 13.0 mGy. DLP: 689 mGy-cm.mGy. LIMITATIONS: None. FINDINGS: LOWER CHEST: Moderate bilateral pleural effusions and associated atelectasis or consolidat ion. Three-vessel coronary artery calcifications. NON-CONTRASTED LIVER, SPLEEN, ADRENALS: Evaluation limited by lack of IV contrast. No identified sign ificant masses. PANCREAS: No masses. No peripancreatic inflammatory changes. GALLBLADDER: Surgically absent. RIGHT KIDNEY AND URETER: Very atrophic right kidney. No suspicious masses. Assessment limited by lac k of IV contrast. No significant calcifications. No hydronephrosis or hydroureter. LEFT KIDNEY AND URETER: No suspicious masses. Assessment limited by lack of IV contrast. No signifi cant calcifications. No hydronephrosis or hydroureter. AORTA AND RETROPERITONEUM: No aneurysm. No retroperitoneal masses or adenopathy. Extensive calcific atherosclerosis. BOWEL AND PERITONEAL CAVITY: Status post partial resection of the small bowel. The bowel is diffusel y fluid-filled to the splenic flexure. Severe diverticulosis without evidence of acute diverticuliti s. There is a probable loculated fluid collection adjacent to the descending colon in the left hemia bdomen measuring 6.0 x 2.6 x 7.2 cm (series 2, image 48). Additional probable loculated fluid collec tion in the anterior abdomen underlying the midline laparotomy containing a small volume of free air, measuring 5.7 x 1.8 x 4.6 cm (series 2, image 62). Additional trace ascites. APPENDIX: Not clearly visualized. PELVIS, BLADDER, AND ABDOMINAL WALL:No abnormal masses. No free fluid. Bladder normal. Status post m idline laparotomy. Anasarca. BONES: Status post left hip total arthroplasty. Advanced arthrosis of the right hip. OTHER: No other significant finding. IMPRESSION: 1. Status post midline laparotomy and partial resection of the small bowel. 2. There is a probable loculated fluid collection adjacent to the descending colon in the left hemiab domen measuring 6.0 x 2.6 x 7.2 cm. Additional probable loculated fluid collection in the anterior ab domen underlying the midline laparotomy containing a small volume of free air, measuring 5.7 x 1.8 x 4.6 cm. Findings are concerning for abscess formation. Additional trace ascites. 3. Pleural effusions and anasarca. COMMENT: Quality ID # [id number]: Final reports with documentation of one or more dose reduction techniques (e.g., Automated exposure control, adjustment of the mA and/or kV according to patient size, use of iterative reconstruction technique) TECHNICAL DOCUMENTATION: JOB ID: [id number] [employer]- All Rights Reserved Reading location - IP/workstation name: [email or web address]
[2018-07-10] MEDS: CIPROFLOXACIN 400 MG/D5W RTU 400 MG/200 ML RTUPB IV SCH (15:46)
--- NOTE | 2018-07-10 20:03 | PDOC PROGRESS REPORT ---
Subjective Progress Note for:: 07/10/18 Subjective:: Patient was seen by the bedside, the white blood cell count increase from 27,000-32,000 predominantly neutrophils because she recently just had laparotomy and resection of small bowel due to ischemic small bowel disease abscess collection was suspected as a potential complication and the etiology of the worsening leukocytosis. CT scan of the abdomen and pelvis with no contrast was ordered it demonstrated status post resection of small bowel. The bowel is diffusely fluid-filled to the splenic flexure. Severe diverticulosis without evidence of acute diverticulitis there is loculated fluid collection adjacent to the descending colon in the left hemiabdomen measuring 6 x 2.6 x 7.2 cm. Additional probable loculated fluid collection in the anterior abdomen un derlying the midline laparotomy containing a small volume of free air measuring 5 x 7 x 1 0.8 x 4.2 cm suspicious for abscess collection Reason For Visit: SMALL BOWEL OBSTRUCTION, ASPIRATION PNEUMONIA, Physical Exam Vital Signs: Temp Pulse Resp BP Pulse Ox 97.8 F 97 28 H 145/63 H 93 07/10/18 16:00 07/10/18 16:00 07/10/18 18:00 07/10/18 16:00 07/10/18 18:00 Intake & Output 07/09/18 07/10/18 07/11/18 06:59 06:59 06:59 Intake Total 3565 2072 1782 Output Total 3290 1900 575 Balance 770 327 3734 Weight 68.9 kg 71.1 kg General appearance: PRESENT: no acute distress Eye exam: PRESENT: PERRLA Respiratory exam: PRESENT: clear to auscultation frida Cardiovascular exam: PRESENT: +S1, +S2 GI/Abdominal exam: PRESENT: soft Neurological exam: PRESENT: alert, CN II-XII grossly intact Results Laboratory Results: 07/10/18 13:15 07/10/18 13:15 07/10/18 07/10/18 13:15 13:15 WBC 32.2 H* RBC 3.67 L Hgb 10.3 L Hct 31.9 L MCV 87 MCH 28.2 MCHC 32.4 RDW 15.5 H Plt Count 240 Seg Neutrophils % Not Reportable Lymphocytes % Not Reportable Monocytes % Not Reportable Eosinophils % Not Reportable Basophils % Not Reportable Absolute Neutrophils Not Reportable Absolute Lymphocytes Not Reportable Absolute Monocytes Not Reportable Absolute Eosinophils Not Reportable Absolute Basophils Not Reportable Sodium 142.6 Potassium 3.9 Chloride 114 H Carbon Dioxide 19 L Anion Gap 10 BUN 63 H Creatinine 1.91 H Est GFR ( Amer) 31 L Est GFR (Non-Af Amer) 25 L Glucose 119 H Calcium 7.5 L 07/04/18 23:25 Blood Blood Culture - Final NO GROWTH IN 5 DAYS 07/04/18 22:38 Blood Blood Culture - Final NO GROWTH IN 5 DAYS 07/02/18 07/02/18 07/02/18 18:55 18:55 18:55 Creatine Kinase 23 L CK-MB (CK-2) 0.67 Troponin I 0.022 0.020 NT-Pro-B Natriuret Pep 9510 H 07/03/18 07/03/18 07/05/18 00:55 07:26 05:32 Creatine Kinase CK-MB (CK-2) 0.87 1.03 Troponin I 0.016 0.029 0.056 NT-Pro-B Natriuret Pep 07/05/18 07/05/18 07/06/18 15:35 20:01 04:45 Creatine Kinase CK-MB (CK-2) Troponin I 0.051 0.052 0.037 NT-Pro-B Natriuret Pep Impressions: Abdomen X-Ray 07/04/18 00:00 IMPRESSION: Ileus or partial small bowel obstruction. No significant change. Small Bowel X-Ray 07/04/18 00:00 IMPRESSION: Ileus or partial small bowel obstruction without clear transition point. Repeat KUB is recommended at approximately noon today, which will be a 20 hour film. KUB X-Ray 07/05/18 00:00 IMPRESSION: Nasogastric tube in the stomach. Abdomen Ultrasound 07/07/18 00:00 IMPRESSION: 1. No ultrasound abnormality of the right upper quadrant to explain abnormal LFTs. 2. Status post cholecystectomy. 3. Atrophic and echogenic right kidney, as can be seen in chronic renal disease. Chest X-Ray 07/09/18 20:00 IMPRESSION: Slightly decreased bilateral pleural effusions. Abdomen/Pelvis CT 07/10/18 00:00 IMPRESSION: 1. Status post midline laparotomy and partial resection of the small bowel. 2. There is a probable loculated fluid collection adjacent to the descending colon in the left hemiabdomen measuring 6.0 x 2.6 x 7.2 cm. Additional probable loculated fluid collection in the anterior abdomen underlying the midline laparotomy containing a small volume of free air, measuring 5.7 x 1.8 x 4.6 cm. Findings are concerning for abscess formation. Additional trace ascites. 3. Pleural effusions and anasarca. Assessment & Plan - Diagnosis (1) Acute kidney injury Is this a current diagnosis for this admission?: Yes (2) Small bowel obstruction Is this a current diagnosis for this admission?: Yes (3) Pneumonia Qualifiers: Pneumonia type: due to unspecified organism Laterality: bilateral Lung location: unspecified part of lung Qualified Code(s): J18.9 - Pneumonia, unspecified organism Is this a current diagnosis for this admission?: Yes (4) Aspiration pneumonia Qualifiers: Is this a current diagnosis for this admission?: Yes (5) Chronic atrial fibrillation Is this a current diagnosis for this admission?: Yes (6) Ischemic bowel disease Is this a current diagnosis for this admission?: Yes (7) UTI due to Klebsiella species Is this a current diagnosis for this admission?: Yes (8) Acute tubular necrosis Is this a current diagnosis for this admission?: Yes (9) Postoperative intra-abdominal abscess Is this a current diagnosis for this admission?: Yes Plan: Patient will need catheter directed drainage of abdominal abscess. Patient presently on imipenem and Flagyl (10) Bilateral pleural effusion Is this a current diagnosis for this admission?: Yes (11) Pleural effusion Is this a current diagnosis for this admission?: Yes Plan: Patient to have thoracentesis ordered
[2018-07-10] MEDS: HYDROMORPHONE HCL INJ/PF 2 MG/ML AMPULE IV PRN (20:08)
[2018-07-10 21:25] LABS: INTERNATIONAL RATION (INR) 1.78; PROTHROMBIN TIME 21.6 SEC (11.4-15.4)
[2018-07-10 21:26] LABS: PARTIAL THROMBOPLASTIN TIME 44.5 SEC (23.5-35.8)
--- NOTE | 2018-07-10 21:36 | PDOC PROGRESS REPORT ---
Subjective Reason For Visit: SMALL BOWEL OBSTRUCTION, ASPIRATION PNEUMONIA, Physical Exam Vital Signs: Temp Pulse Resp BP Pulse Ox 97.8 F 97 24 H 143/63 H 94 07/10/18 16:00 07/10/18 16:00 07/10/18 20:00 07/10/18 19:11 07/10/18 20:00 Intake & Output 07/09/18 07/10/18 07/11/18 06:59 06:59 06:59 Intake Total 3565 2072 1782 Output Total 3290 1900 575 Balance 591 401 8147 Weight 68.9 kg 71.1 kg Results Laboratory Results: 07/10/18 13:15 07/10/18 13:15 07/10/18 07/10/18 13:15 13:15 WBC 32.2 H* RBC 3.67 L Hgb 10.3 L Hct 31.9 L MCV 87 MCH 28.2 MCHC 32.4 RDW 15.5 H Plt Count 240 Seg Neutrophils % Not Reportable Lymphocytes % Not Reportable Monocytes % Not Reportable Eosinophils % Not Reportable Basophils % Not Reportable Absolute Neutrophils Not Reportable Absolute Lymphocytes Not Reportable Absolute Monocytes Not Reportable Absolute Eosinophils Not Reportable Absolute Basophils Not Reportable Sodium 142.6 Potassium 3.9 Chloride 114 H Carbon Dioxide 19 L Anion Gap 10 BUN 63 H Creatinine 1.91 H Est GFR ( Amer) 31 L Est GFR (Non-Af Amer) 25 L Glucose 119 H Calcium 7.5 L 07/04/18 23:25 Blood Blood Culture - Final NO GROWTH IN 5 DAYS 07/04/18 22:38 Blood Blood Culture - Final NO GROWTH IN 5 DAYS 07/02/18 07/02/18 07/02/18 18:55 18:55 18:55 Creatine Kinase 23 L CK-MB (CK-2) 0.67 Troponin I 0.022 0.020 NT-Pro-B Natriuret Pep 9510 H 07/03/18 07/03/18 07/05/18 00:55 07:26 05:32 Creatine Kinase CK-MB (CK-2) 0.87 1.03 Troponin I 0.016 0.029 0.056 NT-Pro-B Natriuret Pep 07/05/18 07/05/18 07/06/18 15:35 20:01 04:45 Creatine Kinase CK-MB (CK-2) Troponin I 0.051 0.052 0.037 NT-Pro-B Natriuret Pep Impressions: Abdomen X-Ray 07/04/18 00:00 IMPRESSION: Ileus or partial small bowel obstruction. No significant change. Small Bowel X-Ray 07/04/18 00:00 IMPRESSION: Ileus or partial small bowel obstruction without clear transition point. Repeat KUB is recommended at approximately noon today, which will be a 20 hour film. KUB X-Ray 07/05/18 00:00 IMPRESSION: Nasogastric tube in the stomach. Abdomen Ultrasound 07/07/18 00:00 IMPRESSION: 1. No ultrasound abnormality of the right upper quadrant to explain abnormal LFTs. 2. Status post cholecystectomy. 3. Atrophic and echogenic right kidney, as can be seen in chronic renal disease. Chest X-Ray 07/09/18 20:00 IMPRESSION: Slightly decreased bilateral pleural effusions. Abdomen/Pelvis CT 07/10/18 00:00 IMPRESSION: 1. Status post midline laparotomy and partial resection of the small bowel. 2. There is a probable loculated fluid collection adjacent to the descending colon in the left hemiabdomen measuring 6.0 x 2.6 x 7.2 cm. Additional probable loculated fluid collection in the anterior abdomen underlying the midline laparotomy containing a small volume of free air, measuring 5.7 x 1.8 x 4.6 cm. Findings are concerning for abscess formation. Additional trace ascites. 3. Pleural effusions and anasarca. Assessment & Plan - Diagnosis (1) Nausea & vomiting Qualifiers: Vomiting type: unspecified Vomiting Intractability: unspecified Qualified Code(s): R11.2 - Nausea with vomiting, unspecified Is this a current diagnosis for this admission?: Yes (2) Abdominal pain Qualifiers: Abdominal location: lower abdomen, unspecified Qualified Code(s): R10.30 - Lower abdominal pain, unspecified Is this a current diagnosis for this admission?: Yes (3) Small bowel obstruction Is this a current diagnosis for this admission?: Yes - Plan Summary Plan Summary: This is a 78-year-old female status post exploratory laparotomy and bowel resection for necrotic small bowel. The patient reports that she is doing well today. She is breathing well. He is afebrile. Her abdomen is still mildly distended, but she denies nausea and vomiting. Patient believes that she is passing small amounts of flatus, but the nurses have not witnessed this. The patient's white blood cells continue to rise slowly. A CT scan was performed today. I have reviewed these images. The patient has several small pockets of fluid in the abdominal cavity. At this time, I am uncertain as to their significance. I do not believe they represent areas of hollow viscus perforation. They do not contain large amounts of air or obvious abscess. If her leukocytosis continues to rise, it may be prudent to aspirate these via CT guidance. The patient is currently suffering from a postoperative ileus. If the patient has developed C. difficile colitis, it may go undetected. I will have the nurses collect a C. difficile sample once bowel movements begin. Continue Flagyl for now.
[2018-07-11] MEDS: METRONIDAZOLE 500 MG/NS RTU 500 MG/100 ML RTUPB IV SCH ×5 (00:11→23:21)
[2018-07-11] MEDS: METOPROLOL TARTRATE PF/INJ 5 MG/5 ML SDV IV SCH ×4 (02:50→21:52)
[2018-07-11] MEDS: IMIPENEM/CILASTATIN SODIUM 500 MG in NORMAL SALINE 100 ML IV SCH ×2 (03:26→17:03)
[2018-07-11 05:14] LABS: HEMATOCRIT 31.3 % (36.0-47.0); MEAN CORPUSCULAR HEMOGLOBIN 28.2 pg (27.0-33.4); MEAN CORPUSCULAR HGB CONC 32.1 g/dL (32.0-36.0); MEAN CORPUSCULAR VOLUME 88 fl (80-97); PLATELET COUNT 247 10^3/uL (150-450); RED BLOOD COUNT 3.56 10^6/uL (3.72-5.28); RED CELL DISTRIBUTION WIDTH 15.6 % (11.5-14.0)
[2018-07-11 05:30] LABS: ABSOLUTE LYMPHOCYTES# (MANUAL) 1.6 10^3/uL (0.5-4.7); ABSOLUTE MONOCYTES # (MANUAL) 1.9 10^3/uL (0.1-1.4); ABSOLUTE NEUTROPHILS# (MANUAL) 28.7 10^3/uL (1.7-8.2); ANION GAP 9 (5-19); BAND NEUTROPHILS % (MANUAL) 2 % (3-5); BASOPHILS % (MANUAL) 0 % (0-2); BLOOD UREA NITROGEN 58 mg/dL (7-20); CALCIUM 7.5 mg/dL (8.4-10.2); CARBON DIOXIDE 20 mmol/L (22-30); CHLORIDE 115 mmol/L (98-107); EOSINOPHILS % (MANUAL) 0 % (0-6); GLUCOSE 116 mg/dL (75-110); LYMPHOCYTES % (MANUAL) 5 % (13-45); MONOCYTES % (MANUAL) 6 % (3-13); POTASSIUM 4.2 mmol/L (3.6-5.0); SEGMENTED NEUTROPHILS % (MAN) 87 % (42-78); SODIUM 143.6 mmol/L (137-145); TOTAL CELLS COUNTED 100
[2018-07-11 05:32] LABS: ANISOCYTOSIS 1+; OVALOCYTES SLIGHT; PLATELET COMMENT ADEQUATE; POIKILOCYTOSIS SLIGHT; POLYCHROMASIA 1+; TEAR DROP CELLS SLIGHT; TOXIC GRANULATION 1+; TOXIC VACUOLATION PRESENT
[2018-07-11 05:36] LABS: WHITE BLOOD COUNT 32.2 10^3/uL (4.0-10.5)
--- NOTE | 2018-07-11 06:32 | RADIOLOGY REPORT (SQ) ---
EXAM DESCRIPTION: XR CHEST 1 VIEW COMPLETED DATE/TME: 07/11/2018 05:00 CLINICAL HISTORY: Respiratory Distress. 78 years Female, PLEURAL EFFUSION; COMPARISON: 2 days prior. NUMBER OF VIEWS/TECHNIQUE: 1/AP FINDINGS: Bilateral lower thoracic opacity/effusion. Atherosclerotic vascular disease. Adequate appearing right jugular central line. Moderately enlarged cardiac silhouette. No pneumothorax. Stable bony thorax. IMPRESSION: No significant change.
[2018-07-11] MEDS: POTASSI CL 20 MEQ/NS 1L 1,000 ML IV PRN (07:10)
--- NOTE | 2018-07-11 10:05 | PDOC PROGRESS REPORT ---
Subjective Progress Note for:: 07/11/18 Subjective:: Patient pleasantly confused still in ICU; no GI function; still on clear liquids; had a CT scan yesterday which showed 2 intraperitoneal fluid collections without air; study limited due to absence of oral contrast. Reason For Visit: SMALL BOWEL OBSTRUCTION, ASPIRATION PNEUMONIA, Physical Exam Vital Signs: Temp Pulse Resp BP Pulse Ox 98.6 F 95 16 125/58 L 94 07/11/18 04:00 07/10/18 20:00 07/11/18 06:00 07/11/18 05:08 07/11/18 06:00 Intake & Output 07/10/18 07/11/18 07/12/18 06:59 06:59 06:59 Intake Total 2072 3282 Output Total 1900 1125 Balance 172 2157 Weight 71.1 kg 74 kg General appearance: PRESENT: no acute distress GI/Abdominal exam: PRESENT: other - Midline incision approximated. Minimal abdominal distention; no rigidity Results Laboratory Results: 07/11/18 05:02 07/11/18 05:02 07/10/18 07/10/18 07/11/18 13:15 13:15 05:02 WBC 32.2 H* 32.2 H* RBC 3.67 L 3.56 L Hgb 10.3 L 10.0 L Hct 31.9 L 31.3 L MCV 87 88 MCH 28.2 28.2 MCHC 32.4 32.1 RDW 15.5 H 15.6 H Plt Count 240 247 Seg Neutrophils % Not Reportable Not Reportable Lymphocytes % Not Reportable Not Reportable Monocytes % Not Reportable Not Reportable Eosinophils % Not Reportable Not Reportable Basophils % Not Reportable Not Reportable Absolute Neutrophils Not Reportable Not Reportable Absolute Lymphocytes Not Reportable Not Reportable Absolute Monocytes Not Reportable Not Reportable Absolute Eosinophils Not Reportable Not Reportable Absolute Basophils Not Reportable Not Reportable Sodium 142.6 Potassium 3.9 Chloride 114 H Carbon Dioxide 19 L Anion Gap 10 BUN 63 H Creatinine 1.91 H Est GFR ( Amer) 31 L Est GFR (Non-Af Amer) 25 L Glucose 119 H Calcium 7.5 L 07/11/18 05:02 WBC RBC Hgb Hct MCV MCH MCHC RDW Plt Count Seg Neutrophils % Lymphocytes % Monocytes % Eosinophils % Basophils % Absolute Neutrophils Absolute Lymphocytes Absolute Monocytes Absolute Eosinophils Absolute Basophils Sodium 143.6 Potassium 4.2 Chloride 115 H Carbon Dioxide 20 L Anion Gap 9 BUN 58 H Creatinine 2.12 H Est GFR ( Amer) 27 L Est GFR (Non-Af Amer) 23 L Glucose 116 H Calcium 7.5 L 07/02/18 07/02/18 07/02/18 18:55 18:55 18:55 Creatine Kinase 23 L CK-MB (CK-2) 0.67 Troponin I 0.022 0.020 NT-Pro-B Natriuret Pep 9510 H 07/03/18 07/03/18 07/05/18 00:55 07:26 05:32 Creatine Kinase CK-MB (CK-2) 0.87 1.03 Troponin I 0.016 0.029 0.056 NT-Pro-B Natriuret Pep 07/05/18 07/05/18 07/06/18 15:35 20:01 04:45 Creatine Kinase CK-MB (CK-2) Troponin I 0.051 0.052 0.037 NT-Pro-B Natriuret Pep Impressions: Abdomen X-Ray 07/04/18 00:00 IMPRESSION: Ileus or partial small bowel obstruction. No significant change. Small Bowel X-Ray 07/04/18 00:00 IMPRESSION: Ileus or partial small bowel obstruction without clear transition point. Repeat KUB is recommended at approximately noon today, which will be a 20 hour film. KUB X-Ray 07/05/18 00:00 IMPRESSION: Nasogastric tube in the stomach. Abdomen Ultrasound 07/07/18 00:00 IMPRESSION: 1. No ultrasound abnormality of the right upper quadrant to explain abnormal LFTs. 2. Status post cholecystectomy. 3. Atrophic and echogenic right kidney, as can be seen in chronic renal disease. Abdomen/Pelvis CT 07/10/18 00:00 IMPRESSION: 1. Status post midline laparotomy and partial resection of the small bowel. 2. There is a probable loculated fluid collection adjacent to the descending colon in the left hemiabdomen measuring 6.0 x 2.6 x 7.2 cm. Additional probable loculated fluid collection in the anterior abdomen underlying the midline laparotomy containing a small volume of free air, measuring 5.7 x 1.8 x 4.6 cm. Findings are concerning for abscess formation. Additional trace ascites. 3. Pleural effusions and anasarca. Chest X-Ray 07/11/18 05:00 IMPRESSION: No significant change. Assessment & Plan - Diagnosis (1) Abdominal pain Qualifiers: Abdominal location: lower abdomen, unspecified Qualified Code(s): R10.30 - Lower abdominal pain, unspecified Is this a current diagnosis for this admission?: Yes Plan: Impression: Patient now 6 days status post exploratory laparotomy, resection of extensive length of small bowel, ICU, awaiting transfer to therapy. Large left pleural effusion; persistent postop ileus Recommendations: 1. We will review CT scan with radiology; low level of enthusiasm intra- abdominal drainage, reexploration etc. given patient's DNR status etc. (2) Bilateral pleural effusion Is this a current diagnosis for this admission?: Yes (3) Atrophy of right kidney Is this a current diagnosis for this admission?: Yes (4) CHF (congestive heart failure) Qualifiers: Heart failure type: unspecified Heart failure chronicity: chronic Qualified Code(s): I50.9 - Heart failure, unspecified Is this a current diagnosis for this admission?: Yes
[2018-07-11 12:04] LABS: PATH REVIEW PATHOLOGIST REVIEWED
--- NOTE | 2018-07-11 12:42 | PROGRESS NOTE E ---
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 Currently, the patient is feeling well. Denies any fever, chills, increasing cough, or purulent sputum production or hemoptysis. The patient is breathing comfortably. Her leukocytosis worsened today to 32,000 from 27,000. Currently on IV ciprofloxacin 400 mg IV piggyback p.o. 2 p.m., imipenem 500 mg IV every 12 hours, and Flagyl 500 mg IV piggyback every 6 hours. OBJECTIVE: GENERAL: The patient is awake, alert, coherent, oriented x3, afebrile, not in apparent severe respiratory distress. VITAL SIGNS: A temperature of 97.8 with a T-max of 98.9, heart rate of 92, respiratory rate of 28, blood pressure is 143/63, and saturation 99% on 4 L. EYES: No jaundice or pallor. EARS, NOSE, AND THROAT: No ear drainage. No nasal discharge. CHEST AND LUNGS: No wheezing. No rhonchi. No coarse crackles. CARDIOVASCULAR: S1, S2 distinct. Normal rate, regular rhythm. ABDOMEN: Flabby. Hypoactive bowel sounds. Soft, tender left flank and anterior abdomen. EXTREMITIES: No joint swelling. No cellulitis. LABORATORY: CBC done today shows white count of 32,200, increased from 27,100, hemoglobin is 10.3, hematocrit is 31.9, platelet count is 240, and band 5%. Blood gas is pH of 7.37, PO2 of 72.5, and PCO2 is 34.4. Chemistry done today showed sodium is 132, potassium 3.9, chloride 104, CO2 is 19, BUN is 63, creatinine is 1.91, and glucose is 141, calcium 7.5. ASSESSMENT: 1. BILATERAL PLEURAL EFFUSION, MOST LIKELY DUE TO CHRONIC KIDNEY DISEASE, CURRENTLY ON HEMODIALYSIS. PLEURAL EFFUSION SMALL ON THE RIGHT, PROBABLY MILD TO MODERATE ON THE LEFT SIDE. 2. WORSENING LEUKOCYTOSIS, MOST LIKELY DUE TO INTRA-ABDOMINAL INFECTION AND INTRA-ABDOMINAL ABSCESS. 3. COPD. PLAN/RECOMMENDATIONS: 1. Continue Spiriva inhaler 1 capsule daily. Continue albuterol inhaler 2 puffs 4 times a day. 2. Continue Primaxin IV, Cipro IV, and Flagyl IV. Recommend surgery service team for possible drainage of the intra-abdominal abscess. Surgery team will determine whether if they choose open laparotomy or interventional radiology consultation for percutaneous drainage of the intra-abdominal abscess. Will follow patient. DICTATING PHYSICIAN: CLINT MORGAN MD,JEMAL,MPH [id number] PHY#: [id number] 2018 ID: [id number] JOB#: [id number] ACCT: [id number] cc: > MTDD
[2018-07-11] MEDS: DILTIAZEM HCL/D5W 125 MG/125 ML RTUINJ IV PRN (15:03)
--- NOTE | 2018-07-11 18:37 | PDOC PROGRESS REPORT ---
Subjective Progress Note for:: 07/11/18 Subjective:: Patient has been downgraded now to IMCU. She continues to produce urine. When I saw her she was sleeping but arousable. She otherwise did not have any complaints. Reason For Visit: SMALL BOWEL OBSTRUCTION, ASPIRATION PNEUMONIA, Physical Exam Vital Signs: Temp Pulse Resp BP Pulse Ox 97.5 F 96 20 136/72 H 93 07/11/18 16:09 07/11/18 17:41 07/11/18 16:09 07/11/18 17:41 07/11/18 16:09 Intake & Output 07/10/18 07/11/18 07/12/18 06:59 06:59 06:59 Intake Total 2072 3282 957 Output Total 1900 1125 740 Balance 172 2157 217 Weight 71.1 kg 74 kg Exam: General appearance: PRESENT: no acute distress, although she appears to be breathing deeply, cooperative, well-developed, well-nourished Head exam: PRESENT: atraumatic, normocephalic Eye exam: PRESENT: conjunctiva pink, PERRLA. ABSENT: scleral icterus Neck exam: ABSENT: JVD Respiratory exam: PRESENT: Diminished breath sounds. ABSENT: crackles, rales, rhonchi, unlabored, wheezes Cardiovascular exam: PRESENT: Irregularly irregular rate rhythm -+S1, +S2. ABSENT: diastolic murmur, systolic murmur GI/Abdominal exam: PRESENT: normal bowel sounds, soft. ABSENT: guarding, mass, tenderness Extremities exam: ABSENT: No edema Neurological exam: PRESENT: Sleeping but arousable. Skin exam: PRESENT: dry, warm, Results Laboratory Results: 07/11/18 05:02 07/11/18 05:02 07/11/18 07/11/18 05:02 05:02 WBC 32.2 H* RBC 3.56 L Hgb 10.0 L Hct 31.3 L MCV 88 MCH 28.2 MCHC 32.1 RDW 15.6 H Plt Count 247 Seg Neutrophils % Not Reportable Lymphocytes % Not Reportable Monocytes % Not Reportable Eosinophils % Not Reportable Basophils % Not Reportable Absolute Neutrophils Not Reportable Absolute Lymphocytes Not Reportable Absolute Monocytes Not Reportable Absolute Eosinophils Not Reportable Absolute Basophils Not Reportable Sodium 143.6 Potassium 4.2 Chloride 115 H Carbon Dioxide 20 L Anion Gap 9 BUN 58 H Creatinine 2.12 H Est GFR ( Amer) 27 L Est GFR (Non-Af Amer) 23 L Glucose 116 H Calcium 7.5 L 07/02/18 07/02/18 07/02/18 18:55 18:55 18:55 Creatine Kinase 23 L CK-MB (CK-2) 0.67 Troponin I 0.022 0.020 NT-Pro-B Natriuret Pep 9510 H 07/03/18 07/03/18 07/05/18 00:55 07:26 05:32 Creatine Kinase CK-MB (CK-2) 0.87 1.03 Troponin I 0.016 0.029 0.056 NT-Pro-B Natriuret Pep 07/05/18 07/05/18 07/06/18 15:35 20:01 04:45 Creatine Kinase CK-MB (CK-2) Troponin I 0.051 0.052 0.037 NT-Pro-B Natriuret Pep Impressions: Abdomen X-Ray 07/04/18 00:00 IMPRESSION: Ileus or partial small bowel obstruction. No significant change. Small Bowel X-Ray 07/04/18 00:00 IMPRESSION: Ileus or partial small bowel obstruction without clear transition point. Repeat KUB is recommended at approximately noon today, which will be a 20 hour film. KUB X-Ray 07/05/18 00:00 IMPRESSION: Nasogastric tube in the stomach. Abdomen Ultrasound 07/07/18 00:00 IMPRESSION: 1. No ultrasound abnormality of the right upper quadrant to explain abnormal LFTs. 2. Status post cholecystectomy. 3. Atrophic and echogenic right kidney, as can be seen in chronic renal disease. Abdomen/Pelvis CT 07/10/18 00:00 IMPRESSION: 1. Status post midline laparotomy and partial resection of the small bowel. 2. There is a probable loculated fluid collection adjacent to the descending colon in the left hemiabdomen measuring 6.0 x 2.6 x 7.2 cm. Additional probable loculated fluid collection in the anterior abdomen underlying the midline laparotomy containing a small volume of free air, measuring 5.7 x 1.8 x 4.6 cm. Findings are concerning for abscess formation. Additional trace ascites. 3. Pleural effusions and anasarca. Chest X-Ray 07/11/18 05:00 IMPRESSION: No significant change. Assessment & Plan - Diagnosis (1) Acute kidney injury superimposed on CKD Is this a current diagnosis for this admission?: Yes Plan: Secondary to ATN. Urine output has increased. Kidney function improved and stable. Due to hyperchloremia will change the IV fluids to half-normal with potassium to run at 50 mL an hour for just maintenance. (2) Chronic kidney disease (CKD), stage IV (severe) Is this a current diagnosis for this admission?: Yes (3) Urinary tract infection Is this a current diagnosis for this admission?: Yes Plan: On imipenem . (4) Anemia Qualifiers: Anemia type: unspecified type Qualified Code(s): D64.9 - Anemia, unspecified Is this a current diagnosis for this admission?: Yes Plan: Improved with blood transfusion. (5) Bilateral pleural effusion Is this a current diagnosis for this admission?: Yes Plan: Seems improving from current chest x-ray. (6) Leukocytosis Qualifiers: Leukocytosis type: unspecified Qualified Code(s): D72.829 - Elevated white blood cell count, unspecified Is this a current diagnosis for this admission?: Yes Plan: On IV antibiotics. However it is an increasing trend. (7) Small bowel obstruction Is this a current diagnosis for this admission?: Yes Plan: Status post exploratory laparotomy and small bowel resection on 07/05/2018. (8) ischemic small bowel Is this a current diagnosis for this admission?: Yes Plan: On IV imipenem, and Flagyl. (9) Atrophy of right kidney Is this a current diagnosis for this admission?: Yes (10) Chronic atrial fibrillation Is this a current diagnosis for this admission?: Yes Plan: Rate controlled on Cardizem. (11) Acute respiratory failure Is this a current diagnosis for this admission?: Yes Plan: Resolved. - Notes Notes: I will sign off at this time. No further recommendations from nephrology standpoint. - Time Time with patient: 15-25 minutes
--- NOTE | 2018-07-11 20:59 | PDOC PROGRESS REPORT ---
Subjective Progress Note for:: 07/11/18 Subjective:: Patient was seen by the bedside, she had prolonged sleep in ICU this morning she is presently downgraded to IMCU Reason For Visit: SMALL BOWEL OBSTRUCTION, ASPIRATION PNEUMONIA, Physical Exam Vital Signs: Temp Pulse Resp BP Pulse Ox 97.6 F 99 20 152/62 H 96 07/11/18 20:00 07/11/18 20:00 07/11/18 20:00 07/11/18 20:00 07/11/18 20:00 Intake & Output 07/10/18 07/11/18 07/12/18 06:59 06:59 06:59 Intake Total 2072 3282 1057 Output Total 1900 1125 740 Balance 172 2157 317 Weight 71.1 kg 74 kg General appearance: PRESENT: no acute distress Eye exam: PRESENT: PERRLA Respiratory exam: PRESENT: clear to auscultation frida Cardiovascular exam: PRESENT: +S1, +S2 GI/Abdominal exam: PRESENT: tenderness Neurological exam: PRESENT: alert Results Laboratory Results: 07/11/18 05:02 07/11/18 05:02 07/11/18 07/11/18 05:02 05:02 WBC 32.2 H* RBC 3.56 L Hgb 10.0 L Hct 31.3 L MCV 88 MCH 28.2 MCHC 32.1 RDW 15.6 H Plt Count 247 Seg Neutrophils % Not Reportable Lymphocytes % Not Reportable Monocytes % Not Reportable Eosinophils % Not Reportable Basophils % Not Reportable Absolute Neutrophils Not Reportable Absolute Lymphocytes Not Reportable Absolute Monocytes Not Reportable Absolute Eosinophils Not Reportable Absolute Basophils Not Reportable Sodium 143.6 Potassium 4.2 Chloride 115 H Carbon Dioxide 20 L Anion Gap 9 BUN 58 H Creatinine 2.12 H Est GFR ( Amer) 27 L Est GFR (Non-Af Amer) 23 L Glucose 116 H Calcium 7.5 L 07/02/18 07/02/18 07/02/18 18:55 18:55 18:55 Creatine Kinase 23 L CK-MB (CK-2) 0.67 Troponin I 0.022 0.020 NT-Pro-B Natriuret Pep 9510 H 07/03/18 07/03/18 07/05/18 00:55 07:26 05:32 Creatine Kinase CK-MB (CK-2) 0.87 1.03 Troponin I 0.016 0.029 0.056 NT-Pro-B Natriuret Pep 07/05/18 07/05/18 07/06/18 15:35 20:01 04:45 Creatine Kinase CK-MB (CK-2) Troponin I 0.051 0.052 0.037 NT-Pro-B Natriuret Pep Impressions: Abdomen X-Ray 07/04/18 00:00 IMPRESSION: Ileus or partial small bowel obstruction. No significant change. Small Bowel X-Ray 07/04/18 00:00 IMPRESSION: Ileus or partial small bowel obstruction without clear transition point. Repeat KUB is recommended at approximately noon today, which will be a 20 hour film. KUB X-Ray 07/05/18 00:00 IMPRESSION: Nasogastric tube in the stomach. Abdomen Ultrasound 07/07/18 00:00 IMPRESSION: 1. No ultrasound abnormality of the right upper quadrant to explain abnormal LFTs. 2. Status post cholecystectomy. 3. Atrophic and echogenic right kidney, as can be seen in chronic renal disease. Abdomen/Pelvis CT 07/10/18 00:00 IMPRESSION: 1. Status post midline laparotomy and partial resection of the small bowel. 2. There is a probable loculated fluid collection adjacent to the descending colon in the left hemiabdomen measuring 6.0 x 2.6 x 7.2 cm. Additional probable loculated fluid collection in the anterior abdomen underlying the midline laparotomy containing a small volume of free air, measuring 5.7 x 1.8 x 4.6 cm. Findings are concerning for abscess formation. Additional trace ascites. 3. Pleural effusions and anasarca. Chest X-Ray 07/11/18 05:00 IMPRESSION: No significant change. Assessment & Plan - Diagnosis (1) Acute kidney injury Is this a current diagnosis for this admission?: Yes Plan: Stable ,improved (2) Small bowel obstruction Is this a current diagnosis for this admission?: Yes (3) Pneumonia Qualifiers: Pneumonia type: due to unspecified organism Laterality: bilateral Lung lo cation: unspecified part of lung Qualified Code(s): J18.9 - Pneumonia, unspecified organism Is this a current diagnosis for this admission?: Yes (4) Aspiration pneumonia Qualifiers: Is this a current diagnosis for this admission?: Yes (5) Chronic atrial fibrillation Is this a current diagnosis for this admission?: Yes (6) Ischemic bowel disease Is this a current diagnosis for this admission?: Yes Plan: Status post resection of the small intestine complicated intra-abdominal abscess, surgical team is aware following patient closely (7) UTI due to Klebsiella species Is this a current diagnosis for this admission?: Yes Plan: Patient on antibiotic imipenem (8) Acute tubular necrosis Is this a current diagnosis for this admission?: Yes (9) Postoperative intra-abdominal abscess Is this a current diagnosis for this admission?: Yes Plan: Patient is on imipenem and Flagyl (10) Bilateral pleural effusion Is this a current diagnosis for this admission?: Yes Plan: History of recurrent pleural effusion, ultrasound-guided thoracentesis ordered this morning yet to be done by radiology (11) Pleural effusion Is this a current diagnosis for this admission?: Yes
--- NOTE | 2018-07-11 21:23 | RADIOLOGY REPORT (SQ) ---
US CHEST HISTORY: Quantify pleural effusion, bilateral COMPARISON: None. TECHNIQUE: Grayscale and color Doppler images of the chest were obtained. FINDINGS: There is a large left-sided pleural effusion measuring 9.3 x 12 cm. There is a small right pleural effusion. IMPRESSION: 1. Large left pleural effusion. 2. Small right pleural effusion.
[2018-07-11] MEDS: CIPROFLOXACIN 400 MG/D5W RTU 400 MG/200 ML RTUPB IV SCH (21:37)
[2018-07-11 22:22] LABS: FLUID TYPE PLEURAL
[2018-07-11 22:24] LABS: FLUID COLOR STRAW; FLUID SOURCE LUNG
[2018-07-11 22:25] LABS: FLUID APPEARANCE CLEAR; FLUID VISCOSITY LIQUID
--- NOTE | 2018-07-11 22:47 | RADIOLOGY REPORT (SQ) ---
XR CHEST 1 VIEW HISTORY: Status post left thoracentesis. COMPARISON: Radiographs from earlier the same day. FINDINGS: The heart size is mildly enlarged. There are bilateral pleural effusions with adjacent atelectasis. A right IJ line terminates in the right atrium. No discernible pneumothorax. Generalized osteopenia and chronic left humeral head abnormality is seen. IMPRESSION: Bilateral pleural effusions with adjacent atelectasis.
[2018-07-12] MEDS: METOPROLOL TARTRATE PF/INJ 5 MG/5 ML SDV IV SCH ×4 (03:57→20:39)
[2018-07-12] MEDS: IMIPENEM/CILASTATIN SODIUM 500 MG in NORMAL SALINE 100 ML IV SCH ×2 (03:58→17:09)
[2018-07-12] MEDS: POTASSI CL 20 MEQ/1/2NS 1L 20 MEQ/1,000 ML RTUINJ IV PRN (04:24)
[2018-07-12 08:27] LABS: INTERNATIONAL RATION (INR) 1.72
[2018-07-12 08:54] LABS: ANION GAP 8 (5-19); BLOOD UREA NITROGEN 51 mg/dL (7-20); CALCIUM 7.2 mg/dL (8.4-10.2); CARBON DIOXIDE 21 mmol/L (22-30); CHLORIDE 110 mmol/L (98-107); GLUCOSE 104 mg/dL (75-110); POTASSIUM 3.9 mmol/L (3.6-5.0); SODIUM 139.4 mmol/L (137-145)
[2018-07-12] MEDS: PANTOPRAZOLE SODIUM 40 MG VIAL IV SCH (10:01)
[2018-07-12] MEDS: CIPROFLOXACIN 400 MG/D5W RTU 400 MG/200 ML RTUPB IV SCH ×2 (10:02→22:59)
[2018-07-12] MEDS: TIOTROPIUM BROMIDE DPI 5 CAP/KIT (18 MCG/CAP) IH SCH ×2 (10:05→13:35)
--- NOTE | 2018-07-12 10:52 | PDOC PROGRESS REPORT ---
Subjective Progress Note for:: 07/12/18 Reason For Visit: SMALL BOWEL OBSTRUCTION, ASPIRATION PNEUMONIA, Physical Exam Vital Signs: Temp Pulse Resp BP Pulse Ox 97.6 F 103 H 24 H 138/75 H 95 07/12/18 08:40 07/12/18 08:40 07/12/18 08:40 07/12/18 08:40 07/12/18 09:57 Pulse Oximeter Continuous Start: 07/11/18 21:58 Freq: Status: Complete Protocol: Document 07/11/18 21:59 CMI (Rec: 07/11/18 22:01 CMI [id number]) Pulse Oximetry Assessment Oxygen Saturation (92-100) 98 Oxygen Flow Rate (L/min) 3.5 Oxygen Delivery Method Nasal Cannula Fraction of Inspired Oxygen (FIO2) 34 Equipment Usage Equipment in Use Continuous Pulse Oximeter 24 Hour Charge Charge Now Continuous SpO2 Machine # 1 Pulse Oximeter Continuous Start: 07/11/18 23:12 Freq: RTQ4 Status: Active Protocol: Document 07/12/18 09:57 MED (Rec: 07/12/18 09:57 MED [id number]) Pulse Oximetry Assessment Oxygen Saturation (92-100) 95 Oxygen Flow Rate (L/min) 3 Oxygen Delivery Method Nasal Cannula Equipment Usage Equipment in Use Continuous SpO2 Machine # 1 Intake & Output 07/11/18 07/12/18 07/13/18 06:59 06:59 06:59 Intake Total 3282 2457 Output Total 1125 1990 Balance 2157 467 Weight 74 kg 72 kg General appearance: PRESENT: no acute distress - pt sitting up in chair, reports bowel movements drinking water, wants to eat. GI/Abdominal exam: PRESENT: soft - abd soft, min tenderness wound clean dry. Results Laboratory Results: 07/11/18 05:02 07/12/18 08:05 07/11/18 07/11/18 07/12/18 21:02 22:15 08:05 Sodium 139.4 Potassium 3.9 Chloride 110 H Carbon Dioxide 21 L Anion Gap 8 BUN 51 H Creatinine 1.85 H Est GFR ( Amer) 32 L Est GFR (Non-Af Amer) 26 L Glucose 104 Calcium 7.2 L Total Protein 4.8 L Fluid Type PLEURAL Fluid Source LUNG Fluid Color STRAW Fluid Appearance CLEAR Fluid Viscosity LIQUID Fluid WBC 51 Fluid RBC 148 07/02/18 07/02/18 07/02/18 18:55 18:55 18:55 Creatine Kinase 23 L CK-MB (CK-2) 0.67 Troponin I 0.022 0.020 NT-Pro-B Natriuret Pep 9510 H 07/03/18 07/03/18 07/05/18 00:55 07:26 05:32 Creatine Kinase CK-MB (CK-2) 0.87 1.03 Troponin I 0.016 0.029 0.056 NT-Pro-B Natriuret Pep 07/05/18 07/05/18 07/06/18 15:35 20:01 04:45 Creatine Kinase CK-MB (CK-2) Troponin I 0.051 0.052 0.037 NT-Pro-B Natriuret Pep Impressions: Abdomen X-Ray 07/04/18 00:00 IMPRESSION: Ileus or partial small bowel obstruction. No significant change. Small Bowel X-Ray 07/04/18 00:00 IMPRESSION: Ileus or partial small bowel obstruction without clear transition point. Repeat KUB is recommended at approximately noon today, which will be a 2 0 hour film. KUB X-Ray 07/05/18 00:00 IMPRESSION: Nasogastric tube in the stomach. Abdomen Ultrasound 07/07/18 00:00 IMPRESSION: 1. No ultrasound abnormality of the right upper quadrant to explain abnormal LFTs. 2. Status post cholecystectomy. 3. Atrophic and echogenic right kidney, as can be seen in chronic renal disease. Abdomen/Pelvis CT 07/10/18 00:00 IMPRESSION: 1. Status post midline laparotomy and partial resection of the small bowel. 2. There is a probable loculated fluid collection adjacent to the descending colon in the left hemiabdomen measuring 6.0 x 2.6 x 7.2 cm. Additional probable loculated fluid collection in the anterior abdomen underlying the midline laparotomy containing a small volume of free air, measuring 5.7 x 1.8 x 4.6 cm. Findings are concerning for abscess formation. Additional trace ascites. 3. Pleural effusions and anasarca. Chest Ultrasound 07/11/18 20:00 IMPRESSION: 1. Large left pleural effusion. 2. Small right pleural effusion. Chest X-Ray 07/11/18 20:00 IMPRESSION: Bilateral pleural effusions with adjacent atelectasis. Assessment & Plan - Plan Summary Plan Summary: reviewed ct suspect fluid collection is post op,not c/w leak possible abscess vs serous fluid pt is jagdish water sips passing bowel movements cbc today not back yet pt currently on abx plan would cont to trend cbc cont abx ok to advance diet
[2018-07-12] MEDS ORDERED: PHYTONADIONE INJ 10 MG/1 ML AMPULE SUBCUT ONE (12:00)
[2018-07-12 12:33] LABS: HEMATOCRIT 30.2 % (36.0-47.0); HEMOGLOBIN 9.8 g/dL (12.0-15.5); MEAN CORPUSCULAR HEMOGLOBIN 28.1 pg (27.0-33.4); MEAN CORPUSCULAR HGB CONC 32.5 g/dL (32.0-36.0); MEAN CORPUSCULAR VOLUME 87 fl (80-97); PLATELET COUNT 237 10^3/uL (150-450); RED BLOOD COUNT 3.49 10^6/uL (3.72-5.28); RED CELL DISTRIBUTION WIDTH 15.8 % (11.5-14.0); WHITE BLOOD COUNT 29.1 10^3/uL (4.0-10.5)
[2018-07-12 12:44] LABS: ANION GAP 11 (5-19); BLOOD UREA NITROGEN 49 mg/dL (7-20); CARBON DIOXIDE 15 mmol/L (22-30); CHLORIDE 110 mmol/L (98-107); GLUCOSE 112 mg/dL (75-110); POTASSIUM 3.8 mmol/L (3.6-5.0); SODIUM 135.8 mmol/L (137-145)
[2018-07-12 12:54] LABS: ABSOLUTE LYMPHOCYTES# (MANUAL) 0.6 10^3/uL (0.5-4.7); ABSOLUTE MONOCYTES # (MANUAL) 1.2 10^3/uL (0.1-1.4); ABSOLUTE NEUTROPHILS# (MANUAL) 27.1 10^3/uL (1.7-8.2); BASOPHILS % (MANUAL) 0 % (0-2); EOSINOPHILS % (MANUAL) 1 % (0-6); LYMPHOCYTES % (MANUAL) 2 % (13-45); MONOCYTES % (MANUAL) 4 % (3-13); SEGMENTED NEUTROPHILS % (MAN) 93 % (42-78); TOTAL CELLS COUNTED 100
[2018-07-12 12:55] LABS: ANISOCYTOSIS SLIGHT; POLYCHROMASIA 1+
[2018-07-12 12:56] LABS: OVALOCYTES SLIGHT; PLATELET COMMENT ADEQUATE; POIKILOCYTOSIS SLIGHT
--- NOTE | 2018-07-12 14:59 | PDOC PROGRESS REPORT ---
Subjective Progress Note for:: 07/12/18 Subjective:: Out of bed in chair. No chest pain. Breathing better post left thoracentesis. Tolerating oral feeding. No nausea or vomiting. No fever or chills. Reason For Visit: SMALL BOWEL OBSTRUCTION, ASPIRATION PNEUMONIA, Physical Exam Vital Signs: Temp Pulse Resp BP Pulse Ox 97.5 F 101 H 24 H 76/45 L 99 07/12/18 11:46 07/12/18 11:46 07/12/18 08:40 07/12/18 11:46 07/12/18 12:00 Pulse Oximeter Continuous Start: 07/11/18 21:58 Freq: Status: Complete Protocol: Document 07/11/18 21:59 CMI (Rec: 07/11/18 22:01 CMI [email or web address]) Pulse Oximetry Assessment Oxygen Saturation (92-100) 98 Oxygen Flow Rate (L/min) 3.5 Oxygen Delivery Method Nasal Cannula Fraction of Inspired Oxygen (FIO2) 34 Equipment Usage Equipment in Use Continuous Pulse Oximeter 24 Hour Charge Charge Now Continuous SpO2 Machine # 1 Pulse Oximeter Continuous Start: 07/11/18 23:12 Freq: RTQ4 Status: Active Protocol: Document 07/12/18 12:00 MED (Rec: 07/12/18 12:00 MED [id number]) Pulse Oximetry Assessment Oxygen Saturation (92-100) 99 Oxygen Flow Rate (L/min) 3 Oxygen Delivery Method Nasal Cannula Equipment Usage Equipment in Use Continuous SpO2 Machine # 1 Intake & Output 07/11/18 07/12/18 07/13/18 06:59 06:59 06:59 Intake Total 3282 2457 Output Total 1125 1990 1500 Balance 2157 467 -1500 Weight 74 kg 72 kg General appearance: PRESENT: no acute distress Head exam: PRESENT: atraumatic, normocephalic Ear exam: PRESENT: normal external ear exam Mouth exam: PRESENT: moist Cardiovascular exam: PRESENT: RRR, +S1, +S2. ABSENT: diastolic murmur, systolic murmur Vascular exam: ABSENT: pallor GI/Abdominal exam: PRESENT: normal bowel sounds, soft. ABSENT: mass Extremities exam: ABSENT: pedal edema Neurological exam: PRESENT: alert, awake, oriented to person, oriented to place, oriented to time, oriented to situation, CN II-XII grossly intact. ABSENT: motor sensory deficit Skin exam: PRESENT: dry, warm, other - left thoracentesis site dressing satisfactory. Laparotomy surgical site conditing is fair. Results Laboratory Results: 07/12/18 12:02 07/12/18 12:02 07/11/18 07/11/18 07/12/18 21:02 22:15 08:05 WBC RBC Hgb Hct MCV MCH MCHC RDW Plt Count Seg Neutrophils % Lymphocytes % Monocytes % Eosinophils % Basophils % Absolute Neutrophils Absolute Lymphocytes Absolute Monocytes Absolute Eosinophils Absolute Basophils Sodium 139.4 Potassium 3.9 Chloride 110 H Carbon Dioxide 21 L Anion Gap 8 BUN 51 H Creatinine 1.85 H Est GFR ( Amer) 32 L Est GFR (Non-Af Amer) 26 L Glucose 104 Calcium 7.2 L Total Protein 4.8 L Fluid Type PLEURAL Fluid Source LUNG Fluid Color STRAW Fluid Appearance CLEAR Fluid Viscosity LIQUID Fluid WBC 51 Fluid RBC 148 07/12/18 07/12/18 12:02 12:02 WBC 29.1 H RBC 3.49 L Hgb 9.8 L Hct 30.2 L MCV 87 MCH 28.1 MCHC 32.5 RDW 15.8 H Plt Count 237 Seg Neutrophils % Not Reportable Lymphocytes % Not Reportable Monocytes % Not Reportable Eosinophils % Not Reportable Basophils % Not Reportable Absolute Neutrophils Not Reportable Absolute Lymphocytes Not Reportable Absolute Monocytes Not Reportable Absolute Eosinophils Not Reportable Absolute Basophils Not Reportable Sodium 135.8 L Potassium 3.8 Chloride 110 H Carbon Dioxide 15 L Anion Gap 11 BUN 49 H Creatinine 1.75 H Est GFR ( Amer) 34 L Est GFR (Non-Af Amer) 28 L Glucose 112 H Calcium 7.0 L* Total Protein Fluid Type Fluid Source Fluid Color Fluid Appearance Fluid Viscosity Fluid WBC Fluid RBC 07/02/18 07/02/18 07/02/18 18:55 18:55 18:55 Creatine Kinase 23 L CK-MB (CK-2) 0.67 Troponin I 0.022 0.020 NT-Pro-B Natriuret Pep 9510 H 07/03/18 07/03/18 07/05/18 00:55 07:26 05:32 Creatine Kinase CK-MB (CK-2) 0.87 1.03 Troponin I 0.016 0.029 0.056 NT-Pro-B Natriuret Pep 07/05/18 07/05/18 07/06/18 15:35 20:01 04:45 Creatine Kinase CK-MB (CK-2) Troponin I 0.051 0.052 0.037 NT-Pro-B Natriuret Pep Impressions: Abdomen X-Ray 07/04/18 00:00 IMPRESSION: Ileus or partial small bowel obstruction. No significant change. Small Bowel X-Ray 07/04/18 00:00 IMPRESSION: Ileus or partial small bowel obstruction without clear transition point. Repeat KUB is recommended at approximately noon today, which will be a 20 hour film. KUB X-Ray 07/05/18 00:00 IMPRESSION: Nasogastric tube in the stomach. Abdomen Ultrasound 07/07/18 00:00 IMPRESSION: 1. No ultrasound abnormality of the right upper quadrant to explain abnormal LFTs. 2. Status post cholecystectomy. 3. Atrophic and echogenic right kidney, as can be seen in chronic renal disease. Abdomen/Pelvis CT 07/10/18 00:00 IMPRESSION: 1. Status post midline laparotomy and partial resection of the small bowel. 2. There is a probable loculated fluid collection adjacent to the descending colon in the left hemiabdomen measuring 6.0 x 2.6 x 7.2 cm. Additional probable loculated fluid collection in the anterior abdomen underlying the midline laparotomy containing a small volume of free air, measuring 5.7 x 1.8 x 4.6 cm. Findings are concerning for abscess formation. Additional trace ascites. 3. Pleural effusions and anasarca. Chest Ultrasound 07/11/18 20:00 IMPRESSION: 1. Large left pleural effusion. 2. Small right pleural effusion. Chest X-Ray 07/11/18 20:00 IMPRESSION: Bilateral pleural effusions with adjacent atelectasis. Assessment & Plan - Diagnosis (1) Small bowel obstruction Is this a current diagnosis for this admission?: Yes Plan: Continue current surgical management. Advance food to full liquid consistency. (2) Ischemic bowel disease Is this a current diagnosis for this admission?: Yes Plan: Continue current surgical management. Advance food to full liquid consistency. (3) Postoperative intra-abdominal abscess Is this a current diagnosis for this admission?: Yes Plan: Continue current surgical management. Advance food to full liquid consistency. (4) Bilateral pleural effusion Is this a current diagnosis for this admission?: Yes Plan: Continue to monitor her response to the recent thoracentesis. Encouraged use of bedside incentive spirometry. (5) Chronic atrial fibrillation Is this a current diagnosis for this admission?: Yes Plan: Continue current medical management. (6) Chronic kidney disease, stage III (moderate) Is this a current diagnosis for this admission?: Yes Plan: Continue current medical management. (7) Chronic obstructive pulmonary disease Qualifiers: COPD type: unspecified COPD Qualified Code(s): J44.9 - Chronic obstructive pulmonary disease, unspecified Is this a current diagnosis for this admission?: Yes Plan: Continue current medical management. (8) Type 2 diabetes mellitus Qualifiers: Diabetes mellitus intermediate frame tender insulin use: without intermediate frame tender use Diabetes mellitus complication status: without complication Qualified Code(s): E11.9 - Type 2 diabetes mellitus without complications Is this a current diagnosis for this admission?: Yes Plan: Continue current medical management. - Time Time Spent with patient: 25-34 minutes Anticipated discharge: SNF - for rehabilitation - Inpatient Certification Based on my medical assessment, after consideration of the patient's comorbidities, presenting symptoms, or acuity I expect that the services needed warrant INPATIENT care.: Yes I certify that my determination is in accordance with my understanding of Medicare's requirements for reasonable and necessary INPATIENT services [42 CFR 412.3e].: Yes Medical Necessity: Need Close Monitoring Due to Risk of Patient Decompensation, Need For IV Fluids, Need For Continuous Telemetry Monitoring, Need for Nebulizer Therapy and Monitoring of Response, Need for IV Antibiotics, Need for Surgery, Risk of Complication if Not Cared For in Hospital Post Hospital Care: D/C or Transfer Summary - Plan Summary Plan Summary: Continue current medication management. follow up on request for US guided abdominal abscess drainage by interventional radiologist. case was discussed with Dr. Drake, matching machine operator.
[2018-07-12] MEDS: DILTIAZEM HCL/D5W 125 MG/125 ML RTUINJ IV PRN (15:56)
[2018-07-12] MEDS: METRONIDAZOLE 500 MG/NS RTU 500 MG/100 ML RTUPB IV SCH (17:10)
[2018-07-12 18:00] LABS: D-DIMER 12.62 ug/mL (0.00-0.50)
[2018-07-12 18:01] LABS: CALCIUM 6.8 mg/dL (8.4-10.2)
--- NOTE | 2018-07-12 18:26 | PROGRESS NOTE E ---
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 The patient also went into acute respiratory failure and extubated a few days ago. Yesterday the patient had a abdominal CT scan showing abscess on the left lung area and anterior abdomen. Surgery is following the patient. The patient claimed that she is still weak, has abdominal pain on the right side. Has passed a stool, no vomiting. Denies any purulent sputum production, no hemoptysis, no chest pain, no acutely worsening dyspnea. Abdominal CT scan done yesterday showed moderate pleural effusion on the left side as well as a small pleural effusion on the right. OBJECTIVE: GENERAL: The patient is awake, alert, coherent, oriented x3, afebrile, not in apparent respiratory distress. VITAL SIGNS: Temperature is 97.6 with a T-max of 98.6, heart rate is 99, respiratory is 20, blood pressure is 152/62, and saturation 98% on room air. EYES: No jaundice or pallor. EARS, NOSE, AND THROAT: No ear drainage. No nasal discharge. CHEST AND LUNGS: No wheezing. No rhonchi. No coarse crackles. CARDIOVASCULAR: S1, S2 distinct. Irregular rhythm, but normal rate. ABDOMEN: Hypoactive bowel sounds. Tender lateral aspect of the left abdomen. EXTREMITIES: No joint swelling. No cellulitis. LABORATORY DATA: CBC done today showed a white count of 32.2 from 32.2 yesterday, hemoglobin is 10, hematocrit is 31.3, platelet count is 247, bands is 2% and 5% yesterday. PT done yesterday was 21.6, INR is 1.78, and PTT is 44.5. Chemistry done today showed sodium is 143.6, potassium is 4.2, chloride 115, CO2 is 20, BUN is 58, creatinine is 2.12, glucose 116, and calcium 7.5. IMAGING STUDIES: Ultrasound of the chest performed tonight showed a moderate pleural effusion on the left side. There is a significant amount of fluid with atelectatic lung floating during ultrasound. The right chest ultrasound showed a very small amount of pleural effusion. Discussed pleural effusion with the patient and possible ultrasound guided thoracentesis to determine whether the pleural effusion is infected or purulent. The patient agrees to the procedure and provides consent and signed the consent form. I spoke to the patient family, son, Jossue Jaramillo, and agreed with his mother. ASSESSMENT: 1. PLEURAL EFFUSION, MODERATE LEFT SIDE. PROBABLY RELATED TO THE CONGESTIVE HEART FAILURE/ATRIAL FIBRILLATION AND CHRONIC KIDNEY DISEASE. MAY OR MAY NOT BE INFECTED. HENCE, THE PLAN TO DO THORACENTESIS TONIGHT. PATIENT DOES NOT HAVE PNEUMONIA AT THIS TIME. THE SEVERE INFECTION IS RELATED TO INTRA-ABDOMINAL INFECTION. NO COUGH OR PURULENT SPUTUM PRODUCTION SINCE EXPLORATORY LAPARATOMY. CURRTENTLY ON IV PRIMAXIN, IV CIPROFLOXACIN AND IV FLAGYL. 2. SEVERE SEPSIS DUE TO ACUTE INTRAABDOMINAL ABSCESS. 3. INTRAABDOMINAL ABSCESS REQUIRING DRAINAGE. PLAN/RECOMMENDATIONS: 1. I discussed the patient's condition with Dr. Collins the primary care who covered the patient over the weekend and possible drainage of the intra-abdominal abscess and the possible transfer to a tertiary care center if the abscess cannot be drained sooner. 2. We will perform ultrasound guided thoracentesis on the left chest, getting consent. We will do the thoracentesis tonight and send specimen for analysis. 3. Continue Spiriva inhaler and albuterol inhaler as needed. 4. Resume Cipro 400 mg IV piggyback once daily. 5. Continue imipenem 500 mg every 8 hours. 6. Continue Flagyl 500 mg every 8 hours. 7. Recommend strongly transfer to tertiary care center for drainage of the abscess if the drainage of the abscess cannot be done this weekend. 8. Discussed the patient's condition with the family. PS: Ultrasound guided thoracentesis left chest done tonight showed transudative pleural effusion - clear yellow translucent pleural fluid, suggesting the source of the severe sepsis is not the left pleural space at the this time. DICTATING PHYSICIAN: CLINT MORGAN MD,JEMAL,MPH [id number] PHY#: [id number] ID: [id number] JOB#: [id number] ACCT: [id number] cc: > MTDD
[2018-07-12] MEDS ORDERED: CALCIUM GLUCONATE 6,666 MG in DEXTROSE 5%-WATER 500 ML IV ONE (18:52)
[2018-07-12] MEDS ORDERED: CALCIUM GLUCONATE 1000 MG/10 ML INJ IV ONE (20:16)
--- NOTE | 2018-07-12 20:27 | OPERATIVE REPORT E ---
Operative Report NAME: SID MARTINEZ : 1940 AGE: 78Y DATE OF SURGERY: 07/11/2018 ROOM: 309 HISTORY: The patient is a 78-year-old female who came in with bilateral pleural effusion, severe sepsis, history of pneumonia, and intraabdominal infection, and small bowel obstruction with small bowel necrosis status post exploratory laparotomy with resection of the necrotic small bowel. PROCEDURE: Thoracentesis ultrasound guided left chest. SURGEON: CLINT MORGAN M.D. INDICATION: Moderate pleural effusion left chest by chest ultrasound and abdominal CT scan. ANESTHESIA: Local anesthesia using 1% lidocaine solution at a dose of 10 mL. BLOOD LOSS: Less than 1 mL. SPECIMEN REMOVED: Pleural fluid from the left chest which appeared to be serous fluid, yellowish, translucent, and non-turbid. OPERATIVE NOTE: Consent was obtained from the patient. The patient verbalized understanding of the indication, risks and potential complications of the procedure such as pneumothorax, infection, bleeding, and myocardial ischemia. Chest ultrasound was performed at bedside noting moderate pleural effusion on the left and a very small amount of pleural effusion on the right side. The thoracentesis needle entry site was marked and the area of the operative site was sterilized with chlorhexidine wipe and covered with sterile drapes. Using a mask, sterile gloves, sterile gown, and sterile cover, the thoracentesis was performed. The operative site was covered with sterile drapes after sterilizing the operative site with chlorhexidine wipe. The small skin incision was done on the needle entry site after 1% lidocaine solution was injected into the needle entry site for a total dose of 15 mL. [id number]-A-[id number] needle was inserted through the skin incision and over the subcutaneous tissue, intercostal muscle, and above the rib. The pleural fluid was withdrawn and then the plastic catheter was inserted into the pleural space and the metal needle was withdrawn. Pleural fluid was then collected to a total volume of 400 mL of serous yellowish,clear and translucent fluid. The patient tolerated the procedure well. Pleural catheter was removed after it was getting harder to aspirate and after 400 ml pleural fluid was removed. A sterile gauze was placed on top of the needle entry site and taped snuggly. The pleural fluid was sent for cytology, cell count, pleural fluid glucose, protein, and LDH and for cultures AFB, bacteria, and fungal. Chest xray was subsequently done, which showed no pneumothorax. DICTATING PHYSICIAN: CLINT MORGAN MD,JEMAL,MPH [id number] PHY#: [id number] ID: [id number] JOB#: [id number] ACCT: [id number] cc:CLINT MORGAN M.D. > [facility]
[2018-07-13] MEDS: METRONIDAZOLE 500 MG/NS RTU 500 MG/100 ML RTUPB IV SCH ×4 (00:16→17:59)
[2018-07-13] MEDS: IMIPENEM/CILASTATIN SODIUM 500 MG in NORMAL SALINE 100 ML IV SCH ×2 (03:16→15:45)
[2018-07-13] MEDS: METOPROLOL TARTRATE PF/INJ 5 MG/5 ML SDV IV SCH ×4 (03:20→21:23)
--- NOTE | 2018-07-13 05:52 | PROGRESS NOTE E ---
Progress Note NAME: SID MARTINEZ : 1940 AGE: 78Y DATE: 07/12/2018 ROOM: 309 SUBJECTIVE: The patient is a 78-year-old female who came in with severe sepsis, acute respiratory failure requiring invasive mechanical ventilation, which improved, small-bowel obstruction with small-bowel gangrene; status post exploratory laparotomy and resection of the gangrenous bowel, and intraabdominal sepsis, and bilateral pleural effusion. The patient currently feeling well. Denies any fever or chills, increasing cough or chest pain, nausea or vomiting. Feeling hungry. Did an ultrasound-guided thoracentesis on the left chest yesterday, which presents with moderate pleural effusion. The pleural fluid appeared transudative. There are no signs of pleura infection on the left lung based on the pleural fluid cytology. Pleural fluid cultures and smears still pending. The patient denies any vomiting. Has passed out some stools last night. I spoke to the surgeon, Dr. Contreras, yesterday about the patient's condition and need for drainage of the intraabdominal abscess which is causing severe leukocytosis and severe sepsis despite 3-antibiotic coverage, namely IV Cipro, IV Flagyl, and IV Primaxin. There is no repeat CBC done this morning. Ordered repeat CBC. OBJECTIVE: GENERAL: The patient is awake, alert, coherent, oriented x3, afebrile, not in apparent severe respiratory distress. VITAL SIGNS: Temperature of 97.6, with a T-max of 98.6, heart rate of 109, blood pressure is 138/75, respiratory rate is 24, saturation is 95% on 3 L nasal cannula. EYES: No jaundice or pallor. EARS, NOSE, AND THROAT: No ear drainage present. No nasal discharge. CHEST AND LUNGS: No wheezing. No rhonchi. No coarse crackles. CARDIOVASCULAR: S1, S2 distinct. Normal rate, regular rhythm. ABDOMEN: Flabby. Hypoactive bowel sounds. Soft, nondistended. Very tender abdomen. Direct tenderness on the left abdomen. EXTREMITIES: No joint swelling. No cellulitis. ASSESSMENT: 1. PLEURAL EFFUSION, BILATERAL; SMALL ON THE RIGHT AND MODERATE ON THE LEFT SIDE. Status post ultrasound-guided thoracentesis yesterday, about 400 mL of serous transudative fluid. Left pleural effusion likely will resolve over time as the severe intra-abdominal infection and abscess resolve and patient started eating and serum albumin improves. 2. SEVERE SEPSIS, MOST LIKELY DUE TO INTRAABDOMINAL INFECTION, SEVERE INTRAABDOMINAL ABSCESS WHICH REQUIRES DRAINAGE. 3. COPD. Currently it is stable and not in bronchospasm. 4. HISTORY OF ATRIAL FIBRILLATION, currently rate controlled. PLAN/RECOMMENDATIONS: 1. Will continue IV Cipro, IV Flagyl, and IV Primaxin. 2. Repeat the CBC and differential and chemistry today. 3. Will give vitamin K because of the elevated PT level. 4. Hopefully Interventional Radiology will be able to place percutaneous drain or a catheter into the intraabdominal abscess site. Will consider repeating the abdominal CT scan later to determine the progress of the intraabdominal abscess. 5. Continue Spiriva inhaler and albuterol inhaler as needed. DICTATING PHYSICIAN: CLINT MORGAN MD,JEMAL,MPH [id number] PHY#: [id number] ID: [id number] JOB#: [id number] ACCT: [id number] cc: > MTDD
[2018-07-13] MEDS: POTASSI CL 20 MEQ/1/2NS 1L 20 MEQ/1,000 ML RTUINJ IV PRN (05:55)
[2018-07-13 07:06] LABS: HEMATOCRIT 30.1 % (36.0-47.0); HEMOGLOBIN 9.7 g/dL (12.0-15.5); MEAN CORPUSCULAR HEMOGLOBIN 28.4 pg (27.0-33.4); MEAN CORPUSCULAR HGB CONC 32.3 g/dL (32.0-36.0); MEAN CORPUSCULAR VOLUME 88 fl (80-97); PLATELET COUNT 252 10^3/uL (150-450); RED BLOOD COUNT 3.43 10^6/uL (3.72-5.28); RED CELL DISTRIBUTION WIDTH 15.8 % (11.5-14.0)
[2018-07-13 07:17] LABS: INTERNATIONAL RATION (INR) 1.59; PROTHROMBIN TIME 19.7 SEC (11.4-15.4)
[2018-07-13 07:18] LABS: PARTIAL THROMBOPLASTIN TIME 45.6 SEC (23.5-35.8)
[2018-07-13 07:32] LABS: ALANINE AMINOTRANSFERASE 49 U/L (9-52); ALKALINE PHOSPHATASE 65 U/L (38-126); ANION GAP 10 (5-19); ASPARTATE AMINO TRANSFERASE 22 U/L (14-36); BILIRUBIN,DIRECT 0.7 mg/dL (0.0-0.4); BILIRUBIN,TOTAL 0.7 mg/dL (0.2-1.3); BLOOD UREA NITROGEN 45 mg/dL (7-20); CALCIUM 7.2 mg/dL (8.4-10.2); CARBON DIOXIDE 20 mmol/L (22-30); CHLORIDE 107 mmol/L (98-107); GLUCOSE 122 mg/dL (75-110); POTASSIUM 3.5 mmol/L (3.6-5.0); SODIUM 136.8 mmol/L (137-145); TOTAL PROTEIN 4.9 g/dL (6.3-8.2)
[2018-07-13 07:50] LABS: ABSOLUTE LYMPHOCYTES# (MANUAL) 1.3 10^3/uL (0.5-4.7); ABSOLUTE MONOCYTES # (MANUAL) 2.4 10^3/uL (0.1-1.4); ABSOLUTE NEUTROPHILS# (MANUAL) 29.3 10^3/uL (1.7-8.2); BAND NEUTROPHILS % (MANUAL) 2 % (3-5); BASOPHILS % (MANUAL) 0 % (0-2); EOSINOPHILS % (MANUAL) 2 % (0-6); LYMPHOCYTES % (MANUAL) 4 % (13-45); MONOCYTES % (MANUAL) 7 % (3-13); SEGMENTED NEUTROPHILS % (MAN) 85 % (42-78); TOTAL CELLS COUNTED 100
[2018-07-13 07:52] LABS: ANISOCYTOSIS SLIGHT
[2018-07-13 07:53] LABS: OVALOCYTES 1+; PLATELET COMMENT ADEQUATE; POIKILOCYTOSIS 1+; POLYCHROMASIA SLIGHT; WHITE BLOOD COUNT 33.7 10^3/uL (4.0-10.5)
[2018-07-13] MEDS ORDERED: LEVETIRACETAM 500 MG/NACL-ISO 500 MG/100 ML RTUPB IV ONE (08:20)
--- NOTE | 2018-07-13 08:20 | RADIOLOGY REPORT (SQ) ---
EXAM DESCRIPTION: CT HEAD WITHOUT COMPLETED DATE/TIME: 07/13/2018 7:59 am REASON FOR STUDY: 6 min episode of LOC COMPARISON: None. TECHNIQUE: Axial images acquired through the brain without intravenous contrast. Images reviewed wi th bone, brain and subdural windows. Additional sagittal and coronal reconstructions were generated. Images stored on PACS. All CT scanners at this facility use dose modulation, iterative reconstruction, and/or weight based d osing when appropriate to reduce radiation dose to as low as reasonably achievable (ALARA). [facility]: Dose Right [facility]: CareDose [facility]: Dose Right [facility]: Teradose 4D [facility]: Smart [employer] RADIATION DOSE: CT Rad equipment meets quality standard of care and radiation dose reduction techniq ues were employed. CTDIvol: 53.2 mGy. DLP: 1017 mGy-cm. mGy. LIMITATIONS: None. FINDINGS: VENTRICLES: Normal size and contour. CEREBRUM: No masses. No hemorrhage. No midline shift. No evidence for acute infarction. Extensive areas of low density in the white matter most likely chronic small vessel ischemic changes. CEREBELLUM: No masses. No hemorrhage. No alteration of density. No evidence for acute infarction. EXTRAAXIAL SPACES: No fluid collections. No masses. ORBITS AND GLOBE: No intra- or extraconal masses. Normal contour of globe without masses. CALVARIUM: No fracture. PARANASAL SINUSES: No fluid or mucosal thickening. SOFT TISSUES: No mass or hematoma. OTHER: No other significant finding. IMPRESSION: No acute intracranial pathology. Small vessel white matter disease. EVIDENCE OF ACUTE STROKE: NO. COMMENT: Quality ID # [id number]: Final reports with documentation of one or more dose reduction techniques (e.g., Automated exposure control, adjustment of the mA and/or kV according to patient size, use of iterative reconstruction technique) TECHNICAL DOCUMENTATION: JOB ID: [id number] [employer]- All Rights Reserved Reading location - IP/workstation name: [email or web address]
--- NOTE | 2018-07-13 09:00 | RADIOLOGY REPORT (SQ) ---
EXAM DESCRIPTION: CT ABD/PELVIS NO ORAL OR IV COMPLETED DATE/TIME: 07/13/2018 7:59 am REASON FOR STUDY: Intra-abdominal abscess COMPARISON: CT abdomen pelvis, 07/10/2018 TECHNIQUE: CT scan of the abdomen and pelvis performed without intravenous or oral contrast. Images reviewed with lung, soft tissue, and bone windows. Reconstructed coronal and sagittal MPR images revi ewed. All images stored on PACS. All CT scanners at this facility use dose modulation, iterative reconstruction, and/or weight based d osing when appropriate to reduce radiation dose to as low as reasonably achievable (ALARA). [facility]: Dose Right [facility]: CareDose [facility]: Dose Right [facility]: Teradose 4D [facility]: Smart [employer] RADIATION DOSE: CT Rad equipment meets quality standard of care and radiation dose reduction techniq ues were employed. CTDIvol: 14.4 mGy. DLP: 832 mGy-cm.mGy. LIMITATIONS: Streak artifact related to patient arm positioning. FINDINGS: LOWER CHEST: Bilateral moderate to large pleural effusions, increased compared to prior ex amination. There is extensive bibasilar mucous plugging. Cardiomegaly and three-vessel coronary art cat calcifications. NON-CONTRASTED LIVER, SPLEEN, ADRENALS: Evaluation limited by lack of IV contrast. No identified sign ificant masses. PANCREAS: No masses. No peripancreatic inflammatory changes. GALLBLADDER: No identified stones by CT criteria. No inflammatory changes to suggest cholecystitis. RIGHT KIDNEY AND URETER: Very atrophic. No significant calcifications. No hydronephrosis or hydro ureter. LEFT KIDNEY AND URETER: No suspicious masses. Assessment limited by lack of IV contrast. No signifi cant calcifications. No hydronephrosis or hydroureter. AORTA AND RETROPERITONEUM: No aneurysm. No retroperitoneal masses or adenopathy. Extensive calcific atherosclerosis. BOWEL AND PERITONEAL CAVITY: Redemonstrated postoperative findings of small bowel resection. Redemon strated fluid collection in the anterior abdomen appears slightly smaller compared to prior examinati on (series 3, image 74). No significant change in fluid collection about the left hemiabdomen (serie s 3, image 59). Trace free ascites. APPENDIX: Not clearly visualized. PELVIS, BLADDER, AND ABDOMINAL WALL:No abnormal masses. Bladder normal. Evaluation of the low pelvis is limited by streak artifact from hip arthroplasty. Severe anasarca. BONES: No significant findings. OTHER: No other significant finding. IMPRESSION: 1. Examination is significantly limited by lack of IV contrast and streak artifact relat ed to patient arm positioning. Within this limitation, redemonstrated fluid collection in the anteri or abdomen appears slightly smaller compared to prior examination (series 3, image 74). No significa nt change in fluid collection about the left hemiabdomen (series 3, image 59). Findings remain suspi cious for intra- abdominal abscess. Trace free ascites. 2. Worsened bilateral pleural effusions and anasarca. COMMENT: Quality ID # [id number]: Final reports with documentation of one or more dose reduction techniques (e.g., Automated exposure control, adjustment of the mA and/or kV according to patient size, use of iterative reconstruction technique) TECHNICAL DOCUMENTATION: JOB ID: [id number] [employer]- All Rights Reserved Reading location - IP/workstation name: [email or web address]
[2018-07-13] MEDS: CIPROFLOXACIN 400 MG/D5W RTU 400 MG/200 ML RTUPB IV SCH ×2 (10:10→21:24)
[2018-07-13] MEDS: PANTOPRAZOLE SODIUM 40 MG VIAL IV SCH ×2 (10:21→10:22)
[2018-07-13] MEDS: TIOTROPIUM BROMIDE DPI 5 CAP/KIT (18 MCG/CAP) IH SCH (10:23)
--- NOTE | 2018-07-13 11:10 | PDOC PROGRESS REPORT ---
Subjective Progress Note for:: 07/13/18 Reason For Visit: SMALL BOWEL OBSTRUCTION, ASPIRATION PNEUMONIA, Physical Exam Vital Signs: Temp Pulse Resp BP Pulse Ox 97.2 F 185 H 20 125/46 L 97 07/13/18 07:14 07/13/18 07:14 07/13/18 07:14 07/13/18 07:00 07/13/18 09:50 Pulse Oximeter Continuous Start: 07/11/18 21:58 Freq: Status: Complete Protocol: Document 07/11/18 21:59 CMI (Rec: 07/11/18 22:01 CMI [id number]) Pulse Oximetry Assessment Oxygen Saturation (92-100) 98 Oxygen Flow Rate (L/min) 3.5 Oxygen Delivery Method Nasal Cannula Fraction of Inspired Oxygen (FIO2) 34 Equipment Usage Equipment in Use Continuous Pulse Oximeter 24 Hour Charge Charge Now Continuous SpO2 Machine # 1 Pulse Oximeter Continuous Start: 07/11/18 23:12 Freq: RTQ4 Status: Active Protocol: Document 07/13/18 09:50 MED (Rec: 07/13/18 09:51 MED [email or web address]) Pulse Oximetry Assessment Oxygen Saturation (92-100) 97 Oxygen Flow Rate (L/min) 3 Oxygen Delivery Method Nasal Cannula Equipment Usage Equipment in Use Continuous SpO2 Machine # 1 Intake & Output 07/12/18 07/13/18 07/14/18 06:59 06:59 06:59 Intake Total 2457 2957.66 100 Output Total 1989 3350 Balance 467 -392.34 100 Weight 72 kg 76 kg GI/Abdominal exam: PRESENT: other - pt abd exam unchanged min tenderness midline to palpation Results Laboratory Results: 07/13/18 06:11 07/13/18 06:11 07/12/18 07/12/18 07/12/18 12:02 12:02 12:02 WBC 29.1 H RBC 3.49 L Hgb 9.8 L Hct 30.2 L MCV 87 MCH 28.1 MCHC 32.5 RDW 15.8 H Plt Count 237 Seg Neutrophils % Not Reportable Lymphocytes % Not Reportable Monocytes % Not Reportable Eosinophils % Not Reportable Basophils % Not Reportable Absolute Neutrophils Not Reportable Absolute Lymphocytes Not Reportable Absolute Monocytes Not Reportable Absolute Eosinophils Not Reportable Absolute Basophils Not Reportable Sodium 135.8 L Potassium 3.8 Chloride 110 H Carbon Dioxide 15 L Anion Gap 11 BUN 49 H Creatinine 1.75 H Est GFR ( Amer) 34 L Est GFR (Non-Af Amer) 28 L Glucose 112 H Calcium 7.0 L* Ionized Calcium Michelle Total Bilirubin AST ALT Alkaline Phosphatase Total Protein Albumin 2.0 L 07/12/18 07/12/18 07/13/18 14:31 17:20 06:11 WBC 33.7 H* RBC 3.43 L Hgb 9.7 L Hct 30.1 L MCV 88 MCH 28.4 MCHC 32.3 RDW 15.8 H Plt Count 252 Seg Neutrophils % Not Reportable Lymphocytes % Not Reportable Monocytes % Not Reportable Eosinophils % Not Reportable Basophils % Not Reportable Absolute Neutrophils Not Reportable Absolute Lymphocytes Not Reportable Absolute Monocytes Not Reportable Absolute Eosinophils Not Reportable Absolute Basophils Not Reportable Sodium Potassium Chloride Carbon Dioxide Anion Gap BUN Creatinine Est GFR ( Amer) Est GFR (Non-Af Amer) Glucose Calcium 6.8 L* Ionized Calcium Michelle 1.03 L Total Bilirubin AST ALT Alkaline Phosphatase Total Protein Albumin 2.0 L 07/13/18 06:11 WBC RBC Hgb Hct MCV MCH MCHC RDW Plt Count Seg Neutrophils % Lymphocytes % Monocytes % Eosinophils % Basophils % Absolute Neutrophils Absolute Lymphocytes Absolute Monocytes Absolute Eosinophils Absolute Basophils Sodium 136.8 L Potassium 3.5 L Chloride 107 Carbon Dioxide 20 L Anion Gap 10 BUN 45 H Creatinine 1.80 H Est GFR ( Amer) 33 L Est GFR (Non-Af Amer) 27 L Glucose 122 H Calcium 7.2 L Ionized Calcium Michelle Total Bilirubin 0.7 AST 22 ALT 49 Alkaline Phosphatase 65 Total Protein 4.9 L Albumin 2.0 L 07/07/18 17:10 Blood Blood Culture - Final NO GROWTH IN 5 DAYS 07/07/18 15:35 Blood Blood Culture - Final NO GROWTH IN 5 DAYS 07/02/18 07/02/18 07/02/18 18:55 18:55 18:55 Creatine Kinase 23 L CK-MB (CK-2) 0.67 Troponin I 0.022 0.020 NT-Pro-B Natriuret Pep 9510 H 07/03/18 07/03/18 07/05/18 00:55 07:26 05:32 Creatine Kinase CK-MB (CK-2) 0.87 1.03 Troponin I 0.016 0.029 0.056 NT-Pro-B Natriuret Pep 07/05/18 07/05/18 07/06/18 15:35 20:01 04:45 Creatine Kinase CK-MB (CK-2) Troponin I 0.051 0.052 0.037 NT-Pro-B Natriuret Pep Impressions: Abdomen X-Ray 07/04/18 00:00 IMPRESSION: Ileus or partial small bowel obstruction. No significant change. Small Bowel X-Ray 07/04/18 00:00 IMPRESSION: Ileus or partial small bowel obstruction without clear transition point. Repeat KUB is recommended at approximately noon today, which will be a 20 hour film. KUB X-Ray 07/05/18 00:00 IMPRESSION: Nasogastric tube in the stomach. Abdomen Ultrasound 07/07/18 00:00 IMPRESSION: 1. No ultrasound abnormality of the right upper quadrant to explain abnormal LFTs. 2. Status post cholecystectomy. 3. Atrophic and echogenic right kidney, as can be seen in chronic renal disease. Chest Ultrasound 07/11/18 20:00 IMPRESSION: 1. Large left pleural effusion. 2. Small right pleural effusion. Chest X-Ray 07/11/18 20:00 IMPRESSION: Bilateral pleural effusions with adjacent atelectasis. Abdomen/Pelvis CT 07/13/18 00:00 IMPRESSION: 1. Examination is significantly limited by lack of IV contrast and streak artifact related to patient arm positioning. Within this limitation, redemonstrated fluid collection in the anterior abdomen appears slightly smaller compared to prior examination (series 3, image 74). No significant change in fluid collection about the left hemiabdomen (series 3, image 59). Findings remain suspicious for intra- abdominal abscess. Trace free ascites. 2. Worsened bilateral pleural effusions and anasarca. Head CT 07/13/18 00:00 IMPRESSION: No acute intracranial pathology. Small vessel white matter disease. EVIDENCE OF ACUTE STROKE: NO. Assessment & Plan - Plan Summary Plan Summary: pt had a ?seizure this am which prompted a ct of the head and repeat ct of the abd noted to have a rising wbc 33.7 this am fluid collection on ct of abd this morning still mid abd under ant abd wall sl smaller than ct of 1/3 pt is on a liquid diet, tolerating plans are for a ct guided aspiratin of fluid collection possibly tomorrow.
[2018-07-13 11:40] LABS: GLUCOSE BODY FLUID 109 mg/dL (.); LDH BODY FLUID 87 IU/L (.)
--- NOTE | 2018-07-13 12:33 | PDOC PROGRESS REPORT ---
Subjective Progress Note for:: 07/13/18 Subjective:: Patient had episode of unresponsiveness earlier this morning with reported backward rolling of her eyes, and hemodynamic decompensation that lasted about 6 minutes. Spouse at bedside reported similar episode while in the ICU. Patient and family denied any prior history of seizure activity. No chest pain or difficulty with breathing presently. She has been able to communicate verbally. Family at bedside. Tolerating oral feeding. No nausea or vomiting. No fever or c hills. Reason For Visit: SMALL BOWEL OBSTRUCTION, ASPIRATION PNEUMONIA, Physical Exam Vital Signs: Temp Pulse Resp BP Pulse Ox 97.2 F 185 H 20 125/46 L 97 07/13/18 07:14 07/13/18 07:14 07/13/18 07:14 07/13/18 07:00 07/13/18 09:50 Pulse Oximeter Continuous Start: 07/11/18 21:58 Freq: Status: Complete Protocol: Document 07/11/18 21:59 CMI (Rec: 07/11/18 22:01 CMI [email or web address]) Pulse Oximetry Assessment Oxygen Saturation (92-100) 98 Oxygen Flow Rate (L/min) 3.5 Oxygen Delivery Method Nasal Cannula Fraction of Inspired Oxygen (FIO2) 34 Equipment Usage Equipment in Use Continuous Pulse Oximeter 24 Hour Charge Charge Now Continuous SpO2 Machine # 1 Pulse Oximeter Continuous Start: 07/11/18 23:12 Freq: RTQ4 Status: Active Protocol: Document 07/13/18 09:50 MED (Rec: 07/13/18 09:51 MED [email or web address]) Pulse Oximetry Assessment Oxygen Saturation (92-100) 97 Oxygen Flow Rate (L/min) 3 Oxygen Delivery Method Nasal Cannula Equipment Usage Equipment in Use Continuous SpO2 Machine # 1 Intake & Output 07/12/18 07/13/18 07/14/18 06:59 06:59 06:59 Intake Total 2457 2957.66 100 Output Total 1989 3350 Balance 467 -392.34 100 Weight 72 kg 76 kg General appearance: PRESENT: no acute distress, well-developed, well-nourished Head exam: PRESENT: atraumatic, normocephalic Eye exam: PRESENT: conjunctiva pink, EOMI, PERRLA. ABSENT: scleral icterus Ear exam: PRESENT: normal external ear exam Mouth exam: PRESENT: moist Respiratory exam: PRESENT: clear to auscultation frida, decreased breath sounds - at lung bases, rales Cardiovascular exam: PRESENT: irregular rhythm, +S1, +S2. ABSENT: diastolic murmur, systolic murmur Vascular exam: ABSENT: pallor GI/Abdominal exam: PRESENT: normal bowel sounds, soft. ABSENT: distended, guarding, mass, organolmegaly, rebound, tenderness Extremities exam: ABSENT: pedal edema Neurological exam: PRESENT: alert, awake, oriented to person, oriented to place, oriented to time, oriented to situation, CN II-XII grossly intact. ABSENT: motor sensory deficit Psychiatric exam: PRESENT: appropriate affect, normal mood. ABSENT: homicidal ideation, suicidal ideation Skin exam: PRESENT: dry, warm Results Laboratory Results: 07/13/18 06:11 07/13/18 06:11 07/11/18 07/12/18 07/12/18 21:02 12:02 12:02 WBC 29.1 H RBC 3.49 L Hgb 9.8 L Hct 30.2 L MCV 87 MCH 28.1 MCHC 32.5 RDW 15.8 H Plt Count 237 Seg Neutrophils % Not Reportable Lymphocytes % Not Reportable Monocytes % Not Reportable Eosinophils % Not Reportable Basophils % Not Reportable Absolute Neutrophils Not Reportable Absolute Lymphocytes Not Reportable Absolute Monocytes Not Reportable Absolute Eosinophils Not Reportable Absolute Basophils Not Reportable Sodium 135.8 L Potassium 3.8 Chloride 110 H Carbon Dioxide 15 L Anion Gap 11 BUN 49 H Creatinine 1.75 H Est GFR ( Amer) 34 L Est GFR (Non-Af Amer) 28 L Glucose 112 H Calcium 7.0 L* Ionized Calcium Michelle Total Bilirubin AST ALT Alkaline Phosphatase Total Protein Albumin Fluid Glucose 109 Fluid LDH 87 07/12/18 07/12/18 07/12/18 12:02 14:31 17:20 WBC RBC Hgb Hct MCV MCH MCHC RDW Plt Count Seg Neutrophils % Lymphocytes % Monocytes % Eosinophils % Basophils % Absolute Neutrophils Absolute Lymphocytes Absolute Monocytes Absolute Eosinophils Absolute Basophils Sodium Potassium Chloride Carbon Dioxide Anion Gap BUN Creatinine Est GFR ( Amer) Est GFR (Non-Af Amer) Glucose Calcium 6.8 L* Ionized Calcium Michelle 1.03 L Total Bilirubin AST ALT Alkaline Phosphatase Total Protein Albumin 2.0 L 2.0 L Fluid Glucose Fluid LDH 07/13/18 07/13/18 06:11 06:11 WBC 33.7 H* RBC 3.43 L Hgb 9.7 L Hct 30.1 L MCV 88 MCH 28.4 MCHC 32.3 RDW 15.8 H Plt Count 252 Seg Neutrophils % Not Reportable Lymphocytes % Not Reportable Monocytes % Not Reportable Eosinophils % Not Reportable Basophils % Not Reportable Absolute Neutrophils Not Reportable Absolute Lymphocytes Not Reportable Absolute Monocytes Not Reportable Absolute Eosinophils Not Reportable Absolute Basophils Not Reportable Sodium 136.8 L Potassium 3.5 L Chloride 107 Carbon Dioxide 20 L Anion Gap 10 BUN 45 H Creatinine 1.80 H Est GFR ( Amer) 33 L Est GFR (Non-Af Amer) 27 L Glucose 122 H Calcium 7.2 L Ionized Calcium Michelle Total Bilirubin 0.7 AST 22 ALT 49 Alkaline Phosphatase 65 Total Protein 4.9 L Albumin 2.0 L Fluid Glucose Fluid LDH 07/07/18 17:10 Blood Blood Culture - Final NO GROWTH IN 5 DAYS 07/07/18 15:35 Blood Blood Culture - Final NO GROWTH IN 5 DAYS 07/02/18 07/02/18 07/02/18 18:55 18:55 18:55 Creatine Kinase 23 L CK-MB (CK-2) 0.67 Troponin I 0.022 0.020 NT-Pro-B Natriuret Pep 9510 H 07/03/18 07/03/18 07/05/18 00:55 07:26 05:32 Creatine Kinase CK-MB (CK-2) 0.87 1.03 Troponin I 0.016 0.029 0.056 NT-Pro-B Natriuret Pep 07/05/18 07/05/18 07/06/18 15:35 20:01 04:45 Creatine Kinase CK-MB (CK-2) Troponin I 0.051 0.052 0.037 NT-Pro-B Natriuret Pep Impressions: Abdomen X-Ray 07/04/18 00:00 IMPRESSION: Ileus or partial small bowel obstruction. No significant change. Small Bowel X-Ray 07/04/18 00:00 IMPRESSION: Ileus or partial small bowel obstruction without clear transition point. Repeat KUB is recommended at approximately noon today, which will be a 20 hour film. KUB X-Ray 07/05/18 00:00 IMPRESSION: Nasogastric tube in the stomach. Abdomen Ultrasound 07/07/18 00:00 IMPRESSION: 1. No ultrasound abnormality of the right upper quadrant to explain abnormal LFTs. 2. Status post cholecystectomy. 3. Atrophic and echogenic right kidney, as can be seen in chronic renal disease. Chest Ultrasound 07/11/18 20:00 IMPRESSION: 1. Large left pleural effusion. 2. Small right pleural effusion. Chest X-Ray 07/11/18 20:00 IMPRESSION: Bilateral pleural effusions with adjacent atelectasis. Abdomen/Pelvis CT 07/13/18 00:00 IMPRESSION: 1. Examination is significantly limited by lack of IV contrast and streak artifact related to patient arm positioning. Within this limitation, redemonstrated fluid collection in the anterior abdomen appears slightly smaller compared to prior examination (series 3, image 74). No significant change in fluid collection about the left hemiabdomen (series 3, image 59). Findings remain suspicious for intra- abdominal abscess. Trace free ascites. 2. Worsened bilateral pleural effusions and anasarca. Head CT 07/13/18 00:00 IMPRESSION: No acute intracranial pathology. Small vessel white matter disease. EVIDENCE OF ACUTE STROKE: NO. Assessment & Plan - Diagnosis (1) Small bowel obstruction Is this a current diagnosis for this admission?: Yes (2) Ischemic bowel disease Is this a current diagnosis for this admission?: Yes (3) Postoperative intra-abdominal abscess Is this a current diagnosis for this admission?: Yes Plan: She is schedule for CT guided abdominal abscess drainage tomorrow. She will continue her current medication management. D/C 1/2 N/S with potassium infusion. Potassium replacement with oral potassium chloride 40 mEq po q4 hours x 2 doses. Obtain CBC with diff, CMP in AM. (4) Bilateral pleural effusion Is this a current diagnosis for this admission?: Yes (5) Chronic atrial fibrillation Is this a current diagnosis for this admission?: Yes (6) Chronic kidney disease, stage III (moderate) Is this a current diagnosis for this admission?: Yes (7) Chronic obstructive pulmonary disease Qualifiers: COPD type: unspecified COPD Qualified Code(s): J44.9 - Chronic obstructive pulmonary disease, unspecified Is this a current diagnosis for this admission?: Yes (8) Type 2 diabetes mellitus Qualifiers: Diabetes mellitus longterm insulin use: without remote computer terminal operator use Diabetes mellitus complication status: without complication Qualified Code(s): E11.9 - Type 2 diabetes mellitus without complications Is this a current diagnosis for this admission?: Yes (9) Hypocalcemia Is this a current diagnosis for this admission?: Yes Plan: Her post calcium gluconate infusion corrected calcium level is 8.80 mg/dL. We will continue to monitor her serum level. - Time Time Spent with patient: 25-34 minutes Medications reviewed and adjusted accordingly: Yes Anticipated discharge: SNF - for short term rehabilitation Within: Other - Inpatient Certification Based on my medical assessment, after consideration of the patient's comorbid ities, presenting symptoms, or acuity I expect that the services needed warrant INPATIENT care.: Yes I certify that my determination is in accordance with my understanding of Medicare's requirements for reasonable and necessary INPATIENT services [42 CFR 412.3e].: Yes Medical Necessity: Need Close Monitoring Due to Risk of Patient Decompensation, Need For IV Fluids, Need For Continuous Telemetry Monitoring, Need for Nebulizer Therapy and Monitoring of Response, Need for IV Antibiotics, Risk of Complication if Not Cared For in Hospital Post Hospital Care: D/C or Transfer Summary - Plan Summary Plan Summary: Saline lock IV access. D/C IV fluid 1/2 N/S with potassium supplementation.
[2018-07-13 14:21] LABS: ALANINE AMINOTRANSFERASE 49 U/L (9-52); ALBUMIN 1.9 g/dL (3.5-5.0); ALKALINE PHOSPHATASE 63 U/L (38-126); ANION GAP 10 (5-19); ASPARTATE AMINO TRANSFERASE 20 U/L (14-36); BILIRUBIN,DIRECT 0.7 mg/dL (0.0-0.4); BILIRUBIN,TOTAL 0.7 mg/dL (0.2-1.3); BLOOD UREA NITROGEN 43 mg/dL (7-20); CALCIUM 7.1 mg/dL (8.4-10.2); CARBON DIOXIDE 19 mmol/L (22-30); CHLORIDE 107 mmol/L (98-107); GLUCOSE 145 mg/dL (75-110); POTASSIUM 3.7 mmol/L (3.6-5.0); SODIUM 135.6 mmol/L (137-145); TOTAL PROTEIN 4.9 g/dL (6.3-8.2)
[2018-07-13] MEDS: DILTIAZEM HCL/D5W 125 MG/125 ML RTUINJ IV PRN (14:36)
[2018-07-13 14:41] LABS: HEMATOCRIT 30.6 % (36.0-47.0); HEMOGLOBIN 9.8 g/dL (12.0-15.5); MEAN CORPUSCULAR HEMOGLOBIN 28.1 pg (27.0-33.4); MEAN CORPUSCULAR VOLUME 88 fl (80-97); PLATELET COUNT 251 10^3/uL (150-450); RED BLOOD COUNT 3.48 10^6/uL (3.72-5.28); RED CELL DISTRIBUTION WIDTH 16.2 % (11.5-14.0)
[2018-07-13 15:22] LABS: ABSOLUTE LYMPHOCYTES# (MANUAL) 0.3 10^3/uL (0.5-4.7); ABSOLUTE MONOCYTES # (MANUAL) 1.3 10^3/uL (0.1-1.4); BASOPHILS % (MANUAL) 0 % (0-2); EOSINOPHILS % (MANUAL) 0 % (0-6); LYMPHOCYTES % (MANUAL) 1 % (13-45); METAMYELOCYTES % (MANUAL) 1 % (0); MONOCYTES % (MANUAL) 4 % (3-13); SEGMENTED NEUTROPHILS % (MAN) 94 % (42-78); TOTAL CELLS COUNTED 100
[2018-07-13 15:24] LABS: ANISOCYTOSIS 1+; OVALOCYTES 1+; PLATELET COMMENT ADEQUATE; POIKILOCYTOSIS 1+; POLYCHROMASIA SLIGHT; TOXIC GRANULATION 2+
[2018-07-13 15:27] LABS: WHITE BLOOD COUNT 33.7 10^3/uL (4.0-10.5)
[2018-07-13] MEDS: LEVETIRACETAM 500 MG TABLET PO SCH (21:19)
--- NOTE | 2018-07-13 22:41 | RADIOLOGY REPORT (SQ) ---
EXAM DESCRIPTION: CT ABDOMEN PELVIS WITHOUT IV CONTRAST COMPLETED DATE/TME: 07/13/2018 20:59 CLINICAL HISTORY: 78 years, Female, intra-abdominal abscess vs perforation;CKD This exam was performed according to our departmental dose-optimization program which includes automated exposure control, adjustment of the mA and/or kVp according to patient size and/or use of iterative reconstruction technique where applicable. Compared to CT abdomen pelvis dated 07/13/2018 at 7:48 AM. Visualized lung bases demonstrate moderate bilateral layering pleural effusions with bilateral lower lobe consolidation/atelectatic changes. Liver, pancreas, adrenal glands are within normal limits. Status post cholecystectomy. Spleen demonstrates moderate diffuse hypodensity which is of indeterminate etiology on this noncontrast study. Right kidney demonstrates significant atrophy. Mild left hydronephrosis. There is no left renal, ureteral or bladder calculus. No dilated loops of bowel to suggest obstruction. Small amount of fluid in the abdomen and pelvis. Mild diffuse colonic diverticulosis. No abdominal or pelvic lymphadenopathy. Abdominal aorta moderately calcified without aneurysm. Bladder demonstrates Lofton catheter. Extensive diffuse anasarca is noted. Postoperative changes are noted with abdominal skin suzanne noted. IMPRESSION: Stable postoperative findings from the prior study. Moderate diffuse hypodensity in the spleen is of uncertain etiology but may represent infarct. This is difficult to evaluate on noncontrast imaging.
[2018-07-14] MEDS: METRONIDAZOLE 500 MG/NS RTU 500 MG/100 ML RTUPB IV SCH ×4 (01:14→23:24)
[2018-07-14] MEDS: METOPROLOL TARTRATE PF/INJ 5 MG/5 ML SDV IV SCH ×4 (02:47→22:55)
[2018-07-14] MEDS: IMIPENEM/CILASTATIN SODIUM 500 MG in NORMAL SALINE 100 ML IV SCH ×2 (04:00→15:35)
[2018-07-14 07:16] LABS: ALANINE AMINOTRANSFERASE 48 U/L (9-52); ALBUMIN 2.2 g/dL (3.5-5.0); ALKALINE PHOSPHATASE 75 U/L (38-126); ANION GAP 10 (5-19); ASPARTATE AMINO TRANSFERASE 21 U/L (14-36); BILIRUBIN,DIRECT 0.7 mg/dL (0.0-0.4); BILIRUBIN,TOTAL 0.7 mg/dL (0.2-1.3); BLOOD UREA NITROGEN 40 mg/dL (7-20); CALCIUM 7.4 mg/dL (8.4-10.2); CARBON DIOXIDE 20 mmol/L (22-30); CHLORIDE 106 mmol/L (98-107); GLUCOSE 144 mg/dL (75-110); POTASSIUM 3.9 mmol/L (3.6-5.0); SODIUM 136.4 mmol/L (137-145); TOTAL PROTEIN 5.4 g/dL (6.3-8.2)
[2018-07-14 08:36] LABS: HEMATOCRIT 32.9 % (36.0-47.0); HEMOGLOBIN 10.2 g/dL (12.0-15.5); MEAN CORPUSCULAR HEMOGLOBIN 27.5 pg (27.0-33.4); MEAN CORPUSCULAR HGB CONC 31.1 g/dL (32.0-36.0); MEAN CORPUSCULAR VOLUME 89 fl (80-97); PLATELET COUNT 303 10^3/uL (150-450); RED BLOOD COUNT 3.71 10^6/uL (3.72-5.28)
[2018-07-14 08:42] LABS: WHITE BLOOD COUNT 41.2 10^3/uL (4.0-10.5)
--- NOTE | 2018-07-14 08:52 | PROGRESS NOTE E ---
Progress Note NAME: SID MARTINEZ : 1940 AGE: 78Y DATE: 07/13/2018 ROOM: 309 SUBJECTIVE: The patient is a 78-year-old female who came in with severe sepsis due to intraabdominal infection, intraabdominal abscess, bilateral pleural effusion, status post acute respiratory failure requiring invasive mechanical ventilation. The patient had an episode of 6 seconds of a seizure. The patient recovered spontaneously. Currently feeling well. Denies any increasing cough or purulent sputum production. No fever over the last 24 hours, with a T-max of 98.7. She denies any worsening dyspnea. Called Radiology on-call this afternoon. Spoke to Dr. Alcocer, who is on-call for [facility], who was assisting on the diagnostic side, and I was referred to Dr. Conner, who is on-call for Interventional Radiology, and I left a message for Dr. Conner and called batch freezer operator to connect with the on-call radiologist. Able to speak to the physician's recovery assistant, Nilesh Bain, who talked to Dr. Conner about the patient. Discussed about patient's condition and need for drainage of the intraabdominal abscess and probably start the patient on feeding, possibly TPN, if the enteral route of feeding cannot be optimized yet. Also spoke to the surgeon on-call, Dr. Greg Suresh. Discussed about patient's condition, the need for drainage of the intraabdominal abscess. Also discussed that the infection and the severe sepsis is not in the lungs at this time, but intraabdominally. Radiology recommended doing a CT scan of the abdomen and pelvis with oral contrast and/or IV contrast. OBJECTIVE: GENERAL: The patient is awake, alert, coherent, oriented x3, afebrile, not in apparent severe respiratory distress. VITAL SIGNS: Temperature of 97.4, with a T-max of 98.7. Heart rate is 74. Blood pressure is 130/51. Saturation 97% on 3 L nasal cannula. EYES: No jaundice or pallor. EARS, NOSE, AND THROAT: No ear drainage. No nasal discharge. CHEST AND LUNGS: No wheezing. No rhonchi. No coarse crackles. CARDIAC: S1, S2 distinct. Normal rate, regular rhythm. ABDOMEN: Soft, nondistended. Low bowel sounds. Direct tenderness on the left side of the abdomen. EXTREMITIES: No joint swelling or cellulitis. LABORATORY: CBC done today showed a white count of 33.7; it is still very high. Hemoglobin is 9.8. Hematocrit is 30.6. Platelet count is 251. The PT done this morning shows PT is 19.7, down from 21. INR is 1.59. PTT is 45.6. Fibrin degradation products is 10-40, which is high. D-dimer is 12.62, also high. The fibrinogen is still normal at 417, suggesting severe infection. Chemistry done today showed sodium is 135.6, potassium is 3.7, chloride is 107, CO2 is 19, the BUN is 43 creatinine is 1.75, glucose 125, and calcium is 7.1. and total bilirubin 0.7. Albumin is 1.9, went down from 2. Total bili is 4.9. ASSESSMENT: 1. SEVERE SEPSIS, MOST LIKELY DUE TO INTRAABDOMINAL INFECTION OR ABSCESS. The abscess needs to be drained before the patient goes into septic shock. Discussed with surgeon controller coal or ore and radiology controller coal or ore and primary care provider controller coal or ore. I spent 2-3 hours talking to Radiology team and to Surgery service about this patient, the patient's condition, and the need for drainage of the intraabdominal abscess. They were uncertain whether this is perforation of bowel at this time vs abscess vs just serous fluid. 2. PLEURAL EFFUSION, BILATERAL; TRANSUDATIVE ON THE LEFT SIDE. Most likely the pleural effusion is related to severe hypoalbuminemia and severe intraabdominal infection. This tends to get better over time as the intraabdominal infection resolves. I will consider repeating an ultrasound-guided thoracentesis later after the intraabdominal infection is resolved and if the pleural effusion is steadily getting worse. No apparent signs of pneumonia at this time. The patient is not coughing and there is no purulent sputum production since the patient was endotracheally intubated and extubated a few days ago. 3. HISTORY OF COPD. 4. SEVERE HYPOALBUMINEMIA. The patient requires feeding soon, either enterally or TPN. Recommend holding the TPN first until the intraabdominal abscess is drained and the patient showing signs of improvement. Surgery has to decide when to feed the patient. PLAN/RECOMMENDATIONS: 1. I have ordered a CT scan of the abdomen and pelvis with IV and oral contrast. Nephrology - Dr Soriano opposed strongly against IV contrast because patient's high risk of going into acute renal failure, requiring hemodialysis. Hence, changed order to CT scan of abdomen and pelvis with oral contrast. 2. Discussed the CT scan of the abdomen and pelvis with Surgery, who okayed the CAT scan, and discussed this with and ELY Bain. 3. Continue 3 IV antibiotics. 4. Continue inhalers. 5. The patient started with Keppra today by primary care because of the seizure episode. DICTATING PHYSICIAN: CLINT MORGAN MD,JEMAL,MPH [id number] PHY#: [id number] ID: [id number] JOB#: [id number] ACCT: [id number] cc: > MTDD
[2018-07-14 09:01] LABS: ABSOLUTE LYMPHOCYTES# (MANUAL) 2.1 10^3/uL (0.5-4.7); ABSOLUTE MONOCYTES # (MANUAL) 2.1 10^3/uL (0.1-1.4); ABSOLUTE NEUTROPHILS# (MANUAL) 37.1 10^3/uL (1.7-8.2); BAND NEUTROPHILS % (MANUAL) 2 % (3-5); BASOPHILS % (MANUAL) 0 % (0-2); EOSINOPHILS % (MANUAL) 0 % (0-6); LYMPHOCYTES % (MANUAL) 3 % (13-45); MONOCYTES % (MANUAL) 5 % (3-13); SEGMENTED NEUTROPHILS % (MAN) 88 % (42-78); TOTAL CELLS COUNTED 100
[2018-07-14 09:04] LABS: ANISOCYTOSIS 1+; OVALOCYTES 1+; PLATELET COMMENT ADEQUATE; POIKILOCYTOSIS 1+; POLYCHROMASIA 1+; SCHISTOCYTES SLIGHT; TOXIC GRANULATION 1+; TOXIC VACUOLATION PRESENT
[2018-07-14] MEDS: PANTOPRAZOLE SODIUM 40 MG VIAL IV SCH (09:24)
[2018-07-14] MEDS: CIPROFLOXACIN 400 MG/D5W RTU 400 MG/200 ML RTUPB IV SCH (09:24)
[2018-07-14] MEDS: LEVETIRACETAM 500 MG TABLET PO SCH (09:25)
[2018-07-14] MEDS: TIOTROPIUM BROMIDE DPI 5 CAP/KIT (18 MCG/CAP) IH SCH (09:25)
[2018-07-14] MEDS: BENZONATATE 100 MG CAPSULE PO SCH ×2 (09:25→17:13)
--- NOTE | 2018-07-14 09:32 | RADIOLOGY REPORT (SQ) ---
EXAM DESCRIPTION: CHEST SINGLE VIEW COMPLETED DATE/TIME: 07/14/2018 9:09 am REASON FOR STUDY: pleural effusion COMPARISON: 07/06/2018, 07/09/2018, 07/11/2018 chest films EXAM PARAMETERS: NUMBER OF VIEWS: One view. TECHNIQUE: Single frontal radiographic view of the chest acquired. RADIATION DOSE: NA LIMITATIONS: None. FINDINGS: LUNGS AND PLEURA: Compared to films from 07/11/2018, there is slight increase in the bilater al pulmonary vascular congestion and mild pulmonary edema in the perihilar regions. Stable moderate pleural effusions with bilateral lower lobe airspace disease likely atelectasis. No pneumothorax MEDIASTINUM AND HILAR STRUCTURES: No masses. Contour normal. HEART AND VASCULAR STRUCTURES: Stable cardiomegaly BONES: No acute findings. HARDWARE: Right jugular central line tip right atrium OTHER: No other significant finding. IMPRESSION: Pulmonary vascular congestion with mild perihilar pulmonary edema. Moderate stable bilateral pleural effusions with bilateral lower lobe airspace disease TECHNICAL DOCUMENTATION: JOB ID: [id number] [employer]- All Rights Reserved Reading location - IP/workstation name: [email or web address]
--- NOTE | 2018-07-14 09:50 | PDOC PROGRESS REPORT ---
Subjective Subjective:: Patient up on the floor, communicating but confused. Uncertain as to whether she got out of bed. [place] catheter draining. Reports no nausea or vomiting. Reason For Visit: SMALL BOWEL OBSTRUCTION, ASPIRATION PNEUMONIA, Physical Exam Vital Signs: Temp Pulse Resp BP Pulse Ox 97.3 F 91 18 127/50 H 93 07/14/18 08:22 07/14/18 08:22 07/14/18 08:22 07/14/18 08:22 07/14/18 08:22 Pulse Oximeter Continuous Start: 07/11/18 21:58 Freq: Status: Complete Protocol: Document 07/11/18 21:59 CMI (Rec: 07/11/18 22:01 CMI [email or web address]) Pulse Oximetry Assessment Oxygen Saturation (92-100) 98 Oxygen Flow Rate (L/min) 3.5 Oxygen Delivery Method Nasal Cannula Fraction of Inspired Oxygen (FIO2) 34 Equipment Usage Equipment in Use Continuous Pulse Oximeter 24 Hour Charge Charge Now Continuous SpO2 Machine # 1 Pulse Oximeter Continuous Start: 07/11/18 23:12 Freq: RTQ4 Status: Active Protocol: Document 07/14/18 04:00 CBR (Rec: 07/14/18 04:54 CBR [id number]) Pulse Oximetry Assessment Oxygen Saturation (92-100) 97 Oxygen Flow Rate (L/min) 3 Oxygen Delivery Method Nasal Cannula Equipment Usage Equipment in Use Continuous SpO2 Machine # 1 Intake & Output 07/13/18 07/14/18 07/15/18 06:59 06:59 06:59 Intake Total 2957.66 1575 Output Total 3350 1100 Balance -392.34 475 Weight 76 kg 78.2 kg General appearance: PRESENT: mild distress GI/Abdominal exam: PRESENT: other - Soft suzanne in place no active drainage no cellulitis. Results Laboratory Results: 07/14/18 06:08 07/14/18 06:08 07/11/18 07/13/18 07/13/18 21:02 13:21 13:21 WBC 33.7 H* RBC 3.48 L Hgb 9.8 L Hct 30.6 L MCV 88 MCH 28.1 MCHC 32.0 RDW 16.2 H Plt Count 251 Seg Neutrophils % Not Reportable Lymphocytes % Not Reportable Monocytes % Not Reportable Eosinophils % Not Reportable Basophils % Not Reportable Absolute Neutrophils Not Reportable Absolute Lymphocytes Not Reportable Absolute Monocytes Not Reportable Absolute Eosinophils Not Reportable Absolute Basophils Not Reportable Sodium 135.6 L Potassium 3.7 Chloride 107 Carbon Dioxide 19 L Anion Gap 10 BUN 43 H Creatinine 1.75 H Est GFR ( Amer) 34 L Est GFR (Non-Af Amer) 28 L Glucose 145 H Calcium 7.1 L Total Bilirubin 0.7 AST 20 ALT 49 Alkaline Phosphatase 63 Total Protein 4.9 L Albumin 1.9 L Fluid Glucose 109 Fluid LDH 87 07/14/18 07/14/18 06:08 06:08 WBC 41.2 H* RBC 3.71 L Hgb 10.2 L Hct 32.9 L MCV 89 MCH 27.5 MCHC 31.1 L RDW 16.0 H Plt Count 303 Seg Neutrophils % Not Reportable Lymphocytes % Not Reportable Monocytes % Not Reportable Eosinophils % Not Reportable Basophils % Not Reportable Absolute Neutrophils Not Reportable Absolute Lymphocytes Not Reportable Absolute Monocytes Not Reportable Absolute Eosinophils Not Reportable Absolute Basophils Not Reportable Sodium 136.4 L Potassium 3.9 Chloride 106 Carbon Dioxide 20 L Anion Gap 10 BUN 40 H Creatinine 1.91 H Est GFR ( Amer) 31 L Est GFR (Non-Af Amer) 25 L Glucose 144 H Calcium 7.4 L Total Bilirubin 0.7 AST 21 ALT 48 Alkaline Phosphatase 75 Total Protein 5.4 L Albumin 2.2 L Fluid Glucose Fluid LDH 07/11/18 21:02 Pleural Fluid AFB Smear Concentration - Final 07/11/18 21:02 Pleural Fluid Acid Fast Bacilli Smear - Final 07/02/18 07/02/18 07/02/18 18:55 18:55 18:55 Creatine Kinase 23 L CK-MB (CK-2) 0.67 Troponin I 0.022 0.020 NT-Pro-B Natriuret Pep 9510 H 07/03/18 07/03/18 07/05/18 00:55 07:26 05:32 Creatine Kinase CK-MB (CK-2) 0.87 1.03 Troponin I 0.016 0.029 0.056 NT-Pro-B Natriuret Pep 07/05/18 07/05/18 07/06/18 15:35 20:01 04:45 Creatine Kinase CK-MB (CK-2) Troponin I 0.051 0.052 0.037 NT-Pro-B Natriuret Pep Impressions: Abdomen X-Ray 07/04/18 00:00 IMPRESSION: Ileus or partial small bowel obstruction. No significant change. Small Bowel X-Ray 07/04/18 00:00 IMPRESSION: Ileus or partial small bowel obstruction without clear transition point. Repeat KUB is recommended at approximately noon today, which will be a 20 hour film. KUB X-Ray 07/05/18 00:00 IMPRESSION: Nasogastric tube in the stomach. Abdomen Ultrasound 07/07/18 00:00 IMPRESSION: 1. No ultrasound abnormality of the right upper quadrant to explain abnormal LFTs. 2. Status post cholecystectomy. 3. Atrophic and echogenic right kidney, as can be seen in chronic renal disease . Chest Ultrasound 07/11/18 20:00 IMPRESSION: 1. Large left pleural effusion. 2. Small right pleural effusion. Head CT 07/13/18 00:00 IMPRESSION: No acute intracranial pathology. Small vessel white matter disease. EVIDENCE OF ACUTE STROKE: NO. Abdomen/Pelvis CT 07/13/18 20:59 IMPRESSION: Stable postoperative findings from the prior study. Moderate diffuse hypodensity in the spleen is of uncertain etiology but may represent infarct. This is difficult to evaluate on noncontrast imaging. Chest X-Ray 07/14/18 06:00 IMPRESSION: Pulmonary vascular congestion with mild perihilar pulmonary edema. Moderate stable bilateral pleural effusions with bilateral lower lobe airspace disease Assessment & Plan - Diagnosis (1) Abdominal pain Qualifiers: Abdominal location: lower abdomen, unspecified Qualified Code(s): R10.30 - Lower abdominal pain, unspecified Is this a current diagnosis for this admission?: Yes Plan: Impression: Patient approximately 10 days status post exploratory laparotomy extensive small bowel resection, clinically reasonably stable; persisting leukocytosis and metabolic acidosis concerning; CT scan of the abdomen and pelvis last night with oral contrast shows no leak, resolving intra-abdominal fluid collections that do not require drainage; no evidence of obstruction; the stomach is distended however. New Concern raised by radiologist about the possibility of splenic infarct. Recommendations: 1. Reviewed CT scan with Dr. Millan. No clinical or radiographic indication to pursue percutaneous drainage of any intra-abdominal small and diminished compared to several days ago. 2. We will discuss whether the splenic findings on CT scan are artifactual or otherwise. 3. Other sources of sepsis should be pursued. (2) Bilateral pleural effusion Is this a current diagnosis for this admission?: Yes (3) Atrophy of right kidney Is this a current diagnosis for this admission?: Yes (4) CHF (congestive heart failure) Qualifiers: Heart failure type: unspecified Heart failure chronicity: chronic Quali fied Code(s): I50.9 - Heart failure, unspecified Is this a current diagnosis for this admission?: Yes
[2018-07-14] MEDS: DILTIAZEM HCL/D5W 125 MG/125 ML RTUINJ IV PRN (10:28)
[2018-07-14] MEDS ORDERED: CIPROFLOXACIN 400 MG/D5W RTU 400 MG/200 ML RTUPB IV SCH (13:00)
[2018-07-14] MEDS ORDERED: VANCOMYCIN HCL INJ 1000 MG VIAL IV SCH (13:00)
[2018-07-14] MEDS ORDERED: VANCOMYCIN HCL 1,000 MG in DEXTROSE 5%-WATER 250 ML IV SCH (14:00)
[2018-07-14] MEDS: METRONIDAZOLE 500 MG TABLET PO SCH ×2 (14:49→17:13)
[2018-07-14 14:59] LABS: APPEARANCE,URINE CLEAR; BILIRUBIN,URINE SMALL (NEGATIVE); COLOR,URINE YELLOW; GLUCOSE, URINE 50 mg/dL (NEGATIVE); KETONES,URINE TRACE mg/dL (NEGATIVE); LEUKOCYTE ESTERASE,URINE SMALL (NEGATIVE); NITRITE,URINE NEGATIVE (NEGATIVE); PROTEIN,URINE NEGATIVE (NEGATIVE); URINE SPECIFIC GRAVITY 1.009
[2018-07-14 15:50] LABS: PATH REVIEW PATHOLOGIST REVIEWED
--- NOTE | 2018-07-14 20:02 | PDOC PROGRESS REPORT ---
Subjective Progress Note for:: 07/14/18 Subjective:: Patient was seen by the bedside, she is alert, there was increased white blood cell count from today's lab work, the white blood cell count was 41,000, the most recent CT scan of the abdomen and pelvis that was done yesterday demonstrated a small amount of fluid in the abdomen which is not large enough for drainage there was no mention of abscess, the CT scan that was done yesterday also suggest bilateral pleural effusion. On review of the pleural fluid analysis, the pleural fluid LDH was 87, the serum LDH 313, the ratio is 0.27 which is consistent with transudate rather than exudate. There is hypoalbuminemia suggesting that this could be a transudative pleural effusion rather than exudative pleural effusion. There is no infection identified to date from the pleural fluid or from any body fluid in this patient, it is probably reasonable at this point to hold antibiotic and observe patient closely. Reason For Visit: SMALL BOWEL OBSTRUCTION, ASPIRATION PNEUMONIA, Physical Exam Vital Signs: Temp Pulse Resp BP Pulse Ox 98.4 F 84 18 123/46 L 94 07/14/18 15:44 07/14/18 18:00 07/14/18 15:44 07/14/18 18:00 07/14/18 15:44 Pulse Oximeter Continuous Start: 07/11/18 21:58 Freq: Status: Complete Protocol: Document 07/11/18 21:59 CMI (Rec: 07/11/18 22:01 CMI [email or web address]) Pulse Oximetry Assessment Oxygen Saturation (92-100) 98 Oxygen Flow Rate (L/min) 3.5 Oxygen Delivery Method Nasal Cannula Fraction of Inspired Oxygen (FIO2) 34 Equipment Usage Equipment in Use Continuous Pulse Oximeter 24 Hour Charge Charge Now Continuous SpO2 Machine # 1 Pulse Oximeter Continuous Start: 07/11/18 23:1 2 Freq: RTQ4 Status: Active Protocol: Document 07/14/18 12:20 NSC (Rec: 07/14/18 12:24 [facility] [id number]) Pulse Oximetry Assessment Oxygen Saturation (92-100) 94 Oxygen Flow Rate (L/min) 5 Oxygen Delivery Method Nasal Cannula Fraction of Inspired Oxygen (FIO2) 403 Equipment Usage Equipment in Use Continuous SpO2 Machine # n 1 Intake & Output 07/13/18 07/14/18 07/15/18 06:59 06:59 06:59 Intake Total 2957.66 1575 717 Output Total 3350 1100 825 Balance -392.34 475 -108 Weight 76 kg 78.2 kg General appearance: PRESENT: no acute distress Eye exam: PRESENT: PERRLA Respiratory exam: PRESENT: rhonchi Cardiovascular exam: PRESENT: +S1, +S2 GI/Abdominal exam: PRESENT: soft, tenderness Neurological exam: PRESENT: alert Results Laboratory Results: 07/14/18 06:08 07/14/18 06:08 07/14/18 07/14/18 07/14/18 06:08 06:08 14:35 WBC 41.2 H* RBC 3.71 L Hgb 10.2 L Hct 32.9 L MCV 89 MCH 27.5 MCHC 31.1 L RDW 16.0 H Plt Count 303 Seg Neutrophils % Not Reportable Lymphocytes % Not Reportable Monocytes % Not Reportable Eosinophils % Not Reportable Basophils % Not Reportable Absolute Neutrophils Not Reportable Absolute Lymphocytes Not Reportable Absolute Monocytes Not Reportable Absolute Eosinophils Not Reportable Absolute Basophils Not Reportable Sodium 136.4 L Potassium 3.9 Chloride 106 Carbon Dioxide 20 L Anion Gap 10 BUN 40 H Creatinine 1.91 H Est GFR ( Amer) 31 L Est GFR (Non-Af Amer) 25 L Glucose 144 H Calcium 7.4 L Total Bilirubin 0.7 AST 21 ALT 48 Alkaline Phosphatase 75 Total Protein 5.4 L Albumin 2.2 L Urine Color YELLOW Urine Appearance CLEAR Urine pH 5.0 Ur Specific [place] 1.009 Urine Protein NEGATIVE Urine Glucose (UA) 50 H Urine Ketones TRACE H Urine Blood SMALL H Urine Nitrite NEGATIVE Ur Leukocyte Esterase SMALL H Urine WBC (Auto) 2 Urine RBC (Auto) 5 07/11/18 21:02 Pleural Fluid AFB Smear Concentration - Final 07/11/18 21:02 Pleural Fluid Acid Fast Bacilli Smear - Final 07/02/18 07/02/18 07/02/18 18:55 18:55 18:55 Creatine Kinase 23 L CK-MB (CK-2) 0.67 Troponin I 0.022 0.020 NT-Pro-B Natriuret Pep 9510 H 07/03/18 07/03/18 07/05/18 00:55 07:26 05:32 Creatine Kinase CK-MB (CK-2) 0.87 1.03 Troponin I 0.016 0.029 0.056 NT-Pro-B Natriuret Pep 07/05/18 07/05/18 07/06/18 15:35 20:01 04:45 Creatine Kinase CK-MB (CK-2) Troponin I 0.051 0.052 0.037 NT-Pro-B Natriuret Pep Impressions: Abdomen X-Ray 07/04/18 00:00 IMPRESSION: Ileus or partial small bowel obstruction. No significant change. Small Bowel X-Ray 07/04/18 00:00 IMPRESSION: Ileus or partial small bowel obstruction without clear transition point. Repeat KUB is recommended at approximately noon today, which will be a 20 hour film. KUB X-Ray 07/05/18 00:00 IMPRESSION: Nasogastric tube in the stomach. Abdomen Ultrasound 07/07/18 00:00 IMPRESSION: 1. No ultrasound abnormality of the right upper quadrant to explain abnormal LFTs. 2. Status post cholecystectomy. 3. Atrophic and echogenic right kidney, as can be seen in chronic renal disease. Chest Ultrasound 07/11/18 20:00 IMPRESSION: 1. Large left pleural effusion. 2. Small right pleural effusion. Head CT 07/13/18 00:00 IMPRESSION: No acute intracranial pathology. Small vessel white matter disease. EVIDENCE OF ACUTE STROKE: NO. Abdomen/Pelvis CT 07/13/18 20:59 IMPRESSION: Stable postoperative findings from the prior study. Moderate diffuse hypodensity in the spleen is of uncertain etiology but may represent infarct. This is difficult to evaluate on noncontrast imaging. Chest X-Ray 07/14/18 06:00 IMPRESSION: Pulmonary vascular congestion with mild perihilar pulmonary edema. Moderate stable bilateral pleural effusions with bilateral lower lobe airspace disease Assessment & Plan - Diagnosis (1) Acute kidney injury Is this a current diagnosis for this admission?: Yes (2) Small bowel obstruction Is this a current diagnosis for this admission?: Yes (3) Pneumonia Qualifiers: Pneumonia type: due to unspecified organism Laterality: bilateral Lung location: unspecified part of lung Qualified Code(s): J18.9 - Pneumonia, unspecified organism Is this a current diagnosis for this admission?: Yes (4) Aspiration pneumonia Qualifiers: Is this a current diagnosis for this admission?: Yes (5) Chronic atrial fibrillation Is this a current diagnosis for this admission?: Yes (6) Ischemic bowel disease Is this a current diagnosis for this admission?: Yes (7) UTI due to Klebsiella species Is this a current diagnosis for this admission?: Yes Plan: She has UTI, treated appropriately with imipenem, the pathology Klebsiella is sensitive to imipenem, unlikely to be the cause of the worsening leukocytosis. (8) Acute tubular necrosis Is this a current diagnosis for this admission?: Yes (9) Postoperative intra-abdominal abscess Is this a current diagnosis for this admission?: Yes Plan: The most recent CT scan did not demonstrate any intra-abdominal abscess (10) Bilateral pleural effusion Is this a current diagnosis for this admission?: Yes (11) Pleural effusion Is this a current diagnosis for this admission?: Yes (12) Hypoalbuminemia Is this a current diagnosis for this admission?: Yes Plan: Administer 50 g IV albumin, give Lasix 40 mg IV every 8 for 2 days (13) Leucocytosis Qualifiers: Leukocytosis type: unspecified Qualified Code(s): D72.829 - Elevated white blood cell count, unspecified Is this a current diagnosis for this admission?: Yes Plan: DC antibiotic and watch patient closely
[2018-07-14 21:41] LABS: HEMATOCRIT 30.2 % (36.0-47.0); HEMOGLOBIN 9.6 g/dL (12.0-15.5); MEAN CORPUSCULAR HEMOGLOBIN 28.1 pg (27.0-33.4); MEAN CORPUSCULAR HGB CONC 31.8 g/dL (32.0-36.0); MEAN CORPUSCULAR VOLUME 88 fl (80-97); PLATELET COUNT 308 10^3/uL (150-450); RED BLOOD COUNT 3.42 10^6/uL (3.72-5.28); RED CELL DISTRIBUTION WIDTH 16.1 % (11.5-14.0)
[2018-07-14 21:45] LABS: WHITE BLOOD COUNT 40.1 10^3/uL (4.0-10.5)
[2018-07-14 21:58] LABS: ABSOLUTE LYMPHOCYTES# (MANUAL) 0.4 10^3/uL (0.5-4.7); ABSOLUTE NEUTROPHILS# (MANUAL) 37.3 10^3/uL (1.7-8.2); BASOPHILS % (MANUAL) 0 % (0-2); EOSINOPHILS % (MANUAL) 1 % (0-6); LYMPHOCYTES % (MANUAL) 1 % (13-45); MONOCYTES % (MANUAL) 5 % (3-13); SEGMENTED NEUTROPHILS % (MAN) 93 % (42-78); TOTAL CELLS COUNTED 100
[2018-07-14 21:59] LABS: ANISOCYTOSIS 1+; OVALOCYTES 1+; PLATELET COMMENT ADEQUATE; POIKILOCYTOSIS 1+; POLYCHROMASIA 1+; TOXIC GRANULATION 1+
[2018-07-14] MEDS: FUROSEMIDE INJ/PF 40 MG/4 ML SDV IV SCH (22:54)
[2018-07-14] MEDS: ALBUMIN HUMAN 12.5 GM/50 ML RTUINJ IV SCH ×4 (22:55→23:19)
[2018-07-15] MEDS: METOPROLOL TARTRATE PF/INJ 5 MG/5 ML SDV IV SCH ×4 (04:13→21:20)
[2018-07-15] MEDS: IMIPENEM/CILASTATIN SODIUM 500 MG in NORMAL SALINE 100 ML IV SCH ×3 (04:14→23:50)
[2018-07-15] MEDS: FUROSEMIDE INJ/PF 40 MG/4 ML SDV IV SCH ×3 (06:38→21:20)
[2018-07-15] MEDS: METRONIDAZOLE 500 MG/NS RTU 500 MG/100 ML RTUPB IV SCH ×2 (06:38→11:15)
[2018-07-15 08:19] LABS: HEMATOCRIT 29.7 % (36.0-47.0); HEMOGLOBIN 9.4 g/dL (12.0-15.5); MEAN CORPUSCULAR HEMOGLOBIN 28.1 pg (27.0-33.4); MEAN CORPUSCULAR HGB CONC 31.7 g/dL (32.0-36.0); MEAN CORPUSCULAR VOLUME 89 fl (80-97); PLATELET COUNT 340 10^3/uL (150-450); RED BLOOD COUNT 3.36 10^6/uL (3.72-5.28); RED CELL DISTRIBUTION WIDTH 16.4 % (11.5-14.0)
--- NOTE | 2018-07-15 08:25 | RADIOLOGY REPORT (SQ) ---
EXAM DESCRIPTION: U/S CHEST COMPLETED DATE/TIME: 07/15/2018 7:28 am REASON FOR STUDY: Quantify pleural effusion, bilateral COMPARISON: 07/11/2018. TECHNIQUE: Limited sonographic images of the right and left chest. LIMITATIONS: None. FINDINGS: Small bilateral pleural effusions. IMPRESSION: SMALL BILATERAL PLEURAL EFFUSIONS. THESE HAVE DECREASED SINCE THE PRIOR STUDY. TECHNICAL DOCUMENTATION: JOB ID: [id number] [employer]- All Rights Reserved Reading location - IP/workstation name: [facility]
[2018-07-15 08:43] LABS: ABSOLUTE LYMPHOCYTES# (MANUAL) 0.4 10^3/uL (0.5-4.7); ABSOLUTE MONOCYTES # (MANUAL) 1.5 10^3/uL (0.1-1.4); ABSOLUTE NEUTROPHILS# (MANUAL) 36.4 10^3/uL (1.7-8.2); BASOPHILS % (MANUAL) 0 % (0-2); EOSINOPHILS % (MANUAL) 0 % (0-6); LYMPHOCYTES % (MANUAL) 1 % (13-45); MONOCYTES % (MANUAL) 4 % (3-13); SEGMENTED NEUTROPHILS % (MAN) 95 % (42-78); TOTAL CELLS COUNTED 100
[2018-07-15 08:44] LABS: ANION GAP 12 (5-19); BLOOD UREA NITROGEN 39 mg/dL (7-20); CALCIUM 7.3 mg/dL (8.4-10.2); CARBON DIOXIDE 22 mmol/L (22-30); CHLORIDE 105 mmol/L (98-107); GLUCOSE 137 mg/dL (75-110); POTASSIUM 3.5 mmol/L (3.6-5.0); SODIUM 138.7 mmol/L (137-145); TOXIC GRANULATION 1+
[2018-07-15 08:45] LABS: ANISOCYTOSIS 1+; OVALOCYTES 1+; PLATELET COMMENT ADEQUATE; POIKILOCYTOSIS 1+; POLYCHROMASIA SLIGHT; TOXIC VACUOLATION PRESENT
[2018-07-15 08:46] LABS: WHITE BLOOD COUNT 38.3 10^3/uL (4.0-10.5)
[2018-07-15] MEDS: DILTIAZEM HCL/D5W 125 MG/125 ML RTUINJ IV PRN (09:29)
[2018-07-15] MEDS ORDERED: CIPROFLOXACIN HCL 500 MG TABLET PO SCH (10:00)
[2018-07-15] MEDS: BENZONATATE 100 MG CAPSULE PO SCH ×2 (11:15→18:50)
[2018-07-15] MEDS: PANTOPRAZOLE SODIUM 40 MG VIAL IV SCH (11:15)
--- NOTE | 2018-07-15 13:14 | PDOC PROGRESS REPORT ---
Subjective Progress Note for:: 07/15/18 Subjective:: Patient awake and in no acute distress. Denies any abdominal pain. Reason For Visit: SMALL BOWEL OBSTRUCTION, ASPIRATION PNEUMONIA, Physical Exam Vital Signs: Temp Pulse Resp BP Pulse Ox 97.2 F 108 H 22 H 126/46 H 92 07/15/18 07:49 07/15/18 07:49 07/15/18 07:49 07/15/18 07:49 07/15/18 11:16 Pulse Oximeter Continuous Start: 07/11/18 21:58 Freq: Status: Complete Protocol: Document 07/11/18 21:59 CMI (Rec: 07/11/18 22:01 CMI [email or web address]) Pulse Oximetry Assessment Oxygen Saturation (92-100) 98 Oxygen Flow Rate (L/min) 3.5 Oxygen Delivery Method Nasal Cannula Fraction of Inspired Oxygen (FIO2) 34 Equipment Usage Equipment in Use Continuous Pulse Oximeter 24 Hour Charge Charge Now Continuous SpO2 Machine # 1 Pulse Oximeter Continuous Start: 07/11/18 23:12 Freq: RTQ4 Status: Active Protocol: Document 07/15/18 11:16 NSC (Rec: 07/15/18 11:18 NSC [email or web address]) Pulse Oximetry Assessment Oxygen Saturation (92-100) 92 Oxygen Flow Rate (L/min) 5 Oxygen Delivery Method Nasal Cannula Fraction of Inspired Oxygen (FIO2) 40 Equipment Usage Equipment in Use Continuous SpO2 Machine # N 1 Intake & Output 07/14/18 07/15/18 07/16/18 06:59 06:59 06:59 Intake Total 1575 888 415 Output Total 1100 825 Balance 475 63 415 Weight 78.2 kg 76.7 kg General appearance: PRESENT: no acute distress, cooperative Respiratory exam: PRESENT: rhonchi Cardiovascular exam: PRESENT: irregular rhythm GI/Abdominal exam: PRESENT: other - Soft, nondistended, no apparent tenderness and no apparent peritoneal signs. Wound clean dry and intact. Extremities exam: PRESENT: +1 edema Neurological exam: PRESENT: alert, awake Psychiatric exam: PRESENT: appropriate affect Skin exam: PRESENT: warm Results Laboratory Results: 07/15/18 07:45 07/15/18 07:45 07/14/18 07/14/18 07/15/18 14:35 21:15 07:45 WBC 40.1 H* 38.3 H* RBC 3.42 L 3.36 L Hgb 9.6 L 9.4 L Hct 30.2 L 29.7 L MCV 88 89 MCH 28.1 28.1 MCHC 31.8 L 31.7 L RDW 16.1 H 16.4 H Plt Count 308 340 Seg Neutrophils % Not Reportable Not Reportable Lymphocytes % Not Reportable Not Reportable Monocytes % Not Reportable Not Reportable Eosinophils % Not Reportable Not Reportable Basophils % Not Reportable Not Reportable Absolute Neutrophils Not Reportable Not Reportable Absolute Lymphocytes Not Reportable Not Reportable Absolute Monocytes Not Reportable Not Reportable Absolute Eosinophils Not Reportable Not Reportable Absolute Basophils Not Reportable Not Reportable Sodium Potassium Chloride Carbon Dioxide Anion Gap BUN Creatinine Est GFR ( Amer) Est GFR (Non-Af Amer) Glucose Calcium Urine Color YELLOW Urine Appearance CLEAR Urine pH 5.0 Ur Specific [place] 1.009 Urine Protein NEGATIVE Urine Glucose (UA) 50 H Urine Ketones TRACE H Urine Blood SMALL H Urine Nitrite NEGATIVE Ur Leukocyte Esterase SMALL H Urine WBC (Auto) 2 Urine RBC (Auto) 5 07/15/18 07:45 WBC RBC Hgb Hct MCV MCH MCHC RDW Plt Count Seg Neutrophils % Lymphocytes % Monocytes % Eosinophils % Basophils % Absolute Neutrophils Absolute Lymphocytes Absolute Monocytes Absolute Eosinophils Absolute Basophils Sodium 138.7 Potassium 3.5 L Chloride 105 Carbon Dioxide 22 Anion Gap 12 BUN 39 H Creatinine 2.07 H Est GFR ( Amer) 28 L Est GFR (Non-Af Amer) 23 L Glucose 137 H Calcium 7.3 L Urine Color Urine Appearance Urine pH Ur Specific [place] Urine Protein Urine Glucose (UA) Urine Ketones Urine Blood Urine Nitrite Ur Leukocyte Esterase Urine WBC (Auto) Urine RBC (Auto) 07/11/18 21:02 Pleural Fluid Fungal Smear - Final 07/11/18 21:02 Pleural Fluid Fungal Smear - Final 07/02/18 07/02/18 07/02/18 18:55 18:55 18:55 Creatine Kinase 23 L CK-MB (CK-2) 0.67 Troponin I 0.022 0.020 NT-Pro-B Natriuret Pep 9510 H 07/03/18 07/03/18 07/05/18 00:55 07:26 05:32 Creatine Kinase CK-MB (CK-2) 0.87 1.03 Troponin I 0.016 0.029 0.056 NT-Pro-B Natriuret Pep 07/05/18 07/05/18 07/06/18 15:35 20:01 04:45 Creatine Kinase CK-MB (CK-2) Troponin I 0.051 0.052 0.037 NT-Pro-B Natriuret Pep Impressions: Abdomen X-Ray 07/04/18 00:00 IMPRESSION: Ileus or partial small bowel obstruction. No significant change. Small Bowel X-Ray 07/04/18 00:00 IMPRESSION: Ileus or partial small bowel obstruction without clear transition point. Repeat KUB is recommended at approximately noon today, which will be a 20 hour film. KUB X-Ray 07/05/18 00:00 IMPRESSION: Nasogastric tube in the stomach. Abdomen Ultrasound 07/07/18 00:00 IMPRESSION: 1. No ultrasound abnormality of the right upper quadrant to explain abnormal LFTs. 2. Status post cholecystectomy. 3. Atrophic and echogenic right kidney, as can be seen in chronic renal disease. Head CT 07/13/18 00:00 IMPRESSION: No acute intracranial pathology. Small vessel white matter disease. EVIDENCE OF ACUTE STROKE: NO. Abdomen/Pelvis CT 07/13/18 20:59 IMPRESSION: Stable postoperative findings from the prior study. Moderate diffuse hypodensity in the spleen is of uncertain etiology but may represent infarct. This is difficult to evaluate on noncontrast imaging. Chest X-Ray 07/14/18 06:00 IMPRESSION: Pulmonary vascular congestion with mild perihilar pulmonary edema. Moderate stable bilateral pleural effusions with bilateral lower lobe airspace disease Chest Ultrasound 07/15/18 00:00 IMPRESSION: SMALL BILATERAL PLEURAL EFFUSIONS. THESE HAVE DECREASED SINCE THE PRIOR STUDY. Assessment & Plan - Diagnosis (1) ischemic small bowel Is this a current diagnosis for this admission?: Yes Plan: Status post extensive small bowel resection. Patient with marked leukocytosis of unclear etiology. She does not appear septic and she denies any abdominal pain. I have reviewed the abdominal CT scan with radiology. She does have some peritoneal fluid that does not have a rind and appears to have decreased in size from previous CT scan several days ago. There is no CT evidence of an anastomotic leak. There is no inflammatory changes nor bowel wall thickening of the small nor large bowel. Patient does have significant bilateral lung consolidation changes. Stool was able to be collected today for C. difficile study. C. difficile result is pending. Continue supportive care, will adjust antibiotics if C. difficile proves to be positive. If negative, most likely etiology of her marked leukocytosis or pneumonia. Will submit culture via central line although line sepsis appears less likely with no high-grade fevers and no hemodynamic changes.
[2018-07-15] MEDS ORDERED: VANCOMYCIN HCL 750 MG in DEXTROSE 5%-WATER 250 ML IV SCH ×2 (14:00→22:00)
[2018-07-15] MEDS: TIOTROPIUM BROMIDE DPI 5 CAP/KIT (18 MCG/CAP) IH SCH (15:09)
[2018-07-15] MEDS ORDERED: VANCOMYCIN HCL INJ 500 MG VIAL PO SCH ×2 (18:00)
[2018-07-15] MEDS ORDERED: IMIPENEM/CILASTATIN SODIUM INJ 500 MG VIAL IV SCH (18:00)
[2018-07-15] MEDS: METRONIDAZOLE 500 MG TABLET PO SCH ×2 (18:50→23:49)
[2018-07-15 20:01] LABS: HEMATOCRIT 32.7 % (36.0-47.0); HEMOGLOBIN 10.3 g/dL (12.0-15.5); MEAN CORPUSCULAR HGB CONC 31.6 g/dL (32.0-36.0); MEAN CORPUSCULAR VOLUME 89 fl (80-97); PLATELET COUNT 347 10^3/uL (150-450); RED BLOOD COUNT 3.68 10^6/uL (3.72-5.28); RED CELL DISTRIBUTION WIDTH 16.3 % (11.5-14.0)
[2018-07-15 20:29] LABS: ABSOLUTE LYMPHOCYTES# (MANUAL) 1.2 10^3/uL (0.5-4.7); ABSOLUTE MONOCYTES # (MANUAL) 0.4 10^3/uL (0.1-1.4); ANISOCYTOSIS 1+; BASOPHILS % (MANUAL) 0 % (0-2); EOSINOPHILS % (MANUAL) 0 % (0-6); LYMPHOCYTES % (MANUAL) 3 % (13-45); MONOCYTES % (MANUAL) 1 % (3-13); NUCLEATED RED BLOOD CELLS 1 /100 WBC (0); PLATELET COMMENT ADEQUATE; PLATELET GIANT PRESENT; PLATELET LARGE PRESENT; POLYCHROMASIA SLIGHT; SEGMENTED NEUTROPHILS % (MAN) 96 % (42-78); TOTAL CELLS COUNTED 100; TOXIC GRANULATION 1+; TOXIC VACUOLATION PRESENT
[2018-07-15 20:31] LABS: OVALOCYTES SLIGHT; POIKILOCYTOSIS SLIGHT
[2018-07-15 20:32] LABS: WHITE BLOOD COUNT 38.5 10^3/uL (4.0-10.5)
--- NOTE | 2018-07-15 20:59 | PDOC PROGRESS REPORT ---
Subjective Progress Note for:: 07/15/18 Subjective:: Patient seen by the bedside the stool is positive for C. difficile toxin, she has very low appetite she is not eating that much. She is still on IV Cardizem infusion this will be discontinued, patient overall condition is very poor, she will be started on p.o. vancomycin, she is already on IV vancomycin, the IV vancomycin have no effect on C. difficile she needs the p.o. vancomycin.She also is confused every now and then Reason For Visit: SMALL BOWEL OBSTRUCTION, ASPIRATION PNEUMONIA, Physical Exam Vital Signs: Temp Pulse Resp BP Pulse Ox 97.5 F 78 18 124/46 L 91 L 07/15/18 20:00 07/15/18 20:00 07/15/18 20:00 07/15/18 20:00 07/15/18 20:20 Pulse Oximeter Continuous Start: 07/11/18 21:58 Freq: Status: Complete Protocol: Document 07/11/18 21:59 [facility] (Rec: 07/11/18 22:01 [facility] [id number]) Pulse Oximetry Assessment Oxygen Saturation (92-100) 98 Oxygen Flow Rate (L/min) 3.5 Oxygen Delivery Method Nasal Cannula Fraction of Inspired Oxygen (FIO2) 34 Equipment Usage Equipment in Use Continuous Pulse Oximeter 24 Hour Charge Charge Now Continuous SpO2 Machine # 1 Pulse Oximeter Continuous Start: 07/11/18 23:12 Freq: RTQ4 Status: Active Protocol: Document 07/15/18 20:20 [facility] (Rec: 07/15/18 20:27 [facility] [id number]) Pulse Oximetry Assessment Oxygen Saturation (92-100) 91 Oxygen Flow Rate (L/min) 5 Oxygen Delivery Method Nasal Cannula Fraction of Inspired Oxygen (FIO2) 40 Equipment Usage Equipment in Use Continuous SpO2 Machine # 1 Intake & Output 07/14/18 07/15/18 07/16/18 06:59 06:59 06:59 Intake Total 1575 888 665 Output Total 1100 825 950 Balance 475 63 -285 Weight 78.2 kg 76.7 kg General appearance: PRESENT: other - Patient looks clinically ill Eye exam: PRESENT: conjunctiva pale Mouth exam: PRESENT: dry mucosa Respiratory exam: PRESENT: rhonchi Cardiovascular exam: PRESENT: irregular rhythm, +S1, +S2 GI/Abdominal exam: PRESENT: soft Neurological exam: PRESENT: alert Results Laboratory Results: 07/15/18 19:44 07/15/18 07:45 07/14/18 07/15/18 07/15/18 21:15 07:45 07:45 WBC 40.1 H* 38.3 H* RBC 3.42 L 3.36 L Hgb 9.6 L 9.4 L Hct 30.2 L 29.7 L MCV 88 89 MCH 28.1 28.1 MCHC 31.8 L 31.7 L RDW 16.1 H 16.4 H Plt Count 308 340 Seg Neutrophils % Not Reportable Not Reportable Lymphocytes % Not Reportable Not Reportable Monocytes % Not Reportable Not Reportable Eosinophils % Not Reportable Not Reportable Basophils % Not Reportable Not Reportable Absolute Neutrophils Not Reportable Not Reportable Absolute Lymphocytes Not Reportable Not Reportable Absolute Monocytes Not Reportable Not Reportable Absolute Eosinophils Not Reportable Not Reportable Absolute Basophils Not Reportable Not Reportable Sodium 138.7 Potassium 3.5 L Chloride 105 Carbon Dioxide 22 Anion Gap 12 BUN 39 H Creatinine 2.07 H Est GFR ( Amer) 28 L Est GFR (Non-Af Amer) 23 L Glucose 137 H Calcium 7.3 L 07/15/18 19:44 WBC 38.5 H* RBC 3.68 L Hgb 10.3 L Hct 32.7 L MCV 89 MCH 28.0 MCHC 31.6 L RDW 16.3 H Plt Count 347 Seg Neutrophils % Not Reportable Lymphocytes % Not Reportable Monocytes % Not Reportable Eosinophils % Not Reportable Basophils % Not Reportable Absolute Neutrophils Not Reportable Absolute Lymphocytes Not Reportable Absolute Monocytes Not Reportable Absolute Eosinophils Not Reportable Absolute Basophils Not Reportable Sodium Potassium Chloride Carbon Dioxide Anion Gap BUN Creatinine Est GFR ( Amer) Est GFR (Non-Af Amer) Glucose Calcium 07/11/18 21:02 Pleural Fluid Fungal Smear - Final 07/11/18 21:02 Pleural Fluid Fungal Smear - Final 07/02/18 07/02/18 07/02/18 18:55 18:55 18:55 Creatine Kinase 23 L CK-MB (CK-2) 0.67 Troponin I 0.022 0.020 NT-Pro-B Natriuret Pep 9510 H 07/03/18 07/03/18 07/05/18 00:55 07:26 05:32 Creatine Kinase CK-MB (CK-2) 0.87 1.03 Troponin I 0.016 0.029 0.056 NT-Pro-B Natriuret Pep 07/05/18 07/05/18 07/06/18 15:35 20:01 04:45 Creatine Kinase CK-MB (CK-2) Troponin I 0.051 0.052 0.037 NT-Pro-B Natriuret Pep Impressions: Abdomen X-Ray 07/04/18 00:00 IMPRESSION: Ileus or partial small bowel obstruction. No significant change. Small Bowel X-Ray 07/04/18 00:00 IMPRESSION: Ileus or partial small bowel obstruction without clear transition point. Repeat KUB is recommended at approximately noon today, which will be a 20 hour film. KUB X-Ray 07/05/18 00:00 IMPRESSION: Nasogastric tube in the stomach. Abdomen Ultrasound 07/07/18 00:00 IMPRESSION: 1. No ultrasound abnormality of the right upper quadrant to expla in abnormal LFTs. 2. Status post cholecystectomy. 3. Atrophic and echogenic right kidney, as can be seen in chronic renal disease. Head CT 07/13/18 00:00 IMPRESSION: No acute intracranial pathology. Small vessel white matter disease. EVIDENCE OF ACUTE STROKE: NO. Abdomen/Pelvis CT 07/13/18 20:59 IMPRESSION: Stable postoperative findings from the prior study. Moderate diffuse hypodensity in the spleen is of uncertain etiology but may represent infarct. This is difficult to evaluate on noncontrast imaging. Chest X-Ray 07/14/18 06:00 IMPRESSION: Pulmonary vascular congestion with mild perihilar pulmonary edema. Moderate stable bilateral pleural effusions with bilateral lower lobe airspace disease Chest Ultrasound 07/15/18 00:00 IMPRESSION: SMALL BILATERAL PLEURAL EFFUSIONS. THESE HAVE DECREASED SINCE THE PRIOR STUDY. Assessment & Plan - Diagnosis (1) Acute kidney injury Is this a current diagnosis for this admission?: Yes (2) Small bowel obstruction Is this a current diagnosis for this admission?: Yes (3) Pneumonia Qualifiers: Pneumonia type: due to unspecified organism Laterality: bilateral Lung location: unspecified part of lung Qualified Code(s): J18.9 - Pneumonia, unspecified organism Is this a current diagnosis for this admission?: Yes (4) Aspiration pneumonia Qualifiers: Is this a current diagnosis for this admission?: Yes (5) Chronic atrial fibrillation Is this a current diagnosis for this admission?: Yes (6) Ischemic bowel disease Is this a current diagnosis for this admission?: Yes (7) UTI due to Klebsiella species Is this a current diagnosis for this admission?: Yes (8) Acute tubular necrosis Is this a current diagnosis for this admission?: Yes (9) Postoperative intra-abdominal abscess Is this a current diagnosis for this admission?: Yes (10) Bilateral pleural effusion Is this a current diagnosis for this admission?: Yes (11) Pleural effusion Is this a current diagnosis for this admission?: Yes (12) Hypoalbuminemia Is this a current diagnosis for this admission?: Yes (13) Leucocytosis Qualifiers: Leukocytosis type: unspecified Qualified Code(s): D72.829 - Elevated white blood cell count, unspecified Is this a current diagnosis for this admission?: Yes (14) Clostridium difficile enterocolitis Is this a current diagnosis for this admission?: Yes Plan: Start p.o. vancomycin, continue p.o. Flagyl, patient was on IV vancomycin empirically started by the certified coatings inspector the IV vancomycin have no effect on C. difficile toxin toxemia she needs p.o. vancomycin (15) Anorexia Is this a current diagnosis for this admission?: Yes Plan: Start marinol for appetite stimulation
[2018-07-15] MEDS: DRONABINOL 2.5 MG CAPSULE PO SCH (21:20)
[2018-07-15] MEDS: VANCOMYCIN HCL INJ 500 MG VIAL PO SCH (23:49)
[2018-07-16] MEDS: METOPROLOL TARTRATE PF/INJ 5 MG/5 ML SDV IV SCH ×3 (03:10→16:21)
[2018-07-16] MEDS: FUROSEMIDE INJ/PF 40 MG/4 ML SDV IV SCH ×2 (06:50→14:04)
[2018-07-16] MEDS: VANCOMYCIN HCL INJ 500 MG VIAL PO SCH (06:53)
[2018-07-16] MEDS: IMIPENEM/CILASTATIN SODIUM 500 MG in NORMAL SALINE 100 ML IV SCH ×3 (06:54→19:53)
[2018-07-16] MEDS: METRONIDAZOLE 500 MG TABLET PO SCH (06:54)
[2018-07-16 07:04] LABS: HEMATOCRIT 32.4 % (36.0-47.0); HEMOGLOBIN 10.2 g/dL (12.0-15.5); MEAN CORPUSCULAR HEMOGLOBIN 27.7 pg (27.0-33.4); MEAN CORPUSCULAR HGB CONC 31.4 g/dL (32.0-36.0); MEAN CORPUSCULAR VOLUME 89 fl (80-97); PLATELET COUNT 357 10^3/uL (150-450); RED BLOOD COUNT 3.66 10^6/uL (3.72-5.28); RED CELL DISTRIBUTION WIDTH 16.5 % (11.5-14.0)
[2018-07-16 07:20] LABS: ALANINE AMINOTRANSFERASE 49 U/L (9-52); ALBUMIN 2.4 g/dL (3.5-5.0); ALKALINE PHOSPHATASE 83 U/L (38-126); ANION GAP 13 (5-19); ASPARTATE AMINO TRANSFERASE 38 U/L (14-36); BILIRUBIN,DIRECT 0.8 mg/dL (0.0-0.4); BILIRUBIN,TOTAL 0.9 mg/dL (0.2-1.3); BLOOD UREA NITROGEN 41 mg/dL (7-20); CALCIUM 7.2 mg/dL (8.4-10.2); CARBON DIOXIDE 20 mmol/L (22-30); CHLORIDE 105 mmol/L (98-107); GLUCOSE 145 mg/dL (75-110); POTASSIUM 3.5 mmol/L (3.6-5.0)
[2018-07-16 07:21] LABS: WHITE BLOOD COUNT 40.4 10^3/uL (4.0-10.5)
[2018-07-16 07:39] LABS: ABSOLUTE LYMPHOCYTES# (MANUAL) 1.6 10^3/uL (0.5-4.7); ABSOLUTE MONOCYTES # (MANUAL) 0.8 10^3/uL (0.1-1.4); ANISOCYTOSIS 1+; BAND NEUTROPHILS % (MANUAL) 1 % (3-5); BASOPHILS % (MANUAL) 0 % (0-2); EOSINOPHILS % (MANUAL) 0 % (0-6); HYPOCHROMASIA SLIGHT; LYMPHOCYTES % (MANUAL) 4 % (13-45); MONOCYTES % (MANUAL) 2 % (3-13); OVALOCYTES 1+; PLATELET COMMENT ADEQUATE; PLATELET LARGE PRESENT; POIKILOCYTOSIS 1+; POLYCHROMASIA SLIGHT; SEGMENTED NEUTROPHILS % (MAN) 93 % (42-78); TOTAL CELLS COUNTED 100; TOXIC GRANULATION 2+; TOXIC VACUOLATION PRESENT
--- NOTE | 2018-07-16 09:36 | RADIOLOGY REPORT (SQ) ---
EXAM DESCRIPTION: CHEST SINGLE VIEW COMPLETED DATE/TIME: 07/16/2018 9:27 am REASON FOR STUDY: pleural effusion COMPARISON: 07/14/2018 EXAM PARAMETERS: NUMBER OF VIEWS: One view. TECHNIQUE: Single frontal radiographic view of the chest acquired. RADIATION DOSE: NA LIMITATIONS: None. FINDINGS: LUNGS AND PLEURA: Lungs demonstrate mildly improved perihilar and right basilar aeration. Persistent moderate bilateral pleural effusions and associated basilar consolidation, likely atelect asis. No pneumothorax. MEDIASTINUM AND HILAR STRUCTURES: Stable. HEART AND VASCULAR STRUCTURES: Enlarged cardiac silhouette, stable. Atherosclerotic aorta. BONES: No acute bony abnormality. Chronic appearing deformity of the left proximal humerus. HARDWARE: Right internal jugular central venous catheter tip at right atrium. OTHER: No other significant finding. IMPRESSION: Mildly improved perihilar and right basilar aeration. Persistent moderate bilateral ple ural effusions associated basilar consolidation, likely atelectasis are TECHNICAL DOCUMENTATION: JOB ID: [id number] [employer]- All Rights Reserved Reading location - IP/workstation name: [facility]
--- NOTE | 2018-07-16 09:54 | PROGRESS NOTE E ---
Progress Note NAME: SID MARTINEZ : 1940 AGE: 78Y DATE: 07/15/2018 ROOM: 309 SUBJECTIVE: Patient is a 78-year-old female who is currently presenting with severe leukocytosis. Had recent abdominal surgery. A CT of the abdomen last week is showing intraabdominal abscess. The abdominal abscess seemed to be improving based on abdominal CT scan done Saturday night. White count is still markedly elevated but better today at 38,300; was 41,200 yesterday. No bandemia noted. Stool exams showed C. difficile by PCR. Patient states she has been feeling well. Denies any fever or chills. Denies any increasing cough. Slightly short of breath. Patient presented with decubitus ulcer today which appears to be a little bit worse than in the last few days. Had 1 episode of vomiting. OBJECTIVE: GENERAL: The patient is awake, alert, oriented x3, coherent, afebrile, not in apparent severe respiratory distress with a temperature of 97.2 with a T-max of 98.4. VITAL SIGNS: Pulse rate of 85, blood pressure is 120/53. Respiratory rate of 16. Saturation is 92% on nasal cannula 5 L. EYES: No jaundice or pallor. EARS, NOSE, AND THROAT: No ear drainage. No nasal discharge. CHEST AND LUNGS: No wheezing. No rhonchi. No coarse crackles. CARDIAC: S1, S2 distinct. Normal rate, regular rhythm. ABDOMEN: Flabby, present bowel sounds. Soft, nondistended, tender. EXTREMITIES: No joint swelling, no cellulitis. Patient had bedsore on sacral area. LABORATORY: CBC done this morning showed white count of 38.3, hemoglobin is 9.4, hematocrit 39.7, platelet count of 340. Bands: No bands noted. Chemistry done today shows sodium is 138, potassium is 3.5, chloride 105, CO2 32, BUN is 39, creatinine 2.07. Glucose 137, potassium 2.3. Chest ultrasound done today showed a decrease in the pleural effusion bilaterally. ASSESSMENT: 1. PLEURAL EFFUSION BILATERALLY. Seems stable compared to last few days. Continue to monitor. If getting worse, we will consider ultrasound-guided thoracentesis. 2. Pneumonia cannot be completely excluded. Currently on IV Primaxin. IV vancomycin started yesterday. Could not completely exclude MRSA pneumonia if present. 3. SEVERE LEUKOCYTOSIS. Seems to be improving. Suggesting severe sepsis. Possibly from the intraabdominal source and possibly from the infected decubitus ulcer sacral area. Pneumonia cannot be completely excluded. Currently on IV Primaxin. 4. CLOSTRIDIUM DIFFICILE COLITIS. Currently changed to Flagyl 500 mg q. 6 hours p.o. for treating the C. diff colitis at this time. We need the IV vancomycin for possible MRSA infected decubitus ulcer. MRSA pneumonia could not be completely excluded. Patient does not need oral vancomycin at this time for treatment of C. diff. 5. Infected decubitus ulcer, sacral area. Possible other source of infection causing the severe leukocytosis. Followed by surgery. PLAN: 1. Recommend continuing the IV Primaxin 500 mg IV every 6 hours. May continue metronidazole 500 mg tablet p.o. every 6 hours. 2. Patient needs IV vancomycin for now for possible MRSA infection of the decubitus ulcer or possible MRSA pneumonia. MRSA pneumonia cannot be completely excluded at this time. 3. Recommend optimization of enteral nutrition. DICTATING PHYSICIAN: CLINT MORGAN MD,JEMAL,MPH [id number] PHY#: [id number] ID: [id number] JOB#: [id number] ACCT: [id number] cc: > MTDD
[2018-07-16] MEDS ORDERED: VANCOMYCIN HCL INJ 1000 MG VIAL IV SCH (10:00)
--- NOTE | 2018-07-16 10:28 | PDOC PROGRESS REPORT ---
Subjective Progress Note for:: 07/16/18 Reason For Visit: SMALL BOWEL OBSTRUCTION, ASPIRATION PNEUMONIA, Physical Exam Vital Signs: Temp Pulse Resp BP Pulse Ox 97.2 F 93 17 126/55 H 100 07/16/18 08:11 07/16/18 08:11 07/16/18 08:11 07/16/18 08:11 07/16/18 08:20 Pulse Oximeter Continuous Start: 07/11/18 21:58 Freq: Status: Complete Protocol: Document 07/11/18 21:59 [facility] (Rec: 07/11/18 22:01 [facility] [email or web address]) Pulse Oximetry Assessment Oxygen Saturation (92-100) 98 Oxygen Flow Rate (L/min) 3.5 Oxygen Delivery Method Nasal Cannula Fraction of Inspired Oxygen (FIO2) 34 Equipment Usage Equipment in Use Continuous Pulse Oximeter 24 Hour Charge Charge Now Continuous SpO2 Machine # 1 Pulse Oximeter Continuous Start: 07/11/18 23:12 Freq: RTQ4 Status: Active Protocol: Document 07/16/18 08:20 [facility] (Rec: 07/16/18 10:13 [facility] [email or web address]) Pulse Oximetry Assessment Oxygen Saturation (92-100) 95 Oxygen Flow Rate (L/min) 5 Oxygen Delivery Method Nasal Cannula Fraction of Inspired Oxygen (FIO2) 40 Equipment Usage Equipment in Use Continuous SpO2 Machine # N 1 Intake & Output 07/15/18 07/16/18 07/17/18 06:59 06:59 06:59 Intake Total 888 1189.25 100 Output Total 825 1825 Balance 63 -635.75 100 Weight 76.7 kg 73.6 kg Results Laboratory Results: 07/16/18 06:48 07/16/18 06:48 07/15/18 07/16/18 07/16/18 19:44 06:48 06:48 WBC 38.5 H* 40.4 H* RBC 3.68 L 3.66 L Hgb 10.3 L 10.2 L Hct 32.7 L 32.4 L MCV 89 89 MCH 28.0 27.7 MCHC 31.6 L 31.4 L RDW 16.3 H 16.5 H Plt Count 347 357 Seg Neutrophils % Not Reportable Not Reportable Lymphocytes % Not Reportable Not Reportable Monocytes % Not Reportable Not Reportable Eosinophils % Not Reportable Not Reportable Basophils % Not Reportable Not Reportable Absolute Neutrophils Not Reportable Not Reportable Absolute Lymphocytes Not Reportable Not Reportable Absolute Monocytes Not Reportable Not Reportable Absolute Eosinophils Not Reportable Not Reportable Absolute Basophils Not Reportable Not Reportable Sodium 138.0 Potassium 3.5 L Chloride 105 Carbon Dioxide 20 L Anion Gap 13 BUN 41 H Creatinine 2.17 H Est GFR ( Amer) 27 L Est GFR (Non-Af Amer) 22 L Glucose 145 H Calcium 7.2 L Total Bilirubin 0.9 AST 38 H ALT 49 Alkaline Phosphatase 83 Total Protein 5.0 L Albumin 2.4 L 07/14/18 14:35 Catheterized Urine Urine Culture - Final NO GROWTH 2 DAYS 07/11/18 21:02 Pleural Fluid Fungal Smear - Final 07/11/18 21:02 Pleural Fluid Fungal Smear - Final 07/02/18 07/02/18 07/02/18 18:55 18:55 18:55 Creatine Kinase 23 L CK-MB (CK-2) 0.67 Troponin I 0.022 0.020 NT-Pro-B Natriuret Pep 9510 H 07/03/18 07/03/18 07/05/18 00:55 07:26 05:32 Creatine Kinase CK-MB (CK-2) 0.87 1.03 Troponin I 0.016 0.029 0.056 NT-Pro-B Natriuret Pep 07/05/18 07/05/18 07/06/18 15:35 20:01 04:45 Creatine Kinase CK-MB (CK-2) Troponin I 0.051 0.052 0.037 NT-Pro-B Natriuret Pep Impressions: Abdomen X-Ray 07/04/18 00:00 IMPRESSION: Ileus or partial small bowel obstruction. No significant change. Small Bowel X-Ray 07/04/18 00:00 IMPRESSION: Ileus or partial small bowel obstruction without clear transition point. Repeat KUB is recommended at approximately noon today, which will be a 20 hour film. KUB X-Ray 07/05/18 00:00 IMPRESSION: Nasogastric tube in the stomach. Abdomen Ultrasound 07/07/18 00:00 IMPRESSION: 1. No ultrasound abnormality of the right upper quadrant to explain abnormal LFTs. 2. Status post cholecystectomy. 3. Atrophic and echogenic right kidney, as can be seen in chronic renal disease. Head CT 07/13/18 00:00 IMPRESSION: No acute intracranial pathology. Small vessel white matter disease. EVIDENCE OF ACUTE STROKE: NO. Abdomen/Pelvis CT 07/13/18 20:59 IMPRESSION: Stable postoperative findings from the prior study. Moderate diffuse hypodensity in the spleen is of uncertain etiology but may represent infarct. This is difficult to evaluate on noncontrast imaging. Chest Ultrasound 07/15/18 00:00 IMPRESSION: SMALL BILATERAL PLEURAL EFFUSIONS. THESE HAVE DECREASED SINCE THE PRIOR STUDY. Chest X-Ray 07/16/18 05:00 IMPRESSION: Mildly improved perihilar and right basilar aeration. Persistent moderate bilateral pleural effusions associated basilar consolidation, likely atelectasis are Assessment & Plan - Diagnosis (1) Nausea & vomiting Qualifiers: Vomiting type: unspecified Vomiting Intractability: unspecified Qualified Code(s): R11.2 - Nausea with vomiting, unspecified Is this a current diagnosis for this admission?: Yes (2) Abdominal pain Qualifiers: Abdominal location: lower abdomen, unspecified Qualified Code(s): R10.30 - Lower abdominal pain, unspecified Is this a current diagnosis for this admission?: Yes (3) Small bowel obstruction Is this a current diagnosis for this admission?: Yes (4) C. difficile colitis Is this a current diagnosis for this admission?: Yes - Plan Summary Plan Summary: This is a 78-year-old female status post bowel resection for necrotic/ischemic bowel. Patient also has C. difficile colitis. The patient has been on oral Flagyl and oral vancomycin, however the nurses report that she is vomiting her medications. I will change her p.o. Flagyl to IV Flagyl. I will add vancomycin enemas, to ensure that the vancomycin reaches her colon. Her incision is clean, dry, and intact. Her abdomen is soft, nondistended, and minimally tender. She appears to be more confused today. Continue with current medical management.
[2018-07-16] MEDS: PANTOPRAZOLE SODIUM 40 MG VIAL IV SCH (11:21)
[2018-07-16] MEDS: DRONABINOL 2.5 MG CAPSULE PO SCH ×2 (11:22→17:26)
[2018-07-16] MEDS: TIOTROPIUM BROMIDE DPI 5 CAP/KIT (18 MCG/CAP) IH SCH (11:22)
[2018-07-16] MEDS: BENZONATATE 100 MG CAPSULE PO SCH ×2 (11:22→17:26)
[2018-07-16 12:49] VITALS: BP 120/43
[2018-07-16] MEDS: METRONIDAZOLE 500 MG/NS RTU 500 MG/100 ML RTUPB IV SCH ×2 (12:50→18:19)
[2018-07-16] MEDS: VANCOMYCIN HCL INJ 500 MG VIAL PR SCH ×2 (12:50→18:04)
[2018-07-16] MEDS ORDERED: LORAZEPAM INJ 2 MG/1 ML VIAL ONE ×2 (14:47→16:14)
[2018-07-16] MEDS ORDERED: PHENYTOIN SODIUM INJ/PF 250 MG/5 ML SDV IV ONE ×2 (16:00→17:45)
[2018-07-16] MEDS ORDERED: LORAZEPAM INJ 2 MG/1 ML VIAL IV ONE (16:45)
--- NOTE | 2018-07-16 17:32 | RADIOLOGY REPORT (SQ) ---
EXAM DESCRIPTION: MRI HEAD WITHOUT COMPLETED DATE/TIME: 07/16/2018 5:12 pm REASON FOR STUDY: new onset seizure COMPARISON: CT dated 07/13/2018. TECHNIQUE: Multiplanar imaging includes non-contrasted T1, T2, FLAIR, and diffusion with ADC map seq uences. Images stored on PACS. LIMITATIONS: None. FINDINGS: ANATOMY: No anomalies. Normal vascular flow voids. Pituitary fossa normal. CSF SPACES: Atrophy induced prominence of ventricles and CSF spaces. CEREBRUM: High signal intensity lesions scattered throughout the white matter on FLAIR imaging with d istribution suggesting micro-vascular ischemic changes. Focal areas of decreased signal with bloomin g in the left basal ganglia. No evidence of acute hemorrhage, mass, or extraaxial fluid collection. POSTERIOR FOSSA: No signal alteration. No hemorrhage. No edema, masses or mass effect. Internal domenic tory canals, cerebello-pontine angles, mastoids normal. DIFFUSION IMAGING: Negative for acute or sub-acute infarction. ORBITS: No masses. Globes normal. PARANASAL SINUSES: No fluid levels. Mucosa normal. OTHER: No other significant finding. IMPRESSION: ATROPHY AND CHRONIC MICRO-VASCULAR ISCHEMIC CHANGES. 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 NO ACUTE F INDINGS. EVIDENCE OF ACUTE STROKE: NO. TECHNICAL DOCUMENTATION: JOB ID: [id number]- All Rights Reserved Reading location - IP/workstation name: [email or web address]
--- NOTE | 2018-07-16 18:06 | PDOC PROGRESS REPORT ---
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 She has Clostridium difficile colitis, she was started on p.o. vancomycin but because of vomiting this was transitioned to vancomycin rect ally but the diarrhea is making the strategy ineffective Reason For Visit: SMALL BOWEL OBSTRUCTION, ASPIRATION PNEUMONIA, Physical Exam Vital Signs: Temp Pulse Resp BP Pulse Ox 97.2 F 79 26 H 120/43 L 93 07/16/18 12:24 07/16/18 14:00 07/16/18 12:24 07/16/18 12:24 07/16/18 13:00 Pulse Oximeter Continuous Start: 07/11/18 21:58 Freq: Status: Complete Protocol: Document 07/11/18 21:59 CMI (Rec: 07/11/18 22:01 CMI [id number]) Pulse Oximetry Assessment Oxygen Saturation (92-100) 98 Oxygen Flow Rate (L/min) 3.5 Oxygen Delivery Method Nasal Cannula Fraction of Inspired Oxygen (FIO2) 34 Equipment Usage Equipment in Use Continuous Pulse Oximeter 24 Hour Charge Charge Now Continuous SpO2 Machine # 1 Pulse Oximeter Continuous Start: 07/11/18 23:12 Freq: RTQ4 Status: Active Protocol: Document 07/16/18 13:00 NSC (Rec: 07/16/18 13:59 NSC [id number]) Pulse Oximetry Assessment Oxygen Saturation (92-100) 93 Oxygen Flow Rate (L/min) 4 Oxygen Delivery Method Nasal Cannula Fraction of Inspired Oxygen (FIO2) 36 Equipment Usage Equipment in Use Continuous SpO2 Machine # N 1 Intake & Output 07/15/18 07/16/18 07/17/18 06:59 06:59 06:59 Intake Total 888 1189.25 400 Output Total 825 1825 850 Balance 63 -635.75 -450 Weight 76.7 kg 73.6 kg General appearance: PRESENT: no acute distress Eye exam: PRESENT: PERRLA Respiratory exam: PRESENT: rhonchi Cardiovascular exam: PRESENT: +S1, +S2 GI/Abdominal exam: PRESENT: soft Neurological exam: PRESENT: altered Results Laboratory Results: 07/16/18 06:48 07/16/18 06:48 07/15/18 07/16/18 07/16/18 19:44 06:48 06:48 WBC 38.5 H* 40.4 H* RBC 3.68 L 3.66 L Hgb 10.3 L 10.2 L Hct 32.7 L 32.4 L MCV 89 89 MCH 28.0 27.7 MCHC 31.6 L 31.4 L RDW 16.3 H 16.5 H Plt Count 347 357 Seg Neutrophils % Not Reportable Not Reportable Lymphocytes % Not Reportable Not Reportable Monocytes % Not Reportable Not Reportable Eosinophils % Not Reportable Not Reportable Basophils % Not Reportable Not Reportable Absolute Neutrophils Not Reportable Not Reportable Absolute Lymphocytes Not Reportable Not Reportable Absolute Monocytes Not Reportable Not Reportable Absolute Eosinophils Not Reportable Not Reportable Absolute Basophils Not Reportable Not Reportable Sodium 138.0 Potassium 3.5 L Chloride 105 Carbon Dioxide 20 L Anion Gap 13 BUN 41 H Creatinine 2.17 H Est GFR ( Amer) 27 L Est GFR (Non-Af Amer) 22 L Glucose 145 H Calcium 7.2 L Total Bilirubin 0.9 AST 38 H ALT 49 Alkaline Phosphatase 83 Total Protein 5.0 L Albumin 2.4 L 07/14/18 14:35 Catheterized Urine Urine Culture - Final NO GROWTH 2 DAYS 07/02/18 07/02/18 07/02/18 18:55 18:55 18:55 Creatine Kinase 23 L CK-MB (CK-2) 0.67 Troponin I 0.022 0.020 NT-Pro-B Natriuret Pep 9510 H 07/03/18 07/03/18 07/05/18 00:55 07:26 05:32 Creatine Kinase CK-MB (CK-2) 0.87 1.03 Troponin I 0.016 0.029 0.056 NT-Pro-B Natriuret Pep 07/05/18 07/05/18 07/06/18 15:35 20:01 04:45 Creatine Kinase CK-MB (CK-2) Troponin I 0.051 0.052 0.037 NT-Pro-B Natriuret Pep Impressions: Abdomen X-Ray 07/04/18 00:00 IMPRESSION: Ileus or partial small bowel obstruction. No significant change. Small Bowel X-Ray 07/04/18 00:00 IMPRESSION: Ileus or partial small bowel obstruction without clear transition point. Repeat KUB is recommended at approximately noon today, which will be a 20 hour film. KUB X-Ray 07/05/18 00:00 IMPRESSION: Nasogastric tube in the stomach. Abdomen Ultrasound 07/07/18 00:00 IMPRESSION: 1. No ultrasound abnormality of the right upper quadrant to explain abnormal LFTs. 2. Status post cholecystectomy. 3. Atrophic and echogenic right kidney, as can be seen in chronic renal disease . Head CT 07/13/18 00:00 IMPRESSION: No acute intracranial pathology. Small vessel white matter disease. EVIDENCE OF ACUTE STROKE: NO. Abdomen/Pelvis CT 07/13/18 20:59 IMPRESSION: Stable postoperative findings from the prior study. Moderate diffuse hypodensity in the spleen is of uncertain etiology but may represent infarct. This is difficult to evaluate on noncontrast imaging. Chest Ultrasound 07/15/18 00:00 IMPRESSION: SMALL BILATERAL PLEURAL EFFUSIONS. THESE HAVE DECREASED SINCE THE PRIOR STUDY. Head MRI 07/16/18 00:00 IMPRESSION: ATROPHY AND CHRONIC MICRO-VASCULAR ISCHEMIC CHANGES. FOCAL AREAS OF DECREASED SIGNAL WITH BLOOMING IN THE LEFT BASAL GANGLIA, POSSIBLY RESIDUAL FROM AN OLD HEMORRHAGIC INFARCT. NO ACUTE FINDINGS. EVIDENCE OF ACUTE STROKE: NO. Chest X-Ray 07/16/18 05:00 IMPRESSION: Mildly improved perihilar and right basilar aeration. Persistent moderate bilateral pleural effusions associated basilar consolidation, likely atelectasis are Assessment & Plan - Diagnosis (1) Acute kidney injury Is this a current diagnosis for this admission?: Yes (2) Small bowel obstruction Is this a current diagnosis for this admission?: Yes (3) Pneumonia Qualifiers: Pneumonia type: due to unspecified organism Laterality: bilateral Lung location: unspecified part of lung Qualified Code(s): J18.9 - Pneumonia, unspecified organism Is this a current diagnosis for this admission?: Yes (4) Aspiration pneumonia Qualifiers: Is this a current diagnosis for this admission?: Yes (5) Chronic atrial fibrillation Is this a current diagnosis for this admission?: Yes (6) Ischemic bowel disease Is this a current diagnosis for this admission?: Yes (7) UTI due to Klebsiella species Is this a current diagnosis for this admission?: Yes (8) Acute tubular necrosis Is this a current diagnosis for this admission?: Yes (9) Postoperative intra-abdominal abscess Is this a current diagnosis for this admission?: Yes (10) Bilateral pleural effusion Is this a current diagnosis for this admission?: Yes (11) Pleural effusion Is this a current diagnosis for this admission?: Yes (12) Hypoalbuminemia Is this a current diagnosis for this admission?: Yes (13) Leucocytosis Qualifiers: Leukocytosis type: unspecified Qualified Code(s): D72.829 - Elevated white blood cell count, unspecified Is this a current diagnosis for this admission?: Yes Plan: Patient's condition is very poor, She has persistent leukocytosis (14) Clostridium difficile enterocolitis Is this a current diagnosis for this admission?: Yes Plan: Patient with severe Clostridium difficile colitis, she is not effectively getting vancomycin orally because of the vomiting, and the diarrhea is making vancomycin rectally a challenge and ineffective. IV vancomycin-no role in the treatment of Clostridium difficile colitis, continue IV Flagyl will also add bezlotoxumab (15) Anorexia Is this a current diagnosis for this admission?: Yes (16) New onset seizure Is this a current diagnosis for this admission?: Yes Plan: Patient had a witnessed seizure today, MRI brain was obtained, negative for any acute pathology, she was treated with Dilantin, loading dose, Keppra 500 mg IV every 12 for maintenance
[2018-07-16] MEDS ORDERED: FLUMAZENIL INJ 0.5 MG/5 ML VIAL IV ONE (18:50)
[2018-07-16] MEDS ORDERED: FLUMAZENIL INJ 0.5 MG/5 ML VIAL ONE (18:53)
[2018-07-16] MEDS ORDERED: MORPHINE SULFATE 10 MG/ML INJ IV PRN (19:51)
[2018-07-16] MEDS ORDERED: LORAZEPAM INJ 2 MG/1 ML VIAL IV PRN (19:52)
[2018-07-16] MEDS ORDERED: LEVETIRACETAM 500 MG/NACL-ISO 500 MG/100 ML RTUPB IV SCH ×2 (22:00)
--- NOTE | 2018-07-17 08:40 | Death Summary ---
Summary Date : 07/17/18 Time of :: 00:30 Autopsy: No Resuscitation Status: Comfort Measures Only - Final Diagnosis (1) Ischemic bowel disease Is this a current diagnosis for this admission?: Yes (2) Acute kidney injury Is this a current diagnosis for this admission?: Yes (3) Small bowel obstruction Is this a current diagnosis for this admission?: Yes (4) Pneumonia Is this a current diagnosis for this admission?: Yes (5) Aspiration pneumonia Is this a current diagnosis for this admission?: Yes (6) Chronic atrial fibrillation Is this a current diagnosis for this admission?: Yes (7) UTI due to Klebsiella species Is this a current diagnosis for this admission?: Yes (8) Acute tubular necrosis Is this a current diagnosis for this admission?: Yes (9) Postoperative intra-abdominal abscess Is this a current diagnosis for this admission?: Yes (10) Bilateral pleural effusion Is this a current diagnosis for this admission?: Yes (11) Pleural effusion Is this a current diagnosis for this admission?: Yes (12) Hypoalbuminemia Is this a current diagnosis for this admission?: Yes (13) Leucocytosis Is this a current diagnosis for this admission?: Yes (14) Clostridium difficile enterocolitis Is this a current diagnosis for this admission?: Yes (15) Anorexia Is this a current diagnosis for this admission?: Yes (16) New onset seizure Is this a current diagnosis for this admission?: Yes (17) Sepsis Is this a current diagnosis for this admission?: Yes Hospital Course:: Patient 78-year-old female, she is well-known to me she has a history of type 2 diabetes mellitus, chronic kidney disease stage III, atrophic right kidney, history of recurrent pleural effusion she came to the emergency room on July 02, 2018 for evaluation of abdominal pain, a CAT scan of the abdomen and pelvis was done, it demonstrated small bowel obstruction there was also suggestion of pneumonia on chest imaging.. This was managed initially with placement of a nasogastric tube to suction, IV antibiotic for pneumonia, consultation was obtained from surgery. Patient subsequently developed worsening abdominal pain, leukocytosis that suggest acute abdomen, she was taken to the operative room on 07/05/2018, 3 days after hospital admission, she underwent exploratory laparotomy with resection of the small bowel, she was found to have ischemic small bowel confirmed on pathology. She was intubated postoperatively, stay in ICU, she was seen by the home management supervisor Dr. Drake .Subsequent hospital course was complicated with bilateral pleural effusion ,pneumonia, seizure disorder, infection with Clostridium difficile colitis,sepsis . She underwent paracentesis, the analysis of the pleural fluid was consistent with a transudative pleural effusion, she has severe hypoalbuminemia. She also had a witnessed seizure MRI brain was done, the MRI did not show any acute pathology.She was treated with anti-seizure medication, Keppra ,Dilantin the Clostridium difficile colitis was treated with p.o. vancomycin, patient's condition continues to deteriorate patient's family yesterday opted for comfort care measures after educating them of what comfort measures means family still prefers the option of comfort care so patient was made comfort care measures yesterday and she this morning
--- NOTE | 2018-07-17 09:20 | EEG PRO FEE REPORT ---
EEG INTERPRETATION [id number] ROOM#: 309 ORDER#: [id number] DATE OF STUDY: 07/15/2018 : 1940 REFERRING MD: SONU ZAMUDIO M.D. MEDICATIONS: Zofran, Metronidazole, Lopressor, Protonix, Spiriva, Vancomycin, Furosemide, Benzonatate History This is a 78 year old right handed woman admitted with small bowel obstruction, aspiration pneumonia and had a seizure 2 days ago according to her son. She has a past medical history of atrial fibrillation, stroke, hypertension, COPD, emphysema, one functioning kidney, UTI, left hip replacement, type II diabetes, hypothyroidism, thoracentesis, smoking, and anemia. This EEG was requested for encephalopathy. EEG Interpretation This EEG was recorded in the awake state only. The awake EEG is characterized by a poorly organized background without a noted posterior dominant rhythm. The remainder of the background consisted of a mix of theta and delta activity. There was reactivity to passive eye opening and closing. Photic stimulation resulted in a moderate driving response to the lower frequencies. There were no epileptiform abnormalities noted. The EKG showed an irregular rhythm. There was significant artifact throughout the recording. EEG Classification 1. Generalized background slowing 2. Poor organization 3. Irregular EKG EEG Impression This EEG in the awake stated only is abnormal. The findings are consistent with diffuse cerebral dysfunction. The EKG shows an irregular rhythm. The patient has a past medical history of atrial fibrillation. There was significant artifact throughout the recording which impaired interpretation. INTERPRETING PHYSICIAN: BLAINE BATISTA M.D. /: MTEFFT TT: [id number] ID: [id number] /: [id number] TD: 1307 JOB: [id number] cc:Froylan MALONE M.D. > MTDD
--- NOTE | 2018-07-17 14:44 | PROGRESS NOTE E ---
Progress Note NAME: SID MARTINEZ : 1940 AGE: 78Y DATE: 07/16/2018 ROOM: 309 SUBJECTIVE: The patient is a 78-year-old female who came in with severe sepsis, possibly due to intra-abdominal infection, pulmonary edema, bilateral atelectasis. Pleural effusion is minimal by chest ultrasound yesterday. The patient had episode of seizure earlier today. After getting an MRI, the patient was brought back to the floor where the generalized tonic clonic seizure lasted for about a few minutes. The patient became unresponsive after the seizure. No nausea, vomiting, no diarrhea. Family decided to put patient on comfort measures. OBJECTIVE: GENERAL: The patient appears unresponsive, comatose, afebrile, not in apparent severe respiratory distress. VITAL SIGNS: Temperature of 97.2 with a T-max of 97.5, and pulse rate of 79, blood pressure is 120/43, respirations 26, saturation 92% on 4 L nasal cannula. EYES: No jaundice or pallor. EARS, NOSE, AND THROAT: No ear drainage. No nasal discharge. CHEST AND LUNGS: No wheezing, no rhonchi, no coarse crackles. CARDIOVASCULAR: S1, S2 distinct. Normal rate. Regular rhythm. ABDOMEN: Flabby. Hypoactive bowel sounds. Soft on both sides. Appears to be nontender. EXTREMITIES: No bipedal edema. No cellulitis. No joint swelling. LABORATORY: CBC done today showed WBC is 40.4 and up from yesterday at 38.5. Hemoglobin is 10, hematocrit is 32.4, and platelet count is 257. Segmented neutrophil is 93%. Chemistry done today at 6:48 p.m. showed sodium is 138, potassium is 3.5, chloride is 105, CO2 is 20, BUN 41, creatinine is 2.1, calcium is 11.2. ASSESSMENT: ACUTE RESPIRATORY FAILURE REQUIRING BIPAP THERAPY SET AT 16/12 WITH FIO2 OF 60% AND PATIENT CURRENTLY IS SATURATING ABOUT 92-93%. PLAN/RECOMMENDATIONS: 1. Primary physician, Dr. Griffiths, plans to discuss about comfort measures with family. 2. Continue medications. 3. Will sign off the patient. DICTATING PHYSICIAN: CLINT MORGAN MD,JEMAL,MPH [id number] PHY#: [id number] ID: [id number] JOB#: [id number] ACCT: [id number] cc: > MTDD
== END 2018-07-17 02:31 | DRG 853 ==
LOC: ER 18:42 → EH 23:05 → 3S 07-03 01:12 → ICU 07-05 14:30 → 3N 07-11 09:55
PROVIDERS: ADMIT Internal Medicine; ATTEND Internal Medicine
PROC: 02HV33Z Insertion of Infusion Device into Superior Vena Cava, Percutaneous Approach (ICD-10-PCS; 2018-07-05)
PROC: B548ZZA Ultrasonography of Superior Vena Cava, Guidance (ICD-10-PCS; 2018-07-05)
PROC: 5A1945Z Respiratory Ventilation, 24-96 Consecutive Hours (ICD-10-PCS; 2018-07-05)
PROC: 0DB80ZZ Excision of Small Intestine, Open Approach (ICD-10-PCS; principal; 2018-07-05 11:30)
PROC: 30233N1 Transfusion of Nonautologous Red Blood Cells into Peripheral Vein, Percutaneous Approach (ICD-10-PCS; 2018-07-08)
PROC: 0W9B3ZX Drainage of Left Pleural Cavity, Percutaneous Approach, Diagnostic (ICD-10-PCS; 2018-07-11)
DX: A41.9 Sepsis, unspecified organism (principal); J69.0 Pneumonitis due to inhalation of food and vomit; Z66 Do not resuscitate; J95.822 Acute and chronic postprocedural respiratory failure; N17.0 Acute kidney failure with tubular necrosis; K65.1 Peritoneal abscess; K56.51 Intestinal adhesions [bands], with partial obstruction; K55.8 Other vascular disorders of intestine; I13.0 Hypertensive heart and chronic kidney disease with heart failure and stage 1 through stage 4 chronic kidney disease, or unspecified chronic kidney disease; N18.4 Chronic kidney disease, stage 4 (severe); N39.0 Urinary tract infection, site not specified; T81.43XA Infection following a procedure, organ and space surgical site, initial encounter; K91.89 Other postprocedural complications and disorders of digestive system; K56.7 Ileus, unspecified; A04.72 Enterocolitis due to Clostridium difficile, not specified as recurrent; J90 Pleural effusion, not elsewhere classified; R65.20 Severe sepsis without septic shock; B96.1 Klebsiella pneumoniae [K. pneumoniae] as the cause of diseases classified elsewhere; R94.5 Abnormal results of liver function studies; K57.90 Diverticulosis of intestine, part unspecified, without perforation or abscess without bleeding; E88.09 Other disorders of plasma-protein metabolism, not elsewhere classified; R63.0 Anorexia; L89.159 Pressure ulcer of sacral region, unspecified stage; R56.9 Unspecified convulsions; E11.22 Type 2 diabetes mellitus with diabetic chronic kidney disease; I50.9 Heart failure, unspecified; D64.9 Anemia, unspecified; I48.2 Chronic atrial fibrillation; I25.10 Atherosclerotic heart disease of native coronary artery without angina pectoris; E78.5 Hyperlipidemia, unspecified; J44.9 Chronic obstructive pulmonary disease, unspecified; Y83.2 Surgical operation with anastomosis, bypass or graft as the cause of abnormal reaction of the patient, or of later complication, without mention of misadventure at the time of the procedure; Y92.234 Operating room of hospital as the place of occurrence of the external cause; Z79.01 Long term (current) use of anticoagulants; Z99.81 Dependence on supplemental oxygen; Z79.84 Long term (current) use of oral hypoglycemic drugs; Z79.51 Long term (current) use of inhaled steroids; Z79.899 Other long term (current) drug therapy; Z87.891 Personal history of nicotine dependence; Z68.26 Body mass index [BMI] 26.0-26.9, adult
CPT/HCPCS: 00790; 36415; 36430; 36600; 70450; 70551; 71045; 74018; 74019; 74176; 74250; 76604; 76705; 80048; 80053; 80061; 80076; 80307; 81001; 82040; 82140; 82150; 82310; 82330; 82550; 82553; 82803; 82945; 82962; 83036; 83605; 83615; 83690; 83735; 83880; 84100; 84155; 84157; 84439; 84443; 84484; 85025; 85027; 85362; 85379; 85384; 85610; 85730; 86850; 86900; 86901; 86920; 87015; 87040; 87070; 87086; 87088; 87101; 87116; 87186; 87205; 87206; 87252; 87324; 87493; 88112; 88307; 89050; 93005; 93010; 93306; 94002; 94003; 94660; 94762; 94799; 95819; 96361; 96365; 96367; 96375; 99285; A9270-GY; C1751; J0131; J0330; J0456; J0610; J0696; J0743; J0744; J1100; J1165; J1170; J1335; J1644; J1940; J1953; J2060; J2250; J2270; J2405; J2704; J3010; J3370; J3430; J3475; J3480; J3490; J7030; J7040; J7060; J7120; P9016; P9047; S0164